=== PATIENT | male | born 1945 | race Caucasian/White ===

== ENCOUNTER 2018-04-11 05:15 | Inpatient (IN) | payer MEDICARE ==
[~2018-04-11] VITALS: Ht 182.9 cm; Wt 90.8 kg
[2018-04-11] VITALS (7 sets, daily range): BP systolic 97–130; BP diastolic 48–70
[2018-04-11] MEDS ORDERED: NKM (05:21)
--- NOTE | 2018-04-11 05:30 | Emergency Room Report ---
History of Present Illness General Chief Complaint: Dizziness Source: Patient Present Illness HPI Is a 72-year-old male with unknown past medical history. He presents with chief complaint of dizziness and confusion. He was sitting at a restaurant at the [employer]. Staff called 911 because he has been there for a while and was shaking. He had water and orange juice there. Patient has injury to the right forehead and had a black eye. He said he fell at home yesterday. No other complaint. He denies any suicidal thoughts homicidal thought. Denies any alcohol use. Denies any drug use. Denies any medical issue. Allergies: Coded Allergies: No Known Allergies (Unverified , 04/11/18) Patient History Past Medical History: see triage record, old chart reviewed Past Surgical History: other Pertinent Family History: none Social History: Denies: smoking Immunizations: other Reviewed Nursing Documentation: PMH: Agreed; PSxH: Agreed Nursing Documentation-PMH Past Medical History: No History, Except For Review of Systems Eye: Denies: eye pain, blurred vision ENT: Denies: ear pain, nose congestion, throat swelling Respiratory: Denies: cough, shortness of breath Cardiovascular: Denies: chest pain, palpitations Gastrointestinal: Denies: abdominal pain, diarrhea, nausea, vomiting Musculoskeletal: Denies: back pain, joint pain Skin: Denies: rash Neurological: Denies: headache, numbness Endocrine: Denies: increased thirst, increased urine Hematologic/Lymphatic: Denies: easy bruising All Other Systems: negative except mentioned in HPI Physical Exam Vital Signs Date Time Temp Pulse Resp B/P (MAP) Pulse Ox O2 Delivery O2 Flow Rate FiO2 04/11/18 05:17 98.7 130 20 112/66 95 Room Air 98.8 vitals with tachycardia Sp02 EP Interpretation: reviewed, normal General Appearance: well appearing, no apparent distress, alert Head: normocephalic, other - right frontal forehead ecchymosis and periorbital ecchymosis Eyes: bilateral eye PERRL, bilateral eye EOMI ENT: hearing grossly normal, normal pharynx Neck: full range of motion, supple, no meningismus Respiratory: chest non-tender, lungs clear, normal breath sounds Cardiovascular #1: regular rate, rhythm, no murmur, tachycardia Gastrointestinal: normal bowel sounds, non tender, no mass, no organomegaly, no bruit, non-distended Musculoskeletal: back normal, gait/station normal, normal range of motion Neurologic: alert, other - tremulous Psychiatric: mood/affect normal Skin: warm/dry Medical Decision Making Diagnostic Impression: Primary Impression: Dizziness of unknown cause ER Course Patient with an altered mental status and dizziness. He is tremulous. He does have head injury. Question alcohol abuse with withdrawal symptoms. Labs and CT scan will be ordered. Ativan given. I will sign this pt out to Dr. Braga for final disposition. EKG Diagnostic Results Rate: tachycardiac Rhythm: NSR ST Segments: other - NSST changes Rhythm Strip Diag. Results Rhythm Strip Time: 06:17 EP Interpretation: yes Rate: 120 Rhythm: NSR, no PVC's, no ectopy Last Vital Signs Date Time Temp Pulse Resp B/P (MAP) Pulse Ox O2 Delivery O2 Flow Rate FiO2 04/11/18 05:17 98.7 130 20 112/66 95 Room Air 98.8 Status: improved YODIT LORENZANA M.D. Apr 11, 2018 05:30
[2018-04-11] MEDS ORDERED: LORazepam Inj 2mg/ml 1ml IV ONE (05:45)
[2018-04-11 06:39] LABS: HEMATOCRIT 43.5 % (42.0-52.0); HEMOGLOBIN 14.7 G/DL (14.2-18.0); MEAN CORPUSCULAR VOLUME 86 FL (80-99); PLATELET COUNT 140 K/UL (150-450); RED BLOOD COUNT 5.08 M/UL (4.70-6.10); RED CELL DISTRIBUTION WIDTH 11.7 % (11.6-14.8); WHITE BLOOD COUNT 12.2 K/UL (4.8-10.8)
[2018-04-11 06:39] LABS: APPEARANCE,URINE CLEAR; BILIRUBIN, URINE NEGATIVE (NEGATIVE); GLUCOSE, URINE (UA) 3+ (NEGATIVE); KETONES,URINE 1+ (NEGATIVE); LEUKOCYTE ESTERASE ,URINE 3+ (NEGATIVE); NITRITE,URINE POSITIVE (NEGATIVE); PH,URINE 5 (4.5-8.0); PROTEIN,URINE 3+ (NEGATIVE); UROBILINOGEN,URINE 1 MG/DL (0.0-1.0)
[2018-04-11 06:53] LABS: ANION GAP 9 mmol/L (5-15); BLOOD UREA NITROGEN 38 mg/dL (7-18); CALCIUM 9.5 MG/DL (8.5-10.1); CARBON DIOXIDE 24 MMOL/L (21-32); CHLORIDE 95 MMOL/L (98-107); CREATININE 1.5 MG/DL (0.55-1.30); POTASSIUM 5.5 MMOL/L (3.5-5.1); SODIUM 128 MMOL/L (136-145)
[2018-04-11 06:56] LABS: COLOR,URINE YELLOW
[2018-04-11] MEDS ORDERED: cefTRIAXone 1 GM in NS 55 ML IVPB ONE (07:00)
[2018-04-11] MEDS: Sodium Polystyrene Sulfonate 15gm Powder ORAL ONE ×2 (07:09→13:43)
--- NOTE | 2018-04-11 07:42 | Emergency Room Report ---
Physical Exam Vital Signs Date Time Temp Pulse Resp B/P (MAP) Pulse Ox O2 Delivery O2 Flow Rate FiO2 04/11/18 05:17 98.7 130 20 112/66 95 Room Air 98.8 Medical Decision Making Diagnostic Impression: Primary Impression: Altered mental state Qualified Codes: R41.82 - Altered mental status, unspecified Additional Impressions: Dehydration Hyponatremia Hyperkalemia UTI (urinary tract infection) Qualified Codes: N39.0 - Urinary tract infection, site not specified Fever Qualified Codes: R50.9 - Fever, unspecified Elevated troponin ER Course Hospital Course 72-year-old male found at a restaurant, shaking, confused, black eye Clinical course patient initially seen and evaluated by Dr. Verma; please see his note for full history and physical Labs - BUN/Cr elevated, noted leukocytosis, Na 128, K 5.5, troponins 0.067, BNP > 3000, UA + bacteria EKG - sinus tachycardia, no acute ischemic changes interpreted by me CXR - cardiomegaly CT head - no acute process Abx given. IV hydration continued. Given Kayexalate. Rectal temperature 103. Given rectal Tylenol no reported chest pain or SOB. Patient appears confused. May require manager social responsibility to locate family Case discussed with Dr Jarquin and they agreed to admit patient to their service for further care and support I feel this is a highly complex case requiring extensive working including EKG/ Rhythm strip, Xray/CT/US, Blood/urine lab work, repeat exams while in ED, and administration of strong opiates/narcotics for pain control, admission to hospital or close patient follow up. Diagnosis - AMS, dehydation, hyponatremia, hyperkalemia, UTI, fever, elevated troponin Patient admitted to telemetry in serious condition Labs Test 04/11/18 06:10 04/11/18 06:29 04/11/18 07:25 White Blood Count 12.2 K/UL (4.8-10.8) Red Blood Count 5.08 M/UL (4.70-6.10) Hemoglobin 14.7 G/DL (14.2-18.0) Hematocrit 43.5 % (42.0-52.0) Mean Corpuscular Volume 86 FL (80-99) Mean Corpuscular Hemoglobin 29.0 PG (27.0-31.0) Mean Corpuscular Hemoglobin Concent 33.9 G/DL (32.0-36.0) Red Cell Distribution Width 11.7 % (11.6-14.8) Platelet Count 140 K/UL (150-450) Mean Platelet Volume 6.6 FL (6.5-10.1) Neutrophils (%) (Auto) % (45.0-75.0) Lymphocytes (%) (Auto) % (20.0-45.0) Monocytes (%) (Auto) % (1.0-10.0) Eosinophils (%) (Auto) % (0.0-3.0) Basophils (%) (Auto) % (0.0-2.0) Sodium Level 128 MMOL/L (136-145) Potassium Level 5.5 MMOL/L (3.5-5.1) Chloride Level 95 MMOL/L (98-107) Carbon Dioxide Level 24 MMOL/L (21-32) Anion Gap 9 mmol/L (5-15) Blood Urea Nitrogen 38 mg/dL (7-18) Creatinine 1.5 MG/DL (0.55-1.30) Estimat Glomerular Filtration Rate mL/min (>60) Glucose Level 337 MG/DL (74-106) Calcium Level 9.5 MG/DL (8.5-10.1) Troponin I 0.067 ng/mL (0.000-0.056) Pro-B-Type Natriuretic Peptide 3543 pg/mL (0-125) Serum Alcohol < 3 mg/dL Urine Color Yellow Urine Appearance Clear Urine pH 5 (4.5-8.0) Urine Specific [place] 1.015 (1.005-1.035) Urine Protein 3+ (NEGATIVE) Urine Glucose (UA) 3+ (NEGATIVE) Urine Ketones 1+ (NEGATIVE) Urine Blood 5+ (NEGATIVE) Urine Nitrite Positive (NEGATIVE) Urine Bilirubin Negative (NEGATIVE) Urine Urobilinogen 1 MG/DL (0.0-1.0) Urine Leukocyte Esterase 3+ (NEGATIVE) Urine RBC 60-80 /HPF (0 - 0) Urine WBC 20-30 /HPF (0 - 0) Urine Squamous Epithelial Cells Occasional /LPF Urine Bacteria Moderate /HPF (NONE) EKG Diagnostic Results Rate: tachycardiac Rhythm: NSR ST Segments: no acute changes ASA given to the pt in ED: No Rhythm Strip Diag. Results EP Interpretation: yes Rhythm: NSR, no PVC's, no ectopy Chest X-Ray Diagnostic Results Chest X-Ray Diagnostic Results : Chest X-Ray Ordered: Yes # of Views/Limited/Complete: 1 View Indication: Other - AMS EP Interpretation: Yes Interpretation: no consolidation, no effusion, no pneumothorax, other - cardiomegaly. pulmonary congestion Impression: Other - chf Electronically Signed by: Electronically signed by Alonso Braga MD Last Vital Signs Date Time Temp Pulse Resp B/P (MAP) Pulse Ox O2 Delivery O2 Flow Rate FiO2 04/11/18 05:58 98.7 130 20 112/66 95 Room Air 98.7 Status: improved Disposition: ADMITTED INPATIENT Condition: Serious Referrals: NON PHYSICIAN (PCP) Alonso Braga MD Apr 11, 2018 07:42
[2018-04-11] MEDS ORDERED: Acetaminophen 650 MG SUPP RECTAL ONE (07:45)
[2018-04-11] MEDS ORDERED: Sodium Polystyrene Sulfonate 15gm Powder RECTAL ONE (07:45)
--- NOTE | 2018-04-11 10:51 | Consultation ---
Consult Note Consult Note asked to eval at the request of Dr Wells Is a 72-year-old male with unknown past medical history. He presents with chief complaint of dizziness and confusion. He was sitting at a restaurant at the [email or web address]. Staff called 911 because he has been there for a while and was shaking. He had water and orange juice there. Patient has injury to the right forehead and had a black eye. He said he fell at home yesterday. No other complaint. He denies any suicidal thoughts homicidal thought. Denies any alcohol use. Denies any drug use. Denies any medical issue. Allergies: Coded Allergies: No Known Allergies (Unverified , 04/11/18) seen in [facility] Examined data reviewed discussed with pharmacy technician trainee/Plan Renal Failure- encephalopathy UTI Dehydration Low na and high K Elevated troponin Dm , high Glucose Hydrate- Rocephin Monitor lytes start ASA Nitrate Beta blockerd St eval Per orders Greyson Ignacio MD Apr 11, 2018 10:51
[2018-04-11] MEDS ORDERED: Metoprolol Tartrate 12.5mg TAB ORAL SCH ×2 (11:00→21:00)
[2018-04-11] MEDS ORDERED: cefTRIAXone 1 GM in D5W 55 ML IVPB SCH (12:00)
--- NOTE | 2018-04-11 12:15 | Diagnostic Imaging Report ---
Indication: Head trauma, confusion after fall Technique: spiral acquisitions obtained through the brain. Angled axial and coronal 5 x 5 mm slices were reconstructed. No IV contrast utilized. Radiation dose was minimized using automated exposure control Total dose length product 1435.91 mGycm. CTDIvol(s) 70.38 mGy Comparison: FINDINGS: No acute hemorrhage or edema. No mass effect or midline shift. There is age-related enlargement of the ventricles and extra axial CSF spaces. There is periventricular deep white matter ischemic change. Multiple old lacunar infarcts are seen in the basal ganglia and deep white matter. Normal corrigan-white differentiation otherwise. Visualized orbits are unremarkable. There is mild maxillary disease on the right. Intact calvarium. IMPRESSION: Chronic and age-related changes. Negative for acute intracranial bleed or mass effect Old lacunar infarcts, as described Sinus disease This agrees with the preliminary interpretation provided overnight by [facility]erad[facility] service. The CT scanner at [facility] is accredited by the [employer] and the scans are performed using protocols designed to limit radiation exposure to as low as reasonably achievable to attain images of sufficient resolution adequate for diagnostic evaluation
--- NOTE | 2018-04-11 12:16 | Diagnostic Imaging Report ---
Indication: Chest pain Technique: One view of the chest Comparison: none Findings: There is central bronchial wall thickening. No acute infiltrates, effusions, or congestion. Normal heart size Impression: No acute process
[2018-04-11] MEDS: Nitroglycerin Patch 0.4mg TDERMAL SCH (13:28)
[2018-04-11] MEDS: Acetaminophen 500mg (ES) tab ORAL PRN ×2 (13:29→20:30)
[2018-04-11] MEDS: Aspirin Baby 81mg ORAL SCH (13:30)
--- NOTE | 2018-04-11 13:48 | Cardiology Report ---
APPROVED REPORT EXAM: Two-dimensional and M-mode echocardiogram with Doppler and color Doppler. INDICATION Congestive Heart Failure M-Mode DIMENSIONS IVSd1.5 (0.7-1.1cm)Left Atrium (MM)3.9 (1.6-4.0cm) LVDd4.6 (3.5-5.6cm)Aortic Root3.9 (2.0-3.7cm) PWd1.7 (0.7-1.1cm)Aortic Cusp Exc.1.9 (1.5-2.0cm) IVSs1.8 cm LVDs2.8 (2.5-4.0cm) PWs2.2 cm Normal left ventricular chamber size, hyper dynamic systolic function and wall motion to extent visualized. Left ventricular ejection fraction estimated to be 70-75 %. Mild left ventricular hypertrophy by 2-D. No evidence of pericardial effusion. All other cardiac chamber sizes are within normal limits. Focal aortic valve sclerosis with adequate cusp excursion. Thickened mitral valve leaflets with normal excursion. Mitral annulus and aortic root calcification. Pulmonic valve not well visualized. Normal tricuspid valve structure. IVC at 2.0 cm without physiologic collapse suggestive of increased RA pressure. A color flow and spectral Doppler study was performed and revealed: No aortic regurgitation. Trace mitral regurgitation. Mitral diastolic velocities suggest reduced left ventricular relaxation c/w mild LV diastolic dysfunction (Grade I ). Mild tricuspid regurgitation. Tricuspid systolic velocities suggests peak right ventricular systolic pressure of 24 mmHg No Pulmonic regurgitation present.
--- NOTE | 2018-04-11 14:56 | Consultation ---
History of Present Illness General Date patient seen: Apr 11, 2018 Chief Complaint: Dizziness Present Illness HPI 72-year-old male who presented to the hospital with dizziness and confusion. the pt has waxing and waning of consciousness Allergies: Coded Allergies: No Known Allergies (Unverified , 04/11/18) Medication History Scheduled No Known Medications* (NKM - No Known Medications*), 0 ., (Reported) Patient History History Provided By: Patient, Medical Record Healthcare decision maker Resuscitation status Advanced Directive on File Past Medical/Surgical History Past Medical/Surgical History: (1) Dehydration (2) Hyperkalemia (3) Fever (4) Hyponatremia (5) UTI (urinary tract infection) (6) Elevated troponin (7) Altered mental state (8) Dizziness of unknown cause Review of Systems Psychiatric: Reports: prior hx, anxiety, hallucinations Physical Exam General Appearance: no apparent distress, lethargic, confused Last 24 Hour Vital Signs Date Time Temp Pulse Resp B/P (MAP) Pulse Ox O2 Delivery O2 Flow Rate FiO2 04/11/18 13:45 99.0 04/11/18 13:29 100.0 04/11/18 13:29 120 123/70 04/11/18 13:28 123/70 04/11/18 12:04 100.0 120 20 123/70 (87) 95 100.0 04/11/18 11:44 117 04/11/18 09:35 99.7 04/11/18 09:35 99.7 111 20 128/70 (89) 96 99.7 04/11/18 09:23 111 04/11/18 09:01 103.0 115 20 105/58 96 Room Air 103.0 04/11/18 08:58 115 20 105/58 96 Room Air 04/11/18 07:54 103.0 122 20 130/48 96 Room Air 103.0 04/11/18 07:45 103.0 04/11/18 05:58 98.7 130 20 112/66 95 Room Air 98.7 04/11/18 05:17 98.7 130 20 112/66 95 Room Air 98.8 Laboratory Tests Test 04/11/18 06:10 04/11/18 06:29 04/11/18 07:25 04/11/18 08:55 White Blood Count 12.2 K/UL (4.8-10.8) H Red Blood Count 5.08 M/UL (4.70-6.10) Hemoglobin 14.7 G/DL (14.2-18.0) Hematocrit 43.5 % (42.0-52.0) Mean Corpuscular Volume 86 FL (80-99) Mean Corpuscular Hemoglobin 29.0 PG (27.0-31.0) Mean Corpuscular Hemoglobin Concent 33.9 G/DL (32.0-36.0) Red Cell Distribution Width 11.7 % (11.6-14.8) Platelet Count 140 K/UL (150-450) L Mean Platelet Volume 6.6 FL (6.5-10.1) Neutrophils (%) (Auto) % (45.0-75.0) Lymphocytes (%) (Auto) % (20.0-45.0) Monocytes (%) (Auto) % (1.0-10.0) Eosinophils (%) (Auto) % (0.0-3.0) Basophils (%) (Auto) % (0.0-2.0) Differential Total Cells Counted 100 Neutrophils % (Manual) 87 % (45-75) H Lymphocytes % (Manual) 4 % (20-45) L Monocytes % (Manual) 9 % (1-10) Eosinophils % (Manual) 0 % (0-3) Basophils % (Manual) 0 % (0-2) Band Neutrophils 0 % (0-8) Platelet Estimate Decreased L Platelet Morphology Normal Anisocytosis 1+ Sodium Level 128 MMOL/L (136-145) L Potassium Level 5.5 MMOL/L (3.5-5.1) H Chloride Level 95 MMOL/L (98-107) L Carbon Dioxide Level 24 MMOL/L (21-32) Anion Gap 9 mmol/L (5-15) Blood Urea Nitrogen 38 mg/dL (7-18) H Creatinine 1.5 MG/DL (0.55-1.30) H Estimat Glomerular Filtration Rate mL/min (>60) Glucose Level 337 MG/DL (74-106) H Calcium Level 9.5 MG/DL (8.5-10.1) Troponin I 0.067 ng/mL (0.000-0.056) C-Reactive Protein, Quantitative 23.1 mg/dL (0.00-0.90) H Pro-B-Type Natriuretic Peptide 3543 pg/mL (0-125) H Serum Alcohol < 3 mg/dL Urine Color Yellow Urine Appearance Clear Urine pH 5 (4.5-8.0) Urine Specific [place] 1.015 (1.005-1.035) Urine Protein 3+ (NEGATIVE) H Urine Glucose (UA) 3+ (NEGATIVE) H Urine Ketones 1+ (NEGATIVE) H Urine Blood 5+ (NEGATIVE) H Urine Nitrite Positive (NEGATIVE) H Urine Bilirubin Negative (NEGATIVE) Urine Urobilinogen 1 MG/DL (0.0-1.0) H Urine Leukocyte Esterase 3+ (NEGATIVE) H Urine RBC 60-80 /HPF (0 - 0) H Urine WBC 20-30 /HPF (0 - 0) H Urine Squamous Epithelial Cells Occasional /LPF Urine Bacteria Moderate /HPF (NONE) H Lactic Acid Level 2.20 mmol/L (0.4-2.0) H 1.50 mmol/L (0.66-2.22) Height (Feet): 6 Weight (Pounds): 200 Medications Current Medications Medications (Trade) Dose Ordered Sig/Safia Route PRN Reason Start Time Stop Time Status Last Admin Dose Admin Acetaminophen (Tylenol) 500 mg Q4H PRN ORAL Mild Pain/Temp > 100.5 04/11/18 10:45 05/11/18 10:44 04/11/18 13:29 Aspirin (ASA) 162 mg DAILY ORAL 04/11/18 11:00 05/11/18 10:59 04/11/18 13:30 Ceftriaxone Sodium 1 gm/ Dextrose 55 ml @ 110 mls/hr DAILY IVPB 04/12/18 09:00 04/19/18 08:59 Metoprolol Tartrate (Lopressor) 12.5 mg Q12HR ORAL 04/11/18 21:00 05/11/18 20:59 Nitroglycerin (Ntg) 1 patch Q24H TDERMAL 04/11/18 11:00 05/11/18 10:59 04/11/18 13:28 Pantoprazole (Protonix) 40 mg EVERY 12 HOURS IVP 04/11/18 21:00 05/11/18 20:59 Sodium Chloride 1,000 ml @ 75 mls/hr [id number] IV 04/11/18 11:00 05/11/18 10:59 04/11/18 13:32 Tamsulosin HCl (Flomax) 0.4 mg BEDTIME ORAL 04/11/18 21:00 05/11/18 20:59 Assessment/Plan Assessment/Plan encephalopathy due to [facility] seroquel Vimal James MD Apr 11, 2018 14:56
[2018-04-11] MEDS ORDERED: Vitamin A&D Oint 2oz Tube TOPIC SCH (20:00)
--- NOTE | 2018-04-11 20:00 | Consultation ---
DATE OF CONSULTATION: 04/11/2018 INFECTIOUS DISEASE CONSULTATION CONSULTING PHYSICIAN: Conor Egan M.D. PRIMARY ATTENDING PHYSICIAN: Ubaldo Jarquin M.D.` REASON FOR CONSULTATION: Sepsis, UTI. HISTORY OF PRESENT ILLNESS: This is a 72-year-old white male admitted today. He was brought by paramedics. He was found to be dizzy, confused, shaking in [employer] dining area. He also had bruising of forehead and neck on the right side that he states that it happened after he fell at home yesterday. Overall, the patient is a poor historian. PAST MEDICAL HISTORY: Significant for diabetes mellitus type 2. The patient was on insulin for long time. PAST SURGICAL HISTORY: He denies any surgery in the past. SOCIAL HISTORY: Single. Denies alcohol, drug abuse, smoking. ALLERGIES: No known drug allergy. MEDICATIONS: Metoprolol, Flomax, Protonix, ceftriaxone, sodium chloride. REVIEW OF SYSTEMS: He has fever, nausea, difficulty in passing urine. Denies any coughing, chest pain. PHYSICAL EXAMINATION: VITAL SIGNS: T-max is 103, current temperature 100, pulse 120, blood pressure 123/70. GENERAL APPEARANCE: No acute distress. Seems slightly confused. HEAD AND NECK: Bruise in the right forehead and right upper eyelid. He has dry mouth. HEART: Tachycardic. LUNGS: Clear with adequate expansion. ABDOMEN: Soft, nontender. EXTREMITIES: He has no edema. LABORATORY AND DIAGNOSTIC DATA: WBC 12.2, hemoglobin 13.7, hematocrit 43.5, platelets 140,000. Sodium 128, potassium 5.5, BUN 13, creatinine 1.5, glucose 337. CT scan of the head showed old lacunar infarcts. Chest x-ray was negative. IMPRESSION: Sepsis with fever, leukocytosis, tachycardia. The patient has hematuria, pyuria, and has positive nitrites and bacteria in urine. Source of infection seems to be UTI. He has altered mental status, has electrolyte imbalance with hyponatremia and hyperkalemia, has diabetes mellitus out of control, has elevated troponin, has lactic acidosis that resolved. RECOMMENDATION: We will continue with ceftriaxone. We will follow up cultures including urine and blood culture. At the end of my exam, I thank Dr. Jarquin for involving me in the care of this patient. Conor Egan M.D. DR: Muna JOB#: [id number] CC: SAHIL
[2018-04-11] MEDS: Pantoprazole Inj IVP SCH (20:29)
[2018-04-11] MEDS: Tamsulosin 0.4mg cap ORAL SCH (20:30)
--- NOTE | 2018-04-11 21:36 | Cardiology Progress Note ---
Subjective Subjective The patient is seen and examined, full consult note will be dictated shortly. Objective Last 24 Hour Vital Signs Date Time Temp Pulse Resp B/P (MAP) Pulse Ox O2 Delivery O2 Flow Rate FiO2 04/11/18 20:30 101.8 04/11/18 20:00 101.8 114 20 97/59 (72) 94 101.8 04/11/18 16:00 98.2 110 20 99/56 (70) 95 98.2 04/11/18 15:54 108 04/11/18 13:45 99.0 04/11/18 13:29 100.0 04/11/18 13:29 120 123/70 04/11/18 13:28 123/70 04/11/18 12:04 100.0 120 20 123/70 (87) 95 100.0 04/11/18 11:44 117 04/11/18 09:45 Room Air 04/11/18 09:35 99.7 04/11/18 09:35 99.7 111 20 128/70 (89) 96 99.7 04/11/18 09:23 111 04/11/18 09:01 103.0 115 20 105/58 96 Room Air 103.0 04/11/18 08:58 115 20 105/58 96 Room Air 04/11/18 07:54 103.0 122 20 130/48 96 Room Air 103.0 04/11/18 07:45 103.0 04/11/18 05:58 98.7 130 20 112/66 95 Room Air 98.7 04/11/18 05:17 98.7 130 20 112/66 95 Room Air 98.8 Laboratory Tests Test 04/11/18 06:10 04/11/18 06:29 04/11/18 07:25 04/11/18 08:55 White Blood Count 12.2 K/UL (4.8-10.8) H Red Blood Count 5.08 M/UL (4.70-6.10) Hemoglobin 14.7 G/DL (14.2-18.0) Hematocrit 43.5 % (42.0-52.0) Mean Corpuscular Volume 86 FL (80-99) Mean Corpuscular Hemoglobin 29.0 PG (27.0-31.0) Mean Corpuscular Hemoglobin Concent 33.9 G/DL (32.0-36.0) Red Cell Distribution Width 11.7 % (11.6-14.8) Platelet Count 140 K/UL (150-450) L Mean Platelet Volume 6.6 FL (6.5-10.1) Neutrophils (%) (Auto) % (45.0-75.0) Lymphocytes (%) (Auto) % (20.0-45.0) Monocytes (%) (Auto) % (1.0-10.0) Eosinophils (%) (Auto) % (0.0-3.0) Basophils (%) (Auto) % (0.0-2.0) Differential Total Cells Counted 100 Neutrophils % (Manual) 87 % (45-75) H Lymphocytes % (Manual) 4 % (20-45) L Monocytes % (Manual) 9 % (1-10) Eosinophils % (Manual) 0 % (0-3) Basophils % (Manual) 0 % (0-2) Band Neutrophils 0 % (0-8) Platelet Estimate Decreased L Platelet Morphology Normal Anisocytosis 1+ Sodium Level 128 MMOL/L (136-145) L Potassium Level 5.5 MMOL/L (3.5-5.1) H Chloride Level 95 MMOL/L (98-107) L Carbon Dioxide Level 24 MMOL/L (21-32) Anion Gap 9 mmol/L (5-15) Blood Urea Nitrogen 38 mg/dL (7-18) H Creatinine 1.5 MG/DL (0.55-1.30) H Estimat Glomerular Filtration Rate mL/min (>60) Glucose Level 337 MG/DL (74-106) H Calcium Level 9.5 MG/DL (8.5-10.1) Troponin I 0.067 ng/mL (0.000-0.056) C-Reactive Protein, Quantitative 23.1 mg/dL (0.00-0.90) H Pro-B-Type Natriuretic Peptide 3543 pg/mL (0-125) H Serum Alcohol < 3 mg/dL Urine Color Yellow Urine Appearance Clear Urine pH 5 (4.5-8.0) Urine Specific [place] 1.015 (1.005-1.035) Urine Protein 3+ (NEGATIVE) H Urine Glucose (UA) 3+ (NEGATIVE) H Urine Ketones 1+ (NEGATIVE) H Urine Blood 5+ (NEGATIVE) H Urine Nitrite Positive (NEGATIVE) H Urine Bilirubin Negative (NEGATIVE) Urine Urobilinogen 1 MG/DL (0.0-1.0) H Urine Leukocyte Esterase 3+ (NEGATIVE) H Urine RBC 60-80 /HPF (0 - 0) H Urine WBC 20-30 /HPF (0 - 0) H Urine Squamous Epithelial Cells Occasional /LPF Urine Bacteria Moderate /HPF (NONE) H Lactic Acid Level 2.20 mmol/L (0.4-2.0) H 1.50 mmol/L (0.66-2.22) Test 04/11/18 17:30 Urine Random Sodium < 20 mmol/L (20-110) L Beto Chappell MD Apr 11, 2018 21:36
[2018-04-11] MEDS ORDERED: Sodium Chloride 500ML 500 ML IV ONE (21:45)
[2018-04-12] VITALS: BP 105/53
[2018-04-12] MEDS: Acetaminophen 500mg (ES) tab ORAL PRN (02:44)
[2018-04-12 04:00] VITALS: BP 101/53
--- NOTE | 2018-04-12 06:00 | Consultation ---
DATE OF CONSULTATION: 04/11/2018 CARDIOLOGY CONSULTATION CONSULTING PHYSICIAN: Beto Chappell M.D. REFERRING PHYSICIAN: Ubaldo Jarquin M.D. REASON FOR CONSULTATION: Management of elevated troponin I level. HISTORY OF PRESENT ILLNESS: The patient is a very unfortunate 72-year-old gentleman who presented to the hospital with dizziness and confusion. Unfortunately, he was sitting in a restaurant in [place] [employer] and started to have trouble with shaking legs and tremulousness. Apparently, he had a recent fall at home injuring right forehead and right eye. At the time of evaluation in the emergency department, initial blood pressure was 112/66 mmHg and heart rate was 130. A 12-lead electrocardiogram revealed sinus tachycardia, rate of [address] and T-wave abnormalities. The patient's initial evaluation in the emergency department included a blood test, which revealed hyponatremia and hyperkalemia as well as presence of urinary tract infection. The patient also was found to have leukocytosis with left shift, he therefore was admitted to telemetry for further evaluation and management. Cardiology consultation was made at the request of Dr. Jarquin as the patient showed slight elevation of troponin I level, also was tachycardic. Initial chest x-ray done in the emergency department was significant for no acute cardiopulmonary disease and normal cardiac silhouette. 2D echocardiography done this morning had shown normal LV systolic function with LVEF of about 70% to 75%, presence of grade 1 LV diastolic dysfunction, and right ventricular systolic pressure approximately 24 mmHg. PAST MEDICAL HISTORY: None. SOCIAL HISTORY: Never smoked. Denies any alcohol or illicit drug use. MEDICATIONS: List of medications at home, none. PAST SURGICAL HISTORY: None. REVIEW OF SYSTEMS: HEENT: Denies any headache, diplopia, or blurred vision. He was always dizzy and lightheaded. CONSTITUTIONAL: Denies any fever, chills, night sweats, or weight loss. CARDIOVASCULAR: Denies any chest pain, shortness of breath, PND, orthopnea, or leg swelling. Possible presyncopal event. PULMONARY: Denies any cough, hemoptysis, or wheezing. GASTROINTESTINAL: Denies any nausea, vomiting, diarrhea, constipation, abdominal pain, or GI bleed. GENITOURINARY: Denies any hematuria, dysuria, or incontinence. NEUROLOGY: No signs of lateralization. No seizure disorder. No altered speech. MUSCULOSKELETAL: Injury to the right forehead. Injury to the right eye causing black eye. PHYSICAL EXAMINATION: VITAL SIGNS: Blood pressure is 112/66, pulse of 130, respirations of 20, and O2 saturation 94% on room air. GENERAL: The patient is a very unfortunate 72-year-old gentleman, in no apparent respiratory distress, somewhat altered at this time. There is right frontal forehead ecchymosis and periorbital ecchymosis on the right side. HEENT: Atraumatic and normocephalic. Anicteric. Pupils are equal, round, and reactive to light and accommodation. . NECK: JVP less than 5 cm. No carotid bruit. CARDIOVASCULAR: Normal S1 and S2. Tachycardic. No murmurs, gallops, or rubs. PMI is at fourth intercostal space in the midclavicular line. LUNGS: Clear to auscultation bilaterally. ABDOMEN: Soft, nontender, and nondistended. No hepatosplenomegaly. Positive bowel sounds. EXTREMITIES: No evidence of edema, clubbing, or cyanosis. LABORATORY FINDINGS: Sodium was 128, potassium of 5.5, chloride 95, bicarbonate 24, BUN 38, creatinine 1.5, glucose 337, and calcium is 8.9. WBC 12.2, hemoglobin 14.7, hematocrit 43.5, and platelet count of 140,000 with 87% neutrophils. Toxicology showed serum alcohol less than 3 and urine showed 3+ proteinuria, glycosuria, 4+ ketones, sodium was less than 20. ASSESSMENT AND PLAN: The patient is a very unfortunate 72-year-old gentleman, seen in Cardiology consultation at request of Dr. Jarquin. 1. Presyncope/syncopal event due to hypovolemia. Laboratory data is in favor of hypovolemia instead of low urine sodium, prerenal azotemia, and hyponatremia as well as hyperkalemia. The patient will be on aggressive hydration with IV normal saline and continue to manage the patient hemodynamically. 2. Slight elevation of troponin I level due to hypovolemia and relative hypotension. We will continue with serial troponin I level. 12-lead electrocardiogram does not show any evidence of ischemia. 3. Sinus tachycardia, likely secondary to hypovolemia and intravascular volume depletion. Correct electrolytes and water. I would like to thank Dr. Jarquin, for allowing me to participate in care of this patient. Beto Chappell M.D. DR: MAUREEN JOB#: [id number] CC:
[2018-04-12 07:26] LABS: HEMATOCRIT 34.9 % (42.0-52.0); MEAN CORPUSCULAR VOLUME 85 FL (80-99); PLATELET COUNT 100 K/UL (150-450); RED CELL DISTRIBUTION WIDTH 12.1 % (11.6-14.8)
[2018-04-12 07:58] LABS: ALANINE AMINOTRANSFERASE 31 U/L (12-78); ALBUMIN 2.3 G/DL (3.4-5.0); ALBUMIN/GLOBULIN RATIO 0.6 (1.0-2.7); ALKALINE PHOSPHATASE 82 U/L (46-116); ANION GAP 8 mmol/L (5-15); ASPARTATE AMINO TRANSFERASE 16 U/L (15-37); BILIRUBIN,TOTAL 0.4 MG/DL (0.2-1.0); BLOOD UREA NITROGEN 36 mg/dL (7-18); CALCIUM 9.3 MG/DL (8.5-10.1); CARBON DIOXIDE 27 MMOL/L (21-32); CHLORIDE 102 MMOL/L (98-107); CHOLESTEROL 97 MG/DL (< 200); CREATININE 1.2 MG/DL (0.55-1.30); FERRITIN 1352 NG/ML (8-388); GAMMA GLUTAMYL TRANSPEPTIDASE 43 U/L (5-85); HDL CHOLESTEROL 10 MG/DL (40-60); PHOSPHORUS 3.4 MG/DL (2.5-4.9); POTASSIUM 3.3 MMOL/L (3.5-5.1); SODIUM 137 MMOL/L (136-145); TRIGLYCERIDES 222 MG/DL (30-150)
[2018-04-12 08:00] VITALS: BP 103/56
[2018-04-12] MEDS: Pantoprazole Inj IVP SCH ×2 (08:23→20:31)
[2018-04-12] MEDS: cefTRIAXone 1 GM in D5W 55 ML IVPB SCH (08:25)
[2018-04-12 08:27] LABS: % IRON SATURATION 8 % (15-50); IRON 12 ug/dL (50-175); TOTAL IRON BINDING CAPACITY 146 ug/dL (250-450)
[2018-04-12] MEDS: Vitamin A&D Oint 2oz Tube TOPIC SCH ×2 (08:59→17:11)
[2018-04-12] MEDS: Aspirin Baby 81mg ORAL SCH (08:59)
--- NOTE | 2018-04-12 10:26 | Diagnostic Imaging Report ---
Indication: Shoulder pain Technique: 3 views of the left shoulder Comparison: none Findings: Small calcific focus adjacent to the humeral head probably represents a focus of calcific tendinosis. No acute fractures. No dislocations. The joint spaces are preserved Impression: Possible calcific tendinosis of the shoulder. No acute abnormality
[2018-04-12] MEDS: Nitroglycerin Patch 0.4mg TDERMAL SCH (11:00)
[2018-04-12 11:51] VITALS: BP 114/64
--- NOTE | 2018-04-12 12:08 | Infectious Diseases Prog Note ---
Assessment/Plan Assessment/Plan A; Sepsis Bacteremia UTI DM & Hyperglycemia AMS elevated troponin Syncope & Fall P; Continue Rocephin Add Iv Vancomycin Will f/u cultures Subjective ROS Limited/Unobtainable: Yes Allergies: Coded Allergies: No Known Allergies (Unverified , 04/11/18) Objective Vital Signs Last 24 Hour Vital Signs Date Time Temp Pulse Resp B/P (MAP) Pulse Ox O2 Delivery O2 Flow Rate FiO2 04/12/18 11:51 98.2 105 20 114/64 (81) 95 98.2 04/12/18 11:00 104/59 04/12/18 09:00 Room Air 04/12/18 08:00 96 04/12/18 08:00 98.1 104 20 103/56 (72) 95 98.1 04/12/18 04:00 97 04/12/18 04:00 98.2 20 101/53 (69) 95 98.2 04/12/18 00:00 99.0 20 105/53 (70) 94 99.0 04/12/18 00:00 107 04/11/18 21:00 Room Air 04/11/18 21:00 99.5 04/11/18 21:00 114 97/59 04/11/18 20:30 101.8 04/11/18 20:00 99.0 100 20 105/53 (70) 94 99.0 04/11/18 20:00 124 04/11/18 20:00 101.8 114 20 97/59 (72) 94 101.8 04/11/18 16:00 98.2 110 20 99/56 (70) 95 98.2 04/11/18 15:54 108 04/11/18 13:29 100.0 04/11/18 13:29 120 123/70 04/11/18 13:28 123/70 Height (Feet): 6 Weight (Pounds): 197 General Appearance: no acute distress HEENT: mucous membranes moist, other - right forehead & upper eyelid bruise Cardiovascular: normal rate Abdomen: soft, non tender Extremities: no edema Neurologic/Psychiatric: other - sleeping Microbiology Date/Time Source Procedure Growth Status 04/11/18 07:35 Blood Blood Culture - Preliminary Resulted 04/11/18 07:25 Blood Blood Culture - Preliminary Resulted 04/11/18 06:29 Urine,Clean Catch Urine Culture - Preliminary Gram Positive Cocci Resulted Laboratory Tests Test 04/11/18 17:30 04/12/18 06:00 04/12/18 07:40 Urine Random Sodium < 20 mmol/L (20-110) L White Blood Count 7.0 K/UL (4.8-10.8) Red Blood Count 4.10 M/UL (4.70-6.10) L Hemoglobin 12.0 G/DL (14.2-18.0) L Hematocrit 34.9 % (42.0-52.0) L Mean Corpuscular Volume 85 FL (80-99) Mean Corpuscular Hemoglobin 29.2 PG (27.0-31.0) Mean Corpuscular Hemoglobin Concent 34.4 G/DL (32.0-36.0) Red Cell Distribution Width 12.1 % (11.6-14.8) Platelet Count 100 K/UL (150-450) L Mean Platelet Volume 7.2 FL (6.5-10.1) Neutrophils (%) (Auto) % (45.0-75.0) Lymphocytes (%) (Auto) % (20.0-45.0) Monocytes (%) (Auto) % (1.0-10.0) Eosinophils (%) (Auto) % (0.0-3.0) Basophils (%) (Auto) % (0.0-2.0) Differential Total Cells Counted 100 Neutrophils % (Manual) 79 % (45-75) H Lymphocytes % (Manual) 8 % (20-45) L Monocytes % (Manual) 6 % (1-10) Eosinophils % (Manual) 0 % (0-3) Basophils % (Manual) 0 % (0-2) Band Neutrophils 7 % (0-8) Platelet Estimate Decreased L Platelet Morphology Normal Red Blood Cell Morphology Normal Sodium Level 137 MMOL/L (136-145) Potassium Level 3.3 MMOL/L (3.5-5.1) L Chloride Level 102 MMOL/L (98-107) Carbon Dioxide Level 27 MMOL/L (21-32) Anion Gap 8 mmol/L (5-15) Blood Urea Nitrogen 36 mg/dL (7-18) H Creatinine 1.2 MG/DL (0.55-1.30) Estimat Glomerular Filtration Rate mL/min (>60) Glucose Level 300 MG/DL (74-106) H Hemoglobin A1c 9.1 % (4.3-6.0) H Lactic Acid Level 1.00 mmol/L (0.4-2.0) Uric Acid 4.7 MG/DL (2.6-7.2) Calcium Level 9.3 MG/DL (8.5-10.1) Phosphorus Level 3.4 MG/DL (2.5-4.9) Magnesium Level 2.2 MG/DL (1.8-2.4) Iron Level 12 ug/dL (50-175) L Total Iron Binding Capacity 146 ug/dL (250-450) L Percent Iron Saturation 8 % (15-50) L Unsaturated Iron Binding 134 ug/dL (112-346) Ferritin 1352 NG/ML (8-388) H Total Bilirubin 0.4 MG/DL (0.2-1.0) Gamma Glutamyl Transpeptidase 43 U/L (5-85) Aspartate Amino Transf (AST/SGOT) 16 U/L (15-37) Alanine Aminotransferase (ALT/SGPT) 31 U/L (12-78) Alkaline Phosphatase 82 U/L (46-116) Troponin I 0.287 ng/mL (0.000-0.056) Pro-B-Type Natriuretic Peptide 2080 pg/mL (0-125) H Total Protein 6.0 G/DL (6.4-8.2) L Albumin 2.3 G/DL (3.4-5.0) L Globulin 3.7 g/dL Albumin/Globulin Ratio 0.6 (1.0-2.7) L Triglycerides Level 222 MG/DL (30-150) H Cholesterol Level 97 MG/DL (< 200) LDL Cholesterol 43 mg/dL (<100) HDL Cholesterol 10 MG/DL (40-60) L Cholesterol/HDL Ratio 9.7 (3.3-4.4) H Lipase 121 U/L (73-393) Vitamin B12 Level 220 PG/ML (193-986) Folate 14.6 NG/ML (8.6-58.9) Thyroid Stimulating Hormone (TSH) 0.618 uiU/mL (0.358-3.740) Hepatitis A IgM Antibody Pending Hepatitis B Surface Antigen Pending Hepatitis B Core IgM Antibody Pending Hepatitis C Antibody Pending HIV (1&2) Antibody Rapid Negative (NEGATIVE) Current Medications Medications (Trade) Dose Ordered Sig/Safia Route PRN Reason Start Time Stop Time Status Last Admin Dose Admin Acetaminophen (Tylenol) 500 mg Q4H PRN ORAL Mild Pain/Temp > 100.5 04/11/18 10:45 05/11/18 10:44 04/12/18 02:44 Aspirin (ASA) 162 mg DAILY ORAL 04/11/18 11:00 05/11/18 10:59 04/12/18 08:59 Ceftriaxone Sodium 1 gm/ Dextrose 55 ml @ 110 mls/hr DAILY IVPB 04/12/18 09:00 04/19/18 08:59 04/12/18 08:25 Nateglinide (Starlix) 120 mg TIAC ORAL 04/12/18 09:00 05/12/18 08:59 04/12/18 11:08 Nitroglycerin (Ntg) 1 patch Q24H TDERMAL 04/11/18 11:00 05/11/18 10:59 04/11/18 13:28 Pantoprazole (Protonix) 40 mg EVERY 12 HOURS IVP 04/11/18 21:00 05/11/18 20:59 04/12/18 08:23 Sodium Chloride 1,000 ml @ 75 mls/hr [id number] IV 04/11/18 11:00 05/11/18 10:59 04/11/18 23:32 Tamsulosin HCl (Flomax) 0.4 mg BEDTIME ORAL 04/11/18 21:00 05/11/18 20:59 04/11/18 20:30 Vancomycin HCl (Vanco rx to dose) 1 ea DAILY PRN MISC Per rx protocol 04/12/18 12:15 05/12/18 12:14 UNV Vitamin A/Vitamin D (A & D Oint) 1 applic TWICE A DAY TOPIC 04/12/18 09:00 05/12/18 08:59 04/12/18 08:59 Conor Egan MD Apr 12, 2018 12:08
--- NOTE | 2018-04-12 12:55 | General Progress Note ---
Assessment/Plan Assessment/Plan encephalopathy due to c seroquel prn Subjective Date patient seen: Apr 12, 2018 Neurologic/Psychiatric: Reports: anxiety Allergies: Coded Allergies: No Known Allergies (Unverified , 04/11/18) Objective Last 24 Hour Vital Signs Date Time Temp Pulse Resp B/P (MAP) Pulse Ox O2 Delivery O2 Flow Rate FiO2 04/12/18 12:00 107 04/12/18 11:51 98.2 105 20 114/64 (81) 95 98.2 04/12/18 11:00 104/59 04/12/18 09:00 Room Air 04/12/18 08:00 96 04/12/18 08:00 98.1 104 20 103/56 (72) 95 98.1 04/12/18 04:00 97 04/12/18 04:00 98.2 20 101/53 (69) 95 98.2 04/12/18 00:00 99.0 20 105/53 (70) 94 99.0 04/12/18 00:00 107 04/11/18 21:00 Room Air 04/11/18 21:00 99.5 04/11/18 21:00 114 97/59 04/11/18 20:30 101.8 04/11/18 20:00 99.0 100 20 105/53 (70) 94 99.0 04/11/18 20:00 124 04/11/18 20:00 101.8 114 20 97/59 (72) 94 101.8 04/11/18 16:00 98.2 110 20 99/56 (70) 95 98.2 04/11/18 15:54 108 04/11/18 13:29 100.0 04/11/18 13:29 120 123/70 04/11/18 13:28 123/70 Intake and Output 04/11/18 04/12/18 19:00 07:00 Intake Total 1165 ml Output Total 500 ml 800 ml Balance 665 ml -800 ml Intake Oral 540 ml IV Total 625 ml Output Urine Total 500 ml 800 ml # Voids 2 # Bowel Movements 1 Laboratory Tests 04/11/18 17:30: Urine Random Sodium < 20L 04/12/18 06:00: White Blood Count 7.0, Red Blood Count 4.10L, Hemoglobin 12.0L, Hematocrit 34.9L , Mean Corpuscular Volume 85, Mean Corpuscular Hemoglobin 29.2, Mean Corpuscular Hemoglobin Concent 34.4, Red Cell Distribution Width 12.1, Platelet Count 100L, Mean Platelet Volume 7.2, Neutrophils (%) (Auto) , Lymphocytes (%) ( Auto) , Monocytes (%) (Auto) , Eosinophils (%) (Auto) , Basophils (%) (Auto) , Differential Total Cells Counted 100, Neutrophils % (Manual) 79H, Lymphocytes % (Manual) 8L, Monocytes % (Manual) 6, Eosinophils % (Manual) 0, Basophils % ( Manual) 0, Band Neutrophils 7, Platelet Estimate DecreasedL, Platelet Morphology Normal, Red Blood Cell Morphology Normal, Sodium Level 137, Potassium Level 3.3L, Chloride Level 102, Carbon Dioxide Level 27, Anion Gap 8, Blood Urea Nitrogen 36H, Creatinine 1.2, Estimat Glomerular Filtration Rate , Glucose Level 300H, Hemoglobin A1c 9.1H, Lactic Acid Level 1.00, Uric Acid 4.7, Calcium Level 9.3, Phosphorus Level 3.4, Magnesium Level 2.2, Iron Level 12L, Total Iron Binding Capacity 146L, Percent Iron Saturation 8L, Unsaturated Iron Binding 134, Ferritin 1352H, Total Bilirubin 0.4, Gamma Glutamyl Transpeptidase 43, Aspartate Amino Transf (AST/SGOT) 16, Alanine Aminotransferase (ALT/SGPT) 31 , Alkaline Phosphatase 82, Troponin I 0.287H, Pro-B-Type Natriuretic Peptide 2080H, Total Protein 6.0L, Albumin 2.3L, Globulin 3.7, Albumin/Globulin Ratio 0.6L, Triglycerides Level 222H, Cholesterol Level 97, LDL Cholesterol 43, HDL Cholesterol 10L, Cholesterol/HDL Ratio 9.7H, Lipase 121, Vitamin B12 Level 220, Folate 14.6, Thyroid Stimulating Hormone (TSH) 0.618, Hepatitis A IgM Antibody [ Pending], Hepatitis B Surface Antigen [Pending], Hepatitis B Core IgM Antibody [ Pending], Hepatitis C Antibody [Pending] 04/12/18 07:40: HIV (1&2) Antibody Rapid Negative Height (Feet): 6 Weight (Pounds): 197 General Appearance: no apparent distress, alert, confused Vimal Mares MD Apr 12, 2018 12:55
--- NOTE | 2018-04-12 13:30 | Nephrology Progress Note ---
Assessment/Plan Problem List: (1) Dehydration (2) UTI (urinary tract infection) (3) Acute renal failure (4) Acute encephalopathy (5) Diabetes mellitus out of control Assessment Renal Failure- encephalopathy UTI Dehydration Low na and high K Elevated troponin DM , high Glucose Plan Hydrate- starlix Rocephin Monitor lytes start ASA Nitrate Beta blockerd St eval Per orders Subjective ROS Limited/Unobtainable: No Objective Objective Last 24 Hour Vital Signs Date Time Temp Pulse Resp B/P (MAP) Pulse Ox O2 Delivery O2 Flow Rate FiO2 04/12/18 12:00 107 04/12/18 11:51 98.2 105 20 114/64 (81) 95 98.2 04/12/18 11:00 104/59 04/12/18 09:00 Room Air 04/12/18 08:00 96 04/12/18 08:00 98.1 104 20 103/56 (72) 95 98.1 04/12/18 04:00 97 04/12/18 04:00 98.2 20 101/53 (69) 95 98.2 04/12/18 00:00 99.0 20 105/53 (70) 94 99.0 04/12/18 00:00 107 04/11/18 21:00 Room Air 04/11/18 21:00 99.5 04/11/18 21:00 114 97/59 04/11/18 20:30 101.8 04/11/18 20:00 99.0 100 20 105/53 (70) 94 99.0 04/11/18 20:00 124 04/11/18 20:00 101.8 114 20 97/59 (72) 94 101.8 04/11/18 16:00 98.2 110 20 99/56 (70) 95 98.2 04/11/18 15:54 108 04/11/18 13:29 100.0 04/11/18 13:29 120 123/70 04/11/18 13:28 123/70 Intake and Output 04/11/18 04/12/18 19:00 07:00 Intake Total 1165 ml Output Total 500 ml 800 ml Balance 665 ml -800 ml Intake Oral 540 ml IV Total 625 ml Output Urine Total 500 ml 800 ml # Voids 2 # Bowel Movements 1 Laboratory Tests 04/11/18 17:30: Urine Random Sodium < 20L 04/12/18 06:00: White Blood Count 7.0, Red Blood Count 4.10L, Hemoglobin 12.0L, Hematocrit 34.9L , Mean Corpuscular Volume 85, Mean Corpuscular Hemoglobin 29.2, Mean Corpuscular Hemoglobin Concent 34.4, Red Cell Distribution Width 12.1, Platelet Count 100L, Mean Platelet Volume 7.2, Neutrophils (%) (Auto) , Lymphocytes (%) ( Auto) , Monocytes (%) (Auto) , Eosinophils (%) (Auto) , Basophils (%) (Auto) , Differential Total Cells Counted 100, Neutrophils % (Manual) 79H, Lymphocytes % (Manual) 8L, Monocytes % (Manual) 6, Eosinophils % (Manual) 0, Basophils % ( Manual) 0, Band Neutrophils 7, Platelet Estimate DecreasedL, Platelet Morphology Normal, Red Blood Cell Morphology Normal, Sodium Level 137, Potassium Level 3.3L, Chloride Level 102, Carbon Dioxide Level 27, Anion Gap 8, Blood Urea Nitrogen 36H, Creatinine 1.2, Estimat Glomerular Filtration Rate , Glucose Level 300H, Hemoglobin A1c 9.1H, Lactic Acid Level 1.00, Uric Acid 4.7, Calcium Level 9.3, Phosphorus Level 3.4, Magnesium Level 2.2, Iron Level 12L, Total Iron Binding Capacity 146L, Percent Iron Saturation 8L, Unsaturated Iron Binding 134, Ferritin 1352H, Total Bilirubin 0.4, Gamma Glutamyl Transpeptidase 43, Aspartate Amino Transf (AST/SGOT) 16, Alanine Aminotransferase (ALT/SGPT) 31 , Alkaline Phosphatase 82, Troponin I 0.287H, Pro-B-Type Natriuretic Peptide 2080H, Total Protein 6.0L, Albumin 2.3L, Globulin 3.7, Albumin/Globulin Ratio 0.6L, Triglycerides Level 222H, Cholesterol Level 97, LDL Cholesterol 43, HDL Cholesterol 10L, Cholesterol/HDL Ratio 9.7H, Lipase 121, Vitamin B12 Level 220, Folate 14.6, Thyroid Stimulating Hormone (TSH) 0.618, Hepatitis A IgM Antibody [ Pending], Hepatitis B Surface Antigen [Pending], Hepatitis B Core IgM Antibody [ Pending], Hepatitis C Antibody [Pending] 04/12/18 07:40: HIV (1&2) Antibody Rapid Negative Height (Feet): 6 Weight (Pounds): 197 General Appearance: confused, mild distress Cardiovascular: tachycardia Respiratory/Chest: decreased breath sounds Abdomen: distended Objective no change Greysno Ignacio MD Apr 12, 2018 13:30
[2018-04-12] MEDS ORDERED: Vitamin B12 1000mcg/ml Inj IM SCH (14:00)
[2018-04-12 16:00] VITALS: BP 110/58
[2018-04-12] MEDS: Vancomycin 1gm/D5W 275ml IVPB SCH ×2 (16:25)
--- NOTE | 2018-04-12 17:00 | Consultation ---
DATE OF CONSULTATION: 04/12/2018 HEMATOLOGY/ONCOLOGY CONSULTATION CONSULTING PHYSICIAN: Zack Miguel M.D. REQUESTING PHYSICIAN: Ubaldo Jarquin M.D. REASON FOR CONSULTATION: Evaluation of thrombocytopenia. IDENTIFYING DATA: Dear Dr. Jarquin: The patient is a pleasant 72-year-old male with past medical history, which is significant for history of renal failure and JARROD, apparently was sitting in a [employer] recently. The staff called 911, was shaking, had a water-induced injury to the right forehead and blind eye. Apparently, he had confusion and fell at home yesterday. Prior to admission, denies any alcohol use. Denies any abuse in the past. Noted to have thrombocytopenia that has gotten worse, currently on ceftriaxone. Hematology/Oncology service was consulted for further evaluation and treatment and noted to have elevation in troponin level as well. PAST MEDICAL HISTORY: None noticed. PAST SURGICAL HISTORY: None noticed. MEDICATIONS: Reviewed. SOCIAL HISTORY: No alcohol, tobacco, or illicit drug use. REVIEW OF SYSTEMS: CONSTITUTIONAL: No fevers, chills, or night sweats. SKIN: No rashes, bumps, or itching. HEENT: No headache, hearing or visual changes. BREASTS: No lumps, pain, or discharge. PULMONARY: No cough, sputum, or shortness of breath. GASTROINTESTINAL: No nausea, vomiting, or diarrhea. GENITOURINARY: No dysuria, frequency, or urgency. MUSCULOSKELETAL: No joint swelling, muscle pain, or trauma. 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 PHYSICAL EXAMINATION: VITAL SIGNS: Reviewed. GENERAL: No acute distress. PULMONARY: Decreased breath sounds. Some crackles noted. CARDIOVASCULAR: Regular rate. No S3 or S4. ABDOMEN: Soft, nontender, and nondistended. EXTREMITIES: No cyanosis, swelling, or edema noted. LABORATORY DATA: WBC 7, hemoglobin 12, and platelet count 100,000. Lactic acid 1.5. ASSESSMENT AND RECOMMENDATIONS: 1. Thrombocytopenia potentially secondary to underlying infection. Hepatitis panel and human immunodeficiency virus ordered. First time, the patient has been here, therefore, I do not have historical laboratories. Potentially, reactive process. 2. Leukocytosis, likely secondary to urinary tract infection. He is on ceftriaxone. 3. Pyuria due to urinary tract infection. Closely monitor for improvement. He is on ceftriaxone. 4. Old lacunar infarct. 5. Anemia due to underlying chronic disease. Continue to closely monitor. 6. Elevated troponin. Presyncopal episode. A 12-lead EKG pending. No evidence of ischemia. 7. Sinus tachycardia, which was corrected. Zack Miguel M.D. DR: LUIS JOB#: [id number] CC:
[2018-04-12 20:00] VITALS: BP 105/58
[2018-04-12] MEDS: Tamsulosin 0.4mg cap ORAL SCH (20:31)
--- NOTE | 2018-04-12 23:12 | Consultation ---
History of Present Illness General Date patient seen: Apr 12, 2018 Chief Complaint: Present Illness Allergies: Coded Allergies: No Known Allergies (Unverified , 04/11/18) Medication History Scheduled No Known Medications* (NKM - No Known Medications*), 0 ., (Reported) Patient History Healthcare decision maker Resuscitation status Full Code Advanced Directive on File Physical Exam Last 24 Hour Vital Signs Date Time Temp Pulse Resp B/P (MAP) Pulse Ox O2 Delivery O2 Flow Rate FiO2 04/12/18 21:00 Room Air 04/12/18 20:00 103 04/12/18 20:00 97.1 105 23 105/58 (74) 93 97.1 04/12/18 16:00 97.8 102 20 110/58 (75) 93 97.8 04/12/18 16:00 100 04/12/18 12:00 107 04/12/18 11:51 98.2 105 20 114/64 (81) 95 98.2 04/12/18 11:00 104/59 04/12/18 09:00 Room Air 04/12/18 08:00 96 04/12/18 08:00 98.1 104 20 103/56 (72) 95 98.1 04/12/18 04:00 97 04/12/18 04:00 98.2 20 101/53 (69) 95 98.2 04/12/18 00:00 99.0 20 105/53 (70) 94 99.0 04/12/18 00:00 107 Intake and Output 04/11/18 04/12/18 19:00 07:00 Intake Total 1165 ml Output Total 500 ml 800 ml Balance 665 ml -800 ml Intake Oral 540 ml IV Total 625 ml Output Urine Total 500 ml 800 ml # Voids 2 # Bowel Movements 1 Laboratory Tests Test 04/12/18 06:00 04/12/18 07:40 White Blood Count 7.0 K/UL (4.8-10.8) Red Blood Count 4.10 M/UL (4.70-6.10) L Hemoglobin 12.0 G/DL (14.2-18.0) L Hematocrit 34.9 % (42.0-52.0) L Mean Corpuscular Volume 85 FL (80-99) Mean Corpuscular Hemoglobin 29.2 PG (27.0-31.0) Mean Corpuscular Hemoglobin Concent 34.4 G/DL (32.0-36.0) Red Cell Distribution Width 12.1 % (11.6-14.8) Platelet Count 100 K/UL (150-450) L Mean Platelet Volume 7.2 FL (6.5-10.1) Neutrophils (%) (Auto) % (45.0-75.0) Lymphocytes (%) (Auto) % (20.0-45.0) Monocytes (%) (Auto) % (1.0-10.0) Eosinophils (%) (Auto) % (0.0-3.0) Basophils (%) (Auto) % (0.0-2.0) Differential Total Cells Counted 100 Neutrophils % (Manual) 79 % (45-75) H Lymphocytes % (Manual) 8 % (20-45) L Monocytes % (Manual) 6 % (1-10) Eosinophils % (Manual) 0 % (0-3) Basophils % (Manual) 0 % (0-2) Band Neutrophils 7 % (0-8) Platelet Estimate Decreased L Platelet Morphology Normal Red Blood Cell Morphology Normal Sodium Level 137 MMOL/L (136-145) Potassium Level 3.3 MMOL/L (3.5-5.1) L Chloride Level 102 MMOL/L (98-107) Carbon Dioxide Level 27 MMOL/L (21-32) Anion Gap 8 mmol/L (5-15) Blood Urea Nitrogen 36 mg/dL (7-18) H Creatinine 1.2 MG/DL (0.55-1.30) Estimat Glomerular Filtration Rate mL/min (>60) Glucose Level 300 MG/DL (74-106) H Hemoglobin A1c 9.1 % (4.3-6.0) H Lactic Acid Level 1.00 mmol/L (0.4-2.0) Uric Acid 4.7 MG/DL (2.6-7.2) Calcium Level 9.3 MG/DL (8.5-10.1) Phosphorus Level 3.4 MG/DL (2.5-4.9) Magnesium Level 2.2 MG/DL (1.8-2.4) Iron Level 12 ug/dL (50-175) L Total Iron Binding Capacity 146 ug/dL (250-450) L Percent Iron Saturation 8 % (15-50) L Unsaturated Iron Binding 134 ug/dL (112-346) Ferritin 1352 NG/ML (8-388) H Total Bilirubin 0.4 MG/DL (0.2-1.0) Gamma Glutamyl Transpeptidase 43 U/L (5-85) Aspartate Amino Transf (AST/SGOT) 16 U/L (15-37) Alanine Aminotransferase (ALT/SGPT) 31 U/L (12-78) Alkaline Phosphatase 82 U/L (46-116) Troponin I 0.287 ng/mL (0.000-0.056) C-Reactive Protein, Quantitative 22.6 mg/dL (0.00-0.90) H Pro-B-Type Natriuretic Peptide 2080 pg/mL (0-125) H Total Protein 6.0 G/DL (6.4-8.2) L Albumin 2.3 G/DL (3.4-5.0) L Globulin 3.7 g/dL Albumin/Globulin Ratio 0.6 (1.0-2.7) L Triglycerides Level 222 MG/DL (30-150) H Cholesterol Level 97 MG/DL (< 200) LDL Cholesterol 43 mg/dL (<100) HDL Cholesterol 10 MG/DL (40-60) L Cholesterol/HDL Ratio 9.7 (3.3-4.4) H Lipase 121 U/L (73-393) Vitamin B12 Level 220 PG/ML (193-986) Folate 14.6 NG/ML (8.6-58.9) Thyroid Stimulating Hormone (TSH) 0.618 uiU/mL (0.358-3.740) Hepatitis A IgM Antibody Pending Hepatitis B Surface Antigen Pending Hepatitis B Core IgM Antibody Pending Hepatitis C Antibody Pending HIV (1&2) Antibody Rapid Negative (NEGATIVE) Height (Feet): 6 Weight (Pounds): 197 Medications Current Medications Medications (Trade) Dose Ordered Sig/Safia Route PRN Reason Start Time Stop Time Status Last Admin Dose Admin Acetaminophen (Tylenol) 500 mg Q4H PRN ORAL Mild Pain/Temp > 100.5 04/11/18 10:45 05/11/18 10:44 04/12/18 02:44 Aspirin (ASA) 162 mg DAILY ORAL 04/11/18 11:00 05/11/18 10:59 04/12/18 08:59 Ceftriaxone Sodium 1 gm/ Dextrose 55 ml @ 110 mls/hr DAILY IVPB 9/26/18 09:00 04/19/18 08:59 04/12/18 08:25 Nateglinide (Starlix) 120 mg TIAC ORAL 04/12/18 09:00 05/12/18 08:59 04/12/18 16:25 Nitroglycerin (Ntg) 1 patch Q24H TDERMAL 04/11/18 11:00 05/11/18 10:59 04/11/18 13:28 Pantoprazole (Protonix) 40 mg EVERY 12 HOURS IVP 04/11/18 21:00 05/11/18 20:59 04/12/18 20:31 Quetiapine Fumarate (SEROquel) 12.5 mg Q4H PRN ORAL ANXIETY 04/12/18 13:00 05/12/18 12:59 Sodium Chloride 1,000 ml @ 75 mls/hr [id number] IV 04/11/18 11:00 05/11/18 10:59 04/12/18 13:00 Tamsulosin HCl (Flomax) 0.4 mg BEDTIME ORAL 04/11/18 21:00 05/11/18 20:59 04/12/18 20:31 Vancomycin HCl (Vanco rx to dose) 1 ea DAILY PRN MISC Per rx protocol 04/12/18 12:15 05/12/18 12:14 Vancomycin HCl 1 gm/Dextrose 275 ml @ 183.708 mls/hr Q12H IVPB 04/12/18 17:00 04/17/18 16:59 04/12/18 16:25 Vitamin A/Vitamin D (A & D Oint) 1 applic TWICE A DAY TOPIC 04/12/18 09:00 05/12/18 08:59 04/12/18 17:11 Assessment/Plan Assessment/Plan (1) Alerted mental status (2) S/p fall (3) Cervical Sprain (4) Thoracic sprain (5) Lumbar sprain seen dictated Jerson Hook Apr 12, 2018 23:12
[2018-04-13] VITALS: BP 105/60
[2018-04-13 04:00] VITALS: BP 121/66
[2018-04-13] MEDS: Vancomycin 1gm/D5W 275ml IVPB SCH ×2 (05:08)
--- NOTE | 2018-04-13 05:30 | History and Physical Report ---
DATE OF ADMISSION: 04/11/2018 HISTORY OF PRESENT ILLNESS: The patient is admitted. Complaining of left shoulder pain during the night, radiating to the neck. He can move his arm very well, status post multiple falls. The patient also admitted for altered mental status and dizziness. The patient has ecchymosis on the forehead on the right eye. He also complains of back pain and left shoulder pain. Oriented x1. Denies shortness of breath. Denies any cough. Denies nausea, vomiting, or diarrhea. Denies orthopnea. Denies fever or chills. PAST MEDICAL HISTORY: Significant for gastroesophageal reflux disease, fall risk, ataxia, BPH, and possible psychosis. PAST SURGICAL HISTORY: None. MEDICATIONS: Cannot tell ____ medication he takes. ALLERGIES: No known allergies. REVIEW OF SYSTEMS: Confused and poor historian ____ however, does complain of back pain and left shoulder pain. FAMILY HISTORY: Noncontributory. SOCIAL HISTORY: Denies history of smoking, alcohol, or illicit drugs. PHYSICAL EXAMINATION: VITAL SIGNS: Temperature 98.2, pulse is 105, and blood pressure 114/64. HEENT: PERRLA. NECK: Supple. No lymphadenopathy. CHEST: Clear to auscultation. GASTROINTESTINAL: Soft, nontender, and nondistended. No organomegaly. EXTREMITIES: No edema. Moves all four extremities. SENSORY: Intact to light touch. Reflexes are equal in both sides. The patient does have decreased range of motion in the left shoulder due to pain. NEUROLOGIC: The patient is ataxic and does have lower extremity weakness. LABORATORY DATA: WBC of 12.2, hemoglobin 14.7, and platelets 140,000. Sodium 137, potassium 3.3, chloride 102, BUN of 36, creatinine 1.2, and glucose of 300. ASSESSMENT: 1. Elevated blood sugar. 2. Left shoulder pain, status post fall. PLAN: I have asked Dr. Richey, Dr. Chappell, Dr. Ignacio, Dr. Mares, Dr. Egan, and Dr. Laura to see the patient to rule out infectious etiology as well as for pain control as well as for psychosis as well as to rule out any ____ etiology. The patient also needs a better control of the blood sugar. Ali Aaron Jarquin DR: JIMI JOB#: [id number] CC:
[2018-04-13 05:57] LABS: BASOPHILS % (AUTO) 0.3 % (0.0-2.0); EOSINOPHILS % (AUTO) 0.6 % (0.0-3.0); HEMATOCRIT 35.5 % (42.0-52.0); HEMOGLOBIN 11.8 G/DL (14.2-18.0); LYMPHOCYTES % (AUTO) 6.4 % (20.0-45.0); MEAN CORPUSCULAR VOLUME 86 FL (80-99); MONOCYTES % (AUTO) 8.1 % (1.0-10.0); NEUTROPHILS % (AUTO) 84.6 % (45.0-75.0); PLATELET COUNT 112 K/UL (150-450); RED BLOOD COUNT 4.14 M/UL (4.70-6.10); RED CELL DISTRIBUTION WIDTH 12.3 % (11.6-14.8); WHITE BLOOD COUNT 8.3 K/UL (4.8-10.8)
[2018-04-13 06:27] LABS: ALANINE AMINOTRANSFERASE 38 U/L (12-78); ALBUMIN/GLOBULIN RATIO 0.5 (1.0-2.7); ALKALINE PHOSPHATASE 86 U/L (46-116); ANION GAP 4 mmol/L (5-15); ASPARTATE AMINO TRANSFERASE 27 U/L (15-37); BILIRUBIN,TOTAL 0.5 MG/DL (0.2-1.0); BLOOD UREA NITROGEN 26 mg/dL (7-18); CALCIUM 9.3 MG/DL (8.5-10.1); CARBON DIOXIDE 28 MMOL/L (21-32); CHLORIDE 106 MMOL/L (98-107); PHOSPHORUS 2.6 MG/DL (2.5-4.9); POTASSIUM 3.6 MMOL/L (3.5-5.1); SODIUM 138 MMOL/L (136-145)
--- NOTE | 2018-04-13 06:30 | Consultation ---
DATE OF CONSULTATION: 04/12/2018 CONSULTING PHYSICIAN: Shanice Laura M.D. REFERRING PHYSICIAN: Ubaldo Jarquin M.D. PHYSICIAN DATA CENTER TECHNICIAN: Jones Jeff CHIEF COMPLAINT: Generalized body pain. HISTORY OF PRESENT ILLNESS: The patient is a 72-year-old male who is being seen on the telemetry floor of [facility] for initial comprehensive pain management consultation. The patient has been under the care of Dr. Jarquin, status post fall, altered mental status, unable to have a history of what occurred, and having complaints of generalized body pain, mostly in his neck and back, worse with movement, rating at 10/10, on Tylenol 500 mg tablet every four hours as needed for pain with minimal pain relief. Due to this, we were consulted. The patient had adequate pain control while here in the hospital. PAST MEDICAL HISTORY: Unable to obtain due to the patient's mental status. PAST SURGICAL HISTORY: Unknown. SOCIAL HISTORY: As per chart, no smoking, no drinking alcohol, no intravenous drug abuse. ALLERGIES: No known drug allergies. MEDICATIONS: No known medications. REVIEW OF SYSTEMS: Unable to obtain due to the patient's mental status. PHYSICAL EXAMINATION: GENERAL: Alert and awake. VITAL SIGNS: Blood pressure 105/58, heart rate is 100, oxygen saturation 93%, respirations 23, and temperature is 97.1 degrees Fahrenheit. HEENT: PERRLA with bruising noted at the right eye. Ecchymosis seen. Tenderness to palpation. NECK: Range of motion is decreased due to the patient's pain condition. LUNGS: Decreased breath sounds bilaterally. HEART: Regular. ABDOMEN: Benign. BACK: Range of motion is decreased in flexion and extension with tenderness to paraspinal muscles. EXTREMITIES: Upper and lower extremity range of motion is decreased due to the patient's condition. No cyanosis. No clubbing. Sensory is intact. No adenopathy. ASSESSMENT AND PLAN: This is a 72-year-old male with altered mental status, status post fall, and cervical, thoracic, and lumbar sprain. The patient will be continued on Tylenol with some lidocaine cream to be applied to the areas of pain every six hours, and order an x-ray of the cervical, thoracic, and lumbar spine to rule out any further pathology. The patient was discussed with Dr. Laura and he concurred. We will follow the patient. Thank you very much for the courtesy of this consultation. Shanice Laura M.D. SHAWNA Jeff DR: SANDRA JOB#: [id number] CC: SAHIL
--- NOTE | 2018-04-13 06:41 | General Progress Note ---
Assessment/Plan Assessment/Plan 1. Thrombocytopenia potentially secondary to underlying infection. --> Hepatitis panel and human immunodeficiency virus ordered. --> us of the abdomen has been reviewed, hsm/cirrhosis 2. Leukocytosis, likely secondary to urinary tract infection. He is on ceftriaxone. --> on abx and peripheral smear 3. Pyuria due to urinary tract infection. Closely monitor for improvement. He is on ceftriaxone. --> id service has been consulted 4. Old lacunar infarct. 5. Anemia due to underlying chronic disease. Continue to closely monitor. --> anemia panel has been reviewed --> hgb goal >7, transfuse prn 6. Elevated troponin. Presyncopal episode. A 12-lead EKG pending. No evidence of ischemia. --> trops reviewed, trend --> appreciate cards recs 7. Sinus tachycardia, which was corrected. Subjective Constitutional: Denies: no symptoms, chills, diaphoresis, fever, malaise, weakness, other HEENT: Denies: no symptoms, eye pain, blurred vision, tearing, double vision, ear pain, ear discharge, nose pain, nose congestion, throat pain, throat swelling, mouth pain, mouth swelling, other Respiratory: Denies: no symptoms, cough, orthopnea, shortness of breath, SOB with excertion, SOB at rest, sputum, stridor, wheezing, other Gastrointestinal/Abdominal: Denies: no symptoms, abdomen distended, abdominal pain, black stools, tarry stools, blood in stool, constipated, diarrhea, difficulty swallowing, nausea, poor appetite, poor fluid intake, rectal bleeding , vomiting, other Genitourinary: Denies: no symptoms, burning, discharge, frequency, flank pain, hematuria, incontinence, pain, urgency, other Neurologic/Psychiatric: Denies: no symptoms, anxiety, depressed, emotional problems, headache, numbness, paresthesia, pre-existing deficit, seizure, tingling, tremors, weakness, other Endocrine: Denies: no symptoms, excessive sweating, flushing, intolerance to cold, intolerance to heat, increased hunger, increased thirst, increased urine, unexplained weight gain, unexplained weight loss, other Hematologic/Lymphatic: Denies: no symptoms, anemia, easy bleeding, easy bruising, other Allergies: Coded Allergies: No Known Allergies (Unverified , 04/11/18) Subjective on antibiotics and remains encephalopathic Objective Last 24 Hour Vital Signs Date Time Temp Pulse Resp B/P (MAP) Pulse Ox O2 Delivery O2 Flow Rate FiO2 04/13/18 04:00 93 04/13/18 04:00 99.1 100 22 121/66 (84) 97 99.1 04/13/18 00:00 102 04/13/18 00:00 97.3 98 21 105/60 (75) 98 97.3 04/12/18 21:00 Room Air 04/12/18 20:00 103 04/12/18 20:00 97.1 105 23 105/58 (74) 93 97.1 04/12/18 16:00 97.8 102 20 110/58 (75) 93 97.8 04/12/18 16:00 100 04/12/18 12:00 107 04/12/18 11:51 98.2 105 20 114/64 (81) 95 98.2 04/12/18 11:00 104/59 04/12/18 09:00 Room Air 04/12/18 08:00 96 04/12/18 08:00 98.1 104 20 103/56 (72) 95 98.1 Intake and Output 04/12/18 04/13/18 19:00 07:00 Intake Total 2190.000 ml 960 ml Output Total 1000 ml Balance 1190.000 ml 960 ml Intake Oral 960 ml 960 ml IV Total 1230.000 ml Output Urine Total 1000 ml # Voids 2 Laboratory Tests 04/12/18 07:40: HIV (1&2) Antibody Rapid Negative 04/13/18 04:50: White Blood Count 8.3, Red Blood Count 4.14L, Hemoglobin 11.8L, Hematocrit 35.5L , Mean Corpuscular Volume 86, Mean Corpuscular Hemoglobin 28.6, Mean Corpuscular Hemoglobin Concent 33.3, Red Cell Distribution Width 12.3, Platelet Count 112L, Mean Platelet Volume 7.5, Neutrophils (%) (Auto) 84.6H, Lymphocytes (%) (Auto) 6.4L, Monocytes (%) (Auto) 8.1, Eosinophils (%) (Auto) 0.6, Basophils (%) (Auto) 0.3, Sodium Level [Pending], Potassium Level [Pending], Chloride Level [Pending], Carbon Dioxide Level [Pending], Blood Urea Nitrogen [ Pending], Creatinine [Pending], Estimat Glomerular Filtration Rate [Pending], Glucose Level [Pending], Uric Acid [Pending], Calcium Level [Pending], Phosphorus Level [Pending], Magnesium Level [Pending], Total Bilirubin [Pending] , Aspartate Amino Transf (AST/SGOT) [Pending], Alanine Aminotransferase (ALT/ SGPT) [Pending], Alkaline Phosphatase [Pending], Troponin I [Pending], Pro-B- Type Natriuretic Peptide [Pending], Total Protein [Pending], Albumin [Pending], Globulin [Pending] Height (Feet): 6 Weight (Pounds): 197 General Appearance: no apparent distress EENT: normal ENT inspection Neck: normal alignment Cardiovascular: regular rhythm Respiratory/Chest: lungs clear Abdomen: no organomegaly Pelvis: no masses Extremities: non-tender Edema: 1+ Leg (L), 1+ Leg (R) Neurologic: alert Skin: warm/dry Zack Miguel MD Apr 13, 2018 06:41
[2018-04-13 08:00] VITALS: BP 125/68
[2018-04-13] MEDS ORDERED: Levemir Flexpen SUBQ SCH (09:00)
[2018-04-13] MEDS: Pantoprazole Inj IVP SCH (09:21)
[2018-04-13] MEDS: Vitamin A&D Oint 2oz Tube TOPIC SCH ×2 (09:21→17:15)
[2018-04-13] MEDS: cefTRIAXone 1 GM in D5W 55 ML IVPB SCH (09:21)
[2018-04-13] MEDS: Aspirin Baby 81mg ORAL SCH (09:22)
[2018-04-13] MEDS: Nitroglycerin Patch 0.4mg TDERMAL SCH (11:28)
[2018-04-13 12:00] VITALS: BP 134/72
--- NOTE | 2018-04-13 12:01 | Diagnostic Imaging Report ---
Indication: Back pain Comparison: None Findings: 3 views of the lumbar spine were obtained. The bones are moderately osteopenic. Alignment is normal. There is sclerosis of the facets. There is mild narrowing of the L4-5 disc. There is moderate calcification of the aorta. IMPRESSION: No acute injury appreciated
--- NOTE | 2018-04-13 12:02 | Diagnostic Imaging Report ---
Indication: Back pain Comparison: None Findings: 2 views of the thoracic spine were obtained. No definite fracture or malalignment identified. Bones are osteopenic. Endplate osteophytes noted throughout the thoracic spine. Aorta is moderately calcified. IMPRESSION: No obvious acute injury.
--- NOTE | 2018-04-13 12:04 | Diagnostic Imaging Report ---
Indication: Neck Pain Findings: 3 views of the cervical spine were obtained. The bones are moderately osteopenic. There is no obvious acute fracture but the cervical spine is not seen well below C4. There is suggestion of degenerative disc disease at C5-6 and C6-7 with narrowed disc and endplate spurs. The dens is intact. Atlantoaxial alignment is normal. IMPRESSION: Limited evaluation as discussed above. No obvious acute injury
--- NOTE | 2018-04-13 12:49 | Infectious Diseases Prog Note ---
Assessment/Plan Assessment/Plan A; Sepsis with Staph aureus UTI with MSSA DM & Hyperglycemia AMS elevated troponin Syncope & Fall P; Change Rocephin to Ancef Continue Vancomycin Will f/u cultures Subjective ROS Limited/Unobtainable: Yes Respiratory: Reports: no symptoms Cardiovascular: Reports: no symptoms Gastrointestinal/Abdominal: Reports: no symptoms Musculoskeletal: Reports: pain Allergies: Coded Allergies: No Known Allergies (Unverified , 04/11/18) Objective Vital Signs Last 24 Hour Vital Signs Date Time Temp Pulse Resp B/P (MAP) Pulse Ox O2 Delivery O2 Flow Rate FiO2 04/13/18 12:00 98.2 94 24 134/72 (92) 94 98.2 04/13/18 11:28 125/68 04/13/18 09:00 Room Air 04/13/18 08:00 97.9 93 26 125/68 (87) 94 97.9 04/13/18 04:00 93 04/13/18 04:00 99.1 100 22 121/66 (84) 97 99.1 04/13/18 00:00 102 04/13/18 00:00 97.3 98 21 105/60 (75) 98 97.3 04/12/18 21:00 Room Air 04/12/18 20:00 103 04/12/18 20:00 97.1 105 23 105/58 (74) 93 97.1 04/12/18 16:00 97.8 102 20 110/58 (75) 93 97.8 04/12/18 16:00 100 Height (Feet): 6 Weight (Pounds): 197 General Appearance: no acute distress HEENT: mucous membranes moist Respiratory/Chest: lungs clear Cardiovascular: normal rate Abdomen: soft, non tender Extremities: no edema Skin: other - left forehead and eye bruise Neurologic/Psychiatric: alert, responsive, other - oriented X 2 Microbiology Date/Time Source Procedure Growth Status 04/11/18 07:35 Blood Blood Culture - Preliminary Staphylococcus Aureus Resulted 04/11/18 07:25 Blood Blood Culture - Preliminary Staphylococcus Aureus Resulted 04/11/18 06:29 Urine,Clean Catch Urine Culture - Final Staphylococcus Aureus Complete Laboratory Tests Test 04/13/18 04:50 White Blood Count 8.3 K/UL (4.8-10.8) Red Blood Count 4.14 M/UL (4.70-6.10) L Hemoglobin 11.8 G/DL (14.2-18.0) L Hematocrit 35.5 % (42.0-52.0) L Mean Corpuscular Volume 86 FL (80-99) Mean Corpuscular Hemoglobin 28.6 PG (27.0-31.0) Mean Corpuscular Hemoglobin Concent 33.3 G/DL (32.0-36.0) Red Cell Distribution Width 12.3 % (11.6-14.8) Platelet Count 112 K/UL (150-450) L Mean Platelet Volume 7.5 FL (6.5-10.1) Neutrophils (%) (Auto) 84.6 % (45.0-75.0) H Lymphocytes (%) (Auto) 6.4 % (20.0-45.0) L Monocytes (%) (Auto) 8.1 % (1.0-10.0) Eosinophils (%) (Auto) 0.6 % (0.0-3.0) Basophils (%) (Auto) 0.3 % (0.0-2.0) Sodium Level 138 MMOL/L (136-145) Potassium Level 3.6 MMOL/L (3.5-5.1) Chloride Level 106 MMOL/L (98-107) Carbon Dioxide Level 28 MMOL/L (21-32) Anion Gap 4 mmol/L (5-15) L Blood Urea Nitrogen 26 mg/dL (7-18) H Creatinine 1.0 MG/DL (0.55-1.30) Estimat Glomerular Filtration Rate mL/min (>60) Glucose Level 264 MG/DL (74-106) H Uric Acid 4.2 MG/DL (2.6-7.2) Calcium Level 9.3 MG/DL (8.5-10.1) Phosphorus Level 2.6 MG/DL (2.5-4.9) Magnesium Level 2.1 MG/DL (1.8-2.4) Total Bilirubin 0.5 MG/DL (0.2-1.0) Aspartate Amino Transf (AST/SGOT) 27 U/L (15-37) Alanine Aminotransferase (ALT/SGPT) 38 U/L (12-78) Alkaline Phosphatase 86 U/L (46-116) Troponin I 0.242 ng/mL (0.000-0.056) Pro-B-Type Natriuretic Peptide 1078 pg/mL (0-125) H Total Protein 5.9 G/DL (6.4-8.2) L Albumin 2.0 G/DL (3.4-5.0) L Globulin 3.9 g/dL Albumin/Globulin Ratio 0.5 (1.0-2.7) L Current Medications Medications (Trade) Dose Ordered Sig/Safia Route PRN Reason Start Time Stop Time Status Last Admin Dose Admin Acetaminophen (Tylenol) 500 mg Q4H PRN ORAL Mild Pain/Temp > 100.5 04/11/18 10:45 05/11/18 10:44 04/12/18 02:44 Aspirin (ASA) 162 mg DAILY ORAL 04/11/18 11:00 05/11/18 10:59 04/13/18 09:22 Ceftriaxone Sodium 1 gm/ Dextrose 55 ml @ 110 mls/hr DAILY IVPB 04/12/18 09:00 04/19/18 08:59 04/13/18 09:21 Dextrose (Dextrose 50%) 25 ml Q30M PRN IV Hypoglycemia 04/13/18 06:45 05/13/18 06:44 Dextrose (Dextrose 50%) 50 ml Q30M PRN IV Hypoglycemia 04/13/18 06:45 05/13/18 06:44 Insulin Detemir (Levemir) 10 units DAILY SUBQ 04/13/18 09:00 05/13/18 08:59 04/13/18 09:22 Lidocaine (Lidoderm 5% PATCH) 1 patch DAILY@0000 TDERMAL 04/13/18 00:15 05/13/18 00:14 04/13/18 00:57 Nateglinide (Starlix) 120 mg TIAC ORAL 04/12/18 09:00 05/12/18 08:59 04/13/18 11:28 Nitroglycerin (Ntg) 1 patch Q24H TDERMAL 04/11/18 11:00 05/11/18 10:59 04/13/18 11:28 Pantoprazole (Protonix) 40 mg EVERY 12 HOURS IVP 04/11/18 21:00 05/11/18 20:59 04/13/18 09:21 Quetiapine Fumarate (SEROquel) 12.5 mg Q4H PRN ORAL ANXIETY 04/12/18 13:00 05/12/18 12:59 Sodium Chloride 1,000 ml @ 75 mls/hr [id number] IV 04/11/18 11:00 05/11/18 10:59 04/13/18 03:07 Tamsulosin HCl (Flomax) 0.4 mg BEDTIME ORAL 04/11/18 21:00 05/11/18 20:59 04/12/18 20:31 Vancomycin HCl (Vanco rx to dose) 1 ea DAILY PRN MISC Per rx protocol 04/12/18 12:15 05/12/18 12:14 Vancomycin HCl 1 gm/Dextrose 275 ml @ 183.708 mls/hr Q12H IVPB 04/12/18 17:00 04/17/18 16:59 04/13/18 05:08 Vitamin A/Vitamin D (A & D Oint) 1 applic TWICE A DAY TOPIC 04/12/18 09:00 05/12/18 08:59 04/13/18 09:21 Conor Egan MD Apr 13, 2018 12:49
--- NOTE | 2018-04-13 13:18 | Nephrology Progress Note ---
Assessment/Plan Problem List: (1) Dehydration (2) UTI (urinary tract infection) (3) Acute renal failure (4) Acute encephalopathy (5) Diabetes mellitus out of control Assessment Renal Failure- encephalopathy UTI Dehydration Low na and high K Elevated troponin DM , high Glucose Plan Hydrate- starlix Rocephin Monitor lytes start ASA Nitrate St eval Per orders Subjective ROS Limited/Unobtainable: No Constitutional: Reports: malaise Objective Objective Last 24 Hour Vital Signs Date Time Temp Pulse Resp B/P (MAP) Pulse Ox O2 Delivery O2 Flow Rate FiO2 04/13/18 12:00 98.2 94 24 134/72 (92) 94 98.2 04/13/18 11:28 125/68 04/13/18 09:00 Room Air 04/13/18 08:00 97.9 93 26 125/68 (87) 94 97.9 04/13/18 04:00 93 04/13/18 04:00 99.1 100 22 121/66 (84) 97 99.1 04/13/18 00:00 102 04/13/18 00:00 97.3 98 21 105/60 (75) 98 97.3 04/12/18 21:00 Room Air 04/12/18 20:00 103 04/12/18 20:00 97.1 105 23 105/58 (74) 93 97.1 04/12/18 16:00 97.8 102 20 110/58 (75) 93 97.8 04/12/18 16:00 100 Intake and Output 04/12/18 04/13/18 19:00 07:00 Intake Total 2190.000 ml 960 ml Output Total 1000 ml Balance 1190.000 ml 960 ml Intake Oral 960 ml 960 ml IV Total 1230.000 ml Output Urine Total 1000 ml # Voids 2 Laboratory Tests 04/13/18 04:50: White Blood Count 8.3, Red Blood Count 4.14L, Hemoglobin 11.8L, Hematocrit 35.5L , Mean Corpuscular Volume 86, Mean Corpuscular Hemoglobin 28.6, Mean Corpuscular Hemoglobin Concent 33.3, Red Cell Distribution Width 12.3, Platelet Count 112L, Mean Platelet Volume 7.5, Neutrophils (%) (Auto) 84.6H, Lymphocytes (%) (Auto) 6.4L, Monocytes (%) (Auto) 8.1, Eosinophils (%) (Auto) 0.6, Basophils (%) (Auto) 0.3, Sodium Level 138, Potassium Level 3.6, Chloride Level 106, Carbon Dioxide Level 28, Anion Gap 4L, Blood Urea Nitrogen 26H, Creatinine 1.0, Estimat Glomerular Filtration Rate , Glucose Level 264H, Uric Acid 4.2, Calcium Level 9.3, Phosphorus Level 2.6, Magnesium Level 2.1, Total Bilirubin 0.5, Aspartate Amino Transf (AST/SGOT) 27, Alanine Aminotransferase (ALT/SGPT) 38, Alkaline Phosphatase 86, Troponin I 0.242H, Pro-B-Type Natriuretic Peptide 1078H, Total Protein 5.9L, Albumin 2.0L, Globulin 3.9, Albumin/Globulin Ratio 0.5L Height (Feet): 6 Weight (Pounds): 197 General Appearance: no apparent distress Abdomen: soft Neurologic: other - mind more clear Objective no change Greyson Ignacio MD Apr 13, 2018 13:18
[2018-04-13] MEDS ORDERED: Metoprolol Tartrate 12.5mg TAB ORAL SCH ×3 (13:21→21:00)
--- NOTE | 2018-04-13 13:22 | General Progress Note ---
Assessment/Plan Status: stable Assessment/Plan encephalopathy due to [facility] pr[facility] Subjective Date patient seen: Apr 13, 2018 Neurologic/Psychiatric: Reports: anxiety, depressed Allergies: Coded Allergies: No Known Allergies (Unverified , 04/11/18) Objective Last 24 Hour Vital Signs Date Time Temp Pulse Resp B/P (MAP) Pulse Ox O2 Delivery O2 Flow Rate FiO2 04/13/18 12:00 98.2 94 24 134/72 (92) 94 98.2 04/13/18 11:28 125/68 04/13/18 09:00 Room Air 04/13/18 08:00 97.9 93 26 125/68 (87) 94 97.9 04/13/18 04:00 93 04/13/18 04:00 99.1 100 22 121/66 (84) 97 99.1 04/13/18 00:00 102 04/13/18 00:00 97.3 98 21 105/60 (75) 98 97.3 04/12/18 21:00 Room Air 04/12/18 20:00 103 04/12/18 20:00 97.1 105 23 105/58 (74) 93 97.1 04/12/18 16:00 97.8 102 20 110/58 (75) 93 97.8 04/12/18 16:00 100 Intake and Output 04/12/18 04/13/18 19:00 07:00 Intake Total 2190.000 ml 960 ml Output Total 1000 ml Balance 1190.000 ml 960 ml Intake Oral 960 ml 960 ml IV Total 1230.000 ml Output Urine Total 1000 ml # Voids 2 Laboratory Tests 04/13/18 04:50: White Blood Count 8.3, Red Blood Count 4.14L, Hemoglobin 11.8L, Hematocrit 35.5L , Mean Corpuscular Volume 86, Mean Corpuscular Hemoglobin 28.6, Mean Corpuscular Hemoglobin Concent 33.3, Red Cell Distribution Width 12.3, Platelet Count 112L, Mean Platelet Volume 7.5, Neutrophils (%) (Auto) 84.6H, Lymphocytes (%) (Auto) 6.4L, Monocytes (%) (Auto) 8.1, Eosinophils (%) (Auto) 0.6, Basophils (%) (Auto) 0.3, Sodium Level 138, Potassium Level 3.6, Chloride Level 106, Carbon Dioxide Level 28, Anion Gap 4L, Blood Urea Nitrogen 26H, Creatinine 1.0, Estimat Glomerular Filtration Rate , Glucose Level 264H, Uric Acid 4.2, Calcium Level 9.3, Phosphorus Level 2.6, Magnesium Level 2.1, Total Bilirubin 0.5, Aspartate Amino Transf (AST/SGOT) 27, Alanine Aminotransferase (ALT/SGPT) 38, Alkaline Phosphatase 86, Troponin I 0.242H, Pro-B-Type Natriuretic Peptide 1078H, Total Protein 5.9L, Albumin 2.0L, Globulin 3.9, Albumin/Globulin Ratio 0.5L Height (Feet): 6 Weight (Pounds): 197 General Appearance: no apparent distress, alert Neurologic: depressed affect Vimal Mares MD Apr 13, 2018 13:22
[2018-04-13] MEDS ORDERED: ceFAZolin 1gm/50ml Premix 50 ML IV SCH (14:00)
--- NOTE | 2018-04-13 14:54 | Diagnostic Imaging Report ---
Indication:Abdominal pain Technique: Grayscale and duplex Doppler imaging of the abdomen performed. Comparison: None Findings: There is likely nodularity of the liver surface. There is marked splenomegaly measuring approximately 17 cm. The liver is also enlarged measuring 21 cm. Portal vein is patent. Gallbladder is unremarkable. Pancreas is unremarkable. There is no ascites. No biliary ductal dilatation demonstrated. Kidneys are unremarkable. There are small cysts in the central part of the left kidney. No hydronephrosis seen. IMPRESSION: Hepatosplenomegaly. Question of nodularity of the liver surface. Cirrhosis not excluded. Correlate clinically. Small left renal cysts
[2018-04-13] MEDS: ceFAZolin 1gm/50ml Premix 50 ML IV SCH ×2 (15:27→21:52)
[2018-04-13 16:00] VITALS: BP 131/70
[2018-04-13] MEDS ORDERED: Vancomycin 1 GM in D5W 275 ML IVPB SCH (17:00)
[2018-04-13] MEDS: Docusate 100mg cap ORAL SCH (17:15)
[2018-04-13] MEDS ORDERED: Docusate 100mg cap ORAL SCH (18:00)
--- NOTE | 2018-04-13 18:26 | Cardiology Progress Note ---
Assessment/Plan Assessment/Plan 1. Presyncope/syncopal event due to hypovolemia, continue hydration, water and electrolyte normalized. 2. Slight elevation of troponin I level due to NSTEMI, vs transient hypotension. 12-lead electrocardiogram does not show any evidence of ischemia. Echo shows hyperdynamic left ventricular function. Continue medical therapy. 3. Sinus tachycardia, likely secondary to hypovolemia and intravascular volume depletion, resolved. Subjective Subjective Sinus rhythm at 92. Objective Last 24 Hour Vital Signs Date Time Temp Pulse Resp B/P (MAP) Pulse Ox O2 Delivery O2 Flow Rate FiO2 04/13/18 16:00 98.0 92 22 131/70 (90) 95 98.0 04/13/18 15:26 93 117/72 04/13/18 12:00 98.2 94 24 134/72 (92) 94 98.2 04/13/18 11:28 125/68 04/13/18 09:00 Room Air 04/13/18 08:00 97.9 93 26 125/68 (87) 94 97.9 04/13/18 04:00 93 04/13/18 04:00 99.1 100 22 121/66 (84) 97 99.1 04/13/18 00:00 102 04/13/18 00:00 97.3 98 21 105/60 (75) 98 97.3 04/12/18 21:00 Room Air 04/12/18 20:00 103 04/12/18 20:00 97.1 105 23 105/58 (74) 93 97.1 Intake and Output 04/12/18 04/13/18 19:00 07:00 Intake Total 2190.000 ml 960 ml Output Total 1000 ml Balance 1190.000 ml 960 ml Intake Oral 960 ml 960 ml IV Total 1230.000 ml Output Urine Total 1000 ml # Voids 2 Laboratory Tests Test 04/13/18 04:50 White Blood Count 8.3 K/UL (4.8-10.8) Red Blood Count 4.14 M/UL (4.70-6.10) L Hemoglobin 11.8 G/DL (14.2-18.0) L Hematocrit 35.5 % (42.0-52.0) L Mean Corpuscular Volume 86 FL (80-99) Mean Corpuscular Hemoglobin 28.6 PG (27.0-31.0) Mean Corpuscular Hemoglobin Concent 33.3 G/DL (32.0-36.0) Red Cell Distribution Width 12.3 % (11.6-14.8) Platelet Count 112 K/UL (150-450) L Mean Platelet Volume 7.5 FL (6.5-10.1) Neutrophils (%) (Auto) 84.6 % (45.0-75.0) H Lymphocytes (%) (Auto) 6.4 % (20.0-45.0) L Monocytes (%) (Auto) 8.1 % (1.0-10.0) Eosinophils (%) (Auto) 0.6 % (0.0-3.0) Basophils (%) (Auto) 0.3 % (0.0-2.0) Sodium Level 138 MMOL/L (136-145) Potassium Level 3.6 MMOL/L (3.5-5.1) Chloride Level 106 MMOL/L (98-107) Carbon Dioxide Level 28 MMOL/L (21-32) Anion Gap 4 mmol/L (5-15) L Blood Urea Nitrogen 26 mg/dL (7-18) H Creatinine 1.0 MG/DL (0.55-1.30) Estimat Glomerular Filtration Rate mL/min (>60) Glucose Level 264 MG/DL (74-106) H Uric Acid 4.2 MG/DL (2.6-7.2) Calcium Level 9.3 MG/DL (8.5-10.1) Phosphorus Level 2.6 MG/DL (2.5-4.9) Magnesium Level 2.1 MG/DL (1.8-2.4) Total Bilirubin 0.5 MG/DL (0.2-1.0) Aspartate Amino Transf (AST/SGOT) 27 U/L (15-37) Alanine Aminotransferase (ALT/SGPT) 38 U/L (12-78) Alkaline Phosphatase 86 U/L (46-116) Troponin I 0.242 ng/mL (0.000-0.056) Pro-B-Type Natriuretic Peptide 1078 pg/mL (0-125) H Total Protein 5.9 G/DL (6.4-8.2) L Albumin 2.0 G/DL (3.4-5.0) L Globulin 3.9 g/dL Albumin/Globulin Ratio 0.5 (1.0-2.7) L Microbiology Date/Time Source Procedure Growth Status 04/11/18 07:35 Blood Blood Culture - Preliminary Staphylococcus Aureus Resulted 04/11/18 07:25 Blood Blood Culture - Preliminary Staphylococcus Aureus Resulted 04/11/18 06:29 Urine,Clean Catch Urine Culture - Final Staphylococcus Aureus Complete Objective HEENT: Atraumatic and normocephalic. Anicteric. Pupils are equal, round, and reactive to light and accommodation. . NECK: JVP less than 5 cm. No carotid bruit. CARDIOVASCULAR: Normal S1 and S2. Tachycardic. No murmurs, gallops, or rubs. PMI is at fourth intercostal space in the midclavicular line. LUNGS: Clear to auscultation bilaterally. ABDOMEN: Soft, nontender, and nondistended. No hepatosplenomegaly. Positive bowel sounds. EXTREMITIES: No evidence of edema, clubbing, or cyanosis. Beto Chappell MD Apr 13, 2018 18:26
[2018-04-13] MEDS ORDERED: NS 275ml ONE (19:50)
[2018-04-13] MEDS ORDERED: Tubing IV Secondary IV ONE ×3 (19:50→19:57)
[2018-04-13] MEDS ORDERED: NS 500ML ONE (19:57)
[2018-04-13 20:00] VITALS: BP 114/62
[2018-04-13] MEDS: Acetaminophen 500mg (ES) tab ORAL PRN (20:44)
[2018-04-13] MEDS: Tamsulosin 0.4mg cap ORAL SCH (20:45)
[2018-04-13] MEDS: Metoprolol Tartrate 12.5mg TAB ORAL SCH (20:45)
--- NOTE | 2018-04-13 21:28 | General Progress Note ---
Assessment/Plan Assessment/Plan (1) Alerted mental status (2) S/p fall (3) Cervical Sprain (4) Thoracic sprain (5) Lumbar sprain Continued on Tylenol and Lidocaine. D/w Dr. Laura and he concurred. Subjective Date patient seen: Apr 13, 2018 Time patient seen: 21:26 Allergies: Coded Allergies: No Known Allergies (Unverified , 04/11/18) Subjective REVIEW OF SYSTEMS: Unable to obtain due to the patient's mental status. SUBJECTIVE: Patient is in bed and having no signs of pain. Xrays were reviewed. D/w nurse. Objective Last 24 Hour Vital Signs Date Time Temp Pulse Resp B/P (MAP) Pulse Ox O2 Delivery O2 Flow Rate FiO2 04/13/18 20:45 96 121/73 04/13/18 20:44 100.6 04/13/18 20:29 Room Air 04/13/18 20:00 100.6 97 18 114/62 (79) 100.6 04/13/18 16:00 98.0 92 22 131/70 (90) 95 98.0 04/13/18 15:26 93 117/72 04/13/18 12:00 98.2 94 24 134/72 (92) 94 98.2 04/13/18 11:28 125/68 04/13/18 09:00 Room Air 04/13/18 08:00 97.9 93 26 125/68 (87) 94 97.9 04/13/18 04:00 93 04/13/18 04:00 99.1 100 22 121/66 (84) 97 99.1 04/13/18 00:00 102 04/13/18 00:00 97.3 98 21 105/60 (75) 98 97.3 Intake and Output 04/12/18 04/13/18 19:00 07:00 Intake Total 2190.000 ml 960 ml Output Total 1000 ml Balance 1190.000 ml 960 ml Intake Oral 960 ml 960 ml IV Total 1230.000 ml Output Urine Total 1000 ml # Voids 2 Laboratory Tests 04/13/18 04:50: White Blood Count 8.3, Red Blood Count 4.14L, Hemoglobin 11.8L, Hematocrit 35.5L , Mean Corpuscular Volume 86, Mean Corpuscular Hemoglobin 28.6, Mean Corpuscular Hemoglobin Concent 33.3, Red Cell Distribution Width 12.3, Platelet Count 112L, Mean Platelet Volume 7.5, Neutrophils (%) (Auto) 84.6H, Lymphocytes (%) (Auto) 6.4L, Monocytes (%) (Auto) 8.1, Eosinophils (%) (Auto) 0.6, Basophils (%) (Auto) 0.3, Sodium Level 138, Potassium Level 3.6, Chloride Level 106, Carbon Dioxide Level 28, Anion Gap 4L, Blood Urea Nitrogen 26H, Creatinine 1.0, Estimat Glomerular Filtration Rate , Glucose Level 264H, Uric Acid 4.2, Calcium Level 9.3, Phosphorus Level 2.6, Magnesium Level 2.1, Total Bilirubin 0.5, Aspartate Amino Transf (AST/SGOT) 27, Alanine Aminotransferase (ALT/SGPT) 38, Alkaline Phosphatase 86, Troponin I 0.242H, Pro-B-Type Natriuretic Peptide 1078H, Total Protein 5.9L, Albumin 2.0L, Globulin 3.9, Albumin/Globulin Ratio 0.5L Height (Feet): 6 Weight (Pounds): 197 Objective GENERAL: Alert and awake. LUNGS: Decreased breath sounds bilaterally. HEART: Regular. ABDOMEN: Benign. EXTREMITIES: No cyanosis. No clubbing. Procedure: XRAY C Spine 2-3v Indication: Neck Pain Findings: 3 views of the cervical spine were obtained. The bones are moderately osteopenic. There is no obvious acute fracture but the cervical spine is not seen well below C4. There is suggestion of degenerative disc disease at C5-6 and C6-7 with narrowed disc and endplate spurs. The dens is intact. Atlantoaxial alignment is normal. IMPRESSION: Limited evaluation as discussed above. No obvious acute injury Procedure: XRAY T Spine 2v Indication: Back pain Comparison: None Findings: 2 views of the thoracic spine were obtained. No definite fracture or malalignment identified. Bones are osteopenic. Endplate osteophytes noted throughout the thoracic spine. Aorta is moderately calcified. IMPRESSION: No obvious acute injury. Procedure: XRAY L Spine Ltd Indication: Back pain Comparison: None Findings: 3 views of the lumbar spine were obtained. The bones are moderately osteopenic. Alignment is normal. There is sclerosis of the facets. There is mild narrowing of the L4-5 disc. There is moderate calcification of the aorta. IMPRESSION: No acute injury appreciated Jerson Hook Apr 13, 2018 21:28
--- NOTE | 2018-04-13 21:44 | General Progress Note ---
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 sugar dm uti abx per id afebrile Subjective ROS Limited/Unobtainable: Yes Allergies: Coded Allergies: No Known Allergies (Unverified , 04/11/18) Objective Last 24 Hour Vital Signs Date Time Temp Pulse Resp B/P (MAP) Pulse Ox O2 Delivery O2 Flow Rate FiO2 04/13/18 20:45 96 121/73 04/13/18 20:44 100.6 04/13/18 20:29 Room Air 04/13/18 20:00 100.6 97 18 114/62 (79) 100.6 04/13/18 16:00 98.0 92 22 131/70 (90) 95 98.0 04/13/18 15:26 93 117/72 04/13/18 12:00 98.2 94 24 134/72 (92) 94 98.2 04/13/18 11:28 125/68 04/13/18 09:00 Room Air 04/13/18 08:00 97.9 93 26 125/68 (87) 94 97.9 04/13/18 04:00 93 04/13/18 04:00 99.1 100 22 121/66 (84) 97 99.1 04/13/18 00:00 102 04/13/18 00:00 97.3 98 21 105/60 (75) 98 97.3 Intake and Output 04/12/18 04/13/18 19:00 07:00 Intake Total 2190.000 ml 960 ml Output Total 1000 ml Balance 1190.000 ml 960 ml Intake Oral 960 ml 960 ml IV Total 1230.000 ml Output Urine Total 1000 ml # Voids 2 Laboratory Tests 04/13/18 04:50: White Blood Count 8.3, Red Blood Count 4.14L, Hemoglobin 11.8L, Hematocrit 35.5L , Mean Corpuscular Volume 86, Mean Corpuscular Hemoglobin 28.6, Mean Corpuscular Hemoglobin Concent 33.3, Red Cell Distribution Width 12.3, Platelet Count 112L, Mean Platelet Volume 7.5, Neutrophils (%) (Auto) 84.6H, Lymphocytes (%) (Auto) 6.4L, Monocytes (%) (Auto) 8.1, Eosinophils (%) (Auto) 0.6, Basophils (%) (Auto) 0.3, Sodium Level 138, Potassium Level 3.6, Chloride Level 106, Carbon Dioxide Level 28, Anion Gap 4L, Blood Urea Nitrogen 26H, Creatinine 1.0, Estimat Glomerular Filtration Rate , Glucose Level 264H, Uric Acid 4.2, Calcium Level 9.3, Phosphorus Level 2.6, Magnesium Level 2.1, Total Bilirubin 0.5, Aspartate Amino Transf (AST/SGOT) 27, Alanine Aminotransferase (ALT/SGPT) 38, Alkaline Phosphatase 86, Troponin I 0.242H, Pro-B-Type Natriuretic Peptide 1078H, Total Protein 5.9L, Albumin 2.0L, Globulin 3.9, Albumin/Globulin Ratio 0.5L Height (Feet): 6 Weight (Pounds): 197 Cardiovascular: normal rate Respiratory/Chest: lungs clear Abdomen: soft Ubaldo Jarquin MD Apr 13, 2018 21:44
[2018-04-14] VITALS: BP 108/57
--- NOTE | 2018-04-14 00:45 | Consultation ---
DATE OF CONSULTATION: 04/13/2018 ENDOCRINOLOGY CONSULTATION CONSULTING PHYSICIAN: Kurtis Richey M.D. REFERRING PHYSICIAN: Ubaldo Jarquin M.D. REASON FOR CONSULTATION: Diabetes management. HISTORY OF PRESENT ILLNESS: The patient is a 72-year-old male with unknown past medical history, who presented with a chief complaint of dizziness and confusion. He was at the restaurant in [place] and staff called 911 because the patient was shaking, he fell on the ground and had a right forehead injury and a black eye. He denies any alcohol or drug use. Blood glucose is elevated during the hospitalization. Therefore, Endocrinology was consulted. PAST MEDICAL HISTORY: Unknown. PAST SURGICAL HISTORY: None. MEDICATIONS AN OUTPATIENT: None known. FAMILY HISTORY: Noncontributory. SOCIAL HISTORY: No smoking, alcohol, or drug use. REVIEW OF SYSTEMS: Difficult to obtain. LABORATORY VALUES: WBC 8, hemoglobin 11.8, hematocrit 35.5, and platelets of 112,000. Sodium 138, potassium 3.6, chloride 106, BUN 26, creatinine 1.0, and glucose of 264. Lactic acid of 1. Troponin 0.2. CRP of 22. BNP of 1000. TSH of 0.6. PHYSICAL EXAMINATION: GENERAL: The patient is arousable, but confused. VITAL SIGNS: Blood pressure is 131/70, pulse 92, temperature of 98.3, and respiratory rate of 22. HEENT: Pupils are reactive to light. For forehead injury, bandage on. HEART: Regular. LUNGS: Clear. ABDOMEN: Positive bowel sounds. Soft. EXTREMITIES: No edema. DIAGNOSES: 1. Fall with head trauma. 2. Encephalopathy. 3. Diabetes, out of control. PLAN: 1. Levemir 10 units daily. 2. Starlix 120 mg before each meal. 3. NovoLog sliding scale before meals and at bedtime. 4. Further adjustment according to the blood glucose values. Thank you, Dr. Jarquin, for the courtesy of this consultation. Kurtis Richey M.D. DR: LISHA JOB#: [id number] CC: SAHIL
[2018-04-14 04:00] VITALS: BP 120/62
[2018-04-14 04:10] LABS: BASOPHILS % (AUTO) 0.3 % (0.0-2.0); EOSINOPHILS % (AUTO) 0.8 % (0.0-3.0); HEMOGLOBIN 12.1 G/DL (14.2-18.0); LYMPHOCYTES % (AUTO) 6.9 % (20.0-45.0); MEAN CORPUSCULAR VOLUME 86 FL (80-99); MONOCYTES % (AUTO) 7.2 % (1.0-10.0); NEUTROPHILS % (AUTO) 84.8 % (45.0-75.0); PLATELET COUNT 143 K/UL (150-450); RED BLOOD COUNT 4.18 M/UL (4.70-6.10); RED CELL DISTRIBUTION WIDTH 12.5 % (11.6-14.8); WHITE BLOOD COUNT 8.7 K/UL (4.8-10.8)
[2018-04-14 04:21] LABS: ALANINE AMINOTRANSFERASE 38 U/L (12-78); ALBUMIN 1.9 G/DL (3.4-5.0); ALBUMIN/GLOBULIN RATIO 0.5 (1.0-2.7); ALKALINE PHOSPHATASE 84 U/L (46-116); ANION GAP 4 mmol/L (5-15); ASPARTATE AMINO TRANSFERASE 27 U/L (15-37); BILIRUBIN,TOTAL 0.4 MG/DL (0.2-1.0); BLOOD UREA NITROGEN 20 mg/dL (7-18); CALCIUM 9.1 MG/DL (8.5-10.1); CARBON DIOXIDE 28 MMOL/L (21-32); CHLORIDE 106 MMOL/L (98-107); CREATININE 0.9 MG/DL (0.55-1.30); SODIUM 138 MMOL/L (136-145)
[2018-04-14 04:29] LABS: PHOSPHORUS 3.2 MG/DL (2.5-4.9)
[2018-04-14] MEDS: ceFAZolin 1gm/50ml Premix 50 ML IV SCH ×3 (06:02→22:16)
[2018-04-14] MEDS: sitaGLIPtin 50mg tab ORAL SCH (06:24)
[2018-04-14] MEDS ORDERED: sitaGLIPtin 50mg tab ORAL SCH (06:30)
--- NOTE | 2018-04-14 06:47 | General Progress Note ---
Assessment/Plan Assessment/Plan 1. Thrombocytopenia potentially secondary to underlying infection. ++ HSM noted --> Hepatitis panel and human immunodeficiency virus are negative --> Hepatosplenomegaly. Question of nodularity of the liver surface. Cirrhosis not excluded. Correlate clinically. 2. Leukocytosis, likely secondary to urinary tract infection. He is on ceftriaxone. --> on abx and peripheral smear 3. Pyuria due to urinary tract infection. Closely monitor for improvement. He is on ceftriaxone. --> id service has been consulted --> appreciate their recs, remains on abx 4. Old lacunar infarct. 5. Anemia due to underlying chronic disease. Continue to closely monitor. --> anemia panel has been reviewed --> hgb goal >7, transfuse prn 6. Elevated troponin. Presyncopal episode. A 12-lead EKG pending. No evidence of ischemia. --> trops reviewed, trend --> appreciate cards recs 7. Sinus tachycardia, which was corrected. Subjective Constitutional: Denies: no symptoms, chills, diaphoresis, fever, malaise, weakness, other HEENT: Denies: no symptoms, eye pain, blurred vision, tearing, double vision, ear pain, ear discharge, nose pain, nose congestion, throat pain, throat swelling, mouth pain, mouth swelling, other Cardiovascular: Denies: no symptoms, chest pain, edema, irregular heart rate, lightheadedness, palpitations, syncope, other Respiratory: Denies: no symptoms, cough, orthopnea, shortness of breath, SOB with excertion, SOB at rest, sputum, stridor, wheezing, other Gastrointestinal/Abdominal: Denies: no symptoms, abdomen distended, abdominal pain, black stools, tarry stools, blood in stool, constipated, diarrhea, difficulty swallowing, nausea, poor appetite, poor fluid intake, rectal bleeding , vomiting, other Genitourinary: Denies: no symptoms, burning, discharge, frequency, flank pain, hematuria, incontinence, pain, urgency, other Neurologic/Psychiatric: Denies: no symptoms, anxiety, depressed, emotional problems, headache, numbness, paresthesia, pre-existing deficit, seizure, tingling, tremors, weakness, other Endocrine: Denies: no symptoms, excessive sweating, flushing, intolerance to cold, intolerance to heat, increased hunger, increased thirst, increased urine, unexplained weight gain, unexplained weight loss, other Hematologic/Lymphatic: Denies: no symptoms, anemia, easy bleeding, easy bruising, other Allergies: Coded Allergies: No Known Allergies (Unverified , 04/11/18) Subjective on antibiotics and remains encephalopathic, elevated bs Objective Last 24 Hour Vital Signs Date Time Temp Pulse Resp B/P (MAP) Pulse Ox O2 Delivery O2 Flow Rate FiO2 04/14/18 04:00 98.9 85 18 120/62 (81) 94 98.9 04/14/18 00:00 98.0 79 20 108/57 (74) 93 98.0 04/13/18 21:14 99.1 04/13/18 20:45 96 121/73 04/13/18 20:44 100.6 04/13/18 20:29 Room Air 04/13/18 20:00 100.6 97 18 114/62 (79) 100.6 04/13/18 16:00 98.0 92 22 131/70 (90) 95 98.0 04/13/18 15:26 93 117/72 04/13/18 12:00 98.2 94 24 134/72 (92) 94 98.2 04/13/18 11:28 125/68 04/13/18 09:00 Room Air 04/13/18 08:00 97.9 93 26 125/68 (87) 94 97.9 Intake and Output 04/13/18 04/14/18 19:00 07:00 Intake Total 315 ml 1150 ml Output Total 600 ml 1200 ml Balance -285 ml -50 ml Intake Oral 240 ml 300 ml IV Total 75 ml 850 ml Output Urine Total 600 ml 1200 ml Laboratory Tests 04/14/18 04:00: White Blood Count 8.7, Red Blood Count 4.18L, Hemoglobin 12.1L, Hematocrit 36.0L , Mean Corpuscular Volume 86, Mean Corpuscular Hemoglobin 28.8, Mean Corpuscular Hemoglobin Concent 33.5, Red Cell Distribution Width 12.5, Platelet Count 143L, Mean Platelet Volume 6.2L, Neutrophils (%) (Auto) 84.8H, Lymphocytes (%) (Auto) 6.9L, Monocytes (%) (Auto) 7.2, Eosinophils (%) (Auto) 0.8, Basophils (%) (Auto) 0.3, Sodium Level 138, Potassium Level 4.0, Chloride Level 106, Carbon Dioxide Level 28, Anion Gap 4L, Blood Urea Nitrogen 20H, Creatinine 0.9, Estimat Glomerular Filtration Rate , Glucose Level 190H, Calcium Level 9.1, Phosphorus Level 3.2, Magnesium Level 1.9, Total Bilirubin 0.4, Aspartate Amino Transf (AST/SGOT) 27, Alanine Aminotransferase (ALT/SGPT) 38, Alkaline Phosphatase 84, Troponin I 0.171H, C-Reactive Protein, Quantitative 14.4H, Pro-B-Type Natriuretic Peptide 1035H, Total Protein 6.0L, Albumin 1.9L, Globulin 4.1, Albumin/Globulin Ratio 0.5L, Vancomycin Level Trough 6.2 Height (Feet): 6 Weight (Pounds): 197 General Appearance: no apparent distress EENT: TMs normal Neck: non-tender Cardiovascular: normal rate Respiratory/Chest: normal breath sounds Abdomen: soft Extremities: non-tender Edema: 1+ Leg (L), 1+ Leg (R) Neurologic: no motor/sensory deficits Skin: warm/dry Zack Miguel MD Apr 14, 2018 06:47
--- NOTE | 2018-04-14 07:18 | General Progress Note ---
Assessment/Plan Problem List: (1) Diabetes mellitus out of control ICD Codes: E11.65 - Type 2 diabetes mellitus with hyperglycemia SNOMED: 53072546, 006561025 (2) Acute encephalopathy ICD Codes: G93.40 - Encephalopathy, unspecified SNOMED: 90227092, 448966293 (3) Dehydration ICD Codes: E86.0 - Dehydration SNOMED: 97913389, 914880088, 649141385 (4) Acute renal failure ICD Codes: N17.9 - Acute kidney failure, unspecified SNOMED: 83349039 Assessment/Plan increase Levemir to 14 units daily continue Starlix 120 mg ac tid continue NISS ac / hs Subjective ROS Limited/Unobtainable: Yes Allergies: Coded Allergies: No Known Allergies (Unverified , 04/11/18) Subjective events noted Objective Last 24 Hour Vital Signs Date Time Temp Pulse Resp B/P (MAP) Pulse Ox O2 Delivery O2 Flow Rate FiO2 04/14/18 04:00 98.9 85 18 120/62 (81) 94 98.9 04/14/18 00:00 98.0 79 20 108/57 (74) 93 98.0 04/13/18 21:14 99.1 04/13/18 20:45 96 121/73 04/13/18 20:44 100.6 04/13/18 20:29 Room Air 04/13/18 20:00 100.6 97 18 114/62 (79) 100.6 04/13/18 16:00 98.0 92 22 131/70 (90) 95 98.0 04/13/18 15:26 93 117/72 04/13/18 12:00 98.2 94 24 134/72 (92) 94 98.2 04/13/18 11:28 125/68 04/13/18 09:00 Room Air 04/13/18 08:00 97.9 93 26 125/68 (87) 94 97.9 Intake and Output 04/13/18 04/14/18 19:00 07:00 Intake Total 315 ml 1150 ml Output Total 600 ml 1200 ml Balance -285 ml -50 ml Intake Oral 240 ml 300 ml IV Total 75 ml 850 ml Output Urine Total 600 ml 1200 ml Laboratory Tests 04/14/18 04:00: White Blood Count 8.7, Red Blood Count 4.18L, Hemoglobin 12.1L, Hematocrit 36.0L , Mean Corpuscular Volume 86, Mean Corpuscular Hemoglobin 28.8, Mean Corpuscular Hemoglobin Concent 33.5, Red Cell Distribution Width 12.5, Platelet Count 143L, Mean Platelet Volume 6.2L, Neutrophils (%) (Auto) 84.8H, Lymphocytes (%) (Auto) 6.9L, Monocytes (%) (Auto) 7.2, Eosinophils (%) (Auto) 0.8, Basophils (%) (Auto) 0.3, Sodium Level 138, Potassium Level 4.0, Chloride Level 106, Carbon Dioxide Level 28, Anion Gap 4L, Blood Urea Nitrogen 20H, Creatinine 0.9, Estimat Glomerular Filtration Rate , Glucose Level 190H, Calcium Level 9.1, Phosphorus Level 3.2, Magnesium Level 1.9, Total Bilirubin 0.4, Aspartate Amino Transf (AST/SGOT) 27, Alanine Aminotransferase (ALT/SGPT) 38, Alkaline Phosphatase 84, Troponin I 0.171H, C-Reactive Protein, Quantitative 14.4H, Pro-B-Type Natriuretic Peptide 1035H, Total Protein 6.0L, Albumin 1.9L, Globulin 4.1, Albumin/Globulin Ratio 0.5L, Vancomycin Level Trough 6.2 Height (Feet): 6 Weight (Pounds): 197 General Appearance: lethargic Neck: normal alignment Cardiovascular: normal rate Respiratory/Chest: lungs clear Abdomen: normal bowel sounds Objective Current Medications Medications (Trade) Dose Ordered Sig/Safia Route PRN Reason Start Time Stop Time Status Last Admin Dose Admin Acetaminophen (Tylenol) 500 mg Q4H PRN ORAL Mild Pain/Temp > 100.5 04/13/18 13:41 05/11/18 13:40 04/13/18 20:44 Aspirin (ASA) 162 mg DAILY ORAL 04/14/18 09:00 05/11/18 10:59 Cefazolin Sodium 50 ml @ 100 mls/hr Q8HR IV 04/13/18 14:00 04/20/18 13:59 04/14/18 06:02 Dextrose (Dextrose 50%) 25 ml Q30M PRN IV Hypoglycemia 04/13/18 13:45 05/13/18 06:44 Dextrose (Dextrose 50%) 50 ml Q30M PRN IV Hypoglycemia 04/13/18 13:45 05/13/18 06:44 Docusate Sodium (Colace) 100 mg THREE TIMES A DAY ORAL 04/13/18 18:00 05/13/18 17:59 04/13/18 17:15 Insulin Detemir (Levemir) 10 units DAILY SUBQ 04/14/18 09:00 05/13/18 08:59 Lidocaine (Lidoderm 5% PATCH) 1 patch DAILY@0000 TDERMAL 04/14/18 00:00 05/13/18 00:14 04/14/18 00:26 Metoprolol Tartrate (Lopressor) 12.5 mg Q12HR ORAL 04/13/18 21:00 05/13/18 20:59 04/13/18 20:45 Nateglinide (Starlix) 120 mg TIAC ORAL 04/13/18 16:30 05/12/18 08:59 04/14/18 06:23 Nitroglycerin (Ntg) 1 patch Q24H TDERMAL 04/14/18 11:00 05/11/18 10:59 Pantoprazole (Protonix) 40 mg EVERY 12 HOURS ORAL 04/13/18 21:00 05/13/18 20:59 04/13/18 20:45 Quetiapine Fumarate (SEROquel) 12.5 mg Q4H PRN ORAL ANXIETY 04/13/18 13:43 05/12/18 13:42 Sitagliptin Phosphate (Januvia) 50 mg ACBREAKFAST ORAL 04/14/18 06:30 05/14/18 06:29 04/14/18 06:24 Sodium Chloride 1,000 ml @ 75 mls/hr [id number] IV 04/13/18 13:45 05/11/18 10:59 04/14/18 03:03 Tamsulosin HCl (Flomax) 0.4 mg BEDTIME ORAL 04/13/18 21:00 05/11/18 20:59 04/13/18 20:45 Vancomycin HCl (Vanco rx to dose) 1 ea DAILY PRN MISC Per rx protocol 04/14/18 09:00 05/12/18 12:14 Vancomycin HCl/ Dextrose 250 ml @ 125 mls/hr Q12H IVPB 04/14/18 08:00 04/19/18 07:59 Vitamin A/Vitamin D (A & D Oint) 1 applic TWICE A DAY TOPIC 04/13/18 18:00 05/12/18 08:59 04/13/18 17:15 Item Value Date Time Glucose Level 190 MG/DL H 04/14/18 0400 Bedside Blood Glucose 274 mg/dl H 04/13/18 0922 Glucose Level 264 MG/DL H 04/13/18 0450 Kurtis Richey MD Apr 14, 2018 07:18
[2018-04-14 08:00] VITALS: BP 121/70
[2018-04-14] MEDS ORDERED: Vancomycin 1750mg/D5W 300ml IVPB SCH ×2 (08:00)
[2018-04-14] MEDS ORDERED: Vancomycin 1500mg IVPB SCH (08:00)
[2018-04-14] MEDS: Docusate 100mg cap ORAL SCH ×3 (08:51→18:09)
[2018-04-14] MEDS: Aspirin Baby 81mg ORAL SCH (08:52)
[2018-04-14] MEDS: Metoprolol Tartrate 12.5mg TAB ORAL SCH ×2 (08:52→20:43)
[2018-04-14] MEDS: Vitamin A&D Oint 2oz Tube TOPIC SCH ×2 (08:53→18:09)
[2018-04-14] MEDS: Levemir Flexpen SUBQ SCH (09:09)
--- NOTE | 2018-04-14 11:39 | Nephrology Progress Note ---
Assessment/Plan Problem List: (1) Dehydration (2) UTI (urinary tract infection) (3) Acute renal failure (4) Acute encephalopathy (5) Diabetes mellitus out of control (6) Elevated troponin I level Assessment Renal Failure- encephalopathy UTI Dehydration Low na and high K Elevated troponin DM , high Glucose Plan DC IV Fluids starlix Ancef - Vanco Monitor lytes ASA Nitrate St eval Per orders Subjective ROS Limited/Unobtainable: No Constitutional: Reports: malaise, weakness Objective Objective Last 24 Hour Vital Signs Date Time Temp Pulse Resp B/P (MAP) Pulse Ox O2 Delivery O2 Flow Rate FiO2 04/14/18 08:52 87 121/70 04/14/18 08:15 Room Air 04/14/18 08:00 98.1 87 20 121/70 (87) 92 98.1 04/14/18 04:00 98.9 85 18 120/62 (81) 94 98.9 04/14/18 00:00 98.0 79 20 108/57 (74) 93 98.0 04/13/18 21:14 99.1 04/13/18 20:45 96 121/73 04/13/18 20:44 100.6 04/13/18 20:29 Room Air 04/13/18 20:00 100.6 97 18 114/62 (79) 100.6 04/13/18 16:00 98.0 92 22 131/70 (90) 95 98.0 04/13/18 15:26 93 117/72 04/13/18 12:00 98.2 94 24 134/72 (92) 94 98.2 Intake and Output 04/13/18 04/14/18 19:00 07:00 Intake Total 315 ml 1150 ml Output Total 600 ml 1200 ml Balance -285 ml -50 ml Intake Oral 240 ml 300 ml IV Total 75 ml 850 ml Output Urine Total 600 ml 1200 ml Laboratory Tests 04/14/18 04:00: White Blood Count 8.7, Red Blood Count 4.18L, Hemoglobin 12.1L, Hematocrit 36.0L , Mean Corpuscular Volume 86, Mean Corpuscular Hemoglobin 28.8, Mean Corpuscular Hemoglobin Concent 33.5, Red Cell Distribution Width 12.5, Platelet Count 143L, Mean Platelet Volume 6.2L, Neutrophils (%) (Auto) 84.8H, Lymphocytes (%) (Auto) 6.9L, Monocytes (%) (Auto) 7.2, Eosinophils (%) (Auto) 0.8, Basophils (%) (Auto) 0.3, Sodium Level 138, Potassium Level 4.0, Chloride Level 106, Carbon Dioxide Level 28, Anion Gap 4L, Blood Urea Nitrogen 20H, Creatinine 0.9, Estimat Glomerular Filtration Rate , Glucose Level 190H, Calcium Level 9.1, Phosphorus Level 3.2, Magnesium Level 1.9, Total Bilirubin 0.4, Aspartate Amino Transf (AST/SGOT) 27, Alanine Aminotransferase (ALT/SGPT) 38, Alkaline Phosphatase 84, Troponin I 0.171H, C-Reactive Protein, Quantitative 14.4H, Pro-B-Type Natriuretic Peptide 1035H, Total Protein 6.0L, Albumin 1.9L, Globulin 4.1, Albumin/Globulin Ratio 0.5L, Vancomycin Level Trough 6.2 Height (Feet): 6 Weight (Pounds): 197 General Appearance: no apparent distress Cardiovascular: normal rate Respiratory/Chest: decreased breath sounds Abdomen: soft Objective no change Greyson Ignacio MD Apr 14, 2018 11:39
[2018-04-14] MEDS: Nitroglycerin Patch 0.4mg TDERMAL SCH (11:52)
[2018-04-14 12:00] VITALS: BP 122/65
--- NOTE | 2018-04-14 12:12 | Infectious Diseases Prog Note ---
Assessment/Plan Assessment/Plan A; Sepsis with Staph aureus, MSSA UTI with MSSA DM & Hyperglycemia AMS elevated troponin Syncope & Fall P; Change Rocephin to Ancef discontinue Vancomycin Will D/W radiologist & Outside Sales Inspector Subjective ROS Limited/Unobtainable: Yes Constitutional: Reports: fever Respiratory: Reports: no symptoms Cardiovascular: Reports: no symptoms Gastrointestinal/Abdominal: Reports: no symptoms Musculoskeletal: Reports: pain, other - back pain Allergies: Coded Allergies: No Known Allergies (Unverified , 04/11/18) Objective Vital Signs Last 24 Hour Vital Signs Date Time Temp Pulse Resp B/P (MAP) Pulse Ox O2 Delivery O2 Flow Rate FiO2 04/14/18 11:52 121/70 04/14/18 08:52 87 121/70 04/14/18 08:15 Room Air 04/14/18 08:00 98.1 87 20 121/70 (87) 92 98.1 04/14/18 04:00 98.9 85 18 120/62 (81) 94 98.9 04/14/18 00:00 98.0 79 20 108/57 (74) 93 98.0 04/13/18 21:14 99.1 04/13/18 20:45 96 121/73 04/13/18 20:44 100.6 04/13/18 20:29 Room Air 04/13/18 20:00 100.6 97 18 114/62 (79) 100.6 04/13/18 16:00 98.0 92 22 131/70 (90) 95 98.0 04/13/18 15:26 93 117/72 Height (Feet): 6 Weight (Pounds): 197 General Appearance: no acute distress HEENT: mucous membranes moist Respiratory/Chest: lungs clear Cardiovascular: normal rate Abdomen: soft, non tender Extremities: no edema Neurologic/Psychiatric: alert, responsive Laboratory Tests Test 04/14/18 04:00 White Blood Count 8.7 K/UL (4.8-10.8) Red Blood Count 4.18 M/UL (4.70-6.10) L Hemoglobin 12.1 G/DL (14.2-18.0) L Hematocrit 36.0 % (42.0-52.0) L Mean Corpuscular Volume 86 FL (80-99) Mean Corpuscular Hemoglobin 28.8 PG (27.0-31.0) Mean Corpuscular Hemoglobin Concent 33.5 G/DL (32.0-36.0) Red Cell Distribution Width 12.5 % (11.6-14.8) Platelet Count 143 K/UL (150-450) L Mean Platelet Volume 6.2 FL (6.5-10.1) L Neutrophils (%) (Auto) 84.8 % (45.0-75.0) H Lymphocytes (%) (Auto) 6.9 % (20.0-45.0) L Monocytes (%) (Auto) 7.2 % (1.0-10.0) Eosinophils (%) (Auto) 0.8 % (0.0-3.0) Basophils (%) (Auto) 0.3 % (0.0-2.0) Sodium Level 138 MMOL/L (136-145) Potassium Level 4.0 MMOL/L (3.5-5.1) Chloride Level 106 MMOL/L (98-107) Carbon Dioxide Level 28 MMOL/L (21-32) Anion Gap 4 mmol/L (5-15) L Blood Urea Nitrogen 20 mg/dL (7-18) H Creatinine 0.9 MG/DL (0.55-1.30) Estimat Glomerular Filtration Rate mL/min (>60) Glucose Level 190 MG/DL (74-106) H Calcium Level 9.1 MG/DL (8.5-10.1) Phosphorus Level 3.2 MG/DL (2.5-4.9) Magnesium Level 1.9 MG/DL (1.8-2.4) Total Bilirubin 0.4 MG/DL (0.2-1.0) Aspartate Amino Transf (AST/SGOT) 27 U/L (15-37) Alanine Aminotransferase (ALT/SGPT) 38 U/L (12-78) Alkaline Phosphatase 84 U/L (46-116) Troponin I 0.171 ng/mL (0.000-0.056) C-Reactive Protein, Quantitative 14.4 mg/dL (0.00-0.90) H Pro-B-Type Natriuretic Peptide 1035 pg/mL (0-125) H Total Protein 6.0 G/DL (6.4-8.2) L Albumin 1.9 G/DL (3.4-5.0) L Globulin 4.1 g/dL Albumin/Globulin Ratio 0.5 (1.0-2.7) L Vancomycin Level Trough 6.2 ug/mL (5.0-12.0) Current Medications Medications (Trade) Dose Ordered Sig/Safia Route PRN Reason Start Time Stop Time Status Last Admin Dose Admin Acetaminophen (Tylenol) 500 mg Q4H PRN ORAL Mild Pain/Temp > 100.5 04/13/18 13:41 05/11/18 13:40 04/13/18 20:44 Aspirin (ASA) 162 mg DAILY ORAL 04/14/18 09:00 05/11/18 10:59 04/14/18 08:52 Cefazolin Sodium 50 ml @ 100 mls/hr Q8HR IV 04/13/18 14:00 04/20/18 13:59 04/14/18 06:02 Dextrose (Dextrose 50%) 25 ml Q30M PRN IV Hypoglycemia 04/13/18 13:45 05/13/18 06:44 Dextrose (Dextrose 50%) 50 ml Q30M PRN IV Hypoglycemia 04/13/18 13:45 05/13/18 06:44 Docusate Sodium (Colace) 100 mg THREE TIMES A DAY ORAL 04/13/18 18:00 05/13/18 17:59 04/14/18 08:51 Insulin Detemir (Levemir) 10 units DAILY SUBQ 04/14/18 09:00 05/13/18 08:59 04/14/18 09:09 Lidocaine (Lidoderm 5% PATCH) 1 patch DAILY@0000 TDERMAL 04/14/18 00:00 05/13/18 00:14 04/14/18 00:26 Metoprolol Tartrate (Lopressor) 12.5 mg Q12HR ORAL 04/13/18 21:00 05/13/18 20:59 04/14/18 08:52 Nateglinide (Starlix) 120 mg TIAC ORAL 04/13/18 16:30 05/12/18 08:59 04/14/18 11:52 Nitroglycerin (Ntg) 1 patch Q24H TDERMAL 04/14/18 11:00 05/11/18 10:59 04/14/18 11:52 Pantoprazole (Protonix) 40 mg EVERY 12 HOURS ORAL 04/13/18 21:00 05/13/18 20:59 04/14/18 08:51 Quetiapine Fumarate (SEROquel) 12.5 mg Q4H PRN ORAL ANXIETY 04/13/18 13:43 05/12/18 13:42 Sitagliptin Phosphate (Januvia) 50 mg ACBREAKFAST ORAL 04/14/18 06:30 05/14/18 06:29 04/14/18 06:24 Tamsulosin HCl (Flomax) 0.4 mg BEDTIME ORAL 04/13/18 21:00 05/11/18 20:59 04/13/18 20:45 Vancomycin HCl (Vanco rx to dose) 1 ea DAILY PRN MISC Per rx protocol 04/14/18 09:00 05/12/18 12:14 Vancomycin HCl/ Dextrose 250 ml @ 125 mls/hr Q12H IVPB 04/14/18 08:00 04/19/18 07:59 04/14/18 08:51 Vitamin A/Vitamin D (A & D Oint) 1 applic TWICE A DAY TOPIC 04/13/18 18:00 05/12/18 08:59 04/14/18 08:53 Conor Egan MD Apr 14, 2018 12:12
--- NOTE | 2018-04-14 14:36 | General Progress Note ---
Assessment/Plan Assessment/Plan (1) Alerted mental status (2) S/p fall (3) Cervical Sprain (4) Thoracic sprain (5) Lumbar sprain Continued on Tylenol and Lidocaine. D/w Dr. Laura and he concurred. Subjective Date patient seen: Apr 14, 2018 Time patient seen: 14:33 Constitutional: Reports: weakness HEENT: Reports: no symptoms Cardiovascular: Reports: no symptoms Respiratory: Reports: shortness of breath Gastrointestinal/Abdominal: Reports: no symptoms Genitourinary: Reports: no symptoms Neurologic/Psychiatric: Reports: weakness Endocrine: Reports: no symptoms Hematologic/Lymphatic: Reports: no symptoms Allergies: Coded Allergies: No Known Allergies (Unverified , 04/11/18) Subjective In bed with no signs of pain or distress. He reports no pain. Still weak. Objective Last 24 Hour Vital Signs Date Time Temp Pulse Resp B/P (MAP) Pulse Ox O2 Delivery O2 Flow Rate FiO2 04/14/18 12:00 98.6 78 20 122/65 (84) 97 98.6 04/14/18 11:52 121/70 04/14/18 08:52 87 121/70 04/14/18 08:15 Room Air 04/14/18 08:00 98.1 87 20 121/70 (87) 92 98.1 04/14/18 04:00 98.9 85 18 120/62 (81) 94 98.9 04/14/18 00:00 98.0 79 20 108/57 (74) 93 98.0 04/13/18 21:14 99.1 04/13/18 20:45 96 121/73 04/13/18 20:44 100.6 04/13/18 20:29 Room Air 04/13/18 20:00 100.6 97 18 114/62 (79) 100.6 04/13/18 16:00 98.0 92 22 131/70 (90) 95 98.0 04/13/18 15:26 93 117/72 Intake and Output 04/13/18 04/14/18 19:00 07:00 Intake Total 315 ml 1150 ml Output Total 600 ml 1200 ml Balance -285 ml -50 ml Intake Oral 240 ml 300 ml IV Total 75 ml 850 ml Output Urine Total 600 ml 1200 ml Laboratory Tests 04/14/18 04:00: White Blood Count 8.7, Red Blood Count 4.18L, Hemoglobin 12.1L, Hematocrit 36.0L , Mean Corpuscular Volume 86, Mean Corpuscular Hemoglobin 28.8, Mean Corpuscular Hemoglobin Concent 33.5, Red Cell Distribution Width 12.5, Platelet Count 143L, Mean Platelet Volume 6.2L, Neutrophils (%) (Auto) 84.8H, Lymphocytes (%) (Auto) 6.9L, Monocytes (%) (Auto) 7.2, Eosinophils (%) (Auto) 0.8, Basophils (%) (Auto) 0.3, Sodium Level 138, Potassium Level 4.0, Chloride Level 106, Carbon Dioxide Level 28, Anion Gap 4L, Blood Urea Nitrogen 20H, Creatinine 0.9, Estimat Glomerular Filtration Rate , Glucose Level 190H, Calcium Level 9.1, Phosphorus Level 3.2, Magnesium Level 1.9, Total Bilirubin 0.4, Aspartate Amino Transf (AST/SGOT) 27, Alanine Aminotransferase (ALT/SGPT) 38, Alkaline Phosphatase 84, Troponin I 0.171H, C-Reactive Protein, Quantitative 14.4H, Pro-B-Type Natriuretic Peptide 1035H, Total Protein 6.0L, Albumin 1.9L, Globulin 4.1, Albumin/Globulin Ratio 0.5L, Vancomycin Level Trough 6.2 Height (Feet): 6 Weight (Pounds): 197 Objective GENERAL: Alert and awake. LUNGS: Decreased breath sounds bilaterally. HEART: Regular. ABDOMEN: Benign. EXTREMITIES: No cyanosis. No clubbing. Jerson Hook Apr 14, 2018 14:36
--- NOTE | 2018-04-14 15:39 | General Progress Note ---
Assessment/Plan Assessment/Plan encephalopathy due to c seroquel prn Subjective Date patient seen: Apr 14, 2018 Neurologic/Psychiatric: Reports: anxiety, depressed, emotional problems Allergies: Coded Allergies: No Known Allergies (Unverified , 04/11/18) Objective Last 24 Hour Vital Signs Date Time Temp Pulse Resp B/P (MAP) Pulse Ox O2 Delivery O2 Flow Rate FiO2 04/14/18 12:00 98.6 78 20 122/65 (84) 97 98.6 04/14/18 11:52 121/70 04/14/18 08:52 87 121/70 04/14/18 08:15 Room Air 04/14/18 08:00 98.1 87 20 121/70 (87) 92 98.1 04/14/18 04:00 98.9 85 18 120/62 (81) 94 98.9 04/14/18 00:00 98.0 79 20 108/57 (74) 93 98.0 04/13/18 21:14 99.1 04/13/18 20:45 96 121/73 04/13/18 20:44 100.6 04/13/18 20:29 Room Air 04/13/18 20:00 100.6 97 18 114/62 (79) 100.6 04/13/18 16:00 98.0 92 22 131/70 (90) 95 98.0 Intake and Output 04/13/18 04/14/18 19:00 07:00 Intake Total 315 ml 1150 ml Output Total 600 ml 1200 ml Balance -285 ml -50 ml Intake Oral 240 ml 300 ml IV Total 75 ml 850 ml Output Urine Total 600 ml 1200 ml Laboratory Tests 04/14/18 04:00: White Blood Count 8.7, Red Blood Count 4.18L, Hemoglobin 12.1L, Hematocrit 36.0L , Mean Corpuscular Volume 86, Mean Corpuscular Hemoglobin 28.8, Mean Corpuscular Hemoglobin Concent 33.5, Red Cell Distribution Width 12.5, Platelet Count 143L, Mean Platelet Volume 6.2L, Neutrophils (%) (Auto) 84.8H, Lymphocytes (%) (Auto) 6.9L, Monocytes (%) (Auto) 7.2, Eosinophils (%) (Auto) 0.8, Basophils (%) (Auto) 0.3, Sodium Level 138, Potassium Level 4.0, Chloride Level 106, Carbon Dioxide Level 28, Anion Gap 4L, Blood Urea Nitrogen 20H, Creatinine 0.9, Estimat Glomerular Filtration Rate , Glucose Level 190H, Calcium Level 9.1, Phosphorus Level 3.2, Magnesium Level 1.9, Total Bilirubin 0.4, Aspartate Amino Transf (AST/SGOT) 27, Alanine Aminotransferase (ALT/SGPT) 38, Alkaline Phosphatase 84, Troponin I 0.171H, C-Reactive Protein, Quantitative 14.4H, Pro-B-Type Natriuretic Peptide 1035H, Total Protein 6.0L, Albumin 1.9L, Globulin 4.1, Albumin/Globulin Ratio 0.5L, Vancomycin Level Trough 6.2 Height (Feet): 6 Weight (Pounds): 197 General Appearance: no apparent distress, alert Neurologic: oriented x 3, responsive, depressed affect Vimal Mares MD Apr 14, 2018 15:39
[2018-04-14 16:00] VITALS: BP 139/73
[2018-04-14 20:00] VITALS: BP 135/82
[2018-04-14] MEDS: Tamsulosin 0.4mg cap ORAL SCH (20:43)
[2018-04-14] MEDS: Acetaminophen 500mg (ES) tab ORAL PRN (21:33)
--- NOTE | 2018-04-14 21:52 | General Progress Note ---
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 elevated sugar uti and dm sugars are improving will check tropnin periodically no cp Subjective ROS Limited/Unobtainable: Yes Allergies: Coded Allergies: No Known Allergies (Unverified , 04/11/18) Objective Last 24 Hour Vital Signs Date Time Temp Pulse Resp B/P (MAP) Pulse Ox O2 Delivery O2 Flow Rate FiO2 04/14/18 21:33 98.2 04/14/18 20:43 65 120/73 04/14/18 20:00 98.3 101 20 135/82 (99) 94 98.3 04/14/18 16:00 98.2 87 20 139/73 (95) 96 98.2 04/14/18 12:00 98.6 78 20 122/65 (84) 97 98.6 04/14/18 11:52 121/70 04/14/18 08:52 87 121/70 04/14/18 08:15 Room Air 04/14/18 08:00 98.1 87 20 121/70 (87) 92 98.1 04/14/18 04:00 98.9 85 18 120/62 (81) 94 98.9 04/14/18 00:00 98.0 79 20 108/57 (74) 93 98.0 Intake and Output 04/13/18 04/14/18 19:00 07:00 Intake Total 315 ml 1150 ml Output Total 600 ml 1200 ml Balance -285 ml -50 ml Intake Oral 240 ml 300 ml IV Total 75 ml 850 ml Output Urine Total 600 ml 1200 ml Laboratory Tests 04/14/18 04:00: White Blood Count 8.7, Red Blood Count 4.18L, Hemoglobin 12.1L, Hematocrit 36.0L , Mean Corpuscular Volume 86, Mean Corpuscular Hemoglobin 28.8, Mean Corpuscular Hemoglobin Concent 33.5, Red Cell Distribution Width 12.5, Platelet Count 143L, Mean Platelet Volume 6.2L, Neutrophils (%) (Auto) 84.8H, Lymphocytes (%) (Auto) 6.9L, Monocytes (%) (Auto) 7.2, Eosinophils (%) (Auto) 0.8, Basophils (%) (Auto) 0.3, Sodium Level 138, Potassium Level 4.0, Chloride Level 106, Carbon Dioxide Level 28, Anion Gap 4L, Blood Urea Nitrogen 20H, Creatinine 0.9, Estimat Glomerular Filtration Rate , Glucose Level 190H, Calcium Level 9.1, Phosphorus Level 3.2, Magnesium Level 1.9, Total Bilirubin 0.4, Aspartate Amino Transf (AST/SGOT) 27, Alanine Aminotransferase (ALT/SGPT) 38, Alkaline Phosphatase 84, Troponin I 0.171H, C-Reactive Protein, Quantitative 14.4H, Pro-B-Type Natriuretic Peptide 1035H, Total Protein 6.0L, Albumin 1.9L, Globulin 4.1, Albumin/Globulin Ratio 0.5L, Vancomycin Level Trough 6.2 Height (Feet): 6 Weight (Pounds): 197 Cardiovascular: normal rate Respiratory/Chest: lungs clear Abdomen: soft Ubaldo Jarquin MD Apr 14, 2018 21:52
[2018-04-15] VITALS: BP 140/77
[2018-04-15 04:00] VITALS: BP 140/71
[2018-04-15] MEDS: sitaGLIPtin 50mg tab ORAL SCH (06:01)
[2018-04-15] MEDS: ceFAZolin 1gm/50ml Premix 50 ML IV SCH ×3 (06:45→21:44)
[2018-04-15 08:00] VITALS: BP 137/76
[2018-04-15] MEDS ORDERED: Gadavist 7.5mMol/7.5ml vial IV PRN ×2 (08:00)
[2018-04-15] MEDS: Docusate 100mg cap ORAL SCH ×3 (08:41→17:07)
[2018-04-15] MEDS: Aspirin Baby 81mg ORAL SCH (08:42)
[2018-04-15] MEDS: Metoprolol Tartrate 12.5mg TAB ORAL SCH (08:42)
[2018-04-15] MEDS: Vitamin A&D Oint 2oz Tube TOPIC SCH ×2 (08:42→17:07)
[2018-04-15] MEDS: Levemir Flexpen SUBQ SCH (08:43)
--- NOTE | 2018-04-15 10:04 | Nephrology Progress Note ---
Assessment/Plan Problem List: (1) Dehydration (2) UTI (urinary tract infection) (3) Acute renal failure (4) Acute encephalopathy (5) Diabetes mellitus out of control (6) Elevated troponin I level Assessment Renal Failure- encephalopathy UTI Dehydration Low na and high K Elevated troponin DM , high Glucose Plan DC IV Fluids starlix Ancef - Vanco Monitor lytes ASA Nitrate St eval Per orders Subjective ROS Limited/Unobtainable: No Constitutional: Reports: malaise Objective Objective Last 24 Hour Vital Signs Date Time Temp Pulse Resp B/P (MAP) Pulse Ox O2 Delivery O2 Flow Rate FiO2 04/15/18 08:42 105 137/76 04/15/18 08:00 98.2 105 20 137/76 (96) 93 98.2 04/15/18 08:00 Room Air 04/15/18 04:00 98.9 87 20 140/71 (94) 95 98.9 04/15/18 00:00 99.1 95 18 140/77 (98) 93 99.1 04/14/18 22:03 98.2 04/14/18 21:33 98.2 04/14/18 21:00 Room Air 04/14/18 20:43 65 120/73 04/14/18 20:00 98.3 101 20 135/82 (99) 94 98.3 04/14/18 16:00 98.2 87 20 139/73 (95) 96 98.2 04/14/18 12:00 98.6 78 20 122/65 (84) 97 98.6 04/14/18 11:52 121/70 Intake and Output 04/14/18 04/15/18 19:00 07:00 Intake Total 1440 ml 350 ml Output Total 1500 ml 1500 ml Balance -60 ml -1150 ml Intake Oral 1440 ml 300 ml IV Total 50 ml Output Urine Total 1500 ml 1500 ml Height (Feet): 6 Weight (Pounds): 197 General Appearance: confused Cardiovascular: tachycardia Respiratory/Chest: decreased breath sounds Abdomen: soft Objective no change Greyson Ignacio MD Apr 15, 2018 10:04
--- NOTE | 2018-04-15 11:16 | Infectious Diseases Prog Note ---
Assessment/Plan Assessment/Plan antibiotics : ancef A 1. staph aureus sepsis secondary to UTI 2. staph aureus UTI 3. diabetes mellitus 4. s.p fall P 1. continue ancef 2. will follow up cultures Subjective ROS Limited/Unobtainable: Yes Allergies: Coded Allergies: No Known Allergies (Unverified , 04/11/18) Objective Vital Signs Last 24 Hour Vital Signs Date Time Temp Pulse Resp B/P (MAP) Pulse Ox O2 Delivery O2 Flow Rate FiO2 04/15/18 08:42 105 137/76 04/15/18 08:00 98.2 105 20 137/76 (96) 93 98.2 04/15/18 08:00 Room Air 04/15/18 04:00 98.9 87 20 140/71 (94) 95 98.9 04/15/18 00:00 99.1 95 18 140/77 (98) 93 99.1 04/14/18 22:03 98.2 04/14/18 21:33 98.2 04/14/18 21:00 Room Air 04/14/18 20:43 65 120/73 04/14/18 20:00 98.3 101 20 135/82 (99) 94 98.3 04/14/18 16:00 98.2 87 20 139/73 (95) 96 98.2 04/14/18 12:00 98.6 78 20 122/65 (84) 97 98.6 04/14/18 11:52 121/70 Height (Feet): 6 Weight (Pounds): 197 Respiratory/Chest: lungs clear Cardiovascular: normal rate, regular rhythm, no gallop/murmur Abdomen: soft, non tender Extremities: no edema Microbiology Date/Time Source Procedure Growth Status 04/13/18 16:15 Blood Blood Culture - Preliminary NO GROWTH AFTER 24 HOURS Resulted 04/13/18 15:55 Blood Blood Culture - Preliminary NO GROWTH AFTER 24 HOURS Resulted Current Medications Medications (Trade) Dose Ordered Sig/Safia Route PRN Reason Start Time Stop Time Status Last Admin Dose Admin Acetaminophen (Tylenol) 500 mg Q4H PRN ORAL Mild Pain/Temp > 100.5 04/13/18 13:41 05/11/18 13:40 04/14/18 21:33 Aspirin (ASA) 162 mg DAILY ORAL 04/14/18 09:00 05/11/18 10:59 04/15/18 08:42 Cefazolin Sodium 50 ml @ 100 mls/hr Q8HR IV 04/13/18 14:00 04/20/18 13:59 04/15/18 06:45 Dextrose (Dextrose 50%) 25 ml Q30M PRN IV Hypoglycemia 04/13/18 13:45 05/13/18 06:44 Dextrose (Dextrose 50%) 50 ml Q30M PRN IV Hypoglycemia 04/13/18 13:45 05/13/18 06:44 Docusate Sodium (Colace) 100 mg THREE TIMES A DAY ORAL 04/13/18 18:00 05/13/18 17:59 04/15/18 08:41 Gadobutrol (Gadavist) 7.5 mmol NOW PRN IV Radiology Procedure 04/15/18 08:00 04/15/18 23:59 Insulin Detemir (Levemir) 10 units DAILY SUBQ 04/14/18 09:00 05/13/18 08:59 04/15/18 08:43 Lidocaine (Lidoderm 5% PATCH) 1 patch DAILY@0000 TDERMAL 04/14/18 00:00 05/13/18 00:14 04/15/18 00:57 Metoprolol Tartrate (Lopressor) 25 mg Q12HR ORAL 04/15/18 21:00 05/13/18 20:59 Nateglinide (Starlix) 120 mg TIAC ORAL 04/13/18 16:30 05/12/18 08:59 04/15/18 06:01 Nitroglycerin (Ntg) 1 patch Q24H TDERMAL 04/14/18 11:00 05/11/18 10:59 04/14/18 11:52 Pantoprazole (Protonix) 40 mg EVERY 12 HOURS ORAL 04/13/18 21:00 05/13/18 20:59 04/15/18 08:41 Quetiapine Fumarate (SEROquel) 12.5 mg Q4H PRN ORAL ANXIETY 04/13/18 13:43 05/12/18 13:42 Sitagliptin Phosphate (Januvia) 50 mg ACBREAKFAST ORAL 04/14/18 06:30 05/14/18 06:29 04/15/18 06:01 Tamsulosin HCl (Flomax) 0.4 mg BEDTIME ORAL 04/13/18 21:00 05/11/18 20:59 04/14/18 20:43 Vitamin A/Vitamin D (A & D Oint) 1 applic TWICE A DAY TOPIC 04/13/18 18:00 05/12/18 08:59 04/15/18 08:42 NAHUN FORD Apr 15, 2018 11:16
[2018-04-15 12:00] VITALS: BP 146/76
[2018-04-15] MEDS: Nitroglycerin Patch 0.4mg TDERMAL SCH (12:15)
--- NOTE | 2018-04-15 14:24 | General Progress Note ---
Assessment/Plan Assessment/Plan 1. Thrombocytopenia potentially secondary to underlying infection. ++ HSM noted --> Hepatitis panel and human immunodeficiency virus are negative --> Hepatosplenomegaly. Question of nodularity of the liver surface. Cirrhosis not excluded. Correlate clinically --> hold off on transfusion if Plt>20k 2. Leukocytosis, likely secondary to urinary tract infection. He is on abx --> on abx and peripheral smear reviewed 3. Pyuria due to urinary tract infection. Closely monitor for improvement. He is on abx --> id service has been consulted, on ancef --> appreciate their recs, remains on abx 4. Old lacunar infarct. 5. Anemia due to underlying chronic disease. Continue to closely monitor. --> anemia panel has been reviewed --> hgb goal >7, transfuse prn 6. Elevated troponin. Presyncopal episode. A 12-lead EKG pending. No evidence of ischemia. --> trops reviewed, trend --> appreciate cards recs 7. Sinus tachycardia, which was corrected. Subjective Constitutional: Denies: no symptoms, chills, diaphoresis, fever, malaise, weakness, other HEENT: Denies: no symptoms, eye pain, blurred vision, tearing, double vision, ear pain, ear discharge, nose pain, nose congestion, throat pain, throat swelling, mouth pain, mouth swelling, other Cardiovascular: Denies: no symptoms, chest pain, edema, irregular heart rate, lightheadedness, palpitations, syncope, other Respiratory: Denies: no symptoms, cough, orthopnea, shortness of breath, SOB with excertion, SOB at rest, sputum, stridor, wheezing, other Gastrointestinal/Abdominal: Denies: no symptoms, abdomen distended, abdominal pain, black stools, tarry stools, blood in stool, constipated, diarrhea, difficulty swallowing, nausea, poor appetite, poor fluid intake, rectal bleeding , vomiting, other Genitourinary: Denies: no symptoms, burning, discharge, frequency, flank pain, hematuria, incontinence, pain, urgency, other Neurologic/Psychiatric: Denies: no symptoms, anxiety, depressed, emotional problems, headache, numbness, paresthesia, pre-existing deficit, seizure, tingling, tremors, weakness, other Endocrine: Denies: no symptoms, excessive sweating, flushing, intolerance to cold, intolerance to heat, increased hunger, increased thirst, increased urine, unexplained weight gain, unexplained weight loss, other Hematologic/Lymphatic: Denies: no symptoms, anemia, easy bleeding, easy bruising, other Allergies: Coded Allergies: No Known Allergies (Unverified , 04/11/18) Subjective on antibiotics and remains encephalopathic, getting starlix Objective Last 24 Hour Vital Signs Date Time Temp Pulse Resp B/P (MAP) Pulse Ox O2 Delivery O2 Flow Rate FiO2 04/15/18 12:15 146/76 04/15/18 12:00 98.4 101 20 146/76 (99) 93 98.4 04/15/18 08:42 105 137/76 04/15/18 08:00 98.2 105 20 137/76 (96) 93 98.2 04/15/18 08:00 Room Air 04/15/18 04:00 98.9 87 20 140/71 (94) 95 98.9 04/15/18 00:00 99.1 95 18 140/77 (98) 93 99.1 04/14/18 22:03 98.2 04/14/18 21:33 98.2 04/14/18 21:00 Room Air 04/14/18 20:43 65 120/73 04/14/18 20:00 98.3 101 20 135/82 (99) 94 98.3 04/14/18 16:00 98.2 87 20 139/73 (95) 96 98.2 Intake and Output 04/14/18 04/15/18 19:00 07:00 Intake Total 1440 ml 350 ml Output Total 1500 ml 1500 ml Balance -60 ml -1150 ml Intake Oral 1440 ml 300 ml IV Total 50 ml Output Urine Total 1500 ml 1500 ml Height (Feet): 6 Weight (Pounds): 197 General Appearance: no apparent distress EENT: pharynx normal Neck: supple Cardiovascular: regular rhythm Respiratory/Chest: lungs clear Abdomen: no organomegaly Extremities: non-tender Edema: 1+ Leg (L), 1+ Leg (R) Neurologic: alert Skin: warm/dry Zack Miguel MD Apr 15, 2018 14:24
--- NOTE | 2018-04-15 15:20 | General Progress Note ---
Assessment/Plan Problem List: (1) UTI (urinary tract infection) ICD Codes: N39.0 - Urinary tract infection, site not specified SNOMED: 13249610, 767060519, 352524031 Qualifiers: Qualified Codes: N39.0 - Urinary tract infection, site not specified (2) Acute renal failure ICD Codes: N17.9 - Acute kidney failure, unspecified SNOMED: 36545324 Status: progressing Assessment/Plan elevated trop no fever rewieved chart uti and dm sugars are improving no cp abx per id improving Subjective ROS Limited/Unobtainable: Yes Allergies: Coded Allergies: No Known Allergies (Unverified , 04/11/18) Objective Last 24 Hour Vital Signs Date Time Temp Pulse Resp B/P (MAP) Pulse Ox O2 Delivery O2 Flow Rate FiO2 04/15/18 12:15 146/76 04/15/18 12:00 98.4 101 20 146/76 (99) 93 98.4 04/15/18 08:42 105 137/76 04/15/18 08:00 98.2 105 20 137/76 (96) 93 98.2 04/15/18 08:00 Room Air 04/15/18 04:00 98.9 87 20 140/71 (94) 95 98.9 04/15/18 00:00 99.1 95 18 140/77 (98) 93 99.1 04/14/18 22:03 98.2 04/14/18 21:33 98.2 04/14/18 21:00 Room Air 04/14/18 20:43 65 120/73 04/14/18 20:00 98.3 101 20 135/82 (99) 94 98.3 04/14/18 16:00 98.2 87 20 139/73 (95) 96 98.2 Intake and Output 04/14/18 04/15/18 19:00 07:00 Intake Total 1440 ml 350 ml Output Total 1500 ml 1500 ml Balance -60 ml -1150 ml Intake Oral 1440 ml 300 ml IV Total 50 ml Output Urine Total 1500 ml 1500 ml Height (Feet): 6 Weight (Pounds): 197 Cardiovascular: normal rate Respiratory/Chest: lungs clear Abdomen: soft Ubaldo Jarquin MD Apr 15, 2018 15:20
[2018-04-15 15:53] VITALS: BP 142/71
--- NOTE | 2018-04-15 17:47 | General Progress Note ---
Assessment/Plan Problem List: (1) Diabetes mellitus out of control ICD Codes: E11.65 - Type 2 diabetes mellitus with hyperglycemia SNOMED: 12009349, 879890983 (2) Acute encephalopathy ICD Codes: G93.40 - Encephalopathy, unspecified SNOMED: 16266363, 257099141 (3) Dehydration ICD Codes: E86.0 - Dehydration SNOMED: 18727423, 967356558, 640588854 (4) Acute renal failure ICD Codes: N17.9 - Acute kidney failure, unspecified SNOMED: 87530781 Assessment/Plan increase Levemir to 14 units daily continue Starlix 120 mg ac tid continue NISS ac / hs Subjective ROS Limited/Unobtainable: Yes Allergies: Coded Allergies: No Known Allergies (Unverified , 04/11/18) Subjective events noted Objective Last 24 Hour Vital Signs Date Time Temp Pulse Resp B/P (MAP) Pulse Ox O2 Delivery O2 Flow Rate FiO2 04/15/18 15:53 98.2 100 20 142/71 (94) 96 98.2 04/15/18 12:15 146/76 04/15/18 12:00 98.4 101 20 146/76 (99) 93 98.4 04/15/18 08:42 105 137/76 04/15/18 08:00 98.2 105 20 137/76 (96) 93 98.2 04/15/18 08:00 Room Air 04/15/18 04:00 98.9 87 20 140/71 (94) 95 98.9 04/15/18 00:00 99.1 95 18 140/77 (98) 93 99.1 04/14/18 22:03 98.2 04/14/18 21:33 98.2 04/14/18 21:00 Room Air 04/14/18 20:43 65 120/73 04/14/18 20:00 98.3 101 20 135/82 (99) 94 98.3 Intake and Output 04/14/18 04/15/18 19:00 07:00 Intake Total 1440 ml 350 ml Output Total 1500 ml 1500 ml Balance -60 ml -1150 ml Intake Oral 1440 ml 300 ml IV Total 50 ml Output Urine Total 1500 ml 1500 ml Height (Feet): 6 Weight (Pounds): 197 General Appearance: no apparent distress Neck: normal alignment Cardiovascular: normal rate Respiratory/Chest: decreased breath sounds Abdomen: normal bowel sounds Objective Current Medications Medications (Trade) Dose Ordered Sig/Safia Route PRN Reason Start Time Stop Time Status Last Admin Dose Admin Acetaminophen (Tylenol) 500 mg Q4H PRN ORAL Mild Pain/Temp > 100.5 04/13/18 13:41 05/11/18 13:40 04/14/18 21:33 Aspirin (ASA) 162 mg DAILY ORAL 04/14/18 09:00 05/11/18 10:59 04/15/18 08:42 Cefazolin Sodium 50 ml @ 100 mls/hr Q8HR IV 04/13/18 14:00 04/20/18 13:59 04/15/18 13:18 Dextrose (Dextrose 50%) 25 ml Q30M PRN IV Hypoglycemia 04/13/18 13:45 05/13/18 06:44 Dextrose (Dextrose 50%) 50 ml Q30M PRN IV Hypoglycemia 04/13/18 13:45 05/13/18 06:44 Docusate Sodium (Colace) 100 mg THREE TIMES A DAY ORAL 04/13/18 18:00 05/13/18 17:59 04/15/18 17:07 Gadobutrol (Gadavist) 7.5 mmol NOW PRN IV Radiology Procedure 04/15/18 08:00 04/15/18 23:59 Insulin Detemir (Levemir) 10 units DAILY SUBQ 04/14/18 09:00 05/13/18 08:59 04/15/18 08:43 Lidocaine (Lidoderm 5% PATCH) 1 patch DAILY@0000 TDERMAL 04/14/18 00:00 05/13/18 00:14 04/15/18 00:57 Metoprolol Tartrate (Lopressor) 25 mg Q12HR ORAL 04/15/18 21:00 05/13/18 20:59 Nateglinide (Starlix) 120 mg TIAC ORAL 04/13/18 16:30 05/12/18 08:59 04/15/18 17:07 Nitroglycerin (Ntg) 1 patch Q24H TDERMAL 04/14/18 11:00 05/11/18 10:59 04/15/18 12:15 Pantoprazole (Protonix) 40 mg EVERY 12 HOURS ORAL 04/13/18 21:00 05/13/18 20:59 04/15/18 08:41 Quetiapine Fumarate (SEROquel) 12.5 mg Q4H PRN ORAL ANXIETY 04/13/18 13:43 05/12/18 13:42 Sitagliptin Phosphate (Januvia) 50 mg ACBREAKFAST ORAL 04/14/18 06:30 05/14/18 06:29 04/15/18 06:01 Tamsulosin HCl (Flomax) 0.4 mg BEDTIME ORAL 04/13/18 21:00 05/11/18 20:59 04/14/18 20:43 Vitamin A/Vitamin D (A & D Oint) 1 applic TWICE A DAY TOPIC 04/13/18 18:00 05/12/18 08:59 04/15/18 17:07 Item Value Date Time Bedside Blood Glucose 223 mg/dl H 04/15/18 1630 Bedside Blood Glucose 226 mg/dl H 04/15/18 1130 Bedside Blood Glucose 172 mg/dl H 04/15/18 0843 Bedside Blood Glucose 172 mg/dl H 04/15/18 0619 Kurtis Richey MD Apr 15, 2018 17:47
[2018-04-15 20:00] VITALS: BP 136/78
[2018-04-15] MEDS: Tamsulosin 0.4mg cap ORAL SCH (21:02)
[2018-04-15] MEDS: NovoLOG Insulin Flexpen SUBQ SCH (21:03)
[2018-04-15] MEDS: Metoprolol 25mg tab ORAL SCH (21:04)
[2018-04-16] VITALS: BP 124/54
[2018-04-16 04:00] VITALS: BP 133/72
[2018-04-16] MEDS: sitaGLIPtin 50mg tab ORAL SCH (06:03)
[2018-04-16] MEDS: ceFAZolin 1gm/50ml Premix 50 ML IV SCH ×3 (06:03→20:39)
[2018-04-16] MEDS: NovoLOG Insulin Flexpen SUBQ SCH ×4 (06:09→20:38)
[2018-04-16 08:00] VITALS: BP 148/81
[2018-04-16] MEDS ORDERED: NS 275ml ONE (08:15)
[2018-04-16] MEDS ORDERED: Levemir Flexpen SUBQ SCH (09:00)
[2018-04-16] MEDS: Metoprolol 25mg tab ORAL SCH ×2 (09:19→20:36)
[2018-04-16] MEDS: Docusate 100mg cap ORAL SCH ×3 (09:19→17:40)
[2018-04-16] MEDS: Aspirin Baby 81mg ORAL SCH (09:20)
[2018-04-16] MEDS: Vitamin A&D Oint 2oz Tube TOPIC SCH ×2 (09:39→17:15)
--- NOTE | 2018-04-16 10:56 | Nephrology Progress Note ---
Assessment/Plan Problem List: (1) Dehydration (2) UTI (urinary tract infection) (3) Acute renal failure (4) Acute encephalopathy (5) Diabetes mellitus out of control (6) Elevated troponin I level Assessment Renal Failure- encephalopathy UTI Dehydration Low na and high K Elevated troponin DM , high Glucose Plan Trial megace DC IV Fluids starlix Ancef - Vanco Monitor lytes ASA Nitrate St eval Per orders Subjective ROS Limited/Unobtainable: No Constitutional: Reports: malaise, other - poor apetite Objective Objective Last 24 Hour Vital Signs Date Time Temp Pulse Resp B/P (MAP) Pulse Ox O2 Delivery O2 Flow Rate FiO2 04/16/18 09:19 95 148/81 04/16/18 09:00 Room Air 04/16/18 08:00 97.9 95 20 148/81 (103) 95 97.9 04/16/18 04:00 98.6 91 20 133/72 (92) 94 98.6 04/16/18 00:00 98.1 85 19 124/54 (77) 94 98.1 04/15/18 21:04 100 136/78 04/15/18 21:00 Room Air 04/15/18 20:00 98.2 100 20 136/78 (97) 94 98.2 04/15/18 15:53 98.2 100 20 142/71 (94) 96 98.2 04/15/18 12:15 146/76 04/15/18 12:00 98.4 101 20 146/76 (99) 93 98.4 Intake and Output 04/15/18 04/16/18 19:00 07:00 Intake Total 580 ml 530 ml Output Total 1400 ml 2275 ml Balance -820 ml -1745 ml Intake Oral 480 ml 480 ml IV Total 100 ml 50 ml Output Urine Total 1400 ml 2275 ml Height (Feet): 6 Weight (Pounds): 197 Cardiovascular: normal rate Respiratory/Chest: decreased breath sounds Abdomen: soft Objective no change Greyson Ignacio MD Apr 16, 2018 10:56
--- NOTE | 2018-04-16 11:31 | Infectious Diseases Prog Note ---
Assessment/Plan Assessment/Plan A; Sepsis with Staph aureus, MSSA UTI with MSSA DM & Hyperglycemia AMS elevated troponin Syncope & Fall P; Continue Ancef MRI of thoracic & Lumbar spine Will D/W In Process Inspector Subjective ROS Limited/Unobtainable: No Respiratory: Reports: no symptoms Genitourinary: Reports: no symptoms Musculoskeletal: Reports: pain, other - back pain Allergies: Coded Allergies: No Known Allergies (Unverified , 04/11/18) Objective Vital Signs Last 24 Hour Vital Signs Date Time Temp Pulse Resp B/P (MAP) Pulse Ox O2 Delivery O2 Flow Rate FiO2 04/16/18 09:19 95 148/81 04/16/18 09:00 Room Air 04/16/18 08:00 97.9 95 20 148/81 (103) 95 97.9 04/16/18 04:00 98.6 91 20 133/72 (92) 94 98.6 04/16/18 00:00 98.1 85 19 124/54 (77) 94 98.1 04/15/18 21:04 100 136/78 04/15/18 21:00 Room Air 04/15/18 20:00 98.2 100 20 136/78 (97) 94 98.2 04/15/18 15:53 98.2 100 20 142/71 (94) 96 98.2 04/15/18 12:15 146/76 04/15/18 12:00 98.4 101 20 146/76 (99) 93 98.4 Height (Feet): 6 Weight (Pounds): 197 General Appearance: no acute distress HEENT: mucous membranes moist Respiratory/Chest: lungs clear Cardiovascular: normal rate Abdomen: soft, non tender Neurologic/Psychiatric: alert, responsive Microbiology Date/Time Source Procedure Growth Status 04/13/18 16:15 Blood Blood Culture - Preliminary NO GROWTH AFTER 24 HOURS Resulted 04/13/18 15:55 Blood Blood Culture - Preliminary NO GROWTH AFTER 24 HOURS Resulted Current Medications Medications (Trade) Dose Ordered Sig/Safia Route PRN Reason Start Time Stop Time Status Last Admin Dose Admin Acetaminophen (Tylenol) 500 mg Q4H PRN ORAL Mild Pain/Temp > 100.5 04/13/18 13:41 05/11/18 13:40 04/14/18 21:33 Aspirin (ASA) 162 mg DAILY ORAL 04/14/18 09:00 05/11/18 10:59 04/16/18 09:20 Cefazolin Sodium 50 ml @ 100 mls/hr Q8HR IV 04/13/18 14:00 04/20/18 13:59 04/16/18 06:03 Dextrose (Dextrose 50%) 25 ml Q30M PRN IV Hypoglycemia 04/15/18 18:00 05/15/18 17:59 Dextrose (Dextrose 50%) 50 ml Q30M PRN IV Hypoglycemia 04/15/18 18:00 05/15/18 17:59 Docusate Sodium (Colace) 100 mg THREE TIMES A DAY ORAL 04/13/18 18:00 05/13/18 17:59 04/16/18 09:19 Heparin Sodium (Porcine) (Heparin 5000 units/ml) 5,000 units EVERY 8 HOURS SUBQ 04/16/18 14:00 05/16/18 13:59 Insulin Aspart (NovoLOG) BEFORE MEALS AND HS SUBQ 04/15/18 21:00 05/15/18 20:59 04/16/18 06:09 Insulin Detemir (Levemir) 14 units DAILY SUBQ 04/16/18 09:00 05/13/18 08:59 04/16/18 09:26 Lidocaine (Lidoderm 5% PATCH) 1 patch DAILY@0000 TDERMAL 04/14/18 00:00 05/13/18 00:14 04/16/18 00:37 Megestrol Acetate (Megace) 400 mg TWICE A DAY ORAL 04/16/18 11:00 05/16/18 10:59 Metoprolol Tartrate (Lopressor) 25 mg Q12HR ORAL 04/15/18 21:00 05/13/18 20:59 04/16/18 09:19 Nateglinide (Starlix) 120 mg TIAC ORAL 04/13/18 16:30 05/12/18 08:59 04/16/18 06:03 Nitroglycerin (Ntg) 1 patch Q24H TDERMAL 04/14/18 11:00 05/11/18 10:59 04/15/18 12:15 Pantoprazole (Protonix) 40 mg EVERY 12 HOURS ORAL 04/13/18 21:00 05/13/18 20:59 04/16/18 09:19 Quetiapine Fumarate (SEROquel) 12.5 mg Q4H PRN ORAL ANXIETY 04/13/18 13:43 05/12/18 13:42 Sitagliptin Phosphate (Januvia) 50 mg ACBREAKFAST ORAL 04/14/18 06:30 05/14/18 06:29 04/16/18 06:03 Tamsulosin HCl (Flomax) 0.4 mg BEDTIME ORAL 04/13/18 21:00 05/11/18 20:59 04/15/18 21:02 Vitamin A/Vitamin D (A & D Oint) 1 applic TWICE A DAY TOPIC 04/13/18 18:00 05/12/18 08:59 04/16/18 09:39 Conor Egan MD Apr 16, 2018 11:31
[2018-04-16 12:00] VITALS: BP 131/77
--- NOTE | 2018-04-16 12:09 | General Progress Note ---
Assessment/Plan Problem List: (1) Diabetes mellitus out of control ICD Codes: E11.65 - Type 2 diabetes mellitus with hyperglycemia SNOMED: 50552448, 116199941 (2) Acute encephalopathy ICD Codes: G93.40 - Encephalopathy, unspecified SNOMED: 41363093, 295547083 (3) Dehydration ICD Codes: E86.0 - Dehydration SNOMED: 80663112, 875071807, 309290309 (4) Acute renal failure ICD Codes: N17.9 - Acute kidney failure, unspecified SNOMED: 57735796 Assessment/Plan continue Levemir 14 units daily continue Starlix 120 mg ac tid continue NISS ac / hs Subjective ROS Limited/Unobtainable: Yes Allergies: Coded Allergies: No Known Allergies (Unverified , 04/11/18) Subjective events noted awake - confused Objective Last 24 Hour Vital Signs Date Time Temp Pulse Resp B/P (MAP) Pulse Ox O2 Delivery O2 Flow Rate FiO2 04/16/18 12:00 98.6 86 18 131/77 (95) 94 98.6 04/16/18 09:19 95 148/81 04/16/18 09:00 Room Air 04/16/18 08:00 97.9 95 20 148/81 (103) 95 97.9 04/16/18 04:00 98.6 91 20 133/72 (92) 94 98.6 04/16/18 00:00 98.1 85 19 124/54 (77) 94 98.1 04/15/18 21:04 100 136/78 04/15/18 21:00 Room Air 04/15/18 20:00 98.2 100 20 136/78 (97) 94 98.2 04/15/18 15:53 98.2 100 20 142/71 (94) 96 98.2 04/15/18 12:15 146/76 Intake and Output 04/15/18 04/16/18 19:00 07:00 Intake Total 580 ml 530 ml Output Total 1400 ml 2275 ml Balance -820 ml -1745 ml Intake Oral 480 ml 480 ml IV Total 100 ml 50 ml Output Urine Total 1400 ml 2275 ml Height (Feet): 6 Weight (Pounds): 197 General Appearance: no apparent distress Neck: normal alignment Cardiovascular: normal rate Respiratory/Chest: lungs clear Abdomen: normal bowel sounds Edema: no edema noted Arm (L), no edema noted Arm (R), no edema noted Leg (L), no edema noted Leg (R), no edema noted Pedal (L), no edema noted Pedal (R), no edema noted Generalized Objective Current Medications Medications (Trade) Dose Ordered Sig/Safia Route PRN Reason Start Time Stop Time Status Last Admin Dose Admin Acetaminophen (Tylenol) 500 mg Q4H PRN ORAL Mild Pain/Temp > 100.5 04/13/18 13:41 05/11/18 13:40 04/14/18 21:33 Aspirin (ASA) 162 mg DAILY ORAL 04/14/18 09:00 05/11/18 10:59 04/16/18 09:20 Cefazolin Sodium 50 ml @ 100 mls/hr Q8HR IV 04/13/18 14:00 04/20/18 13:59 04/16/18 06:03 Dextrose (Dextrose 50%) 25 ml Q30M PRN IV Hypoglycemia 04/15/18 18:00 05/15/18 17:59 Dextrose (Dextrose 50%) 50 ml Q30M PRN IV Hypoglycemia 04/15/18 18:00 05/15/18 17:59 Docusate Sodium (Colace) 100 mg THREE TIMES A DAY ORAL 04/13/18 18:00 05/13/18 17:59 04/16/18 09:19 Heparin Sodium (Porcine) (Heparin 5000 units/ml) 5,000 units EVERY 8 HOURS SUBQ 04/16/18 14:00 05/16/18 13:59 Insulin Aspart (NovoLOG) BEFORE MEALS AND HS SUBQ 04/15/18 21:00 05/15/18 20:59 04/16/18 06:09 Insulin Detemir (Levemir) 14 units DAILY SUBQ 04/16/18 09:00 05/13/18 08:59 04/16/18 09:26 Lidocaine (Lidoderm 5% PATCH) 1 patch DAILY@0000 TDERMAL 04/14/18 00:00 05/13/18 00:14 04/16/18 00:37 Megestrol Acetate (Megace) 400 mg TWICE A DAY ORAL 04/16/18 11:00 05/16/18 10:59 Metoprolol Tartrate (Lopressor) 25 mg Q12HR ORAL 04/15/18 21:00 05/13/18 20:59 04/16/18 09:19 Nateglinide (Starlix) 120 mg TIAC ORAL 04/13/18 16:30 05/12/18 08:59 04/16/18 06:03 Nitroglycerin (Ntg) 1 patch Q24H TDERMAL 04/14/18 11:00 05/11/18 10:59 04/15/18 12:15 Pantoprazole (Protonix) 40 mg EVERY 12 HOURS ORAL 04/13/18 21:00 05/13/18 20:59 04/16/18 09:19 Quetiapine Fumarate (SEROquel) 12.5 mg Q4H PRN ORAL ANXIETY 04/13/18 13:43 05/12/18 13:42 Sitagliptin Phosphate (Januvia) 50 mg ACBREAKFAST ORAL 04/14/18 06:30 05/14/18 06:29 04/16/18 06:03 Tamsulosin HCl (Flomax) 0.4 mg BEDTIME ORAL 04/13/18 21:00 05/11/18 20:59 04/15/18 21:02 Vitamin A/Vitamin D (A & D Oint) 1 applic TWICE A DAY TOPIC 04/13/18 18:00 05/12/18 08:59 04/16/18 09:39 Item Value Date Time Bedside Blood Glucose 150 mg/dl H 04/16/18 1127 Bedside Blood Glucose 191 mg/dl H 04/16/18 0926 Bedside Blood Glucose 191 mg/dl H 04/16/18 0609 Bedside Blood Glucose 246 mg/dl H 04/15/18 2103 Bedside Blood Glucose 223 mg/dl H 04/15/18 1630 Kurtis Richey MD Apr 16, 2018 12:09
--- NOTE | 2018-04-16 12:11 | General Progress Note ---
Assessment/Plan Assessment/Plan (1) Alerted mental status (2) S/p fall (3) Cervical Sprain (4) Thoracic sprain (5) Lumbar sprain Continued on Tylenol and Lidocaine. MRIs of T+L spine ordered and pending to be performed. D/w Dr. Laura and he concurred. Subjective Date patient seen: Apr 16, 2018 Time patient seen: 11:30 - am Constitutional: Reports: weakness HEENT: Reports: no symptoms Cardiovascular: Reports: no symptoms Respiratory: Reports: no symptoms Gastrointestinal/Abdominal: Reports: no symptoms Genitourinary: Reports: no symptoms Neurologic/Psychiatric: Reports: emotional problems, weakness Endocrine: Reports: no symptoms Hematologic/Lymphatic: Reports: no symptoms Allergies: Coded Allergies: No Known Allergies (Unverified , 04/11/18) Subjective In bed still c/o weakness and feeling down due to the fall which he says occurred at his home. He will be going for MRI of T and L spine with contrast as per ID. He is having no c/o pain at this time. Objective Last 24 Hour Vital Signs Date Time Temp Pulse Resp B/P (MAP) Pulse Ox O2 Delivery O2 Flow Rate FiO2 04/16/18 12:00 98.6 86 18 131/77 (95) 94 98.6 04/16/18 09:19 95 148/81 04/16/18 09:00 Room Air 04/16/18 08:00 97.9 95 20 148/81 (103) 95 97.9 04/16/18 04:00 98.6 91 20 133/72 (92) 94 98.6 04/16/18 00:00 98.1 85 19 124/54 (77) 94 98.1 04/15/18 21:04 100 136/78 04/15/18 21:00 Room Air 04/15/18 20:00 98.2 100 20 136/78 (97) 94 98.2 04/15/18 15:53 98.2 100 20 142/71 (94) 96 98.2 04/15/18 12:15 146/76 Intake and Output 04/15/18 04/16/18 19:00 07:00 Intake Total 580 ml 530 ml Output Total 1400 ml 2275 ml Balance -820 ml -1745 ml Intake Oral 480 ml 480 ml IV Total 100 ml 50 ml Output Urine Total 1400 ml 2275 ml Height (Feet): 6 Weight (Pounds): 197 Objective GENERAL: Alert and awake. LUNGS: Decreased breath sounds bilaterally. HEART: Regular. ABDOMEN: Benign. EXTREMITIES: No cyanosis. No clubbing. Jerson Hook Apr 16, 2018 12:11
[2018-04-16] MEDS: Nitroglycerin Patch 0.4mg TDERMAL SCH (13:17)
[2018-04-16] MEDS: Heparin 5000 units/ml inj SUBQ SCH ×2 (13:21→20:53)
[2018-04-16] MEDS: Megace 400mg/10ml Susp ORAL SCH ×2 (13:23→17:15)
--- NOTE | 2018-04-16 14:31 | General Progress Note ---
Assessment/Plan Assessment/Plan 1. Thrombocytopenia potentially secondary to underlying infection. ++ HSM noted , unknown if has cirrhosis as the ultrasound is non-conclusive --> Hepatitis panel and human immunodeficiency virus are negative --> Hepatosplenomegaly. Question of nodularity of the liver surface. Cirrhosis not excluded. Correlate clinically --> hold off on transfusion if Plt>20k 2. Leukocytosis, likely secondary to urinary tract infection. He is on abx --> on abx and peripheral smear reviewed 3. Pyuria due to urinary tract infection. Closely monitor for improvement. He is on abx --> id service has been consulted, on ancef --> appreciate their recs, remains on abx 4. Old lacunar infarct. 5. Anemia due to underlying chronic disease. Continue to closely monitor. --> anemia panel has been reviewed --> hgb goal >7, transfuse prn 6. Elevated troponin. Presyncopal episode. A 12-lead EKG pending. No evidence of ischemia. --> trops reviewed, trend --> appreciate cards recs 7. Sinus tachycardia, which was corrected. Subjective Constitutional: Denies: no symptoms, chills, diaphoresis, fever, malaise, weakness, other HEENT: Denies: no symptoms, eye pain, blurred vision, tearing, double vision, ear pain, ear discharge, nose pain, nose congestion, throat pain, throat swelling, mouth pain, mouth swelling, other Cardiovascular: Denies: no symptoms, chest pain, edema, irregular heart rate, lightheadedness, palpitations, syncope, other Respiratory: Denies: no symptoms, cough, orthopnea, shortness of breath, SOB with excertion, SOB at rest, sputum, stridor, wheezing, other Gastrointestinal/Abdominal: Denies: no symptoms, abdomen distended, abdominal pain, black stools, tarry stools, blood in stool, constipated, diarrhea, difficulty swallowing, nausea, poor appetite, poor fluid intake, rectal bleeding , vomiting, other Genitourinary: Denies: no symptoms, burning, discharge, frequency, flank pain, hematuria, incontinence, pain, urgency, other Endocrine: Denies: no symptoms, excessive sweating, flushing, intolerance to cold, intolerance to heat, increased hunger, increased thirst, increased urine, unexplained weight gain, unexplained weight loss, other Hematologic/Lymphatic: Denies: no symptoms, anemia, easy bleeding, easy bruising, other Allergies: Coded Allergies: No Known Allergies (Unverified , 04/11/18) Subjective on antibiotics and remains encephalopathic,getting mri imaging Objective Last 24 Hour Vital Signs Date Time Temp Pulse Resp B/P (MAP) Pulse Ox O2 Delivery O2 Flow Rate FiO2 04/16/18 13:17 131/77 04/16/18 12:00 98.6 86 18 131/77 (95) 94 98.6 04/16/18 09:19 95 148/81 04/16/18 09:00 Room Air 04/16/18 08:00 97.9 95 20 148/81 (103) 95 97.9 04/16/18 04:00 98.6 91 20 133/72 (92) 94 98.6 04/16/18 00:00 98.1 85 19 124/54 (77) 94 98.1 04/15/18 21:04 100 136/78 04/15/18 21:00 Room Air 04/15/18 20:00 98.2 100 20 136/78 (97) 94 98.2 04/15/18 15:53 98.2 100 20 142/71 (94) 96 98.2 Intake and Output 04/15/18 04/16/18 19:00 07:00 Intake Total 580 ml 530 ml Output Total 1400 ml 2275 ml Balance -820 ml -1745 ml Intake Oral 480 ml 480 ml IV Total 100 ml 50 ml Output Urine Total 1400 ml 2275 ml Height (Feet): 6 Weight (Pounds): 197 General Appearance: no apparent distress EENT: normal ENT inspection Neck: normal inspection Cardiovascular: regular rhythm Respiratory/Chest: lungs clear Abdomen: no organomegaly Extremities: non-tender Edema: 1+ Leg (L), 1+ Leg (R) Neurologic: oriented x 3 Skin: warm/dry Zack Miguel MD Apr 16, 2018 14:31
[2018-04-16 16:33] VITALS: BP 132/74
[2018-04-16 20:00] VITALS: BP 147/67
[2018-04-16] MEDS: Tamsulosin 0.4mg cap ORAL SCH (20:34)
--- NOTE | 2018-04-16 21:33 | General Progress Note ---
Assessment/Plan Problem List: (1) UTI (urinary tract infection) ICD Codes: N39.0 - Urinary tract infection, site not specified SNOMED: 01246656, 092031830, [id number] Qualifiers: Qualified Codes: N39.0 - Urinary tract infection, site not specified (2) Acute renal failure ICD Codes: N17.9 - Acute kidney failure, unspecified SNOMED: 14844376 Status: progressing Assessment/Plan elevated trop resolved check sugar no acute events rewieved chart uti and dm sugars are improving no cp abx per id improving Subjective ROS Limited/Unobtainable: Yes Allergies: Coded Allergies: No Known Allergies (Unverified , 04/11/18) Objective Last 24 Hour Vital Signs Date Time Temp Pulse Resp B/P (MAP) Pulse Ox O2 Delivery O2 Flow Rate FiO2 04/16/18 20:36 93 128/73 04/16/18 20:00 98.0 92 20 147/67 (93) 93 98.0 04/16/18 16:33 98.1 18 132/74 (93) 92 98.1 04/16/18 13:17 131/77 04/16/18 12:00 98.6 86 18 131/77 (95) 94 98.6 04/16/18 09:19 95 148/81 04/16/18 09:00 Room Air 04/16/18 08:00 97.9 95 20 148/81 (103) 95 97.9 04/16/18 04:00 98.6 91 20 133/72 (92) 94 98.6 04/16/18 00:00 98.1 85 19 124/54 (77) 94 98.1 Intake and Output 04/15/18 04/16/18 19:00 07:00 Intake Total 580 ml 530 ml Output Total 1400 ml 2275 ml Balance -820 ml -1745 ml Intake Oral 480 ml 480 ml IV Total 100 ml 50 ml Output Urine Total 1400 ml 2275 ml Height (Feet): 6 Weight (Pounds): 197 Neck: supple Cardiovascular: normal rate Respiratory/Chest: lungs clear Ubaldo Jarquin MD Apr 16, 2018 21:33
--- NOTE | 2018-04-16 23:23 | Cardiology Progress Note ---
Assessment/Plan Assessment/Plan 1. Presyncope/syncopal event due to hypovolemia, continue hydration. 2. Slight elevation of troponin I level due to NSTEMI, vs transient hypotension. 12-lead electrocardiogram does not show any evidence of ischemia. Echo shows hyperdynamic left ventricular function wit LVEF at 70%. Continue medical therapy. 3. Sinus tachycardia, resolved, likely secondary to hypovolemia and intravascular volume depletion. Subjective Subjective Transferred to the med-surg unit. No cardiac events reported. Objective Last 24 Hour Vital Signs Date Time Temp Pulse Resp B/P (MAP) Pulse Ox O2 Delivery O2 Flow Rate FiO2 04/16/18 20:36 93 128/73 04/16/18 20:00 98.0 92 20 147/67 (93) 93 98.0 04/16/18 16:33 98.1 18 132/74 (93) 92 98.1 04/16/18 13:17 131/77 04/16/18 12:00 98.6 86 18 131/77 (95) 94 98.6 04/16/18 09:19 95 148/81 04/16/18 09:00 Room Air 04/16/18 08:00 97.9 95 20 148/81 (103) 95 97.9 04/16/18 04:00 98.6 91 20 133/72 (92) 94 98.6 04/16/18 00:00 98.1 85 19 124/54 (77) 94 98.1 Intake and Output 04/15/18 04/16/18 19:00 07:00 Intake Total 580 ml 530 ml Output Total 1400 ml 2275 ml Balance -820 ml -1745 ml Intake Oral 480 ml 480 ml IV Total 100 ml 50 ml Output Urine Total 1400 ml 2275 ml 2D Echo: LVEF 70%, Mild LVH, Grade I LVDD, RVSP 24 mmHg Objective HEENT: Atraumatic and normocephalic. Anicteric. Pupils are equal, round, and reactive to light and accommodation. NECK: JVP less than 5 cm. No carotid bruit. CARDIOVASCULAR: Normal S1 and S2. No murmurs, gallops, or rubs. PMI is at fourth intercostal space in the midclavicular line. LUNGS: Clear to auscultation bilaterally. ABDOMEN: Soft, nontender, and nondistended. No hepatosplenomegaly. Positive bowel sounds. EXTREMITIES: No evidence of edema, clubbing, or cyanosis. Beto Chappell MD Apr 16, 2018 23:23
[2018-04-17] VITALS: BP 131/76
[2018-04-17 04:00] VITALS: BP 136/82
[2018-04-17] MEDS: ceFAZolin 1gm/50ml Premix 50 ML IV SCH ×3 (06:18→21:18)
[2018-04-17] MEDS: sitaGLIPtin 50mg tab ORAL SCH (06:18)
[2018-04-17] MEDS: NovoLOG Insulin Flexpen SUBQ SCH ×4 (06:20→21:21)
[2018-04-17] MEDS: Heparin 5000 units/ml inj SUBQ SCH ×4 (06:20→21:22)
--- NOTE | 2018-04-17 07:10 | General Progress Note ---
Assessment/Plan Assessment/Plan 1. Thrombocytopenia potentially secondary to underlying infection. ++ HSM noted , unknown if has cirrhosis as the ultrasound is non-conclusive --> Hepatitis panel and human immunodeficiency virus are both negative --> Hepatosplenomegaly. Question of nodularity of the liver surface. Cirrhosis not excluded. Correlate clinically --> hold off on transfusion if Plt>20k --> stable range of approx 100-150k 2. Leukocytosis, likely secondary to urinary tract infection. He is on abx --> on abx and peripheral smear reviewed 3. Pyuria due to urinary tract infection. Closely monitor for improvement. He is on abx --> id service has been consulted, on ancef --> appreciate their recs, remains on abx 4. Old lacunar infarct. as per neuro eval --> their recs have been appreciated 5. Anemia due to underlying chronic disease. Continue to closely monitor. --> anemia panel has been reviewed --> hgb goal >7, transfuse prn 6. Elevated troponin. Presyncopal episode. A 12-lead EKG pending. No evidence of ischemia. --> trops reviewed, trend --> appreciate cards recs 7. Sinus tachycardia, which was corrected Greatly appreciate consultation! Subjective Constitutional: Denies: no symptoms, chills, diaphoresis, fever, malaise, weakness, other HEENT: Denies: no symptoms, eye pain, blurred vision, tearing, double vision, ear pain, ear discharge, nose pain, nose congestion, throat pain, throat swelling, mouth pain, mouth swelling, other Cardiovascular: Denies: no symptoms, chest pain, edema, irregular heart rate, lightheadedness, palpitations, syncope, other Respiratory: Denies: no symptoms, cough, orthopnea, shortness of breath, SOB with excertion, SOB at rest, sputum, stridor, wheezing, other Gastrointestinal/Abdominal: Denies: no symptoms, abdomen distended, abdominal pain, black stools, tarry stools, blood in stool, constipated, diarrhea, difficulty swallowing, nausea, poor appetite, poor fluid intake, rectal bleeding , vomiting, other Genitourinary: Denies: no symptoms, burning, discharge, frequency, flank pain, hematuria, incontinence, pain, urgency, other Neurologic/Psychiatric: Denies: no symptoms, anxiety, depressed, emotional problems, headache, numbness, paresthesia, pre-existing deficit, seizure, tingling, tremors, weakness, other Endocrine: Denies: no symptoms, excessive sweating, flushing, intolerance to cold, intolerance to heat, increased hunger, increased thirst, increased urine, unexplained weight gain, unexplained weight loss, other Hematologic/Lymphatic: Denies: no symptoms, anemia, easy bleeding, easy bruising, other Allergies: Coded Allergies: No Known Allergies (Unverified , 04/11/18) Subjective on antibiotics and remains encephalopathic,getting mri imaging today Objective Last 24 Hour Vital Signs Date Time Temp Pulse Resp B/P (MAP) Pulse Ox O2 Delivery O2 Flow Rate FiO2 04/17/18 04:00 97.5 95 20 136/82 (100) 94 97.5 04/17/18 00:00 97.1 85 19 131/76 (94) 93 97.1 04/16/18 21:00 Room Air 04/16/18 20:36 93 128/73 04/16/18 20:00 98.0 92 20 147/67 (93) 93 98.0 04/16/18 16:33 98.1 18 132/74 (93) 92 98.1 04/16/18 13:17 131/77 04/16/18 12:00 98.6 86 18 131/77 (95) 94 98.6 04/16/18 09:19 95 148/81 04/16/18 09:00 Room Air 04/16/18 08:00 97.9 95 20 148/81 (103) 95 97.9 Intake and Output 04/16/18 04/17/18 19:00 07:00 Intake Total 50 ml 100 ml Output Total 1425 ml 1000 ml Balance -1375 ml -900 ml IV Total 50 ml 100 ml Output Urine Total 1425 ml 1000 ml Height (Feet): 6 Weight (Pounds): 197 General Appearance: WD/WN EENT: TMs normal Neck: normal inspection Cardiovascular: regular rhythm Respiratory/Chest: no accessory muscle use Extremities: non-tender Edema: no edema noted Arm (L), no edema noted Arm (R), no edema noted Leg (L), no edema noted Leg (R), no edema noted Pedal (L), no edema noted Pedal (R) Edema: mild edema Neurologic: alert Skin: warm/dry Kleynberg,Zack L. MD Apr 17, 2018 07:10
--- NOTE | 2018-04-17 07:13 | General Progress Note ---
Assessment/Plan Problem List: (1) Diabetes mellitus out of control ICD Codes: E11.65 - Type 2 diabetes mellitus with hyperglycemia SNOMED: 01826324, 750373875 (2) Acute encephalopathy ICD Codes: G93.40 - Encephalopathy, unspecified SNOMED: 23862065, 752399392 (3) Dehydration ICD Codes: E86.0 - Dehydration SNOMED: 42203118, 938093050, 763731278 (4) Acute renal failure ICD Codes: N17.9 - Acute kidney failure, unspecified SNOMED: 48436422 Assessment/Plan increase Levemir to 16 units daily continue Januvia 50 mg daily continue Starlix 120 mg ac tid continue NISS ac / hs Subjective Allergies: Coded Allergies: No Known Allergies (Unverified , 04/11/18) All Systems: reviewed and negative except above Subjective events noted Objective Last 24 Hour Vital Signs Date Time Temp Pulse Resp B/P (MAP) Pulse Ox O2 Delivery O2 Flow Rate FiO2 04/17/18 04:00 97.5 95 20 136/82 (100) 94 97.5 04/17/18 00:00 97.1 85 19 131/76 (94) 93 97.1 04/16/18 21:00 Room Air 04/16/18 20:36 93 128/73 04/16/18 20:00 98.0 92 20 147/67 (93) 93 98.0 04/16/18 16:33 98.1 18 132/74 (93) 92 98.1 04/16/18 13:17 131/77 04/16/18 12:00 98.6 86 18 131/77 (95) 94 98.6 04/16/18 09:19 95 148/81 04/16/18 09:00 Room Air 04/16/18 08:00 97.9 95 20 148/81 (103) 95 97.9 Intake and Output 04/16/18 04/17/18 19:00 07:00 Intake Total 50 ml 100 ml Output Total 1425 ml 1000 ml Balance -1375 ml -900 ml IV Total 50 ml 100 ml Output Urine Total 1425 ml 1000 ml Height (Feet): 6 Weight (Pounds): 197 General Appearance: no apparent distress Neck: normal alignment Cardiovascular: normal rate Respiratory/Chest: lungs clear Abdomen: normal bowel sounds Pelvis: normal external exam Objective Current Medications Medications (Trade) Dose Ordered Sig/Safia Route PRN Reason Start Time Stop Time Status Last Admin Dose Admin Acetaminophen (Tylenol) 500 mg Q4H PRN ORAL Mild Pain/Temp > 100.5 04/13/18 13:41 05/11/18 13:40 04/14/18 21:33 Aspirin (ASA) 162 mg DAILY ORAL 04/14/18 09:00 05/11/18 10:59 04/16/18 09:20 Cefazolin Sodium 50 ml @ 100 mls/hr Q8HR IV 04/13/18 14:00 04/20/18 13:59 04/17/18 06:18 Dextrose (Dextrose 50%) 25 ml Q30M PRN IV Hypoglycemia 04/15/18 18:00 05/15/18 17:59 Dextrose (Dextrose 50%) 50 ml Q30M PRN IV Hypoglycemia 04/15/18 18:00 05/15/18 17:59 Docusate Sodium (Colace) 100 mg THREE TIMES A DAY ORAL 04/13/18 18:00 05/13/18 17:59 04/16/18 17:40 Heparin Sodium (Porcine) (Heparin 5000 units/ml) 5,000 units EVERY 8 HOURS SUBQ 04/16/18 14:00 05/16/18 13:59 04/17/18 06:20 Insulin Aspart (NovoLOG) BEFORE MEALS AND HS SUBQ 04/15/18 21:00 05/15/18 20:59 04/17/18 06:20 Insulin Detemir (Levemir) 14 units DAILY SUBQ 04/16/18 09:00 05/13/18 08:59 04/16/18 09:26 Lidocaine (Lidoderm 5% PATCH) 1 patch DAILY@0000 TDERMAL 04/14/18 00:00 05/13/18 00:14 04/17/18 01:25 Megestrol Acetate (Megace) 400 mg TWICE A DAY ORAL 04/16/18 11:00 05/16/18 10:59 04/16/18 17:15 Metoprolol Tartrate (Lopressor) 25 mg Q12HR ORAL 04/15/18 21:00 05/13/18 20:59 04/16/18 20:36 Nateglinide (Starlix) 120 mg TIAC ORAL 04/13/18 16:30 05/12/18 08:59 10/1/18 06:18 Nitroglycerin (Ntg) 1 patch Q24H TDERMAL 04/14/18 11:00 05/11/18 10:59 04/16/18 13:17 Pantoprazole (Protonix) 40 mg EVERY 12 HOURS ORAL 04/13/18 21:00 05/13/18 20:59 04/16/18 20:34 Quetiapine Fumarate (SEROquel) 12.5 mg Q4H PRN ORAL ANXIETY 04/13/18 13:43 05/12/18 13:42 Sitagliptin Phosphate (Januvia) 50 mg ACBREAKFAST ORAL 04/14/18 06:30 05/14/18 06:29 04/17/18 06:18 Tamsulosin HCl (Flomax) 0.4 mg BEDTIME ORAL 04/13/18 21:00 05/11/18 20:59 04/16/18 20:34 Vitamin A/Vitamin D (A & D Oint) 1 applic TWICE A DAY TOPIC 04/13/18 18:00 05/12/18 08:59 04/16/18 17:15 Item Value Date Time Bedside Blood Glucose 195 mg/dl H 04/17/18 0630 Bedside Blood Glucose 225 mg/dl H 04/16/18 2100 Bedside Blood Glucose 234 mg/dl H 04/16/18 1652 Bedside Blood Glucose 150 mg/dl H 04/16/18 1127 Bedside Blood Glucose 191 mg/dl H 04/16/18 0926 Bedside Blood Glucose 191 mg/dl H 04/16/18 0609 Kurtis Richey MD Apr 17, 2018 07:13
[2018-04-17 08:00] VITALS: BP 126/76
[2018-04-17] MEDS ORDERED: Levemir Flexpen SUBQ SCH (09:00)
[2018-04-17] MEDS: Aspirin Baby 81mg ORAL SCH (09:07)
[2018-04-17] MEDS: Metoprolol 25mg tab ORAL SCH (09:07)
[2018-04-17] MEDS: Docusate 100mg cap ORAL SCH ×3 (09:07→17:48)
[2018-04-17] MEDS: Megace 400mg/10ml Susp ORAL SCH ×2 (09:08→17:47)
[2018-04-17] MEDS: Vitamin A&D Oint 2oz Tube TOPIC SCH ×2 (09:08→17:47)
--- NOTE | 2018-04-17 11:58 | Nephrology Progress Note ---
Assessment/Plan Problem List: (1) Dehydration (2) UTI (urinary tract infection) (3) Acute renal failure (4) Acute encephalopathy (5) Diabetes mellitus out of control (6) Elevated troponin I level Assessment Renal Failure- encephalopathy UTI Dehydration Low na and high K Elevated troponin DM , high Glucose Plan Trial megace up dose Lopressor DC IV Fluids starlix Ancef - Vanco Monitor lytes ASA Nitrate St eval recheck UA and U culture Per orders Subjective ROS Limited/Unobtainable: No Constitutional: Reports: malaise, weakness Objective Objective Last 24 Hour Vital Signs Date Time Temp Pulse Resp B/P (MAP) Pulse Ox O2 Delivery O2 Flow Rate FiO2 04/17/18 09:07 98 126/76 04/17/18 08:30 Room Air 04/17/18 08:00 97.9 98 18 126/76 (93) 94 97.9 04/17/18 04:00 97.5 95 20 136/82 (100) 94 97.5 04/17/18 00:00 97.1 85 19 131/76 (94) 93 97.1 04/16/18 21:00 Room Air 04/16/18 20:36 93 128/73 04/16/18 20:00 98.0 92 20 147/67 (93) 93 98.0 04/16/18 16:33 98.1 18 132/74 (93) 92 98.1 04/16/18 13:17 131/77 04/16/18 12:00 98.6 86 18 131/77 (95) 94 98.6 Intake and Output 04/16/18 04/17/18 19:00 07:00 Intake Total 50 ml 100 ml Output Total 1425 ml 1000 ml Balance -1375 ml -900 ml IV Total 50 ml 100 ml Output Urine Total 1425 ml 1000 ml Height (Feet): 6 Weight (Pounds): 197 General Appearance: no apparent distress Cardiovascular: tachycardia Respiratory/Chest: decreased breath sounds Abdomen: distended Objective no change Greyson Ignacio MD Apr 17, 2018 11:58
--- NOTE | 2018-04-17 13:08 | Infectious Diseases Prog Note ---
Assessment/Plan Assessment/Plan A; Sepsis with Staph aureus, MSSA UTI with MSSA DM & Hyperglycemia AMS elevated troponin Syncope & Fall Encephalopathy Old lacunar infarcts P; Continue Ancef Will D/W [employer] Case was D/W patient's brother Subjective ROS Limited/Unobtainable: Yes Neurologic: Reports: confusion Allergies: Coded Allergies: No Known Allergies (Unverified , 04/11/18) Objective Vital Signs Last 24 Hour Vital Signs Date Time Temp Pulse Resp B/P (MAP) Pulse Ox O2 Delivery O2 Flow Rate FiO2 04/17/18 09:07 98 126/76 04/17/18 08:30 Room Air 04/17/18 08:00 97.9 98 18 126/76 (93) 94 97.9 04/17/18 04:00 97.5 95 20 136/82 (100) 94 97.5 04/17/18 00:00 97.1 85 19 131/76 (94) 93 97.1 04/16/18 21:00 Room Air 04/16/18 20:36 93 128/73 04/16/18 20:00 98.0 92 20 147/67 (93) 93 98.0 04/16/18 16:33 98.1 18 132/74 (93) 92 98.1 04/16/18 13:17 131/77 Height (Feet): 6 Weight (Pounds): 197 General Appearance: no acute distress HEENT: mucous membranes moist Respiratory/Chest: lungs clear Cardiovascular: normal rate Abdomen: soft, non tender Extremities: no edema Skin: other - improving face bruieses Neurologic/Psychiatric: alert, responsive, disoriented Current Medications Medications (Trade) Dose Ordered Sig/Safia Route PRN Reason Start Time Stop Time Status Last Admin Dose Admin Acetaminophen (Tylenol) 500 mg Q4H PRN ORAL Mild Pain/Temp > 100.5 04/13/18 13:41 05/11/18 13:40 04/14/18 21:33 Aspirin (ASA) 162 mg DAILY ORAL 04/14/18 09:00 05/11/18 10:59 04/17/18 09:07 Cefazolin Sodium 50 ml @ 100 mls/hr Q8HR IV 04/13/18 14:00 04/20/18 13:59 04/17/18 06:18 Dextrose (Dextrose 50%) 25 ml Q30M PRN IV Hypoglycemia 04/15/18 18:00 05/15/18 17:59 Dextrose (Dextrose 50%) 50 ml Q30M PRN IV Hypoglycemia 04/15/18 18:00 05/15/18 17:59 Docusate Sodium (Colace) 100 mg THREE TIMES A DAY ORAL 04/13/18 18:00 05/13/18 17:59 04/17/18 09:07 Heparin Sodium (Porcine) (Heparin 5000 units/ml) 5,000 units EVERY 8 HOURS SUBQ 04/16/18 14:00 05/16/18 13:59 04/17/18 06:20 Insulin Aspart (NovoLOG) BEFORE MEALS AND HS SUBQ 04/15/18 21:00 05/15/18 20:59 04/17/18 06:20 Insulin Detemir (Levemir) 16 units DAILY SUBQ 04/17/18 09:00 05/13/18 08:59 Lidocaine (Lidoderm 5% PATCH) 1 patch DAILY@0000 TDERMAL 04/14/18 00:00 05/13/18 00:14 04/17/18 01:25 Megestrol Acetate (Megace) 400 mg TWICE A DAY ORAL 04/16/18 11:00 05/16/18 10:59 04/17/18 09:08 Metoprolol Tartrate (Lopressor) 50 mg Q12HR ORAL 04/17/18 21:00 05/13/18 20:59 Nateglinide (Starlix) 120 mg TIAC ORAL 04/13/18 16:30 05/12/18 08:59 04/17/18 06:18 Nitroglycerin (Ntg) 1 patch Q24H TDERMAL 04/14/18 11:00 05/11/18 10:59 04/16/18 13:17 Pantoprazole (Protonix) 40 mg EVERY 12 HOURS ORAL 04/13/18 21:00 05/13/18 20:59 04/17/18 09:07 Quetiapine Fumarate (SEROquel) 12.5 mg Q4H PRN ORAL ANXIETY 04/13/18 13:43 05/12/18 13:42 Sitagliptin Phosphate (Januvia) 50 mg ACBREAKFAST ORAL 04/14/18 06:30 05/14/18 06:29 04/17/18 06:18 Tamsulosin HCl (Flomax) 0.4 mg BEDTIME ORAL 04/13/18 21:00 05/11/18 20:59 04/16/18 20:34 Vitamin A/Vitamin D (A & D Oint) 1 applic TWICE A DAY TOPIC 04/13/18 18:00 05/12/18 08:59 04/17/18 09:08 Conor Egan MD Apr 17, 2018 13:07
[2018-04-17] MEDS: Nitroglycerin Patch 0.4mg TDERMAL SCH (13:14)
--- NOTE | 2018-04-17 13:50 | General Progress Note ---
Assessment/Plan Status: stable Assessment/Plan encephalopathy due to [facility] seroquel prn Subjective Date patient seen: Apr 17, 2018 Neurologic/Psychiatric: Reports: anxiety, depressed, emotional problems Allergies: Coded Allergies: No Known Allergies (Unverified , 04/11/18) Objective Last 24 Hour Vital Signs Date Time Temp Pulse Resp B/P (MAP) Pulse Ox O2 Delivery O2 Flow Rate FiO2 04/17/18 13:14 126/76 04/17/18 09:07 98 126/76 04/17/18 08:30 Room Air 04/17/18 08:00 97.9 98 18 126/76 (93) 94 97.9 04/17/18 04:00 97.5 95 20 136/82 (100) 94 97.5 04/17/18 00:00 97.1 85 19 131/76 (94) 93 97.1 04/16/18 21:00 Room Air 04/16/18 20:36 93 128/73 04/16/18 20:00 98.0 92 20 147/67 (93) 93 98.0 04/16/18 16:33 98.1 18 132/74 (93) 92 98.1 Intake and Output 04/16/18 04/17/18 19:00 07:00 Intake Total 50 ml 100 ml Output Total 1425 ml 1000 ml Balance -1375 ml -900 ml IV Total 50 ml 100 ml Output Urine Total 1425 ml 1000 ml Height (Feet): 6 Weight (Pounds): 197 Vimal Mares MD Apr 17, 2018 13:50
[2018-04-17] MEDS ORDERED: LORazepam 1mg tab ORAL SCH (14:00)
--- NOTE | 2018-04-17 14:35 | Diagnostic Imaging Report ---
Indication: Unable to move lower body, back pain with moving torso Technique: Sagittal T1 and T2 fast spin echo, sagittal STIR, axial T1 and T2 fast spin-echo images of the lumbar spine. 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 There is considerable marrow fat within the sacrum. There are some Modic type II degenerative marrow changes adjacent to the L4-5 and L5-S1 discs.. The remaining marrow signal is normal. Bony alignment is normal. Vertebral body heights are preserved. Conus medullaris terminates at the L1-2 level. At L4-5, there is mild degenerative disc narrowing. There is minimal circumferential annular bulge There is minimal bilateral neural foraminal stenosis due to facet hypertrophy and the bulging disc. No significant spinal stenosis.. At L5-S1, there is mild degenerative disc narrowing and circumferential annular bulge. The bulging disc results in borderline narrowing of the spinal canal, which is narrowed to 9 mm minimum AP dimension. The bulging disc and facet hypertrophy results in mild narrowing of the bilateral neural foramina. At the remaining levels, no significant disc bulge or protrusion, spinal stenosis, or neural foraminal narrowing. The included extraspinal soft tissues are unremarkable Impression: Mild degenerative changes, as described. No definite acute abnormality demonstrated. No evidence of significant neural impingement
--- NOTE | 2018-04-17 15:13 | Diagnostic Imaging Report ---
APPROVED REPORT CPT Code: 94974 Present Symptoms Lower Extremity Pain: BILATERAL: Imaging reveals a patent deep venous system bilaterally. There is no evidence of thrombus within the femoral, popliteal or tibial segments. The greater saphenous veins are also within normal limits. Doppler indicates normal spontaneous flow within these segments.
[2018-04-17 15:59] VITALS: BP 121/74
[2018-04-17 20:00] VITALS: BP 112/72
[2018-04-17] MEDS: Tamsulosin 0.4mg cap ORAL SCH (21:18)
[2018-04-17] MEDS: Metoprolol Tartrate 50mg tab ORAL SCH (21:19)
--- NOTE | 2018-04-17 21:35 | General Progress Note ---
Assessment/Plan Problem List: (1) UTI (urinary tract infection) ICD Codes: N39.0 - Urinary tract infection, site not specified SNOMED: 59860471, 132424600, 243105985 Qualifiers: Qualified Codes: N39.0 - Urinary tract infection, site not specified (2) Acute renal failure ICD Codes: N17.9 - Acute kidney failure, unspecified SNOMED: 78756396 Status: progressing Assessment/Plan fall risk s/p ams mri ordered to r/o cva needs snf for pt brother agrees to snf Subjective ROS Limited/Unobtainable: Yes Constitutional: Reports: no symptoms Allergies: Coded Allergies: No Known Allergies (Unverified , 04/11/18) Objective Last 24 Hour Vital Signs Date Time Temp Pulse Resp B/P (MAP) Pulse Ox O2 Delivery O2 Flow Rate FiO2 04/17/18 21:19 94 112/72 04/17/18 15:59 98.0 97 18 121/74 (90) 97 98.0 04/17/18 13:14 126/76 04/17/18 09:07 98 126/76 04/17/18 08:30 Room Air 04/17/18 08:00 97.9 98 18 126/76 (93) 94 97.9 04/17/18 04:00 97.5 95 20 136/82 (100) 94 97.5 04/17/18 00:00 97.1 85 19 131/76 (94) 93 97.1 Intake and Output 04/16/18 04/17/18 19:00 07:00 Intake Total 50 ml 100 ml Output Total 1425 ml 1000 ml Balance -1375 ml -900 ml IV Total 50 ml 100 ml Output Urine Total 1425 ml 1000 ml Height (Feet): 6 Weight (Pounds): 197 General Appearance: confused Neck: supple Cardiovascular: normal rate Respiratory/Chest: lungs clear Abdomen: soft Ubaldo Jarquin MD Apr 17, 2018 21:35
[2018-04-17] MEDS ORDERED: Milk of Magnesia 30ml Ud ORAL PRN (22:45)
[2018-04-18] VITALS: BP 109/63
[2018-04-18 04:00] VITALS: BP 113/68
[2018-04-18] MEDS: Heparin 5000 units/ml inj SUBQ SCH ×3 (06:00→21:19)
[2018-04-18] MEDS: ceFAZolin 1gm/50ml Premix 50 ML IV SCH (06:08)
[2018-04-18] MEDS: sitaGLIPtin 50mg tab ORAL SCH (06:08)
[2018-04-18] MEDS: NovoLOG Insulin Flexpen SUBQ SCH ×4 (06:10→21:25)
--- NOTE | 2018-04-18 06:52 | General Progress Note ---
Assessment/Plan Problem List: (1) Diabetes mellitus out of control ICD Codes: E11.65 - Type 2 diabetes mellitus with hyperglycemia SNOMED: 07038493, 567747266 (2) Acute encephalopathy ICD Codes: G93.40 - Encephalopathy, unspecified SNOMED: 09021394, 674721281 (3) Dehydration ICD Codes: E86.0 - Dehydration SNOMED: 43220998, 644148183, 619976794 (4) Acute renal failure ICD Codes: N17.9 - Acute kidney failure, unspecified SNOMED: 06216214 Assessment/Plan reduce Levemir to 10 units daily continue Januvia 50 mg daily continue Starlix 120 mg ac tid continue NISS ac / hs Subjective Allergies: Coded Allergies: No Known Allergies (Unverified , 04/11/18) All Systems: reviewed and negative except above Subjective events noted Objective Last 24 Hour Vital Signs Date Time Temp Pulse Resp B/P (MAP) Pulse Ox O2 Delivery O2 Flow Rate FiO2 04/18/18 04:00 98.1 88 20 113/68 (83) 93 98.1 04/18/18 00:00 97.1 85 20 109/63 (78) 94 97.1 04/17/18 21:19 94 112/72 04/17/18 21:00 Room Air 04/17/18 20:00 98.1 94 20 112/72 (85) 93 98.1 04/17/18 15:59 98.0 97 18 121/74 (90) 97 98.0 04/17/18 13:14 126/76 04/17/18 09:07 98 126/76 04/17/18 08:30 Room Air 04/17/18 08:00 97.9 98 18 126/76 (93) 94 97.9 Intake and Output 04/17/18 04/18/18 19:00 07:00 Intake Total 50 ml Balance 50 ml IV Total 50 ml # Voids 8 Laboratory Tests 04/18/18 04:30: Urine Color [Pending], Urine Appearance [Pending], Urine pH [Pending], Urine Specific [place] [Pending], Urine Protein [Pending], Urine Glucose (UA) [Pending ], Urine Ketones [Pending], Urine Blood [Pending], Urine Nitrite [Pending], Urine Bilirubin [Pending], Urine Urobilinogen [Pending], Urine Leukocyte Esterase [Pending], Urine RBC [Pending], Urine WBC [Pending], Urine Squamous Epithelial Cells [Pending], Urine Bacteria [Pending] Height (Feet): 6 Weight (Pounds): 197 General Appearance: no apparent distress Neck: normal alignment Cardiovascular: normal rate Respiratory/Chest: lungs clear Abdomen: normal bowel sounds Pelvis: normal external exam Objective Current Medications Medications (Trade) Dose Ordered Sig/Safia Route PRN Reason Start Time Stop Time Status Last Admin Dose Admin Acetaminophen (Tylenol) 500 mg Q4H PRN ORAL Mild Pain/Temp > 100.5 04/13/18 13:41 05/11/18 13:40 04/14/18 21:33 Aspirin (ASA) 162 mg DAILY ORAL 04/14/18 09:00 05/11/18 10:59 04/17/18 09:07 Bisacodyl (Dulcolax) 10 mg DAILY ORAL 04/18/18 09:00 05/18/18 08:59 Cefazolin Sodium 50 ml @ 100 mls/hr Q8HR IV 04/13/18 14:00 04/20/18 13:59 04/18/18 06:08 Dextrose (Dextrose 50%) 25 ml Q30M PRN IV Hypoglycemia 04/15/18 18:00 05/15/18 17:59 Dextrose (Dextrose 50%) 50 ml Q30M PRN IV Hypoglycemia 04/15/18 18:00 05/15/18 17:59 Docusate Sodium (Colace) 100 mg THREE TIMES A DAY ORAL 04/13/18 18:00 05/13/18 17:59 04/17/18 17:48 Docusate Sodium (Colace) 100 mg TWICE A DAY ORAL 04/18/18 09:00 05/18/18 08:59 Heparin Sodium (Porcine) (Heparin 5000 units/ml) 5,000 units EVERY 8 HOURS SUBQ 04/16/18 14:00 05/16/18 13:59 04/17/18 06:20 Insulin Aspart (NovoLOG) BEFORE MEALS AND HS SUBQ 04/15/18 21:00 05/15/18 20:59 04/18/18 06:10 Insulin Detemir (Levemir) 16 units DAILY SUBQ 04/17/18 09:00 05/13/18 08:59 Lidocaine (Lidoderm 5% PATCH) 1 patch DAILY@0000 TDERMAL 04/14/18 00:00 05/13/18 00:14 04/17/18 23:38 Lorazepam (Ativan) 2 mg ONCE ORAL 04/18/18 10:00 04/19/18 11:00 Magnesium Hydroxide (Mom) 30 ml Q4HR PRN ORAL Constipation 04/17/18 22:45 05/17/18 22:44 Megestrol Acetate (Megace) 400 mg TWICE A DAY ORAL 04/16/18 11:00 05/16/18 10:59 04/17/18 17:47 Metoprolol Tartrate (Lopressor) 50 mg Q12HR ORAL 04/17/18 21:00 05/13/18 20:59 04/17/18 21:19 Nateglinide (Starlix) 120 mg TIAC ORAL 04/13/18 16:30 05/12/18 08:59 04/18/18 06:08 Nitroglycerin (Ntg) 1 patch Q24H TDERMAL 04/14/18 11:00 05/11/18 10:59 04/17/18 13:14 Pantoprazole (Protonix) 40 mg EVERY 12 HOURS ORAL 04/13/18 21:00 05/13/18 20:59 04/17/18 21:18 Quetiapine Fumarate (SEROquel) 12.5 mg Q4H PRN ORAL ANXIETY 04/13/18 13:43 05/12/18 13:42 Sennosides (Senokot) 1 tab QHS ORAL 04/18/18 21:00 05/18/18 20:59 Sitagliptin Phosphate (Januvia) 50 mg ACBREAKFAST ORAL 04/14/18 06:30 05/14/18 06:29 04/18/18 06:08 Tamsulosin HCl (Flomax) 0.4 mg BEDTIME ORAL 04/13/18 21:00 05/11/18 20:59 04/17/18 21:18 Vitamin A/Vitamin D (A & D Oint) 1 applic TWICE A DAY TOPIC 04/13/18 18:00 05/12/18 08:59 04/17/18 17:47 Item Value Date Time Bedside Blood Glucose 168 mg/dl H 04/18/18 0630 Bedside Blood Glucose 152 mg/dl H 10/1/18 2121 Bedside Blood Glucose 134 mg/dl H 04/17/18 1646 Bedside Blood Glucose 162 mg/dl H 04/17/18 1200 Bedside Blood Glucose 195 mg/dl H 04/17/18 0900 Bedside Blood Glucose 195 mg/dl H 04/17/18 0630 Kurtis Richey MD Apr 18, 2018 06:52
[2018-04-18 06:57] LABS: APPEARANCE,URINE TURBID; BILIRUBIN, URINE NEGATIVE (NEGATIVE); GLUCOSE, URINE (UA) 1+ (NEGATIVE); KETONES,URINE NEGATIVE (NEGATIVE); LEUKOCYTE ESTERASE ,URINE 1+ (NEGATIVE); NITRITE,URINE NEGATIVE (NEGATIVE); PH,URINE 6.5 (4.5-8.0); PROTEIN,URINE 4+ (NEGATIVE); UROBILINOGEN,URINE 1 MG/DL (0.0-1.0)
[2018-04-18 07:05] LABS: COLOR,URINE RED
--- NOTE | 2018-04-18 07:53 | General Progress Note ---
Assessment/Plan Assessment/Plan 1. Thrombocytopenia potentially secondary to underlying infection. ++ HSM noted , unknown if has cirrhosis as the ultrasound is non-conclusive --> Hepatitis panel and human immunodeficiency virus are both negative --> Hepatosplenomegaly. Question of nodularity of the liver surface. Cirrhosis not excluded. Correlate clinically --> hold off on transfusion if Plt>20k --> stable range of approx 100-150k 2. Leukocytosis, likely secondary to urinary tract infection. He is on abx --> on abx and peripheral smear reviewed --> id recs appreciated 3. Pyuria due to urinary tract infection. Closely monitor for improvement. He is on abx --> id service has been consulted, on ancef --> appreciate their recs, remains on abx 4. Old lacunar infarct. as per neuro eval --> their recs have been appreciated 5. Anemia due to underlying chronic disease. Continue to closely monitor. --> anemia panel has been reviewed --> hgb goal >7, transfuse prn 6. Elevated troponin. Presyncopal episode. A 12-lead EKG pending. No evidence of ischemia. --> trops reviewed, trend --> appreciate cards recs 7. Sinus tachycardia, which was corrected Greatly appreciate consultation! Subjective Constitutional: Denies: no symptoms, chills, diaphoresis, fever, malaise, weakness, other HEENT: Denies: no symptoms, eye pain, blurred vision, tearing, double vision, ear pain, ear discharge, nose pain, nose congestion, throat pain, throat swelling, mouth pain, mouth swelling, other Cardiovascular: Denies: no symptoms, chest pain, edema, irregular heart rate, lightheadedness, palpitations, syncope, other Respiratory: Denies: no symptoms, cough, orthopnea, shortness of breath, SOB with excertion, SOB at rest, sputum, stridor, wheezing, other Gastrointestinal/Abdominal: Denies: no symptoms, abdomen distended, abdominal pain, black stools, tarry stools, blood in stool, constipated, diarrhea, difficulty swallowing, nausea, poor appetite, poor fluid intake, rectal bleeding , vomiting, other Genitourinary: Denies: no symptoms, burning, discharge, frequency, flank pain, hematuria, incontinence, pain, urgency, other Neurologic/Psychiatric: Denies: no symptoms, anxiety, depressed, emotional problems, headache, numbness, paresthesia, pre-existing deficit, seizure, tingling, tremors, weakness, other Endocrine: Denies: no symptoms, excessive sweating, flushing, intolerance to cold, intolerance to heat, increased hunger, increased thirst, increased urine, unexplained weight gain, unexplained weight loss, other Hematologic/Lymphatic: Denies: no symptoms, anemia, easy bleeding, easy bruising, other Allergies: Coded Allergies: No Known Allergies (Unverified , 04/11/18) Subjective on antibiotics and remains encephalopathic,getting mri imaging today Objective Last 24 Hour Vital Signs Date Time Temp Pulse Resp B/P (MAP) Pulse Ox O2 Delivery O2 Flow Rate FiO2 04/18/18 04:00 98.1 88 20 113/68 (83) 93 98.1 04/18/18 00:00 97.1 85 20 109/63 (78) 94 97.1 04/17/18 21:19 94 112/72 04/17/18 21:00 Room Air 04/17/18 20:00 98.1 94 20 112/72 (85) 93 98.1 04/17/18 15:59 98.0 97 18 121/74 (90) 97 98.0 04/17/18 13:14 126/76 04/17/18 09:07 98 126/76 04/17/18 08:30 Room Air 04/17/18 08:00 97.9 98 18 126/76 (93) 94 97.9 Intake and Output 04/17/18 04/18/18 19:00 07:00 Intake Total 50 ml Balance 50 ml IV Total 50 ml # Voids 8 5 Laboratory Tests 04/18/18 04:30: Urine Color Red, Urine Appearance Turbid, Urine pH 6.5, Urine Specific [place] 1.015, Urine Protein 4+H, Urine Glucose (UA) 1+H, Urine Ketones Negative, Urine Blood 5+H, Urine Nitrite Negative, Urine Bilirubin Negative, Urine Urobilinogen 1H, Urine Leukocyte Esterase 1+H, Urine RBC TntcH, Urine WBC 2-4, Urine Squamous Epithelial Cells Occasional, Urine Bacteria Occasional Height (Feet): 6 Weight (Pounds): 197 General Appearance: alert EENT: pharynx normal Neck: supple Cardiovascular: normal rate Respiratory/Chest: normal breath sounds Genitourinary/Rectal: normal rectal exam Extremities: non-tender Edema: 1+ Leg (L), 1+ Leg (R) Edema: mild edema Neurologic: alert Skin: normal pigmentation Zack Miguel MD Apr 18, 2018 07:53
[2018-04-18 08:00] VITALS: BP 127/67
[2018-04-18] MEDS ORDERED: Docusate 100mg cap ORAL SCH (09:00)
[2018-04-18] MEDS: Aspirin Baby 81mg ORAL SCH (09:43)
[2018-04-18] MEDS: Megace 400mg/10ml Susp ORAL SCH ×2 (09:44→17:11)
[2018-04-18] MEDS: Docusate 100mg cap ORAL SCH ×2 (09:44→12:06)
[2018-04-18] MEDS: Bisacodyl EC 5mg tab ORAL SCH (09:44)
[2018-04-18] MEDS: Metoprolol Tartrate 50mg tab ORAL SCH ×2 (09:44→21:24)
[2018-04-18] MEDS: Vitamin A&D Oint 2oz Tube TOPIC SCH ×2 (09:45→17:11)
[2018-04-18] MEDS: Levemir Flexpen SUBQ SCH (09:47)
[2018-04-18] MEDS ORDERED: LORazepam 1mg tab ORAL SCH (10:00)
[2018-04-18] MEDS ORDERED: LORazepam Inj 2mg/ml 1ml IVP SCH (11:18)
--- NOTE | 2018-04-18 11:30 | Nephrology Progress Note ---
Assessment/Plan Problem List: (1) Dehydration (2) UTI (urinary tract infection) (3) Acute renal failure (4) Acute encephalopathy (5) Diabetes mellitus out of control (6) Elevated troponin I level (7) Urinary retention Assessment: 700 cc 04/18/18 Assessment Renal Failure- encephalopathy UTI Dehydration Low na and high K Elevated troponin DM , high Glucose Plan vizcaino- has 700 cc retention on megace check labs today up dose Lopressor DC IV Fluids starlix Ancef - Vanco Monitor lytes ASA Nitrate St eval recheck UA and U culture Per orders Subjective ROS Limited/Unobtainable: No Constitutional: Reports: malaise, weakness Objective Objective Last 24 Hour Vital Signs Date Time Temp Pulse Resp B/P (MAP) Pulse Ox O2 Delivery O2 Flow Rate FiO2 04/18/18 09:44 99 127/67 04/18/18 09:00 Room Air 04/18/18 08:00 97.4 99 20 127/67 (87) 94 97.4 04/18/18 04:00 98.1 88 20 113/68 (83) 93 98.1 04/18/18 00:00 97.1 85 20 109/63 (78) 94 97.1 04/17/18 21:19 94 112/72 04/17/18 21:00 Room Air 04/17/18 20:00 98.1 94 20 112/72 (85) 93 98.1 04/17/18 15:59 98.0 97 18 121/74 (90) 97 98.0 04/17/18 13:14 126/76 Intake and Output 04/17/18 04/18/18 19:00 07:00 Intake Total 50 ml Balance 50 ml IV Total 50 ml # Voids 8 5 Laboratory Tests 04/18/18 04:30: Urine Color Red, Urine Appearance Turbid, Urine pH 6.5, Urine Specific [place] 1.015, Urine Protein 4+H, Urine Glucose (UA) 1+H, Urine Ketones Negative, Urine Blood 5+H, Urine Nitrite Negative, Urine Bilirubin Negative, Urine Urobilinogen 1H, Urine Leukocyte Esterase 1+H, Urine RBC TntcH, Urine WBC 2-4, Urine Squamous Epithelial Cells Occasional, Urine Bacteria Occasional Height (Feet): 6 Weight (Pounds): 197 General Appearance: other - weak Cardiovascular: tachycardia Respiratory/Chest: decreased breath sounds Abdomen: soft, distended Objective no change Greyson Ignacio MD Apr 18, 2018 11:30
--- NOTE | 2018-04-18 11:44 | Infectious Diseases Prog Note ---
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 Urologist evaluation is pending Subjective ROS Limited/Unobtainable: Yes Gastrointestinal/Abdominal: Reports: no symptoms Genitourinary: Reports: hematuria Skin: Reports: rash Allergies: Coded Allergies: No Known Allergies (Unverified , 04/11/18) Objective Vital Signs Last 24 Hour Vital Signs Date Time Temp Pulse Resp B/P (MAP) Pulse Ox O2 Delivery O2 Flow Rate FiO2 04/18/18 09:44 99 127/67 04/18/18 09:00 Room Air 04/18/18 08:00 97.4 99 20 127/67 (87) 94 97.4 04/18/18 04:00 98.1 88 20 113/68 (83) 93 98.1 04/18/18 00:00 97.1 85 20 109/63 (78) 94 97.1 04/17/18 21:19 94 112/72 04/17/18 21:00 Room Air 04/17/18 20:00 98.1 94 20 112/72 (85) 93 98.1 04/17/18 15:59 98.0 97 18 121/74 (90) 97 98.0 04/17/18 13:14 126/76 Height (Feet): 6 Weight (Pounds): 197 General Appearance: no acute distress HEENT: mucous membranes moist Respiratory/Chest: lungs clear Cardiovascular: normal rate Abdomen: soft, non tender Genitourinary: other - Hankins catheter, gross hematuria Skin: rash, other - on lower back , upper thigh Laboratory Tests Test 04/18/18 04:30 Urine Color Red Urine Appearance Turbid Urine pH 6.5 (4.5-8.0) Urine Specific [place] 1.015 (1.005-1.035) Urine Protein 4+ (NEGATIVE) H Urine Glucose (UA) 1+ (NEGATIVE) H Urine Ketones Negative (NEGATIVE) Urine Blood 5+ (NEGATIVE) H Urine Nitrite Negative (NEGATIVE) Urine Bilirubin Negative (NEGATIVE) Urine Urobilinogen 1 MG/DL (0.0-1.0) H Urine Leukocyte Esterase 1+ (NEGATIVE) H Urine RBC Tntc /HPF (0 - 0) H Urine WBC 2-4 /HPF (0 - 0) Urine Squamous Epithelial Cells Occasional /LPF Urine Bacteria Occasional /HPF (NONE) Current Medications Medications (Trade) Dose Ordered Sig/Safia Route PRN Reason Start Time Stop Time Status Last Admin Dose Admin Acetaminophen (Tylenol) 500 mg Q4H PRN ORAL Mild Pain/Temp > 100.5 04/13/18 13:41 05/11/18 13:40 04/14/18 21:33 Aspirin (ASA) 162 mg DAILY ORAL 04/14/18 09:00 05/11/18 10:59 04/17/18 09:07 Bisacodyl (Dulcolax) 10 mg DAILY ORAL 04/18/18 09:00 05/18/18 08:59 04/18/18 09:44 Dextrose (Dextrose 50%) 25 ml Q30M PRN IV Hypoglycemia 04/15/18 18:00 05/15/18 17:59 Dextrose (Dextrose 50%) 50 ml Q30M PRN IV Hypoglycemia 04/15/18 18:00 05/15/18 17:59 Docusate Sodium (Colace) 100 mg THREE TIMES A DAY ORAL 04/13/18 18:00 05/13/18 17:59 04/18/18 09:44 Heparin Sodium (Porcine) (Heparin 5000 units/ml) 5,000 units EVERY 8 HOURS SUBQ 04/16/18 14:00 05/16/18 13:59 04/17/18 06:20 Insulin Aspart (NovoLOG) BEFORE MEALS AND HS SUBQ 04/15/18 21:00 05/15/18 20:59 04/18/18 06:10 Insulin Detemir (Levemir) 10 units DAILY SUBQ 04/18/18 09:00 05/13/18 08:59 04/18/18 09:47 Lidocaine (Lidoderm 5% PATCH) 1 patch DAILY@0000 TDERMAL 04/14/18 00:00 05/13/18 00:14 04/17/18 23:38 Lorazepam (Ativan 2mg/ml 1ml) 2 mg ONCE IVP 04/18/18 11:18 04/18/18 12:18 Magnesium Hydroxide (Mom) 30 ml Q4HR PRN ORAL Constipation 04/17/18 22:45 05/17/18 22:44 Megestrol Acetate (Megace) 400 mg TWICE A DAY ORAL 04/16/18 11:00 05/16/18 10:59 04/18/18 09:44 Metoprolol Tartrate (Lopressor) 50 mg Q12HR ORAL 04/17/18 21:00 05/13/18 20:59 04/18/18 09:44 Nateglinide (Starlix) 120 mg TIAC ORAL 04/13/18 16:30 05/12/18 08:59 04/18/18 06:08 Nitroglycerin (Ntg) 1 patch Q24H TDERMAL 04/14/18 11:00 05/11/18 10:59 04/17/18 13:14 Pantoprazole (Protonix) 40 mg EVERY 12 HOURS ORAL 04/13/18 21:00 05/13/18 20:59 04/18/18 09:44 Quetiapine Fumarate (SEROquel) 12.5 mg Q4H PRN ORAL ANXIETY 04/13/18 13:43 05/12/18 13:42 Sennosides (Senokot) 1 tab QHS ORAL 04/18/18 21:00 05/18/18 20:59 Sitagliptin Phosphate (Januvia) 50 mg ACBREAKFAST ORAL 04/14/18 06:30 05/14/18 06:29 04/18/18 06:08 Tamsulosin HCl (Flomax) 0.4 mg BID ORAL 04/18/18 18:00 05/11/18 20:59 Vancomycin HCl (Vanco rx to dose) 1 ea DAILY PRN MISC . 04/18/18 11:45 05/18/18 11:44 Vancomycin HCl/ Dextrose 250 ml @ 125 mls/hr Q24H IVPB 04/18/18 13:00 04/23/18 12:59 Vitamin A/Vitamin D (A & D Oint) 1 applic TWICE A DAY TOPIC 04/13/18 18:00 05/12/18 08:59 04/18/18 09:45 Conor Egan MD Apr 18, 2018 11:44
[2018-04-18 12:00] VITALS: BP 119/71
[2018-04-18] MEDS: Nitroglycerin Patch 0.4mg TDERMAL SCH (12:06)
[2018-04-18 12:10] LABS: HEMOGLOBIN 12.7 G/DL (14.2-18.0); MEAN CORPUSCULAR VOLUME 86 FL (80-99); PLATELET COUNT 304 K/UL (150-450); RED BLOOD COUNT 4.56 M/UL (4.70-6.10); RED CELL DISTRIBUTION WIDTH 11.7 % (11.6-14.8); WHITE BLOOD COUNT 9.1 K/UL (4.8-10.8)
[2018-04-18 12:22] LABS: ALANINE AMINOTRANSFERASE 21 U/L (12-78); ALBUMIN/GLOBULIN RATIO 0.4 (1.0-2.7); ALKALINE PHOSPHATASE 96 U/L (46-116); ANION GAP 6 mmol/L (5-15); ASPARTATE AMINO TRANSFERASE 16 U/L (15-37); BILIRUBIN,TOTAL 0.4 MG/DL (0.2-1.0); BLOOD UREA NITROGEN 29 mg/dL (7-18); CALCIUM 9.7 MG/DL (8.5-10.1); CARBON DIOXIDE 27 MMOL/L (21-32); CHLORIDE 104 MMOL/L (98-107); PHOSPHORUS 3.7 MG/DL (2.5-4.9); POTASSIUM 4.4 MMOL/L (3.5-5.1); SODIUM 137 MMOL/L (136-145)
[2018-04-18] MEDS: Vancomycin 1.5 GM/D5W 250ML IVPB SCH (14:00)
--- NOTE | 2018-04-18 14:09 | General Progress Note ---
Assessment/Plan Assessment/Plan [place] [facility] [place] [facility] awaiting mri of head without contrast d/w bruna Seroquel prn Subjective Date patient seen: Apr 18, 2018 Neurologic/Psychiatric: Reports: anxiety Allergies: Coded Allergies: No Known Allergies (Unverified , 04/11/18) Subjective the pt is agitated and confused. the pt has hematuria. spoke to Dr. Jarquin Objective Last 24 Hour Vital Signs Date Time Temp Pulse Resp B/P (MAP) Pulse Ox O2 Delivery O2 Flow Rate FiO2 04/18/18 12:06 127/67 04/18/18 12:00 97.6 89 20 119/71 (87) 94 97.6 04/18/18 09:44 99 127/67 04/18/18 09:00 Room Air 04/18/18 08:00 97.4 99 20 127/67 (87) 94 97.4 04/18/18 04:00 98.1 88 20 113/68 (83) 93 98.1 04/18/18 00:00 97.1 85 20 109/63 (78) 94 97.1 04/17/18 21:19 94 112/72 04/17/18 21:00 Room Air 04/17/18 20:00 98.1 94 20 112/72 (85) 93 98.1 04/17/18 15:59 98.0 97 18 121/74 (90) 97 98.0 Intake and Output 04/17/18 04/18/18 19:00 07:00 Intake Total 50 ml Balance 50 ml IV Total 50 ml # Voids 8 5 Laboratory Tests 04/18/18 04:30: Urine Color Red, Urine Appearance Turbid, Urine pH 6.5, Urine Specific [place] 1.015, Urine Protein 4+H, Urine Glucose (UA) 1+H, Urine Ketones Negative, Urine Blood 5+H, Urine Nitrite Negative, Urine Bilirubin Negative, Urine Urobilinogen 1H, Urine Leukocyte Esterase 1+H, Urine RBC TntcH, Urine WBC 2-4, Urine Squamous Epithelial Cells Occasional, Urine Bacteria Occasional 04/18/18 11:56: White Blood Count 9.1, Red Blood Count 4.56L, Hemoglobin 12.7L, Hematocrit 39.0L , Mean Corpuscular Volume 86, Mean Corpuscular Hemoglobin 28.0, Mean Corpuscular Hemoglobin Concent 32.7, Red Cell Distribution Width 11.7, Platelet Count 304, Mean Platelet Volume 5.3L, Neutrophils (%) (Auto) , Lymphocytes (%) ( Auto) , Monocytes (%) (Auto) , Eosinophils (%) (Auto) , Basophils (%) (Auto) , Differential Total Cells Counted 100, Neutrophils % (Manual) 91H, Lymphocytes % (Manual) 4L, Monocytes % (Manual) 4, Eosinophils % (Manual) 1, Basophils % ( Manual) 0, Band Neutrophils 0, Platelet Estimate Adequate, Platelet Morphology Normal, Red Blood Cell Morphology Normal, Sodium Level 137, Potassium Level 4.4 , Chloride Level 104, Carbon Dioxide Level 27, Anion Gap 6, Blood Urea Nitrogen 29H, Creatinine 1.0, Estimat Glomerular Filtration Rate , Glucose Level 224H, Calcium Level 9.7, Phosphorus Level 3.7, Magnesium Level 2.3, Total Bilirubin 0.4, Aspartate Amino Transf (AST/SGOT) 16, Alanine Aminotransferase (ALT/SGPT) 21, Alkaline Phosphatase 96, Total Protein 7.6, Albumin 2.0L, Globulin 5.6, Albumin/Globulin Ratio 0.4L Height (Feet): 6 Weight (Pounds): 197 General Appearance: alert, confused, severe distress, agitated Vimal Mares MD Apr 18, 2018 14:09
[2018-04-18 15:39] VITALS: BP 126/70
--- NOTE | 2018-04-18 16:39 | Diagnostic Imaging Report ---
Indication: Altered mental status, history of fall with trauma to head Technique: sagittal T1 fast spin echo, axial T1 FLAIR, axial T2 FLAIR, axial T2 FS PROPELLER, axial T2* GRE, axial diffusion weighted images. ADC and exponential ADC maps generated Comparison: Brain CT 04/11/2018 Findings: Small focus of restricted diffusion is seen in the parasagittal high right frontal lobe. Punctate foci of restricted diffusion are seen within the right parietal corrigan-white junction, right parasagittal parietal cortex, left posterior parietal convexity cortex, left temporal cortex. Right posterior parietal deep white matter. More questionable focus of restricted diffusion is seen in the right holder radiata. Focus of bright diffusion signal in the right cerebellar hemisphere may be artifactual. The larger diffusion abnormalities demonstrate subtle increased T2 signal as well. No evidence of acute hemorrhage. There is a focus of susceptibility artifact in the left cerebellar hemisphere which probably represents old bleed, does not demonstrate corresponding signal abnormality on any the other sequences. Punctate foci of T2 signal hyperintensity are seen scattered throughout the deep white matter bilaterally. There is age-related volume loss and some periventricular deep white matter increased T2 signal. No mass effect nor midline shift. . The vascular flow voids are preserved. There appears to be a dominant left vertebral artery. The visualized orbits are unremarkable. There is extensive right maxillary sinus disease, right maxillary sinus nearly completely filled with material. Visualized orbits and sinuses are unremarkable. Impression: Scattered bilateral foci of diffusion restriction consistent with multiple small acute infarcts. Multiplicity indicates likely embolic etiology, and distribution over multiple vascular territories indicates likely cardiogenic origin. This finding was phoned to Dr. Ignacio at the time of interpretation Evidence of old left cerebellar microbleed Extensive right maxillary sinus disease Age-related volume loss Periventricular deep white matter increased T2 signal, punctate foci of T2 signal abnormality throughout the bilateral deep white matter, most likely on the basis of chronic ischemic changes. Demyelinating disease also a possibility.
--- NOTE | 2018-04-18 16:48 | Diagnostic Imaging Report ---
Indication: Recent Technique: Sagittal T1 fast spin echo, sagittal T2 fast echo, sagittal STIR, sagittal T1 STIR PROPELLER, axial T2 fast spin echo images were obtained through the thoracic spine Comparison: Reference made to thoracic spine radiograph dated 04/12/2018 Findings: Axial images are somewhat limited, as patient unable to stay sedated. The bony alignment is normal. Vertebral body heights are preserved. The disc spaces are preserved. Vertebral body marrow signal is normal except for T10 and T11 vertebral body hemangiomas. Intrinsic cord signal is normal. No significant disc bulge or protrusion, spinal stenosis, or neural foraminal stenosis noted. The included extra spinal soft tissues are remarkable for the presence of a large left pleural effusion. Impression: No acute process for evidence of significant neural impingement Large left pleural effusion incidentally noted
[2018-04-18] MEDS: Docusate 100mg/10ml Liq ORAL SCH (17:13)
[2018-04-18] MEDS: Tamsulosin 0.4mg cap ORAL SCH (17:13)
[2018-04-18 20:00] VITALS: BP 135/75
[2018-04-18] MEDS: Sennosides 8.6mg ORAL SCH (21:24)
--- NOTE | 2018-04-18 21:48 | General Progress Note ---
Assessment/Plan Problem List: (1) UTI (urinary tract infection) ICD Codes: N39.0 - Urinary tract infection, site not specified SNOMED: 23514805, 425571290, 570405647 Qualifiers: Qualified Codes: N39.0 - Urinary tract infection, site not specified (2) Acute renal failure ICD Codes: N17.9 - Acute kidney failure, unspecified SNOMED: 43852827 (3) Elevated troponin I level ICD Codes: R74.8 - Abnormal levels of other serum enzymes SNOMED: 737144963 (4) Urinary retention ICD Codes: R33.9 - Retention of urine, unspecified SNOMED: 264511683 (5) Hematuria ICD Codes: R31.9 - Hematuria, unspecified SNOMED: 13195311 Status: deteriorating Assessment/Plan fall risk s/p ams mri shows acute bilate cva hematurea urinary retention uology was consulted vizcaino placed uti sepsis elev trop azotemia Subjective Genitourinary: Reports: hematuria Allergies: Coded Allergies: No Known Allergies (Unverified , 04/11/18) Objective Last 24 Hour Vital Signs Date Time Temp Pulse Resp B/P (MAP) Pulse Ox O2 Delivery O2 Flow Rate FiO2 04/18/18 21:24 94 135/75 04/18/18 15:39 98.5 88 20 126/70 (88) 96 98.5 04/18/18 12:06 127/67 04/18/18 12:00 97.6 89 20 119/71 (87) 94 97.6 04/18/18 09:44 99 127/67 04/18/18 09:00 Room Air 04/18/18 08:00 97.4 99 20 127/67 (87) 94 97.4 04/18/18 04:00 98.1 88 20 113/68 (83) 93 98.1 04/18/18 00:00 97.1 85 20 109/63 (78) 94 97.1 Intake and Output 04/17/18 04/18/18 19:00 07:00 Intake Total 50 ml Balance 50 ml IV Total 50 ml # Voids 8 5 Laboratory Tests 04/18/18 04:30: Urine Color Red, Urine Appearance Turbid, Urine pH 6.5, Urine Specific [place] 1.015, Urine Protein 4+H, Urine Glucose (UA) 1+H, Urine Ketones Negative, Urine Blood 5+H, Urine Nitrite Negative, Urine Bilirubin Negative, Urine Urobilinogen 1H, Urine Leukocyte Esterase 1+H, Urine RBC TntcH, Urine WBC 2-4, Urine Squamous Epithelial Cells Occasional, Urine Bacteria Occasional 04/18/18 11:56: White Blood Count 9.1, Red Blood Count 4.56L, Hemoglobin 12.7L, Hematocrit 39.0L , Mean Corpuscular Volume 86, Mean Corpuscular Hemoglobin 28.0, Mean Corpuscular Hemoglobin Concent 32.7, Red Cell Distribution Width 11.7, Platelet Count 304, Mean Platelet Volume 5.3L, Neutrophils (%) (Auto) , Lymphocytes (%) ( Auto) , Monocytes (%) (Auto) , Eosinophils (%) (Auto) , Basophils (%) (Auto) , Differential Total Cells Counted 100, Neutrophils % (Manual) 91H, Lymphocytes % (Manual) 4L, Monocytes % (Manual) 4, Eosinophils % (Manual) 1, Basophils % ( Manual) 0, Band Neutrophils 0, Platelet Estimate Adequate, Platelet Morphology Normal, Red Blood Cell Morphology Normal, Sodium Level 137, Potassium Level 4.4 , Chloride Level 104, Carbon Dioxide Level 27, Anion Gap 6, Blood Urea Nitrogen 29H, Creatinine 1.0, Estimat Glomerular Filtration Rate , Glucose Level 224H, Calcium Level 9.7, Phosphorus Level 3.7, Magnesium Level 2.3, Total Bilirubin 0.4, Aspartate Amino Transf (AST/SGOT) 16, Alanine Aminotransferase (ALT/SGPT) 21, Alkaline Phosphatase 96, Total Protein 7.6, Albumin 2.0L, Globulin 5.6, Albumin/Globulin Ratio 0.4L Height (Feet): 6 Weight (Pounds): 197 General Appearance: confused Cardiovascular: regular rhythm Respiratory/Chest: lungs clear Abdomen: soft Ubaldo Jarquin MD Apr 18, 2018 21:48
--- NOTE | 2018-04-18 23:52 | Cardiology Progress Note ---
Assessment/Plan Assessment/Plan 1. ALOC most likely due to embolic stroke given the result of today's brain MRI. May now require ZA to rule out vegetations as the cause. 2. Slight elevation of troponin I level due to NSTEMI, vs transient hypotension vs CVA. 3. Sinus tachycardia, resolved, likely secondary to hypovolemia and intravascular volume depletion. 4. Staph A. bacteremia, rule out endocarditis. Subjective Subjective Transferred to the med-surg unit. s/p Brain MRI Objective Last 24 Hour Vital Signs Date Time Temp Pulse Resp B/P (MAP) Pulse Ox O2 Delivery O2 Flow Rate FiO2 04/18/18 21:24 94 135/75 04/18/18 21:00 Room Air 04/18/18 20:00 98.2 94 20 135/75 (95) 93 98.2 04/18/18 15:39 98.5 88 20 126/70 (88) 96 98.5 04/18/18 12:06 127/67 04/18/18 12:00 97.6 89 20 119/71 (87) 94 97.6 04/18/18 09:44 99 127/67 04/18/18 09:00 Room Air 04/18/18 08:00 97.4 99 20 127/67 (87) 94 97.4 04/18/18 04:00 98.1 88 20 113/68 (83) 93 98.1 04/18/18 00:00 97.1 85 20 109/63 (78) 94 97.1 Intake and Output 04/17/18 04/18/18 19:00 07:00 Intake Total 50 ml Balance 50 ml IV Total 50 ml # Voids 8 5 2D Echo: LVEF 70%, Mild LVH, Grade I LVDD, RVSP 24 mmHg Laboratory Tests Test 04/18/18 04:30 04/18/18 11:56 Urine Color Red Urine Appearance Turbid Urine pH 6.5 (4.5-8.0) Urine Specific [place] 1.015 (1.005-1.035) Urine Protein 4+ (NEGATIVE) H Urine Glucose (UA) 1+ (NEGATIVE) H Urine Ketones Negative (NEGATIVE) Urine Blood 5+ (NEGATIVE) H Urine Nitrite Negative (NEGATIVE) Urine Bilirubin Negative (NEGATIVE) Urine Urobilinogen 1 MG/DL (0.0-1.0) H Urine Leukocyte Esterase 1+ (NEGATIVE) H Urine RBC Tntc /HPF (0 - 0) H Urine WBC 2-4 /HPF (0 - 0) Urine Squamous Epithelial Cells Occasional /LPF Urine Bacteria Occasional /HPF (NONE) White Blood Count 9.1 K/UL (4.8-10.8) Red Blood Count 4.56 M/UL (4.70-6.10) L Hemoglobin 12.7 G/DL (14.2-18.0) L Hematocrit 39.0 % (42.0-52.0) L Mean Corpuscular Volume 86 FL (80-99) Mean Corpuscular Hemoglobin 28.0 PG (27.0-31.0) Mean Corpuscular Hemoglobin Concent 32.7 G/DL (32.0-36.0) Red Cell Distribution Width 11.7 % (11.6-14.8) Platelet Count 304 K/UL (150-450) Mean Platelet Volume 5.3 FL (6.5-10.1) L Neutrophils (%) (Auto) % (45.0-75.0) Lymphocytes (%) (Auto) % (20.0-45.0) Monocytes (%) (Auto) % (1.0-10.0) Eosinophils (%) (Auto) % (0.0-3.0) Basophils (%) (Auto) % (0.0-2.0) Differential Total Cells Counted 100 Neutrophils % (Manual) 91 % (45-75) H Lymphocytes % (Manual) 4 % (20-45) L Monocytes % (Manual) 4 % (1-10) Eosinophils % (Manual) 1 % (0-3) Basophils % (Manual) 0 % (0-2) Band Neutrophils 0 % (0-8) Platelet Estimate Adequate Platelet Morphology Normal Red Blood Cell Morphology Normal Sodium Level 137 MMOL/L (136-145) Potassium Level 4.4 MMOL/L (3.5-5.1) Chloride Level 104 MMOL/L (98-107) Carbon Dioxide Level 27 MMOL/L (21-32) Anion Gap 6 mmol/L (5-15) Blood Urea Nitrogen 29 mg/dL (7-18) H Creatinine 1.0 MG/DL (0.55-1.30) Estimat Glomerular Filtration Rate mL/min (>60) Glucose Level 224 MG/DL (74-106) H Calcium Level 9.7 MG/DL (8.5-10.1) Phosphorus Level 3.7 MG/DL (2.5-4.9) Magnesium Level 2.3 MG/DL (1.8-2.4) Total Bilirubin 0.4 MG/DL (0.2-1.0) Aspartate Amino Transf (AST/SGOT) 16 U/L (15-37) Alanine Aminotransferase (ALT/SGPT) 21 U/L (12-78) Alkaline Phosphatase 96 U/L (46-116) Total Protein 7.6 G/DL (6.4-8.2) Albumin 2.0 G/DL (3.4-5.0) L Globulin 5.6 g/dL Albumin/Globulin Ratio 0.4 (1.0-2.7) L Objective HEENT: Atraumatic and normocephalic. Anicteric. Pupils are equal, round, and reactive to light and accommodation. Altered NECK: JVP less than 5 cm. No carotid bruit. CARDIOVASCULAR: Normal S1 and S2. No murmurs, gallops, or rubs. PMI is at fourth intercostal space in the midclavicular line. LUNGS: Clear to auscultation bilaterally. ABDOMEN: Soft, nontender, and nondistended. No hepatosplenomegaly. Positive bowel sounds. EXTREMITIES: No evidence of edema, clubbing, or cyanosis. Beto Chapepll MD Apr 18, 2018 23:52
[2018-04-19] VITALS: BP 127/70
[2018-04-19 04:00] VITALS: BP 120/72
--- NOTE | 2018-04-19 04:00 | Consultation ---
DATE OF CONSULTATION: 04/18/2018 UROLOGY CONSULTATION CONSULTING PHYSICIAN: Lui Rodas M.D. ATTENDING PHYSICIAN: Dr. Ubaldo Jarquin. CHIEF COMPLAINT/HISTORY OF PRESENT ILLNESS: I was asked by Dr. Jarquin to evaluate this unfortunate 72-year-old gentleman regarding history of gross hematuria in the setting of [place] catheterization. The patient presented to the hospital with a history of altered mental status and dizziness. He was also noted to have ecchymosis over his right eye. He was admitted for evaluation of the same. Apparently, the patient had a history of urinary retention and a [place] catheter was placed. Today, there was grossly bloody urine output. As such, I was asked to evaluate the patient. The patient cannot provide much of information due to his altered mental status and most of the information is gathered from the chart. PAST MEDICAL HISTORY: 1. Gastroesophageal reflux disease. 2. Ataxia. 3. Possible psychosis. 4. Presumed BPH. 5. Confusion/altered mental status. PAST SURGICAL HISTORY: Apparently none. MEDICATIONS: Please see the chart for current medications and administration details. ALLERGIES: No known drug allergies. SOCIAL HISTORY: Unavailable as the patient cannot provide much information. Did not appear that he has a history of smoking, alcohol, or drug use. FAMILY HISTORY: Noncontributory. REVIEW OF SYSTEMS: A 14-system review of systems cannot really be done as the patient cannot cooperate much with questioning. PHYSICAL EXAMINATION: GENERAL: The patient is an older gentleman, awake and somewhat alert. Not oriented. No obvious distress. HEENT: NC/AT. Extraocular muscles intact. NECK: Supple. Oropharynx clear. CHEST: Within normal limits. ABDOMEN: Soft, nontender, and nondistended. EXTREMITIES: Warm and well perfused. No cyanosis, clubbing, or edema. BACK: No CVA tenderness to percussion. NEUROLOGIC: Notable for confusion. The patient cannot cooperate with the remainder of the exam. GENITOURINARY: Exam reveals a normal male phallus circumcised. There is a [place] catheter in place with grossly bloody urine output. There are bilateral descended testes and cord structures. No masses or tenderness to palpation. LABORATORY DATA: White blood cell count 9.1, hematocrit 39, and platelets 304. Sodium 137, potassium 4.4, chloride 104, bicarbonate 27, BUN 29, creatinine 1.0, glucose 224, and calcium 9.7. LFTs within normal limits. Troponin elevated at 0.24 and 0.17. Urinalysis, specific gravity 1.015, pH 6.5. Dip test notable for 4+ protein, 1+ glucose, 5+ occult blood, and 1+ leukocyte esterase. Microanalysis with too numerous to count red blood cells per high-power field, 2 to 4 white blood cells per high-power field, and occasional bacteria seen. Urine cultures with Staph aureus, essentially spaulding sensitive. Blood cultures with the same. The patient is receiving vancomycin for antibiotic coverage. He previously also received cefazolin. DIAGNOSTIC IMAGING: Abdominal ultrasound with hepatosplenomegaly, cirrhosis is not excluded. There are small renal cysts on the left side. Kidneys are otherwise unremarkable. There is no hydronephrosis, renal mass, or stone noted. Brain MRI with scattered bilateral foci restriction consistent with multiple small acute infarcts ____ indicates likely embolic etiology and distribution over multiple vascular territories indicate likely cardiac origin. ASSESSMENT AND PLAN: In summary, the patient is a 72-year-old gentleman with a history of altered mental status and confusion. He was brought in for the same. Apparently, he has suffered embolic brain infarct. He had a [place] catheter placed for urinary retention, which displayed gross hematuria today. Physical exam reveals a grossly bloody output from the catheter in a confused altered individual. Laboratory data is notable for evidence of elevated troponins as well as elevated blood glucose and initial thrombocytopenia. Urine and blood cultures grew Staph aureus. Diagnostic imaging reveals the findings described above, but no significant genitourinary tract abnormalities. Today at the bedside, I irrigated the patient's catheter. I removed a small to moderate amount of clot and irrigated the catheter to clear. By the end of this irrigation, it was returning pink and clear fluid. Given that there was no heavy bleeding or clots, I do not feel there is a need for continuous bladder irrigation at this time. The catheter was inflated and left to gravity drainage. All anticoagulation should be held for a couple of days until the urine is completely cleared. The patient should be treated for 7 to 10 days for his Staph aureus urinary tract infection and bacteremia with vancomycin as is being done. If the patient's urine clears up, I will see the patient on an as-needed basis. Thank you again for allowing me to participate in the care of this nice gentleman. I will be happy to see him with you as needed. Please do not hesitate to contact me for any questions that you may further have regarding his care. Lui Rodas M.D. DR: ZAK JOB#: [id number] CC:
[2018-04-19] MEDS: Heparin 5000 units/ml inj SUBQ SCH (06:00)
[2018-04-19] MEDS: sitaGLIPtin 50mg tab ORAL SCH (06:08)
[2018-04-19] MEDS: NovoLOG Insulin Flexpen SUBQ SCH ×4 (06:09→21:33)
--- NOTE | 2018-04-19 07:12 | General Progress Note ---
Assessment/Plan Problem List: (1) Diabetes mellitus out of control ICD Codes: E11.65 - Type 2 diabetes mellitus with hyperglycemia SNOMED: 27488698, 118774820 (2) Acute encephalopathy ICD Codes: G93.40 - Encephalopathy, unspecified SNOMED: 00302374, 539539747 (3) Dehydration ICD Codes: E86.0 - Dehydration SNOMED: 49095886, 619244762, 830277996 (4) Acute renal failure ICD Codes: N17.9 - Acute kidney failure, unspecified SNOMED: 18401324 Assessment/Plan continue Levemir 10 units daily continue Januvia 50 mg daily continue Starlix 120 mg ac tid continue NISS ac / hs Subjective Allergies: Coded Allergies: No Known Allergies (Unverified , 04/11/18) All Systems: reviewed and negative except above Subjective events noted Objective Last 24 Hour Vital Signs Date Time Temp Pulse Resp B/P (MAP) Pulse Ox O2 Delivery O2 Flow Rate FiO2 04/19/18 04:00 97.7 92 20 120/72 (88) 98 97.7 04/19/18 00:00 97.5 83 20 127/70 (89) 94 97.5 04/18/18 21:24 94 135/75 04/18/18 21:00 Room Air 04/18/18 20:00 98.2 94 20 135/75 (95) 93 98.2 04/18/18 15:39 98.5 88 20 126/70 (88) 96 98.5 04/18/18 12:06 127/67 04/18/18 12:00 97.6 89 20 119/71 (87) 94 97.6 04/18/18 09:44 99 127/67 04/18/18 09:00 Room Air 04/18/18 08:00 97.4 99 20 127/67 (87) 94 97.4 Intake and Output 04/18/18 04/19/18 19:00 07:00 Intake Total 480 ml Output Total 750 ml 1600 ml Balance -270 ml -1600 ml Intake Oral 480 ml Output Urine Total 750 ml 1600 ml Laboratory Tests 04/18/18 11:56: White Blood Count 9.1, Red Blood Count 4.56L, Hemoglobin 12.7L, Hematocrit 39.0L , Mean Corpuscular Volume 86, Mean Corpuscular Hemoglobin 28.0, Mean Corpuscular Hemoglobin Concent 32.7, Red Cell Distribution Width 11.7, Platelet Count 304, Mean Platelet Volume 5.3L, Neutrophils (%) (Auto) , Lymphocytes (%) ( Auto) , Monocytes (%) (Auto) , Eosinophils (%) (Auto) , Basophils (%) (Auto) , Differential Total Cells Counted 100, Neutrophils % (Manual) 91H, Lymphocytes % (Manual) 4L, Monocytes % (Manual) 4, Eosinophils % (Manual) 1, Basophils % ( Manual) 0, Band Neutrophils 0, Platelet Estimate Adequate, Platelet Morphology Normal, Red Blood Cell Morphology Normal, Sodium Level 137, Potassium Level 4.4 , Chloride Level 104, Carbon Dioxide Level 27, Anion Gap 6, Blood Urea Nitrogen 29H, Creatinine 1.0, Estimat Glomerular Filtration Rate , Glucose Level 224H, Calcium Level 9.7, Phosphorus Level 3.7, Magnesium Level 2.3, Total Bilirubin 0.4, Aspartate Amino Transf (AST/SGOT) 16, Alanine Aminotransferase (ALT/SGPT) 21, Alkaline Phosphatase 96, Total Protein 7.6, Albumin 2.0L, Globulin 5.6, Albumin/Globulin Ratio 0.4L Height (Feet): 6 Weight (Pounds): 189 General Appearance: no apparent distress Neck: normal alignment Cardiovascular: normal rate Respiratory/Chest: lungs clear Abdomen: normal bowel sounds Pelvis: normal external exam Objective Current Medications Medications (Trade) Dose Ordered Sig/Safia Route PRN Reason Start Time Stop Time Status Last Admin Dose Admin Acetaminophen (Tylenol) 500 mg Q4H PRN ORAL Mild Pain/Temp > 100.5 04/13/18 13:41 05/11/18 13:40 04/14/18 21:33 Aspirin (ASA) 162 mg DAILY ORAL 04/14/18 09:00 05/11/18 10:59 04/17/18 09:07 Bisacodyl (Dulcolax) 10 mg DAILY ORAL 04/18/18 09:00 05/18/18 08:59 04/18/18 09:44 Dextrose (Dextrose 50%) 25 ml Q30M PRN IV Hypoglycemia 04/15/18 18:00 05/15/18 17:59 Dextrose (Dextrose 50%) 50 ml Q30M PRN IV Hypoglycemia 04/15/18 18:00 05/15/18 17:59 Docusate Sodium (Colace) 100 mg THREE TIMES A DAY ORAL 04/18/18 18:00 05/18/18 17:59 04/18/18 17:13 Heparin Sodium (Porcine) (Heparin 5000 units/ml) 5,000 units EVERY 8 HOURS SUBQ 04/16/18 14:00 05/16/18 13:59 04/17/18 06:20 Insulin Aspart (NovoLOG) BEFORE MEALS AND HS SUBQ 04/15/18 21:00 05/15/18 20:59 04/19/18 06:09 Insulin Detemir (Levemir) 10 units DAILY SUBQ 04/18/18 09:00 05/13/18 08:59 04/18/18 09:47 Lidocaine (Lidoderm 5% PATCH) 1 patch DAILY@0000 TDERMAL 04/14/18 00:00 05/13/18 00:14 04/19/18 00:03 Magnesium Hydroxide (Mom) 30 ml Q4HR PRN ORAL Constipation 04/17/18 22:45 05/17/18 22:44 04/18/18 17:11 Megestrol Acetate (Megace) 400 mg TWICE A DAY ORAL 04/16/18 11:00 05/16/18 10:59 04/18/18 17:11 Metoprolol Tartrate (Lopressor) 50 mg Q12HR ORAL 04/17/18 21:00 05/13/18 20:59 04/18/18 21:24 Nateglinide (Starlix) 120 mg TIAC ORAL 04/13/18 16:30 05/12/18 08:59 04/19/18 06:08 Nitroglycerin (Ntg) 1 patch Q24H TDERMAL 04/14/18 11:00 05/11/18 10:59 04/18/18 12:06 Pantoprazole (Protonix) 40 mg EVERY 12 HOURS ORAL 04/13/18 21:00 05/13/18 20:59 04/18/18 21:24 Quetiapine Fumarate (SEROquel) 12.5 mg Q4H PRN ORAL ANXIETY 04/13/18 13:43 05/12/18 13:42 Sennosides (Senokot) 1 tab QHS ORAL 04/18/18 21:00 05/18/18 20:59 04/18/18 21:24 Sitagliptin Phosphate (Januvia) 50 mg ACBREAKFAST ORAL 04/14/18 06:30 05/14/18 06:29 04/19/18 06:08 Tamsulosin HCl (Flomax) 0.4 mg BID ORAL 04/18/18 18:00 05/11/18 20:59 04/18/18 17:13 Vancomycin HCl (Vanco rx to dose) 1 ea DAILY PRN MISC . 04/18/18 11:45 05/18/18 11:44 Vancomycin HCl/ Dextrose 250 ml @ 125 mls/hr Q24H IVPB 04/18/18 13:00 04/23/18 12:59 04/18/18 14:00 Vitamin A/Vitamin D (A & D Oint) 1 applic TWICE A DAY TOPIC 04/13/18 18:00 05/12/18 08:59 04/18/18 17:11 Item Value Date Time Bedside Blood Glucose 196 mg/dl H 04/19/18 0620 Bedside Blood Glucose 188 mg/dl H 04/18/18 2125 Bedside Blood Glucose 161 mg/dl H 04/18/18 1712 Bedside Blood Glucose 230 mg/dl H 04/18/18 1206 Bedside Blood Glucose 168 mg/dl H 04/18/18 0947 Bedside Blood Glucose 168 mg/dl H 04/18/18 0630 Kurtis Richey MD Apr 19, 2018 07:12
[2018-04-19 08:00] VITALS: BP 119/75
--- NOTE | 2018-04-19 08:14 | General Progress Note ---
Assessment/Plan Assessment/Plan (1) Alerted mental status (2) S/p fall (3) Cervical Sprain (4) Thoracic sprain (5) Lumbar sprain (6) S/p CVA Continued on Tylenol and Lidocaine. D/w Dr. Laura and he concurred. Subjective Date patient seen: Apr 19, 2018 Time patient seen: 07:00 - am Constitutional: Reports: weakness HEENT: Reports: no symptoms Cardiovascular: Reports: no symptoms Respiratory: Reports: no symptoms Gastrointestinal/Abdominal: Reports: no symptoms Genitourinary: Reports: no symptoms, hematuria Neurologic/Psychiatric: Reports: weakness Endocrine: Reports: no symptoms Hematologic/Lymphatic: Reports: no symptoms Allergies: Coded Allergies: No Known Allergies (Unverified , 04/11/18) Subjective Patient continues to be confused was found to have be s/p CVA on MRI of Brain. MRI of T and L spine reviewed. No c/o pain at this time. Will be seen by Urologist for Hematuria in [place]. Objective Last 24 Hour Vital Signs Date Time Temp Pulse Resp B/P (MAP) Pulse Ox O2 Delivery O2 Flow Rate FiO2 04/19/18 04:00 97.7 92 20 120/72 (88) 98 97.7 04/19/18 00:00 97.5 83 20 127/70 (89) 94 97.5 04/18/18 21:24 94 135/75 04/18/18 21:00 Room Air 04/18/18 20:00 98.2 94 20 135/75 (95) 93 98.2 04/18/18 15:39 98.5 88 20 126/70 (88) 96 98.5 04/18/18 12:06 127/67 04/18/18 12:00 97.6 89 20 119/71 (87) 94 97.6 04/18/18 09:44 99 127/67 04/18/18 09:00 Room Air Intake and Output 04/18/18 04/19/18 19:00 07:00 Intake Total 480 ml Output Total 750 ml 1600 ml Balance -270 ml -1600 ml Intake Oral 480 ml Output Urine Total 750 ml 1600 ml Laboratory Tests 04/18/18 11:56: White Blood Count 9.1, Red Blood Count 4.56L, Hemoglobin 12.7L, Hematocrit 39.0L , Mean Corpuscular Volume 86, Mean Corpuscular Hemoglobin 28.0, Mean Corpuscular Hemoglobin Concent 32.7, Red Cell Distribution Width 11.7, Platelet Count 304, Mean Platelet Volume 5.3L, Neutrophils (%) (Auto) , Lymphocytes (%) ( Auto) , Monocytes (%) (Auto) , Eosinophils (%) (Auto) , Basophils (%) (Auto) , Differential Total Cells Counted 100, Neutrophils % (Manual) 91H, Lymphocytes % (Manual) 4L, Monocytes % (Manual) 4, Eosinophils % (Manual) 1, Basophils % ( Manual) 0, Band Neutrophils 0, Platelet Estimate Adequate, Platelet Morphology Normal, Red Blood Cell Morphology Normal, Sodium Level 137, Potassium Level 4.4 , Chloride Level 104, Carbon Dioxide Level 27, Anion Gap 6, Blood Urea Nitrogen 29H, Creatinine 1.0, Estimat Glomerular Filtration Rate , Glucose Level 224H, Calcium Level 9.7, Phosphorus Level 3.7, Magnesium Level 2.3, Total Bilirubin 0.4, Aspartate Amino Transf (AST/SGOT) 16, Alanine Aminotransferase (ALT/SGPT) 21, Alkaline Phosphatase 96, Total Protein 7.6, Albumin 2.0L, Globulin 5.6, Albumin/Globulin Ratio 0.4L Height (Feet): 6 Weight (Pounds): 189 Objective GENERAL: Alert and awake. LUNGS: Decreased breath sounds bilaterally. HEART: Regular. ABDOMEN: Benign. EXTREMITIES: No cyanosis. No clubbing. Procedure: MRI T Spine no Contrast Impression: No acute process for evidence of significant neural impingement Procedure: MRI L Spine no Contrast Impression: Mild degenerative changes, as described. No definite acute abnormality demonstrated. No evidence of significant neural impingement Jerson Hook Apr 19, 2018 08:14
[2018-04-19] MEDS: Megace 400mg/10ml Susp ORAL SCH ×2 (08:52→17:16)
[2018-04-19] MEDS: Metoprolol Tartrate 50mg tab ORAL SCH ×2 (08:52→21:32)
[2018-04-19] MEDS: Tamsulosin 0.4mg cap ORAL SCH ×2 (08:52→17:16)
[2018-04-19] MEDS: Docusate 100mg/10ml Liq ORAL SCH ×3 (08:52→17:16)
[2018-04-19] MEDS: Vitamin A&D Oint 2oz Tube TOPIC SCH ×2 (08:53→17:16)
[2018-04-19] MEDS: Bisacodyl EC 5mg tab ORAL SCH (08:53)
[2018-04-19] MEDS: Aspirin Baby 81mg ORAL SCH (08:53)
[2018-04-19] MEDS: Levemir Flexpen SUBQ SCH (08:55)
--- NOTE | 2018-04-19 09:59 | Nephrology Progress Note ---
Assessment/Plan Problem List: (1) Dehydration (2) UTI (urinary tract infection) (3) Acute renal failure (4) Acute encephalopathy (5) Diabetes mellitus out of control (6) Elevated troponin I level (7) Urinary retention Assessment: 700 cc 04/18/18 (8) Acute cerebrovascular accident (CVA) Assessment Renal Failure- encephalopathy UTI Dehydration Low na and high K Elevated troponin DM , high Glucose Plan vizcaino- has 700 cc retention start Plavix check labs today up dose Lopressor DC IV Fluids starlix Ancef - Vanco Monitor lytes ASA Nitrate St eval recheck UA and U culture Per orders to acute rehab Objective Objective Last 24 Hour Vital Signs Date Time Temp Pulse Resp B/P (MAP) Pulse Ox O2 Delivery O2 Flow Rate FiO2 04/19/18 08:52 98 119/75 04/19/18 04:00 97.7 92 20 120/72 (88) 98 97.7 04/19/18 00:00 97.5 83 20 127/70 (89) 94 97.5 04/18/18 21:24 94 135/75 04/18/18 21:00 Room Air 04/18/18 20:00 98.2 94 20 135/75 (95) 93 98.2 04/18/18 15:39 98.5 88 20 126/70 (88) 96 98.5 04/18/18 12:06 127/67 04/18/18 12:00 97.6 89 20 119/71 (87) 94 97.6 Intake and Output 04/18/18 04/19/18 19:00 07:00 Intake Total 480 ml Output Total 750 ml 1600 ml Balance -270 ml -1600 ml Intake Oral 480 ml Output Urine Total 750 ml 1600 ml Laboratory Tests 04/18/18 11:56: White Blood Count 9.1, Red Blood Count 4.56L, Hemoglobin 12.7L, Hematocrit 39.0L , Mean Corpuscular Volume 86, Mean Corpuscular Hemoglobin 28.0, Mean Corpuscular Hemoglobin Concent 32.7, Red Cell Distribution Width 11.7, Platelet Count 304, Mean Platelet Volume 5.3L, Neutrophils (%) (Auto) , Lymphocytes (%) ( Auto) , Monocytes (%) (Auto) , Eosinophils (%) (Auto) , Basophils (%) (Auto) , Differential Total Cells Counted 100, Neutrophils % (Manual) 91H, Lymphocytes % (Manual) 4L, Monocytes % (Manual) 4, Eosinophils % (Manual) 1, Basophils % ( Manual) 0, Band Neutrophils 0, Platelet Estimate Adequate, Platelet Morphology Normal, Red Blood Cell Morphology Normal, Sodium Level 137, Potassium Level 4.4 , Chloride Level 104, Carbon Dioxide Level 27, Anion Gap 6, Blood Urea Nitrogen 29H, Creatinine 1.0, Estimat Glomerular Filtration Rate , Glucose Level 224H, Calcium Level 9.7, Phosphorus Level 3.7, Magnesium Level 2.3, Total Bilirubin 0.4, Aspartate Amino Transf (AST/SGOT) 16, Alanine Aminotransferase (ALT/SGPT) 21, Alkaline Phosphatase 96, Total Protein 7.6, Albumin 2.0L, Globulin 5.6, Albumin/Globulin Ratio 0.4L Height (Feet): 6 Weight (Pounds): 189 General Appearance: no apparent distress Cardiovascular: normal rate Respiratory/Chest: decreased breath sounds Abdomen: soft Objective no change Greyson Ignacio MD Apr 19, 2018 09:59
[2018-04-19] MEDS: Nitroglycerin Patch 0.4mg TDERMAL SCH (11:13)
--- NOTE | 2018-04-19 11:21 | General Progress Note ---
Assessment/Plan Assessment/Plan 1. Thrombocytopenia potentially secondary to underlying infection. ++ HSM noted , unknown if has cirrhosis as the ultrasound is non-conclusive --> Hepatitis panel and human immunodeficiency virus are both negative --> Hepatosplenomegaly. Question of nodularity of the liver surface. Cirrhosis not excluded. Correlate clinically --> hold off on transfusion if Plt>20k --> stable range of approx 100-150k 2. Leukocytosis, likely secondary to urinary tract infection. He is on abx --> on abx and peripheral smear reviewed --> id recs appreciated 3. Pyuria due to urinary tract infection. Closely monitor for improvement. He is on abx --> id service has been consulted, on ancef --> appreciate their recs, remains on abx 4. Old lacunar infarct. as per neuro eval --> their recs have been appreciated 5. Anemia due to underlying chronic disease. Continue to closely monitor. --> anemia panel has been reviewed --> hgb goal >7, transfuse prn 6. Anemia due to hematuria --> plavix is okay to continue --> cbc reviewed --> appreciate uro recs 7. Sinus tachycardia, which was corrected Greatly appreciate consultation! Subjective Constitutional: Denies: no symptoms, chills, diaphoresis, fever, malaise, weakness, other HEENT: Denies: no symptoms, eye pain, blurred vision, tearing, double vision, ear pain, ear discharge, nose pain, nose congestion, throat pain, throat swelling, mouth pain, mouth swelling, other Cardiovascular: Denies: no symptoms, chest pain, edema, irregular heart rate, lightheadedness, palpitations, syncope, other Respiratory: Denies: no symptoms, cough, orthopnea, shortness of breath, SOB with excertion, SOB at rest, sputum, stridor, wheezing, other Gastrointestinal/Abdominal: Denies: no symptoms, abdomen distended, abdominal pain, black stools, tarry stools, blood in stool, constipated, diarrhea, difficulty swallowing, nausea, poor appetite, poor fluid intake, rectal bleeding , vomiting, other Genitourinary: Denies: no symptoms, burning, discharge, frequency, flank pain, hematuria, incontinence, pain, urgency, other Neurologic/Psychiatric: Denies: no symptoms, anxiety, depressed, emotional problems, headache, numbness, paresthesia, pre-existing deficit, seizure, tingling, tremors, weakness, other Endocrine: Denies: no symptoms, excessive sweating, flushing, intolerance to cold, intolerance to heat, increased hunger, increased thirst, increased urine, unexplained weight gain, unexplained weight loss, other Hematologic/Lymphatic: Reports: anemia Allergies: Coded Allergies: No Known Allergies (Unverified , 04/11/18) Subjective vizcaino irrigated last night, on antibiotics and remains encephalopathic, no events Objective Last 24 Hour Vital Signs Date Time Temp Pulse Resp B/P (MAP) Pulse Ox O2 Delivery O2 Flow Rate FiO2 04/19/18 11:13 119/75 04/19/18 09:00 Room Air 04/19/18 08:52 98 119/75 04/19/18 08:00 95.4 98 20 119/75 (90) 98 95.4 04/19/18 04:00 97.7 92 20 120/72 (88) 98 97.7 04/19/18 00:00 97.5 83 20 127/70 (89) 94 97.5 04/18/18 21:24 94 135/75 04/18/18 21:00 Room Air 04/18/18 20:00 98.2 94 20 135/75 (95) 93 98.2 04/18/18 15:39 98.5 88 20 126/70 (88) 96 98.5 04/18/18 12:06 127/67 04/18/18 12:00 97.6 89 20 119/71 (87) 94 97.6 Intake and Output 04/18/18 04/19/18 19:00 07:00 Intake Total 480 ml Output Total 750 ml 1600 ml Balance -270 ml -1600 ml Intake Oral 480 ml Output Urine Total 750 ml 1600 ml Laboratory Tests 04/18/18 11:56: White Blood Count 9.1, Red Blood Count 4.56L, Hemoglobin 12.7L, Hematocrit 39.0L , Mean Corpuscular Volume 86, Mean Corpuscular Hemoglobin 28.0, Mean Corpuscular Hemoglobin Concent 32.7, Red Cell Distribution Width 11.7, Platelet Count 304, Mean Platelet Volume 5.3L, Neutrophils (%) (Auto) , Lymphocytes (%) ( Auto) , Monocytes (%) (Auto) , Eosinophils (%) (Auto) , Basophils (%) (Auto) , Differential Total Cells Counted 100, Neutrophils % (Manual) 91H, Lymphocytes % (Manual) 4L, Monocytes % (Manual) 4, Eosinophils % (Manual) 1, Basophils % ( Manual) 0, Band Neutrophils 0, Platelet Estimate Adequate, Platelet Morphology Normal, Red Blood Cell Morphology Normal, Sodium Level 137, Potassium Level 4.4 , Chloride Level 104, Carbon Dioxide Level 27, Anion Gap 6, Blood Urea Nitrogen 29H, Creatinine 1.0, Estimat Glomerular Filtration Rate , Glucose Level 224H, Calcium Level 9.7, Phosphorus Level 3.7, Magnesium Level 2.3, Total Bilirubin 0.4, Aspartate Amino Transf (AST/SGOT) 16, Alanine Aminotransferase (ALT/SGPT) 21, Alkaline Phosphatase 96, Total Protein 7.6, Albumin 2.0L, Globulin 5.6, Albumin/Globulin Ratio 0.4L Height (Feet): 6 Weight (Pounds): 189 General Appearance: no apparent distress Neck: non-tender Cardiovascular: regular rhythm Respiratory/Chest: lungs clear Abdomen: no organomegaly Extremities: non-tender Edema: 1+ Leg (L), 1+ Leg (R) Edema: mild edema Neurologic: oriented x 3 Skin: warm/dry Zack Miguel MD Apr 19, 2018 11:21
[2018-04-19 11:40] LABS: BASOPHILS % (AUTO) 0.4 % (0.0-2.0); EOSINOPHILS % (AUTO) 1.4 % (0.0-3.0); HEMOGLOBIN 12.1 G/DL (14.2-18.0); LYMPHOCYTES % (AUTO) 5.4 % (20.0-45.0); MEAN CORPUSCULAR VOLUME 86 FL (80-99); MONOCYTES % (AUTO) 8.3 % (1.0-10.0); NEUTROPHILS % (AUTO) 84.4 % (45.0-75.0); PLATELET COUNT 341 K/UL (150-450); WHITE BLOOD COUNT 9.2 K/UL (4.8-10.8)
[2018-04-19 11:49] LABS: INR 1.1 (0.9-1.1)
[2018-04-19 12:00] VITALS: BP 113/66
[2018-04-19 12:14] LABS: ANION GAP 9 mmol/L (5-15); BLOOD UREA NITROGEN 28 mg/dL (7-18); CALCIUM 9.9 MG/DL (8.5-10.1); CARBON DIOXIDE 25 MMOL/L (21-32); CHLORIDE 105 MMOL/L (98-107); CREATININE 0.9 MG/DL (0.55-1.30); POTASSIUM 4.1 MMOL/L (3.5-5.1); SODIUM 139 MMOL/L (136-145)
[2018-04-19] MEDS: Vancomycin 1.5 GM/D5W 250ML IVPB SCH (12:33)
--- NOTE | 2018-04-19 12:59 | Infectious Diseases Prog Note ---
Assessment/Plan Assessment/Plan A; Sepsis with Staph aureus, MSSA UTI with MSSA DM & Hyperglycemia Embolic CVA AMS elevated troponin Syncope & Fall Encephalopathy Old lacunar infarcts Hematuria Rash P; Change IV Vancomycin Consider ZA Subjective ROS Limited/Unobtainable: Yes Respiratory: Reports: no symptoms Gastrointestinal/Abdominal: Reports: no symptoms Musculoskeletal: Reports: pain Allergies: Coded Allergies: No Known Allergies (Unverified , 04/11/18) Objective Vital Signs Last 24 Hour Vital Signs Date Time Temp Pulse Resp B/P (MAP) Pulse Ox O2 Delivery O2 Flow Rate FiO2 04/19/18 12:00 97.3 85 20 113/66 (82) 95 97.3 04/19/18 11:13 119/75 04/19/18 09:00 Room Air 04/19/18 08:52 98 119/75 04/19/18 08:00 95.4 98 20 119/75 (90) 98 95.4 04/19/18 04:00 97.7 92 20 120/72 (88) 98 97.7 04/19/18 00:00 97.5 83 20 127/70 (89) 94 97.5 04/18/18 21:24 94 135/75 04/18/18 21:00 Room Air 04/18/18 20:00 98.2 94 20 135/75 (95) 93 98.2 04/18/18 15:39 98.5 88 20 126/70 (88) 96 98.5 Height (Feet): 6 Weight (Pounds): 189 HEENT: mucous membranes moist Respiratory/Chest: lungs clear Cardiovascular: normal rate Abdomen: soft, non tender Extremities: no edema Neurologic/Psychiatric: alert, responsive Microbiology Date/Time Source Procedure Growth Status 04/18/18 04:30 Indwelling Cath Urine Culture - Preliminary NO GROWTH AFTER 24 HOURS Resulted Laboratory Tests Test 04/19/18 10:40 White Blood Count 9.2 K/UL (4.8-10.8) Red Blood Count 4.30 M/UL (4.70-6.10) L Hemoglobin 12.1 G/DL (14.2-18.0) L Hematocrit 37.0 % (42.0-52.0) L Mean Corpuscular Volume 86 FL (80-99) Mean Corpuscular Hemoglobin 28.1 PG (27.0-31.0) Mean Corpuscular Hemoglobin Concent 32.7 G/DL (32.0-36.0) Red Cell Distribution Width 12.0 % (11.6-14.8) Platelet Count 341 K/UL (150-450) Mean Platelet Volume 5.3 FL (6.5-10.1) L Neutrophils (%) (Auto) 84.4 % (45.0-75.0) H Lymphocytes (%) (Auto) 5.4 % (20.0-45.0) L Monocytes (%) (Auto) 8.3 % (1.0-10.0) Eosinophils (%) (Auto) 1.4 % (0.0-3.0) Basophils (%) (Auto) 0.4 % (0.0-2.0) Prothrombin Time 11.3 SEC (9.30-11.50) Prothromb Time International Ratio 1.1 (0.9-1.1) Activated Partial Thromboplast Time 36 SEC (23-33) H Sodium Level 139 MMOL/L (136-145) Potassium Level 4.1 MMOL/L (3.5-5.1) Chloride Level 105 MMOL/L (98-107) Carbon Dioxide Level 25 MMOL/L (21-32) Anion Gap 9 mmol/L (5-15) Blood Urea Nitrogen 28 mg/dL (7-18) H Creatinine 0.9 MG/DL (0.55-1.30) Estimat Glomerular Filtration Rate mL/min (>60) Glucose Level 186 MG/DL (74-106) H Calcium Level 9.9 MG/DL (8.5-10.1) Current Medications Medications (Trade) Dose Ordered Sig/Safia Route PRN Reason Start Time Stop Time Status Last Admin Dose Admin Acetaminophen (Tylenol) 500 mg Q4H PRN ORAL Mild Pain/Temp > 100.5 04/13/18 13:41 05/11/18 13:40 04/14/18 21:33 Bisacodyl (Dulcolax) 10 mg DAILY ORAL 04/18/18 09:00 05/18/18 08:59 04/19/18 08:53 Dextrose (Dextrose 50%) 25 ml Q30M PRN IV Hypoglycemia 04/15/18 18:00 05/15/18 17:59 Dextrose (Dextrose 50%) 50 ml Q30M PRN IV Hypoglycemia 04/15/18 18:00 05/15/18 17:59 Docusate Sodium (Colace) 100 mg THREE TIMES A DAY ORAL 04/18/18 18:00 05/18/18 17:59 04/19/18 12:32 Fish Oil (Fish Oil) 1,000 mg BID ORAL 04/19/18 18:00 05/19/18 17:59 Insulin Aspart (NovoLOG) BEFORE MEALS AND HS SUBQ 04/15/18 21:00 05/15/18 20:59 04/19/18 11:17 Insulin Detemir (Levemir) 10 units DAILY SUBQ 04/18/18 09:00 05/13/18 08:59 04/19/18 08:55 Lidocaine (Lidoderm 5% PATCH) 1 patch DAILY@0000 TDERMAL 04/14/18 00:00 05/13/18 00:14 04/19/18 00:03 Magnesium Hydroxide (Mom) 30 ml Q4HR PRN ORAL Constipation 04/17/18 22:45 05/17/18 22:44 04/18/18 17:11 Megestrol Acetate (Megace) 400 mg TWICE A DAY ORAL 04/16/18 11:00 05/16/18 10:59 04/19/18 08:52 Metoprolol Tartrate (Lopressor) 50 mg Q12HR ORAL 04/17/18 21:00 05/13/18 20:59 04/19/18 08:52 Nateglinide (Starlix) 120 mg TIAC ORAL 04/13/18 16:30 05/12/18 08:59 04/19/18 11:11 Nitroglycerin (Ntg) 1 patch Q24H TDERMAL 04/14/18 11:00 05/11/18 10:59 04/19/18 11:13 Pantoprazole (Protonix) 40 mg EVERY 12 HOURS ORAL 04/13/18 21:00 05/13/18 20:59 04/19/18 08:51 Quetiapine Fumarate (SEROquel) 12.5 mg Q4H PRN ORAL ANXIETY 04/13/18 13:43 05/12/18 13:42 Sennosides (Senokot) 1 tab QHS ORAL 04/18/18 21:00 05/18/18 20:59 04/18/18 21:24 Sitagliptin Phosphate (Januvia) 50 mg ACBREAKFAST ORAL 04/14/18 06:30 05/14/18 06:29 04/19/18 06:08 Tamsulosin HCl (Flomax) 0.4 mg BID ORAL 04/18/18 18:00 05/11/18 20:59 04/19/18 08:52 Vancomycin HCl (Vanco rx to dose) 1 ea DAILY PRN MISC . 04/18/18 11:45 05/18/18 11:44 Vancomycin HCl/ Dextrose 250 ml @ 125 mls/hr Q24H IVPB 04/18/18 13:00 04/23/18 12:59 04/19/18 12:33 Vitamin A/Vitamin D (A & D Oint) 1 applic TWICE A DAY TOPIC 04/13/18 18:00 05/12/18 08:59 04/19/18 08:53 Conor Egan MD Apr 19, 2018 12:59
--- NOTE | 2018-04-19 13:43 | Cardiology Report ---
APPROVED REPORT EKG Measurement Heart [id number] Sinus tachycardia Lateral infarct, age undetermined Abnormal ECG
--- NOTE | 2018-04-19 14:23 | General Progress Note ---
Assessment/Plan Status: stable Assessment/Plan [place] [facility] [place] mild awaiting mri of head without contrast d/w hadadz Seroquel prn hold plavix d/w endoscopy technican d/w urologist Subjective Date patient seen: Apr 19, 2018 Neurologic/Psychiatric: Reports: anxiety, depressed, emotional problems Allergies: Coded Allergies: No Known Allergies (Unverified , 04/11/18) Subjective the pt is less agitated and confused. the pts mri post for stroke. the pts situation was communicated with the team Objective Last 24 Hour Vital Signs Date Time Temp Pulse Resp B/P (MAP) Pulse Ox O2 Delivery O2 Flow Rate FiO2 04/19/18 12:00 97.3 85 20 113/66 (82) 95 97.3 04/19/18 11:13 119/75 04/19/18 09:00 Room Air 04/19/18 08:52 98 119/75 04/19/18 08:00 95.4 98 20 119/75 (90) 98 95.4 04/19/18 04:00 97.7 92 20 120/72 (88) 98 97.7 04/19/18 00:00 97.5 83 20 127/70 (89) 94 97.5 04/18/18 21:24 94 135/75 04/18/18 21:00 Room Air 04/18/18 20:00 98.2 94 20 135/75 (95) 93 98.2 04/18/18 15:39 98.5 88 20 126/70 (88) 96 98.5 Intake and Output 04/18/18 04/19/18 19:00 07:00 Intake Total 480 ml Output Total 750 ml 1600 ml Balance -270 ml -1600 ml Intake Oral 480 ml Output Urine Total 750 ml 1600 ml Laboratory Tests 04/19/18 10:40: White Blood Count 9.2, Red Blood Count 4.30L, Hemoglobin 12.1L, Hematocrit 37.0L , Mean Corpuscular Volume 86, Mean Corpuscular Hemoglobin 28.1, Mean Corpuscular Hemoglobin Concent 32.7, Red Cell Distribution Width 12.0, Platelet Count 341, Mean Platelet Volume 5.3L, Neutrophils (%) (Auto) 84.4H, Lymphocytes (%) (Auto) 5.4L, Monocytes (%) (Auto) 8.3, Eosinophils (%) (Auto) 1.4, Basophils (%) (Auto) 0.4, Prothrombin Time 11.3, Prothromb Time International Ratio 1.1, Activated Partial Thromboplast Time 36H, Sodium Level 139, Potassium Level 4.1, Chloride Level 105, Carbon Dioxide Level 25, Anion Gap 9, Blood Urea Nitrogen 28H, Creatinine 0.9, Estimat Glomerular Filtration Rate , Glucose Level 186H, Calcium Level 9.9 Height (Feet): 6 Weight (Pounds): 189 General Appearance: no apparent distress, alert Vimal Mares MD Apr 19, 2018 14:23
[2018-04-19 16:00] VITALS: BP 124/76
[2018-04-19 20:00] VITALS: BP 121/71
[2018-04-19] MEDS: Sennosides 8.6mg ORAL SCH (21:32)
--- NOTE | 2018-04-19 21:48 | General Progress Note ---
Assessment/Plan Problem List: (1) UTI (urinary tract infection) ICD Codes: N39.0 - Urinary tract infection, site not specified SNOMED: 03063123, 784258551, 966347502 Qualifiers: Qualified Codes: N39.0 - Urinary tract infection, site not specified (2) Acute renal failure ICD Codes: N17.9 - Acute kidney failure, unspecified SNOMED: 16032288 (3) Elevated troponin I level ICD Codes: R74.8 - Abnormal levels of other serum enzymes SNOMED: 485039955 (4) Urinary retention ICD Codes: R33.9 - Retention of urine, unspecified SNOMED: 369386264 (5) Hematuria ICD Codes: R31.9 - Hematuria, unspecified SNOMED: 07775848 Status: progressing Assessment/Plan fall risk s/p ams mri shows acute bilate cva still natalya hematurea at vizcaino mumbled speech confused echo /chase per dr wong to find out etiology of bilat stroke.r/o thromboembolic stroke not stable for dc vizcaino placed uti sepsis elev trop azotemia Subjective ROS Limited/Unobtainable: Yes Allergies: Coded Allergies: No Known Allergies (Unverified , 04/11/18) Objective Last 24 Hour Vital Signs Date Time Temp Pulse Resp B/P (MAP) Pulse Ox O2 Delivery O2 Flow Rate FiO2 04/19/18 21:32 95 121/71 04/19/18 20:00 98.0 95 18 121/71 (88) 94 98.0 04/19/18 16:00 97.2 84 17 124/76 (92) 98 97.2 04/19/18 12:00 97.3 85 20 113/66 (82) 95 97.3 04/19/18 11:13 119/75 04/19/18 09:00 Room Air 04/19/18 08:52 98 119/75 04/19/18 08:00 95.4 98 20 119/75 (90) 98 95.4 04/19/18 04:00 97.7 92 20 120/72 (88) 98 97.7 04/19/18 00:00 97.5 83 20 127/70 (89) 94 97.5 Intake and Output 04/18/18 04/19/18 19:00 07:00 Intake Total 480 ml Output Total 750 ml 1600 ml Balance -270 ml -1600 ml Intake Oral 480 ml Output Urine Total 750 ml 1600 ml Laboratory Tests 04/19/18 10:40: White Blood Count 9.2, Red Blood Count 4.30L, Hemoglobin 12.1L, Hematocrit 37.0L , Mean Corpuscular Volume 86, Mean Corpuscular Hemoglobin 28.1, Mean Corpuscular Hemoglobin Concent 32.7, Red Cell Distribution Width 12.0, Platelet Count 341, Mean Platelet Volume 5.3L, Neutrophils (%) (Auto) 84.4H, Lymphocytes (%) (Auto) 5.4L, Monocytes (%) (Auto) 8.3, Eosinophils (%) (Auto) 1.4, Basophils (%) (Auto) 0.4, Prothrombin Time 11.3, Prothromb Time International Ratio 1.1, Activated Partial Thromboplast Time 36H, Sodium Level 139, Potassium Level 4.1, Chloride Level 105, Carbon Dioxide Level 25, Anion Gap 9, Blood Urea Nitrogen 28H, Creatinine 0.9, Estimat Glomerular Filtration Rate , Glucose Level 186H, Calcium Level 9.9 Height (Feet): 6 Weight (Pounds): 189 General Appearance: confused Cardiovascular: normal rate Respiratory/Chest: lungs clear Abdomen: soft Ubaldo Jarquin MD Apr 19, 2018 21:48
--- NOTE | 2018-04-19 22:07 | General Progress Note ---
Progress Note Progress Note No events. Pt more alert today. AFVSS Urine- bloody PE- abd soft, NT, ND - Hank[place] in place, bloody urine Ext WWP A/P- gross hematuria in the setting of multiple anti-coagulants Still receiving fish oil which is an anti-coagulant Hand irrigated catheter to remove clots STOP fish oil and all other anti-coagulation until active bleeding stops Lui Rodas M.D. Apr 19, 2018 22:07
--- NOTE | 2018-04-19 22:27 | Consultation ---
Consult Note Consult Note NEUROLOGY CONSULTATION: Full note dictated #[id number] 72 y/o, RH, CM who was functioning well until 04/11/18. On that day he had apparently fallen down at home due to circumstances he cannot remember. He then went to [facility]. He was noted to have shaking chills, was confused and felt ill. The paramedics were called in and he was brought to the [facility] [place] [place] ER. When he was brought in he was tachycardic to 130, had a significant leukocytosis with a left shift, and had an elevated blood sugar. A CT of the brain was done and revealed no acute pathology. It was felt he was septic. 3/3 blood cultures were positive for staph aureus. He was started on antibiotics and has been on antibiotics since then. He continued to be generally weak, and continued to have an altered mental state and thus he had a MRI of the brain on 04/18/18 which revealed scattered bilateral cerebral and cerebellar foci of diffusion restriction consistent with multiple acute cerebral embolic phenomena. ON EXAM: Problems with orientation, memory, VS function , HCF and language. Weakness in both LE. Brisk knee jerks. IMPRESSION: Shower of emboli to the brain - septic vs bland. REC: ZA to evaluate for BE. Cardiac rhythm monitoring for malignant cardiac arrhythmia. Treat for BE for now until exact Dx is made. PT/OT/SLT. Milly Singer M.D., M.S.P.MILLY HAMILTON Apr 19, 2018 22:27
[2018-04-19] MEDS: Vitamin B12 1000mcg/ml Inj SUBQ SCH (23:19)
--- NOTE | 2018-04-19 23:51 | Cardiology Progress Note ---
Assessment/Plan Assessment/Plan 1. Possible embolic CVA, scheduled for ZA on Apr 20 to rule out infective endocarditis. 2. Slight elevation of troponin I level due to NSTEMI, vs transient hypotension vs CVA. 3. Sinus tachycardia, resolved, likely secondary to hypovolemia and intravascular volume depletion. 4. Staph A. bacteremia, rule out endocarditis. Subjective Subjective No cardiac events. Less altered. Not on the telemetry unit. Objective Last 24 Hour Vital Signs Date Time Temp Pulse Resp B/P (MAP) Pulse Ox O2 Delivery O2 Flow Rate FiO2 04/19/18 21:32 95 121/71 04/19/18 21:00 Room Air 04/19/18 20:00 98.0 95 18 121/71 (88) 94 98.0 04/19/18 16:00 97.2 84 17 124/76 (92) 98 97.2 04/19/18 12:00 97.3 85 20 113/66 (82) 95 97.3 04/19/18 11:13 119/75 04/19/18 09:00 Room Air 04/19/18 08:52 98 119/75 04/19/18 08:00 95.4 98 20 119/75 (90) 98 95.4 04/19/18 04:00 97.7 92 20 120/72 (88) 98 97.7 04/19/18 00:00 97.5 83 20 127/70 (89) 94 97.5 Intake and Output 04/18/18 04/19/18 19:00 07:00 Intake Total 480 ml Output Total 750 ml 1600 ml Balance -270 ml -1600 ml Intake Oral 480 ml Output Urine Total 750 ml 1600 ml 2D Echo: LVEF 70%, Mild LVH, Grade I LVDD, RVSP 24 mmHg Laboratory Tests Test 04/19/18 10:40 White Blood Count 9.2 K/UL (4.8-10.8) Red Blood Count 4.30 M/UL (4.70-6.10) L Hemoglobin 12.1 G/DL (14.2-18.0) L Hematocrit 37.0 % (42.0-52.0) L Mean Corpuscular Volume 86 FL (80-99) Mean Corpuscular Hemoglobin 28.1 PG (27.0-31.0) Mean Corpuscular Hemoglobin Concent 32.7 G/DL (32.0-36.0) Red Cell Distribution Width 12.0 % (11.6-14.8) Platelet Count 341 K/UL (150-450) Mean Platelet Volume 5.3 FL (6.5-10.1) L Neutrophils (%) (Auto) 84.4 % (45.0-75.0) H Lymphocytes (%) (Auto) 5.4 % (20.0-45.0) L Monocytes (%) (Auto) 8.3 % (1.0-10.0) Eosinophils (%) (Auto) 1.4 % (0.0-3.0) Basophils (%) (Auto) 0.4 % (0.0-2.0) Prothrombin Time 11.3 SEC (9.30-11.50) Prothromb Time International Ratio 1.1 (0.9-1.1) Activated Partial Thromboplast Time 36 SEC (23-33) H Sodium Level 139 MMOL/L (136-145) Potassium Level 4.1 MMOL/L (3.5-5.1) Chloride Level 105 MMOL/L (98-107) Carbon Dioxide Level 25 MMOL/L (21-32) Anion Gap 9 mmol/L (5-15) Blood Urea Nitrogen 28 mg/dL (7-18) H Creatinine 0.9 MG/DL (0.55-1.30) Estimat Glomerular Filtration Rate mL/min (>60) Glucose Level 186 MG/DL (74-106) H Calcium Level 9.9 MG/DL (8.5-10.1) Microbiology Date/Time Source Procedure Growth Status 04/18/18 04:30 Indwelling Cath Urine Culture - Preliminary NO GROWTH AFTER 24 HOURS Resulted Objective HEENT: Atraumatic and normocephalic. Anicteric. Pupils are equal, round, and reactive to light and accommodation. Altered NECK: JVP less than 5 cm. No carotid bruit. CARDIOVASCULAR: Normal S1 and S2. No murmurs, gallops, or rubs. PMI is at fourth intercostal space in the midclavicular line. LUNGS: Clear to auscultation bilaterally. ABDOMEN: Soft, nontender, and nondistended. No hepatosplenomegaly. Positive bowel sounds. EXTREMITIES: No evidence of edema, clubbing, or cyanosis. Beto Chappell MD Apr 19, 2018 23:51
[2018-04-20] VITALS (13 sets, daily range): BP systolic 101–151; BP diastolic 58–79
[2018-04-20 05:58] LABS: HEMATOCRIT 36.1 % (42.0-52.0); MEAN CORPUSCULAR VOLUME 85 FL (80-99); PLATELET COUNT 324 K/UL (150-450); RED BLOOD COUNT 4.24 M/UL (4.70-6.10); RED CELL DISTRIBUTION WIDTH 11.9 % (11.6-14.8); WHITE BLOOD COUNT 11.3 K/UL (4.8-10.8)
[2018-04-20] MEDS: sitaGLIPtin 50mg tab ORAL SCH (06:21)
[2018-04-20] MEDS: NovoLOG Insulin Flexpen SUBQ SCH ×4 (06:21→21:04)
--- NOTE | 2018-04-20 06:48 | General Progress Note ---
Assessment/Plan Problem List: (1) Diabetes mellitus out of control ICD Codes: E11.65 - Type 2 diabetes mellitus with hyperglycemia SNOMED: 34846986, 949328721 (2) Acute encephalopathy ICD Codes: G93.40 - Encephalopathy, unspecified SNOMED: 79001948, 286622972 (3) Dehydration ICD Codes: E86.0 - Dehydration SNOMED: 60587274, 271880750, 877237092 (4) Acute renal failure ICD Codes: N17.9 - Acute kidney failure, unspecified SNOMED: 16217377 Assessment/Plan continue Levemir 10 units daily continue Januvia 50 mg daily continue Starlix 120 mg ac tid continue NISS ac / hs Subjective Allergies: Coded Allergies: No Known Allergies (Unverified , 04/11/18) All Systems: reviewed and negative except above Subjective events noted glucose well controlled Objective Last 24 Hour Vital Signs Date Time Temp Pulse Resp B/P (MAP) Pulse Ox O2 Delivery O2 Flow Rate FiO2 04/20/18 04:00 97.5 82 18 110/58 (75) 96 97.5 04/20/18 00:00 98.1 97 18 111/71 (84) 94 98.1 04/19/18 21:32 95 121/71 04/19/18 21:00 Room Air 04/19/18 20:00 98.0 95 18 121/71 (88) 94 98.0 04/19/18 16:00 97.2 84 17 124/76 (92) 98 97.2 04/19/18 12:00 97.3 85 20 113/66 (82) 95 97.3 04/19/18 11:13 119/75 04/19/18 09:00 Room Air 04/19/18 08:52 98 119/75 04/19/18 08:00 95.4 98 20 119/75 (90) 98 95.4 Intake and Output 04/19/18 04/20/18 19:00 07:00 Intake Total 60 ml Output Total 600 ml Balance -600 ml 60 ml IV Total 60 ml Output Urine Total 600 ml # Bowel Movements 1 Laboratory Tests 04/19/18 10:40: White Blood Count 9.2, Red Blood Count 4.30L, Hemoglobin 12.1L, Hematocrit 37.0L , Mean Corpuscular Volume 86, Mean Corpuscular Hemoglobin 28.1, Mean Corpuscular Hemoglobin Concent 32.7, Red Cell Distribution Width 12.0, Platelet Count 341, Mean Platelet Volume 5.3L, Neutrophils (%) (Auto) 84.4H, Lymphocytes (%) (Auto) 5.4L, Monocytes (%) (Auto) 8.3, Eosinophils (%) (Auto) 1.4, Basophils (%) (Auto) 0.4, Prothrombin Time 11.3, Prothromb Time International Ratio 1.1, Activated Partial Thromboplast Time 36H, Sodium Level 139, Potassium Level 4.1, Chloride Level 105, Carbon Dioxide Level 25, Anion Gap 9, Blood Urea Nitrogen 28H, Creatinine 0.9, Estimat Glomerular Filtration Rate , Glucose Level 186H, Calcium Level 9.9 04/20/18 05:24: White Blood Count 11.3H, Red Blood Count 4.24L, Hemoglobin 12.0L, Hematocrit 36.1L, Mean Corpuscular Volume 85, Mean Corpuscular Hemoglobin 28.3, Mean Corpuscular Hemoglobin Concent 33.2, Red Cell Distribution Width 11.9, Platelet Count 324, Mean Platelet Volume 5.3L, Neutrophils (%) (Auto) , Lymphocytes (%) ( Auto) , Monocytes (%) (Auto) , Eosinophils (%) (Auto) , Basophils (%) (Auto) , Neutrophils % (Manual) [Pending], Lymphocytes % (Manual) [Pending], Platelet Estimate [Pending], Platelet Morphology [Pending] Height (Feet): 6 Weight (Pounds): 189 General Appearance: no apparent distress Neck: normal alignment Cardiovascular: normal rate Respiratory/Chest: lungs clear Abdomen: normal bowel sounds Objective Current Medications Medications (Trade) Dose Ordered Sig/Safia Route PRN Reason Start Time Stop Time Status Last Admin Dose Admin Acetaminophen (Tylenol) 500 mg Q4H PRN ORAL Mild Pain/Temp > 100.5 04/13/18 13:41 05/11/18 13:40 04/14/18 21:33 Bisacodyl (Dulcolax) 10 mg DAILY ORAL 04/18/18 09:00 05/18/18 08:59 04/19/18 08:53 Cyanocobalamin (Vitamin B12) 1,000 mcg DAILY SUBQ 04/19/18 23:00 04/21/18 09:01 04/19/18 23:19 Dextrose (Dextrose 50%) 25 ml Q30M PRN IV Hypoglycemia 04/15/18 18:00 05/15/18 17:59 Dextrose (Dextrose 50%) 50 ml Q30M PRN IV Hypoglycemia 04/15/18 18:00 05/15/18 17:59 Docusate Sodium (Colace) 100 mg THREE TIMES A DAY ORAL 04/18/18 18:00 05/18/18 17:59 04/19/18 17:16 Insulin Aspart (NovoLOG) BEFORE MEALS AND HS SUBQ 04/15/18 21:00 05/15/18 20:59 04/19/18 21:33 Insulin Detemir (Levemir) 10 units DAILY SUBQ 04/18/18 09:00 05/13/18 08:59 04/19/18 08:55 Lidocaine (Lidoderm 5% PATCH) 1 patch DAILY@0000 TDERMAL 04/14/18 00:00 05/13/18 00:14 04/19/18 23:42 Magnesium Hydroxide (Mom) 30 ml Q4HR PRN ORAL Constipation 04/17/18 22:45 05/17/18 22:44 04/18/18 17:11 Megestrol Acetate (Megace) 400 mg TWICE A DAY ORAL 04/16/18 11:00 05/16/18 10:59 04/19/18 17:16 Metoprolol Tartrate (Lopressor) 50 mg Q12HR ORAL 04/17/18 21:00 05/13/18 20:59 04/19/18 21:32 Nateglinide (Starlix) 120 mg TIAC ORAL 04/13/18 16:30 05/12/18 08:59 04/19/18 16:51 Nitroglycerin (Ntg) 1 patch Q24H TDERMAL 04/14/18 11:00 05/11/18 10:59 04/19/18 11:13 Pantoprazole (Protonix) 40 mg EVERY 12 HOURS ORAL 04/13/18 21:00 05/13/18 20:59 04/19/18 21:31 Quetiapine Fumarate (SEROquel) 12.5 mg Q4H PRN ORAL ANXIETY 04/13/18 13:43 05/12/18 13:42 Sennosides (Senokot) 1 tab QHS ORAL 04/18/18 21:00 05/18/18 20:59 04/19/18 21:32 Sitagliptin Phosphate (Januvia) 50 mg ACBREAKFAST ORAL 04/14/18 06:30 05/14/18 06:29 04/19/18 06:08 Sodium Chloride 1,000 ml @ 60 mls/hr [id number] IV 04/20/18 05:15 05/20/18 05:14 04/20/18 05:14 Tamsulosin HCl (Flomax) 0.4 mg BID ORAL 04/18/18 18:00 05/11/18 20:59 04/19/18 17:16 Vancomycin HCl (Vanco rx to dose) 1 ea DAILY PRN MISC . 04/18/18 11:45 05/18/18 11:44 Vancomycin HCl/ Dextrose 250 ml @ 125 mls/hr Q24H IVPB 04/18/18 13:00 04/23/18 12:59 04/19/18 12:33 Vitamin A/Vitamin D (A & D Oint) 1 applic TWICE A DAY TOPIC 04/13/18 18:00 05/12/18 08:59 04/19/18 17:16 Item Value Date Time Bedside Blood Glucose 143 mg/dl H 04/20/18 0621 Bedside Blood Glucose 175 mg/dl H 04/19/18 2133 Bedside Blood Glucose 174 mg/dl H 04/19/18 1652 Bedside Blood Glucose 154 mg/dl H 04/19/18 1130 Bedside Blood Glucose 121 mg/dl H 04/19/18 0855 Bedside Blood Glucose 196 mg/dl H 04/19/18 0620 Kurtis Richey MD Apr 20, 2018 06:48
[2018-04-20] MEDS: Bisacodyl EC 5mg tab ORAL SCH (09:00)
[2018-04-20] MEDS: Docusate 100mg/10ml Liq ORAL SCH ×3 (09:00→17:36)
[2018-04-20] MEDS: Levemir Flexpen SUBQ SCH (09:00)
[2018-04-20] MEDS: Metoprolol Tartrate 50mg tab ORAL SCH ×2 (09:00→21:06)
[2018-04-20] MEDS: Tamsulosin 0.4mg cap ORAL SCH ×2 (09:00→17:16)
[2018-04-20] MEDS: Megace 400mg/10ml Susp ORAL SCH ×2 (09:00→17:16)
[2018-04-20] MEDS: Vitamin A&D Oint 2oz Tube TOPIC SCH ×2 (09:05→17:17)
--- NOTE | 2018-04-20 09:45 | General Progress Note ---
Assessment/Plan Assessment/Plan 1. Thrombocytopenia potentially secondary to underlying infection. ++ HSM noted , unknown if has cirrhosis as the ultrasound is non-conclusive --> Hepatitis panel and human immunodeficiency virus are both negative --> Hepatosplenomegaly. Question of nodularity of the liver surface. Cirrhosis not excluded. Correlate clinically --> hold off on transfusion if Plt>20k --> stable range of approx 100-150k 2. Leukocytosis, likely secondary to urinary tract infection. Remains on abx --> on abx and peripheral smear reviewed --> id recs are appreciated 3. Pyuria due to urinary tract infection. Closely monitor for improvement. He is on abx --> id service has been consulted, on ancef/abx --> appreciate their recs, remains on abx 4. Old lacunar infarct. as per neuro eval --> their recs have been appreciated 5. Anemia due to underlying chronic disease. Continue to closely monitor. --> anemia panel has been reviewed --> hgb goal >7, transfuse prn 6. Anemia due to hematuria --> plavix is okay to continue --> cbc reviewed --> appreciate uro recs 7. Sinus tachycardia, which was corrected Greatly appreciate consultation! Subjective Constitutional: Denies: no symptoms, chills, diaphoresis, fever, malaise, weakness, other HEENT: Denies: no symptoms, eye pain, blurred vision, tearing, double vision, ear pain, ear discharge, nose pain, nose congestion, throat pain, throat swelling, mouth pain, mouth swelling, other Cardiovascular: Denies: no symptoms, chest pain, edema, irregular heart rate, lightheadedness, palpitations, syncope, other Respiratory: Denies: no symptoms, cough, orthopnea, shortness of breath, SOB with excertion, SOB at rest, sputum, stridor, wheezing, other Gastrointestinal/Abdominal: Denies: no symptoms, abdomen distended, abdominal pain, black stools, tarry stools, blood in stool, constipated, diarrhea, difficulty swallowing, nausea, poor appetite, poor fluid intake, rectal bleeding , vomiting, other Genitourinary: Denies: no symptoms, burning, discharge, frequency, flank pain, hematuria, incontinence, pain, urgency, other Neurologic/Psychiatric: Denies: no symptoms, anxiety, depressed, emotional problems, headache, numbness, paresthesia, pre-existing deficit, seizure, tingling, tremors, weakness, other Endocrine: Denies: no symptoms, excessive sweating, flushing, intolerance to cold, intolerance to heat, increased hunger, increased thirst, increased urine, unexplained weight gain, unexplained weight loss, other Hematologic/Lymphatic: Denies: no symptoms, anemia, easy bleeding, easy bruising, other Allergies: Coded Allergies: No Known Allergies (Unverified , 04/11/18) Subjective vizcaino irrigated last night, remains on abx, remains confused Objective Last 24 Hour Vital Signs Date Time Temp Pulse Resp B/P (MAP) Pulse Ox O2 Delivery O2 Flow Rate FiO2 04/20/18 09:00 Room Air 04/20/18 09:00 95 121/71 04/20/18 08:00 98.0 95 18 121/71 (88) 94 98.0 04/20/18 04:00 97.5 82 18 110/58 (75) 96 97.5 04/20/18 00:00 98.1 97 18 111/71 (84) 94 98.1 04/19/18 21:32 95 121/71 04/19/18 21:00 Room Air 04/19/18 20:00 98.0 95 18 121/71 (88) 94 98.0 04/19/18 16:00 97.2 84 17 124/76 (92) 98 97.2 04/19/18 12:00 97.3 85 20 113/66 (82) 95 97.3 04/19/18 11:13 119/75 Intake and Output 04/19/18 04/20/18 19:00 07:00 Intake Total 60 ml Output Total 600 ml 1000 ml Balance -600 ml -940 ml IV Total 60 ml Output Urine Total 600 ml 1000 ml # Bowel Movements 1 Laboratory Tests 04/19/18 10:40: White Blood Count 9.2, Red Blood Count 4.30L, Hemoglobin 12.1L, Hematocrit 37.0L , Mean Corpuscular Volume 86, Mean Corpuscular Hemoglobin 28.1, Mean Corpuscular Hemoglobin Concent 32.7, Red Cell Distribution Width 12.0, Platelet Count 341, Mean Platelet Volume 5.3L, Neutrophils (%) (Auto) 84.4H, Lymphocytes (%) (Auto) 5.4L, Monocytes (%) (Auto) 8.3, Eosinophils (%) (Auto) 1.4, Basophils (%) (Auto) 0.4, Prothrombin Time 11.3, Prothromb Time International Ratio 1.1, Activated Partial Thromboplast Time 36H, Sodium Level 139, Potassium Level 4.1, Chloride Level 105, Carbon Dioxide Level 25, Anion Gap 9, Blood Urea Nitrogen 28H, Creatinine 0.9, Estimat Glomerular Filtration Rate , Glucose Level 186H, Calcium Level 9.9 04/20/18 05:24: White Blood Count 11.3H, Red Blood Count 4.24L, Hemoglobin 12.0L, Hematocrit 36.1L, Mean Corpuscular Volume 85, Mean Corpuscular Hemoglobin 28.3, Mean Corpuscular Hemoglobin Concent 33.2, Red Cell Distribution Width 11.9, Platelet Count 324, Mean Platelet Volume 5.3L, Neutrophils (%) (Auto) , Lymphocytes (%) ( Auto) , Monocytes (%) (Auto) , Eosinophils (%) (Auto) , Basophils (%) (Auto) , Differential Total Cells Counted 100, Neutrophils % (Manual) 90H, Lymphocytes % (Manual) 7L, Monocytes % (Manual) 2, Eosinophils % (Manual) 1, Basophils % ( Manual) 0, Band Neutrophils 0, Platelet Estimate Adequate, Platelet Morphology Normal, Red Blood Cell Morphology Normal Height (Feet): 6 Weight (Pounds): 189 General Appearance: alert EENT: TMs normal Neck: supple Cardiovascular: regular rhythm Respiratory/Chest: normal breath sounds Abdomen: soft Extremities: normal range of motion Edema: 1+ Leg (L), 1+ Leg (R) Edema: mild edema Neurologic: no motor/sensory deficits Zack Miguel MD Apr 20, 2018 09:45
[2018-04-20] MEDS: Nitroglycerin Patch 0.4mg TDERMAL SCH (10:12)
[2018-04-20] MEDS: Vitamin B12 1000mcg/ml Inj SUBQ SCH (10:13)
--- NOTE | 2018-04-20 11:18 | Infectious Diseases Prog Note ---
Assessment/Plan Assessment/Plan antibiotics : ancef A 1. staph aureus sepsis secondary to UTI 2. staph aureus UTI 3. diabetes mellitus 4. s.p fall 5. embolic infarcts P 1. d/c vancomycin 2. start oxacillin 3. will follow up cultures Subjective ROS Limited/Unobtainable: Yes Allergies: Coded Allergies: No Known Allergies (Unverified , 04/11/18) Objective Vital Signs Last 24 Hour Vital Signs Date Time Temp Pulse Resp B/P (MAP) Pulse Ox O2 Delivery O2 Flow Rate FiO2 04/20/18 10:12 121/71 04/20/18 09:00 Room Air 04/20/18 09:00 95 121/71 04/20/18 08:00 98.0 95 18 121/71 (88) 94 98.0 04/20/18 04:00 97.5 82 18 110/58 (75) 96 97.5 04/20/18 00:00 98.1 97 18 111/71 (84) 94 98.1 04/19/18 21:32 95 121/71 04/19/18 21:00 Room Air 04/19/18 20:00 98.0 95 18 121/71 (88) 94 98.0 04/19/18 16:00 97.2 84 17 124/76 (92) 98 97.2 04/19/18 12:00 97.3 85 20 113/66 (82) 95 97.3 Height (Feet): 6 Weight (Pounds): 189 Microbiology Date/Time Source Procedure Growth Status 04/18/18 04:30 Indwelling Cath Urine Culture - Final Yeast Species Complete Laboratory Tests Test 04/20/18 05:24 White Blood Count 11.3 K/UL (4.8-10.8) H Red Blood Count 4.24 M/UL (4.70-6.10) L Hemoglobin 12.0 G/DL (14.2-18.0) L Hematocrit 36.1 % (42.0-52.0) L Mean Corpuscular Volume 85 FL (80-99) Mean Corpuscular Hemoglobin 28.3 PG (27.0-31.0) Mean Corpuscular Hemoglobin Concent 33.2 G/DL (32.0-36.0) Red Cell Distribution Width 11.9 % (11.6-14.8) Platelet Count 324 K/UL (150-450) Mean Platelet Volume 5.3 FL (6.5-10.1) L Neutrophils (%) (Auto) % (45.0-75.0) Lymphocytes (%) (Auto) % (20.0-45.0) Monocytes (%) (Auto) % (1.0-10.0) Eosinophils (%) (Auto) % (0.0-3.0) Basophils (%) (Auto) % (0.0-2.0) Differential Total Cells Counted 100 Neutrophils % (Manual) 90 % (45-75) H Lymphocytes % (Manual) 7 % (20-45) L Monocytes % (Manual) 2 % (1-10) Eosinophils % (Manual) 1 % (0-3) Basophils % (Manual) 0 % (0-2) Band Neutrophils 0 % (0-8) Platelet Estimate Adequate Platelet Morphology Normal Red Blood Cell Morphology Normal Current Medications Medications (Trade) Dose Ordered Sig/Safia Route PRN Reason Start Time Stop Time Status Last Admin Dose Admin Acetaminophen (Tylenol) 500 mg Q4H PRN ORAL Mild Pain/Temp > 100.5 04/13/18 13:41 05/11/18 13:40 04/14/18 21:33 Bisacodyl (Dulcolax) 10 mg DAILY ORAL 04/18/18 09:00 05/18/18 08:59 04/19/18 08:53 Cyanocobalamin (Vitamin B12) 1,000 mcg DAILY SUBQ 04/19/18 23:00 04/21/18 09:01 04/20/18 10:13 Dextrose (Dextrose 50%) 25 ml Q30M PRN IV Hypoglycemia 04/15/18 18:00 05/15/18 17:59 Dextrose (Dextrose 50%) 50 ml Q30M PRN IV Hypoglycemia 04/15/18 18:00 05/15/18 17:59 Docusate Sodium (Colace) 100 mg THREE TIMES A DAY ORAL 04/18/18 18:00 05/18/18 17:59 04/19/18 17:16 Insulin Aspart (NovoLOG) BEFORE MEALS AND HS SUBQ 04/15/18 21:00 05/15/18 20:59 04/19/18 21:33 Insulin Detemir (Levemir) 10 units DAILY SUBQ 04/18/18 09:00 05/13/18 08:59 04/19/18 08:55 Lidocaine (Lidoderm 5% PATCH) 1 patch DAILY@0000 TDERMAL 04/14/18 00:00 05/13/18 00:14 04/19/18 23:42 Magnesium Hydroxide (Mom) 30 ml Q4HR PRN ORAL Constipation 04/17/18 22:45 05/17/18 22:44 04/18/18 17:11 Megestrol Acetate (Megace) 400 mg TWICE A DAY ORAL 04/16/18 11:00 05/16/18 10:59 04/19/18 17:16 Metoprolol Tartrate (Lopressor) 50 mg Q12HR ORAL 04/17/18 21:00 05/13/18 20:59 04/19/18 21:32 Nateglinide (Starlix) 120 mg TIAC ORAL 04/13/18 16:30 05/12/18 08:59 04/19/18 16:51 Nitroglycerin (Ntg) 1 patch Q24H TDERMAL 04/14/18 11:00 05/11/18 10:59 04/20/18 10:12 Pantoprazole (Protonix) 40 mg EVERY 12 HOURS ORAL 04/13/18 21:00 05/13/18 20:59 04/19/18 21:31 Quetiapine Fumarate (SEROquel) 12.5 mg Q4H PRN ORAL ANXIETY 04/13/18 13:43 05/12/18 13:42 Sennosides (Senokot) 1 tab QHS ORAL 04/18/18 21:00 05/18/18 20:59 04/19/18 21:32 Sitagliptin Phosphate (Januvia) 50 mg ACBREAKFAST ORAL 04/14/18 06:30 05/14/18 06:29 04/19/18 06:08 Sodium Chloride 1,000 ml @ 60 mls/hr [id number] IV 04/20/18 05:15 05/20/18 05:14 04/20/18 05:14 Tamsulosin HCl (Flomax) 0.4 mg BID ORAL 04/18/18 18:00 05/11/18 20:59 04/19/18 17:16 Vancomycin HCl (Vanco rx to dose) 1 ea DAILY PRN MISC . 04/18/18 11:45 11/1/18 11:44 Vancomycin HCl/ Dextrose 250 ml @ 125 mls/hr Q24H IVPB 04/18/18 13:00 04/23/18 12:59 04/19/18 12:33 Vitamin A/Vitamin D (A & D Oint) 1 applic TWICE A DAY TOPIC 04/13/18 18:00 05/12/18 08:59 04/20/18 09:05 NAHUN FORD Apr 20, 2018 11:18
--- NOTE | 2018-04-20 12:05 | Nephrology Progress Note ---
Assessment/Plan Problem List: (1) Dehydration (2) UTI (urinary tract infection) (3) Acute renal failure (4) Acute encephalopathy (5) Diabetes mellitus out of control (6) Elevated troponin I level (7) Urinary retention Assessment: 700 cc 04/18/18 (8) Acute cerebrovascular accident (CVA) Assessment acute CVA Renal Failure- encephalopathy UTI Dehydration Low na and high K Elevated troponin DM , high Glucose Plan shower of emboli to brain ZA per cardio Antibiotics per ID vizcaino- has 700 cc retention Adjust meds starlix Monitor lytes ASA Nitrate St eval recheck UA and U culture Per orders to acute rehab Subjective ROS Limited/Unobtainable: No Constitutional: Reports: malaise Objective Objective Last 24 Hour Vital Signs Date Time Temp Pulse Resp B/P (MAP) Pulse Ox O2 Delivery O2 Flow Rate FiO2 04/20/18 10:12 121/71 04/20/18 09:00 Room Air 04/20/18 09:00 95 121/71 04/20/18 08:00 98.0 95 18 121/71 (88) 94 98.0 04/20/18 04:00 97.5 82 18 110/58 (75) 96 97.5 04/20/18 00:00 98.1 97 18 111/71 (84) 94 98.1 04/19/18 21:32 95 121/71 04/19/18 21:00 Room Air 04/19/18 20:00 98.0 95 18 121/71 (88) 94 98.0 04/19/18 16:00 97.2 84 17 124/76 (92) 98 97.2 Intake and Output 04/19/18 04/20/18 19:00 07:00 Intake Total 60 ml Output Total 600 ml 1000 ml Balance -600 ml -940 ml IV Total 60 ml Output Urine Total 600 ml 1000 ml # Bowel Movements 1 Laboratory Tests 04/20/18 05:24: White Blood Count 11.3H, Red Blood Count 4.24L, Hemoglobin 12.0L, Hematocrit 36.1L, Mean Corpuscular Volume 85, Mean Corpuscular Hemoglobin 28.3, Mean Corpuscular Hemoglobin Concent 33.2, Red Cell Distribution Width 11.9, Platelet Count 324, Mean Platelet Volume 5.3L, Neutrophils (%) (Auto) , Lymphocytes (%) ( Auto) , Monocytes (%) (Auto) , Eosinophils (%) (Auto) , Basophils (%) (Auto) , Differential Total Cells Counted 100, Neutrophils % (Manual) 90H, Lymphocytes % (Manual) 7L, Monocytes % (Manual) 2, Eosinophils % (Manual) 1, Basophils % ( Manual) 0, Band Neutrophils 0, Platelet Estimate Adequate, Platelet Morphology Normal, Red Blood Cell Morphology Normal Height (Feet): 6 Weight (Pounds): 189 General Appearance: no apparent distress Objective no change Greyson Ignacio MD Apr 20, 2018 12:05
--- NOTE | 2018-04-20 12:19 | Anethesia Preoperative Eval ---
Anesthesia Pre-op PMH/ROS General Date of Evaluation: Apr 20, 2018 Time of Evaluation: 12:09 Anesthesiologist: Codie Foote CRNA ASA Score: ASA 3 Mallampati Score Class I : Soft palate, uvula, fauces, pillars visible Class II: Soft palate, uvula, fauces visible Class III: Soft palate, base of uvula visible Class IV: Only hard plate visible Mallampati Classification: Class II Surgeon: Ta Diagnosis: r/o infective endocarditis Surgical Procedure: Tranesphageal Echocardiogram under sedation Anesthesia History: none Social History: smoking, alcohol use Family History: no anesthesia problems Allergies: Coded Allergies: No Known Allergies (Unverified , 04/11/18) Medications: see eMAR Past Medical History Cardiovascular: Reports: HTN, CAD, [place]; Denies: valve dz, arrhythmia, other Pulmonary: Denies: asthma, COPD, MARTHA, other Gastrointestinal/Genitourinary: Reports: GERD, other - Acute renal failure; Denies: CRI, ESRD Neurologic/Psychiatric: Reports: dementia, CVA; Denies: depression/anxiety, TIA, other Endocrine: Reports: DM; Denies: hypothyroidism, steroids, other HEENT: Denies: cataract (L), cataract (R), glaucoma, [place] (L), [place] (R), other Hematology/Immune: Denies: anemia, DVT, bleeding disorder, other Musculoskeletal/Integumentary: Reports: OA; Denies: RA, DJD, DDD, edema, other Other: obesity PMH Narrative: as above PSxH Narrative: see H & P Anesthesia Pre-op Phys. Exam Physician Exam Last Vital Signs Date Time Temp Pulse Resp B/P (MAP) Pulse Ox O2 Delivery O2 Flow Rate FiO2 04/20/18 10:12 121/71 04/20/18 09:00 Room Air 04/20/18 09:00 95 04/20/18 08:00 98.0 18 94 98.0 Constitutional: NAD Neurologic: CN 2-12 intact Cardiovascular: RRR Respiratory: CTA Gastrointestinal: S/NT/ND Airway Exam Mallampati Score: Class II MO: full ROM: full Teeth: missing Dentures: upper, lower Anesthesia Pre-op A/P Labs Hematology Test 04/20/18 05:24 White Blood Count 11.3 K/UL (4.8-10.8) H Red Blood Count 4.24 M/UL (4.70-6.10) L Hemoglobin 12.0 G/DL (14.2-18.0) L Hematocrit 36.1 % (42.0-52.0) L Mean Corpuscular Volume 85 FL (80-99) Mean Corpuscular Hemoglobin 28.3 PG (27.0-31.0) Mean Corpuscular Hemoglobin Concent 33.2 G/DL (32.0-36.0) Red Cell Distribution Width 11.9 % (11.6-14.8) Platelet Count 324 K/UL (150-450) Mean Platelet Volume 5.3 FL (6.5-10.1) L Neutrophils (%) (Auto) % (45.0-75.0) Lymphocytes (%) (Auto) % (20.0-45.0) Monocytes (%) (Auto) % (1.0-10.0) Eosinophils (%) (Auto) % (0.0-3.0) Basophils (%) (Auto) % (0.0-2.0) Differential Total Cells Counted 100 Neutrophils % (Manual) 90 % (45-75) H Lymphocytes % (Manual) 7 % (20-45) L Monocytes % (Manual) 2 % (1-10) Eosinophils % (Manual) 1 % (0-3) Basophils % (Manual) 0 % (0-2) Band Neutrophils 0 % (0-8) Platelet Estimate Adequate Platelet Morphology Normal Red Blood Cell Morphology Normal Studies Pre-op Studies: EKG - Sinus Tachycardia laterral infarct , CXR - NL heart size , no acute infiltrates, bronchial wall thickening, echo - NL LT ventriculary function, hyperdynamic systoli function, EF 70% Risk Assessment & Plan Assessment: ASA 3, not oriented, ok to proceed per brother's consent Plan: MAC Status Change Before Surgery: No Pre-Antibiotics Given Within 1 Hr of Incision: Codie Olguin CRNA Apr 20, 2018 12:19
--- NOTE | 2018-04-20 12:21 | Pre-Procedure Note/Attestation ---
Pre-Procedure Note/Attestation Complete Prior to Procedure Procedure Narrative: ZA Indications for Procedure Pre-Operative Diagnosis: Embolic stroke Bacteremia with Staph A. Attestation I attest that I discussed the nature of the procedure; its benefits; risks and complications; and alternatives (and the risks and benefits of such alternatives ), prior to the procedure, with the patient (or the patient's legal brand representative). I attest that, if there was a reasonable possibility of needing a blood transfusion, the patient (or the patient's legal brand representative) was given the [facility] standardized written summary, pursuant to the Edward Goldsmith Blood Safety Act ([place] Health and Safety Code # 1645, as amended). I attest that I re-evaluated the patient just prior to the surgery and that there has been no change in the patient's H&P, except as documented below: Beto Chappell MD Apr 20, 2018 12:21
[2018-04-20] MEDS ORDERED: Lidocaine 1% MPF 10mg/ml 5ml ONE (12:33)
[2018-04-20] MEDS ORDERED: Propofol 200mg/20ml IV ONE (12:33)
--- NOTE | 2018-04-20 13:00 | Consultation ---
DATE OF CONSULTATION: 04/19/2018 NEUROLOGY CONSULTATION CONSULTING PHYSICIAN: Donald Singer M.D. REQUESTING PHYSICIAN: Greyson Ignacio M.D. HISTORY: Mr. Say Devlin is a 72-year-old, right-handed, gentleman, who was functioning well until 04/11/2018. He states that on that day he apparently fell down at home due to circumstances that he cannot remember. He then went to [employer] [facility] [place] and was apparently sitting there for a prolonged period of time and was then noted to be confused and having shaking chills. The paramedics were called in and he was brought into the [facility] emergency room. When he was brought into the emergency room, he was tachycardic with a heart rate of 130. He had a significant leukocytosis with a left-sided shift. His blood sugars were significantly elevated. He also had findings compatible with urinary tract infection. Blood cultures were drawn and 3/3 blood cultures were positive for Staphylococcus aureus. A CT scan of the brain was done and revealed no acute pathology. He was started on antibiotics and has been on antibiotics since then. He continued to be generally weak, continued to have an altered mental state, and thus an MRI scan of the brain was performed on 04/18/2018. The MRI scan revealed scattered bilateral cerebral and cerebellar foci of diffusion restriction consistent with multiple acute cerebral embolic phenomena. The patient feels a little better today and feels that his mind is a little clearer than what it has been for quite some time now. PAST MEDICAL HISTORY: Nothing significant as per the patient. The patient denies any prior history of any medical illnesses. FAMILY HISTORY: Nothing significant as per the patient. PERSONAL HISTORY: Home: He lives alone. Work: He used to work as a caregiver, he is now retired. Habits: He denies use of alcohol, tobacco, or illicit drugs. PRESENT MEDICATIONS: Plavix, fish oil, Senokot, Flomax, Colace, vancomycin, Dulcolax, insulin, milk of magnesia, metoprolol, heparin for DVT prophylaxis, Megace, NovoLog insulin, nitroglycerin p.r.n., Januvia, Lidoderm patch, Protonix, vitamin A and D ointment, Starlix, Seroquel, and Tylenol. PHYSICAL EXAMINATION: GENERAL: He is a well-developed, well-nourished, pleasant gentleman, lying in bed, in no acute distress. VITAL SIGNS: Pulse 95/minute, blood pressure 121/71 mmHg, respirations 18/minute, and temperature 98 degrees Fahrenheit. HEAD: Normocephalic and atraumatic. EENT: Examination benign. NECK: No neck rigidity was observed. NEUROLOGIC EXAMINATION: MENTAL STATUS EXAMINATION: He was awake and alert. He was oriented to self, hospital, and 2018. He did not know the name of the hospital, the date, or the month. He was able to recall 3/3 words immediately, but could only remember 1/3 words in one minute, and 0/3 words in 3 minutes even on the third trial. He was able to remember presidents Trump and Obama, but could not remember presidents prior to that. His mathematical skills were impaired. His visuospatial function was also impaired. SPEECH: He had no dysarthria. LANGUAGE: He had anomia for low and mid frequency words. CRANIAL NERVE EXAMINATION: II: The visual matthew were intact on confrontation testing. III, IV, AND : The external ocular movements were full and the pupils were 3 mm in diameter, equal, round, regular, and reactive to light. V: He had normal facial sensations, and the temporales, masseters, and pterygoids functioned normally. VII: He had normal facial expressions and no facial asymmetry. VIII: He was able to hear well bilaterally and had no nystagmus. IX: The palate moved symmetrically on phonation. X: He had no hoarseness of voice. XI: The sternocleidomastoids and trapezii functioned normally. XII: The tongue was in the midline without any fasciculations or atrophy. MOTOR SYSTEM: The tone was normal in all four extremities. Examination of muscle mass revealed no focal wasting. Examination of power revealed G 5/5 power in both upper extremities. In both lower extremities he had G 4/5 power, except for G 3/5 power in the iliopsoas, G 4/5 in the hamstrings, and G 5-/5 in the toe extensors bilaterally. His effort was quite poor in the lower extremities and much better in the upper extremities. SENSORY EXAMINATION: He responded appropriately to deep pain. He was unable to cooperate for the sensory modalities. REFLEXES: 1+ and bilaterally symmetrical at the biceps, triceps, and brachioradialis, 2++ at both knees, 0 at both ankles. The plantar responses were flexor bilaterally. COORDINATION, STANCE & GAIT: Could not be tested. DIAGNOSTIC IMPRESSION: 1. Mr. Say Devlin is a 72-year-old, right-handed, gentleman, who has a nebulous past history, which he states is benign. He was functioning well until 04/11/2018, when he apparently fell down at home, bumped his head, and following that, went to a restaurant where he was noted to be sitting for a prolonged period of time and was also noted to have shaking chills. He was, in addition, confused and felt ill. As a result of that, the paramedics were called in and he was brought into the [facility] emergency room. 2. In the emergency room, he was noted to be tachycardic, had a significant leukocytosis with a left-sided shift, had an elevated blood sugar, a benign CT of the brain, urinalysis consistent with an acute significant urinary tract infection, and 3/3 blood cultures positive for Staphylococcus aureus. He was started on appropriate antibiotics, but has continued to have some waxing and waning of his mental state and as a result of that, an MRI of the brain was performed on 04/18/2018, which revealed scattered bilateral cerebral and cerebellar foci of diffusion restriction consistent with multiple acute cerebral embolic phenomena. 3. On neurological examination at this time, he does have problems with orientation, recent and remote memory, visuospatial function, higher cognitive function and language. He also has significant bilateral lower extremity weakness with brisk knee jerks and diminished upper extremity reflexes. 4. His laboratory data on admission revealed WBC count elevated to 12,200 with 87% neutrophils, 4% lymphocytes, and 9% monocytes. His chemistry panel revealed that his sodium was low at 128, chloride was low at 95, BUN was elevated at 38, creatinine was elevated at 1.5, and blood glucose was elevated to 337. His troponin was elevated at 0.067. His urinalysis revealed 3+ leukocyte esterase, 60-80 RBCs, and 20-30 WBCs per high power field. 5. The patient's history, neurological examination, laboratory data, and imaging studies are most compatible with a shower of emboli to the brain. It is unclear if these emboli are septic versus bland. RECOMMENDATIONS: 1. Agree with management thus far. 2. Would continue aggressive treatment of the patient's infectious process and treat him like a patient who does have bacterial endocarditis. 3. A ZA should be performed to evaluate the patient for bacterial endocarditis. 4. The patient's cardiac rhythm should be monitored for a malignant cardiac arrhythmia. 5. The patient should be started on physical, occupational, speech and language therapy. 6. Anticoagulation should only be considered if the patient has a definite malignant cardiac arrhythmia. Thank you for entrusting me with the care of Mr. Devlin. I shall follow him with you. Donald Singer M.D., M.S.P.H. DR: LIZETTE JOB#: [id number] MTDD
--- NOTE | 2018-04-20 13:01 | Brief Operative Note ---
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 Procedure: ZA Post-op Diagnosis: Normal valvular structure No evidence of cardiac shunting A few round non-mobile calcified densities representing atherosclerotic plaque formation over the arch and ascending aorta. Clean LA appendage Post-op Diagnosis: same as pre-op Surgeon: Beto Chappell MD Head Up Operator: None Anesthesia: general Specimen: none Complications: none Condition: stable Fluids: N/A Estimated Blood Loss: none Drains: none Packing: N/A Implant(s) used?: No Beto Chappell MD Apr 20, 2018 13:01
--- NOTE | 2018-04-20 14:12 | General Progress Note ---
Assessment/Plan Assessment/Plan (1) Alerted mental status (2) S/p fall (3) Cervical Sprain (4) Thoracic sprain (5) Lumbar sprain (6) S/p CVA Continued on Tylenol and Lidocaine. D/w Dr. Laura and he concurred. Subjective Date patient seen: Apr 20, 2018 Time patient seen: 01:00 - pm ROS Limited/Unobtainable: Yes Allergies: Coded Allergies: No Known Allergies (Unverified , 04/11/18) Subjective Patient is confused and was c/o pain on back yesterday. Lidoderm was applied. Has been seen by Neurologist. Has no c/o pain at this time. Using the Tylenol as needed. Objective Last 24 Hour Vital Signs Date Time Temp Pulse Resp B/P (MAP) Pulse Ox O2 Delivery O2 Flow Rate FiO2 04/20/18 13:37 97.4 97 21 101/59 95 Room Air 97.4 04/20/18 13:30 98 20 102/61 95 Room Air 04/20/18 13:20 98 20 104/63 98 Nasal Cannula 3 04/20/18 13:10 94 19 104/64 98 Nasal Cannula 3 04/20/18 13:05 96 21 113/70 98 Nasal Cannula 3 04/20/18 13:00 97.4 95 22 106/68 98 Nasal Cannula 3 97.4 04/20/18 12:00 97.9 79 18 115/66 (82) 98 97.9 04/20/18 10:12 121/71 04/20/18 09:00 Room Air 04/20/18 09:00 95 121/71 04/20/18 08:00 98.0 95 18 121/71 (88) 94 98.0 04/20/18 04:00 97.5 82 18 110/58 (75) 96 97.5 04/20/18 00:00 98.1 97 18 111/71 (84) 94 98.1 04/19/18 21:32 95 121/71 04/19/18 21:00 Room Air 04/19/18 20:00 98.0 95 18 121/71 (88) 94 98.0 04/19/18 16:00 97.2 84 17 124/76 (92) 98 97.2 Intake and Output 04/19/18 04/20/18 19:00 07:00 Intake Total 60 ml Output Total 600 ml 1000 ml Balance -600 ml -940 ml IV Total 60 ml Output Urine Total 600 ml 1000 ml # Bowel Movements 1 Laboratory Tests 04/20/18 05:24: White Blood Count 11.3H, Red Blood Count 4.24L, Hemoglobin 12.0L, Hematocrit 36.1L, Mean Corpuscular Volume 85, Mean Corpuscular Hemoglobin 28.3, Mean Corpuscular Hemoglobin Concent 33.2, Red Cell Distribution Width 11.9, Platelet Count 324, Mean Platelet Volume 5.3L, Neutrophils (%) (Auto) , Lymphocytes (%) ( Auto) , Monocytes (%) (Auto) , Eosinophils (%) (Auto) , Basophils (%) (Auto) , Differential Total Cells Counted 100, Neutrophils % (Manual) 90H, Lymphocytes % (Manual) 7L, Monocytes % (Manual) 2, Eosinophils % (Manual) 1, Basophils % ( Manual) 0, Band Neutrophils 0, Platelet Estimate Adequate, Platelet Morphology Normal, Red Blood Cell Morphology Normal Height (Feet): 6 Height (Inches): 0.00 Weight (Pounds): 189 Objective GENERAL: Alert and awake. LUNGS: Decreased breath sounds bilaterally. HEART: Regular. ABDOMEN: Benign. EXTREMITIES: No cyanosis. No clubbing. Procedure: MRI T Spine no Contrast Impression: No acute process for evidence of significant neural impingement Procedure: MRI L Spine no Contrast Impression: Mild degenerative changes, as described. No definite acute abnormality demonstrated. No evidence of significant neural impingement Jerson Hook Apr 20, 2018 14:12
--- NOTE | 2018-04-20 15:21 | Immediate Post-Op Evaluation ---
Immediate Post-Op Evalulation Immediate Post-Op Evalulation Procedure: Transesophageal echocardiogram Date of Evaluation: Apr 20, 2018 Time of Evaluation: 13:10 IV Fluids: LR 250 ml Estimated Blood Loss: none Blood Pressure Systolic: 104 Blood Pressure Diastolic: 64 Pulse Rate: 94 Respiratory Rate: 19 O2 Sat by Pulse Oximetry: 98 Temperature (Fahrenheit): 98 Pain Score (1-10): 0 Nausea: No Vomiting: No Complications none Patient Status: awake, reacts, patent Hydration Status: adequate Given Within 1 Hr of Incision: Codie Olguin CRNA Apr 20, 2018 15:21
--- NOTE | 2018-04-20 15:23 | 48 Hour Post Anesthesia Eval ---
Post Anesthesia Evaluation Procedure: Transesophageal echocardiogram Date of Evaluation: Apr 20, 2018 Time of Evaluation: 14:00 Blood Pressure Systolic: 140 0: 72 Pulse Rate: 99 Respiratory Rate: 18 Temperature (Fahrenheit): 97.7 O2 Sat by Pulse Oximetry: 94 Airway: patent Nausea: No Vomiting: No Pain Intensity: 0 Hydration Status: adequate Mental Status/LOC: patient returned to baseline Follow-up Care/Observations: per hospitalist Post-Anesthesia Complications: none Follow-up care needed: N/A Codie Foote CRNA Apr 20, 2018 15:23
[2018-04-20] MEDS: Oxacillin 2 GM in NS 110 ML IVPB SCH ×3 (15:44→21:04)
--- NOTE | 2018-04-20 18:29 | Neurology Progress Note ---
Interim History Interim History Interim History Mr. Devlin feels better today. He had his ZA today. As per Dr Chappell the study did not reveal signs of endocarditis or embolic phenomena. He still feels generally weak. His speech is a little worse today. Review of Systems Neuro Review of Systems Benign. Objective Physical Exam Last Vital Signs Date Time Temp Pulse Resp B/P (MAP) Pulse Ox O2 Delivery O2 Flow Rate FiO2 04/20/18 16:00 97.1 102 20 151/79 (103) 95 97.1 04/20/18 13:37 Room Air 04/20/18 13:20 3 Laboratory Tests Test 04/20/18 05:24 White Blood Count 11.3 K/UL (4.8-10.8) H Red Blood Count 4.24 M/UL (4.70-6.10) L Hemoglobin 12.0 G/DL (14.2-18.0) L Hematocrit 36.1 % (42.0-52.0) L Mean Corpuscular Volume 85 FL (80-99) Mean Corpuscular Hemoglobin 28.3 PG (27.0-31.0) Mean Corpuscular Hemoglobin Concent 33.2 G/DL (32.0-36.0) Red Cell Distribution Width 11.9 % (11.6-14.8) Platelet Count 324 K/UL (150-450) Mean Platelet Volume 5.3 FL (6.5-10.1) L Neutrophils (%) (Auto) % (45.0-75.0) Lymphocytes (%) (Auto) % (20.0-45.0) Monocytes (%) (Auto) % (1.0-10.0) Eosinophils (%) (Auto) % (0.0-3.0) Basophils (%) (Auto) % (0.0-2.0) Differential Total Cells Counted 100 Neutrophils % (Manual) 90 % (45-75) H Lymphocytes % (Manual) 7 % (20-45) L Monocytes % (Manual) 2 % (1-10) Eosinophils % (Manual) 1 % (0-3) Basophils % (Manual) 0 % (0-2) Band Neutrophils 0 % (0-8) Platelet Estimate Adequate Platelet Morphology Normal Red Blood Cell Morphology Normal Neurologic Exam Objective PHYSICAL EXAMINATION: GENERAL: He is a well-developed, well-nourished, pleasant gentleman, lying in bed, in no acute distress. HEAD: Normocephalic and atraumatic. EENT: Examination benign. NECK: No neck rigidity was observed. NEUROLOGIC EXAMINATION: MENTAL STATUS EXAMINATION: He was awake and alert. He was oriented to self, hospital, and 2018. He did not know the name of the hospital, the date, or the month. He was able to recall 3/3 words immediately, but could only remember 1/3 words in 1 and 3 minutes. He was able to remember presidents Trump and Obama, but could not remember presidents prior to that. His mathematical skills were impaired. His visuospatial function was also impaired. SPEECH: He had a mild dysarthria. LANGUAGE: He had anomia for low and mid frequency words. CRANIAL NERVE EXAMINATION: II: The visual matthew were intact on confrontation testing. III, IV & : The external ocular movements were full and the pupils were 3 mm in diameter, equal, round, regular, and reactive to light. V: He had normal facial sensations, and the temporales, masseters, and pterygoids functioned normally. VII: He had normal facial expressions and no facial asymmetry. VIII: He was able to hear well bilaterally and had no nystagmus. IX: The palate moved symmetrically on phonation. X: He had no hoarseness of voice. XI: The sternocleidomastoids and trapezii functioned normally. XII: The tongue was in the midline without any fasciculations or atrophy. MOTOR SYSTEM: The tone was normal in all four extremities. Examination of muscle mass revealed no focal wasting. Examination of power revealed G 5/5 power in both upper extremities. In both lower extremities he had G 4/5 power, except for G 3/5 power in the iliopsoas, G 4/5 in the hamstrings, and G 5-/5 in the toe extensors bilaterally. SENSORY EXAMINATION: He responded appropriately to deep pain. He was unable to cooperate for the sensory modalities. REFLEXES: 2++ and bilaterally symmetrical at the biceps, triceps, and brachioradialis, 3+ at both knees, 0 at both ankles. The plantar responses were flexor bilaterally. COORDINATION, STANCE & GAIT: Could not be tested. Impression/Recommendations Diagnostic Impression 1. Mr. Say Devlin is a 72-year-old, right-handed, gentleman, who has a nebulous past history, which he states is benign. He was functioning well until 04/11/2018, when he apparently fell down at home, bumped his head, and following that, went to a restaurant where he was noted to be sitting for a prolonged period of time and was also noted to have shaking chills. He was, in addition, confused and felt ill. As a result of that, the paramedics were called in and he was brought into the [facility] emergency room. 2. In the emergency room, he was noted to be tachycardic, had a significant leukocytosis with a left-sided shift, had an elevated blood sugar, a benign CT of the brain, urinalysis consistent with an acute significant urinary tract infection, and 3/3 blood cultures positive for Staphylococcus aureus. He was started on appropriate antibiotics, but has continued to have some waxing and waning of his mental state and as a result of that, an MRI of the brain was performed on 04/18/2018, which revealed scattered bilateral cerebral and cerebellar foci of diffusion restriction consistent with multiple acute cerebral embolic phenomena. 3. He feels better today. He had his ZA. As per Dr Chappell the study did not reveal signs of endocarditis or embolic phenomena. He still feels generally weak. His speech is a little worse today. 4. On neurological examination at this time, he does have problems with orientation, recent and remote memory, visuospatial function, higher cognitive function and language. He also has a dysarthria. He has significant bilateral lower extremity weakness with pathologically brisk knee jerks and brisk upper extremity reflexes. 5. His laboratory data on admission revealed WBC count elevated to 12,200 with 87% neutrophils, 4% lymphocytes, and 9% monocytes. His chemistry panel revealed that his sodium was low at 128, chloride was low at 95, BUN was elevated at 38, creatinine was elevated at 1.5, and blood glucose was elevated to 337. His troponin was elevated at 0.067. His urinalysis revealed 3+ leukocyte esterase, 60-80 RBCs, and 20-30 WBCs per high power field. 6. The patient's history, neurological examination, laboratory data, and imaging studies are most compatible with a shower of emboli to the brain. It is unclear if these emboli are septic versus bland. Recommendations 1. Continue present management. 2. Would continue aggressive treatment of the patient's infectious process and treat him like a patient who does have bacterial endocarditis. 3. The patient's cardiac rhythm should be monitored for a malignant cardiac arrhythmia. 4. Physical, occupational, speech and language therapy. 5. Would do full coagulopathy work-up. Donald Perez M.D., M.S.P.H. DONALD PEREZ Apr 20, 2018 18:29
--- NOTE | 2018-04-20 19:15 | Procedure Note ---
DATE OF PROCEDURE: 04/20/2018 ATTENDING SURGEON: Beto Chappell M.D., [facility]. REFERRING PHYSICIAN: Ubaldo Jarquin M.D. PREOPERATIVE DIAGNOSES: Bacteremia with Staphylococcus aureus as well as embolic cerebrovascular accident suggesting possibility of cardiac embolic disease. POSTOPERATIVE FINDINGS: 1. Normal valvular structure with no evidence of vegetations. 2. Normal left atrial appendage with no evidence of thrombus and good emptying velocity. 3. Negative bubble study using agitated saline ruling out cardiac shunting. 4. A few round nonmobile calcified densities within the ascending aorta and aortic arch representing atherosclerotic plaque formation. 5. No evidence of LV thrombus with normal left ventricular systolic function. PLAN AND RECOMMENDATION: Infectious Diseases specialist to continue with IV antibiotic. DESCRIPTION OF PROCEDURE: After obtaining the signed informed from the patient's brother following explained risks, benefits, and alternatives of the procedure, the patient was brought down to the OR room #7 in a fasting state. He was placed in the supine position. A bite block was inserted. At the presence of anesthesiologist and propofol as a general anesthetic agent, the transesophageal echocardiography probe was advanced through the bite block and was secured at the mid esophageal area at a distance just about 35 cm from the incisors teeth. After review of the cardiac structure, 10 mL of agitated saline injected through the peripheral IV to assess for cardiac shunting. At the end of the study, transesophageal echocardiography probe was removed. The patient tolerated the procedure well without any complications. CONCLUSION: Study rules out infective endocarditis, cardiac shunting, and left atrial appendage thrombus. The study was significant for presence of round calcified plaque formation within the ascending aorta and arch of aorta. Beto Chappell M.D. DR: LUCRECIA JOB#: [id number] CC:
[2018-04-20] MEDS: Sennosides 8.6mg ORAL SCH (21:04)
--- NOTE | 2018-04-20 22:15 | General Progress Note ---
Assessment/Plan Status: stable Assessment/Plan encephalopathy due to [facility] dementia mild acute CVA ZA negative Seroquel prn provided ro/st Subjective Date patient seen: Apr 20, 2018 Neurologic/Psychiatric: Reports: anxiety, depressed, emotional problems Allergies: Coded Allergies: No Known Allergies (Unverified , 04/11/18) Subjective the pt was calmer and was conversing. ZA was negative the pt still waxes and wanes Objective Last 24 Hour Vital Signs Date Time Temp Pulse Resp B/P (MAP) Pulse Ox O2 Delivery O2 Flow Rate FiO2 04/20/18 21:06 103 111/70 04/20/18 21:00 Room Air 04/20/18 20:00 98.6 103 20 111/70 (84) 95 98.6 04/20/18 16:00 97.1 102 20 151/79 (103) 95 97.1 04/20/18 15:23 207.9 99 18 94 04/20/18 15:21 208.4 94 19 98 04/20/18 14:00 97.7 99 18 140/72 (94) 94 97.7 04/20/18 13:37 97.4 97 21 101/59 95 Room Air 97.4 04/20/18 13:30 98 20 102/61 95 Room Air 04/20/18 13:20 98 20 104/63 98 Nasal Cannula 3 04/20/18 13:10 94 19 104/64 98 Nasal Cannula 3 04/20/18 13:05 96 21 113/70 98 Nasal Cannula 3 04/20/18 13:00 97.4 95 22 106/68 98 Nasal Cannula 3 97.4 04/20/18 12:00 97.9 79 18 115/66 (82) 98 97.9 04/20/18 10:12 121/71 04/20/18 09:00 Room Air 04/20/18 09:00 95 121/71 04/20/18 08:00 98.0 95 18 121/71 (88) 94 98.0 04/20/18 04:00 97.5 82 18 110/58 (75) 96 97.5 04/20/18 00:00 98.1 97 18 111/71 (84) 94 98.1 Intake and Output 04/19/18 04/20/18 19:00 07:00 Intake Total 60 ml Output Total 600 ml 1000 ml Balance -600 ml -940 ml IV Total 60 ml Output Urine Total 600 ml 1000 ml # Bowel Movements 1 Laboratory Tests 04/20/18 05:24: White Blood Count 11.3H, Red Blood Count 4.24L, Hemoglobin 12.0L, Hematocrit 36.1L, Mean Corpuscular Volume 85, Mean Corpuscular Hemoglobin 28.3, Mean Corpuscular Hemoglobin Concent 33.2, Red Cell Distribution Width 11.9, Platelet Count 324, Mean Platelet Volume 5.3L, Neutrophils (%) (Auto) , Lymphocytes (%) ( Auto) , Monocytes (%) (Auto) , Eosinophils (%) (Auto) , Basophils (%) (Auto) , Differential Total Cells Counted 100, Neutrophils % (Manual) 90H, Lymphocytes % (Manual) 7L, Monocytes % (Manual) 2, Eosinophils % (Manual) 1, Basophils % ( Manual) 0, Band Neutrophils 0, Platelet Estimate Adequate, Platelet Morphology Normal, Red Blood Cell Morphology Normal Height (Feet): 6 Height (Inches): 0.00 Weight (Pounds): 189 General Appearance: no apparent distress, alert Vimal Mares MD Apr 20, 2018 22:15
--- NOTE | 2018-04-20 22:52 | General Progress Note ---
Assessment/Plan Problem List: (1) UTI (urinary tract infection) ICD Codes: N39.0 - Urinary tract infection, site not specified SNOMED: 05448998, 043751433, 940839737 Qualifiers: Qualified Codes: N39.0 - Urinary tract infection, site not specified (2) Acute renal failure ICD Codes: N17.9 - Acute kidney failure, unspecified SNOMED: 60809291 (3) Elevated troponin I level ICD Codes: R74.8 - Abnormal levels of other serum enzymes SNOMED: 089038000 (4) Urinary retention ICD Codes: R33.9 - Retention of urine, unspecified SNOMED: 618235643 (5) Hematuria ICD Codes: R31.9 - Hematuria, unspecified SNOMED: 23885884 Status: progressing Assessment/Plan fall risk s/p ams mri shows acute bilate cva still natalya hematurea at vizcaino mumbled speech confused r/o septic emboli per neurologist abx per id echo per dr judith noe 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 vizcaino placed uti sepsis elev trop azotemia Subjective ROS Limited/Unobtainable: Yes Constitutional: Reports: no symptoms Allergies: Coded Allergies: No Known Allergies (Unverified , 04/11/18) Objective Last 24 Hour Vital Signs Date Time Temp Pulse Resp B/P (MAP) Pulse Ox O2 Delivery O2 Flow Rate FiO2 04/20/18 21:06 103 111/70 04/20/18 21:00 Room Air 04/20/18 20:00 98.6 103 20 111/70 (84) 95 98.6 04/20/18 16:00 97.1 102 20 151/79 (103) 95 97.1 04/20/18 15:23 207.9 99 18 94 04/20/18 15:21 208.4 94 19 98 04/20/18 14:00 97.7 99 18 140/72 (94) 94 97.7 04/20/18 13:37 97.4 97 21 101/59 95 Room Air 97.4 04/20/18 13:30 98 20 102/61 95 Room Air 04/20/18 13:20 98 20 104/63 98 Nasal Cannula 3 04/20/18 13:10 94 19 104/64 98 Nasal Cannula 3 04/20/18 13:05 96 21 113/70 98 Nasal Cannula 3 04/20/18 13:00 97.4 95 22 106/68 98 Nasal Cannula 3 97.4 04/20/18 12:00 97.9 79 18 115/66 (82) 98 97.9 04/20/18 10:12 121/71 04/20/18 09:00 Room Air 04/20/18 09:00 95 121/71 04/20/18 08:00 98.0 95 18 121/71 (88) 94 98.0 04/20/18 04:00 97.5 82 18 110/58 (75) 96 97.5 04/20/18 00:00 98.1 97 18 111/71 (84) 94 98.1 Intake and Output 04/19/18 04/20/18 19:00 07:00 Intake Total 60 ml Output Total 600 ml 1000 ml Balance -600 ml -940 ml IV Total 60 ml Output Urine Total 600 ml 1000 ml # Bowel Movements 1 Laboratory Tests 04/20/18 05:24: White Blood Count 11.3H, Red Blood Count 4.24L, Hemoglobin 12.0L, Hematocrit 36.1L, Mean Corpuscular Volume 85, Mean Corpuscular Hemoglobin 28.3, Mean Corpuscular Hemoglobin Concent 33.2, Red Cell Distribution Width 11.9, Platelet Count 324, Mean Platelet Volume 5.3L, Neutrophils (%) (Auto) , Lymphocytes (%) ( Auto) , Monocytes (%) (Auto) , Eosinophils (%) (Auto) , Basophils (%) (Auto) , Differential Total Cells Counted 100, Neutrophils % (Manual) 90H, Lymphocytes % (Manual) 7L, Monocytes % (Manual) 2, Eosinophils % (Manual) 1, Basophils % ( Manual) 0, Band Neutrophils 0, Platelet Estimate Adequate, Platelet Morphology Normal, Red Blood Cell Morphology Normal Height (Feet): 6 Height (Inches): 0.00 Weight (Pounds): 189 Cardiovascular: regular rhythm Respiratory/Chest: lungs clear Abdomen: soft Ubaldo Jarquin MD Apr 20, 2018 22:52
--- NOTE | 2018-04-20 23:03 | Cardiology Progress Note ---
Assessment/Plan Assessment/Plan 1. 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 2. Slight elevation of troponin I level due to NSTEMI, vs transient hypotension vs CVA. 3. Sinus tachycardia, resolved, likely secondary to hypovolemia and intravascular volume depletion. 4. Staph A. bacteremia, rule out endocarditis. Subjective Subjective No cardiac events. s/p ZA Objective Last 24 Hour Vital Signs Date Time Temp Pulse Resp B/P (MAP) Pulse Ox O2 Delivery O2 Flow Rate FiO2 04/20/18 21:06 103 111/70 04/20/18 21:00 Room Air 04/20/18 20:00 98.6 103 20 111/70 (84) 95 98.6 04/20/18 16:00 97.1 102 20 151/79 (103) 95 97.1 04/20/18 15:23 207.9 99 18 94 04/20/18 15:21 208.4 94 19 98 04/20/18 14:00 97.7 99 18 140/72 (94) 94 97.7 04/20/18 13:37 97.4 97 21 101/59 95 Room Air 97.4 04/20/18 13:30 98 20 102/61 95 Room Air 04/20/18 13:20 98 20 104/63 98 Nasal Cannula 3 04/20/18 13:10 94 19 104/64 98 Nasal Cannula 3 04/20/18 13:05 96 21 113/70 98 Nasal Cannula 3 04/20/18 13:00 97.4 95 22 106/68 98 Nasal Cannula 3 97.4 04/20/18 12:00 97.9 79 18 115/66 (82) 98 97.9 04/20/18 10:12 121/71 04/20/18 09:00 Room Air 04/20/18 09:00 95 121/71 04/20/18 08:00 98.0 95 18 121/71 (88) 94 98.0 04/20/18 04:00 97.5 82 18 110/58 (75) 96 97.5 04/20/18 00:00 98.1 97 18 111/71 (84) 94 98.1 Intake and Output 04/19/18 04/20/18 19:00 07:00 Intake Total 60 ml Output Total 600 ml 1000 ml Balance -600 ml -940 ml IV Total 60 ml Output Urine Total 600 ml 1000 ml # Bowel Movements 1 2D Echo: LVEF 70%, Mild LVH, Grade I LVDD, RVSP 24 mmHg Laboratory Tests Test 04/20/18 05:24 White Blood Count 11.3 K/UL (4.8-10.8) H Red Blood Count 4.24 M/UL (4.70-6.10) L Hemoglobin 12.0 G/DL (14.2-18.0) L Hematocrit 36.1 % (42.0-52.0) L Mean Corpuscular Volume 85 FL (80-99) Mean Corpuscular Hemoglobin 28.3 PG (27.0-31.0) Mean Corpuscular Hemoglobin Concent 33.2 G/DL (32.0-36.0) Red Cell Distribution Width 11.9 % (11.6-14.8) Platelet Count 324 K/UL (150-450) Mean Platelet Volume 5.3 FL (6.5-10.1) L Neutrophils (%) (Auto) % (45.0-75.0) Lymphocytes (%) (Auto) % (20.0-45.0) Monocytes (%) (Auto) % (1.0-10.0) Eosinophils (%) (Auto) % (0.0-3.0) Basophils (%) (Auto) % (0.0-2.0) Differential Total Cells Counted 100 Neutrophils % (Manual) 90 % (45-75) H Lymphocytes % (Manual) 7 % (20-45) L Monocytes % (Manual) 2 % (1-10) Eosinophils % (Manual) 1 % (0-3) Basophils % (Manual) 0 % (0-2) Band Neutrophils 0 % (0-8) Platelet Estimate Adequate Platelet Morphology Normal Red Blood Cell Morphology Normal prololo ats Microbiology Date/Time Source Procedure Growth Status 04/18/18 04:30 Indwelling Cath Urine Culture - Final Yeast Species Complete Objective HEENT: Atraumatic and normocephalic. Anicteric. Pupils are equal, round, and reactive to light and accommodation. Altered NECK: JVP less than 5 cm. No carotid bruit. CARDIOVASCULAR: Normal S1 and S2. No murmurs, gallops, or rubs. PMI is at fourth intercostal space in the midclavicular line. LUNGS: Clear to auscultation bilaterally. ABDOMEN: Soft, nontender, and nondistended. No hepatosplenomegaly. Positive bowel sounds. EXTREMITIES: No evidence of edema, clubbing, or cyanosis. Beto Chappell MD Apr 20, 2018 23:03
[2018-04-21] VITALS: BP 98/58
[2018-04-21] MEDS: Oxacillin 2 GM in NS 110 ML IVPB SCH ×7 (00:32→20:30)
[2018-04-21 04:00] VITALS: BP 110/64
[2018-04-21] MEDS: NovoLOG Insulin Flexpen SUBQ SCH ×4 (05:51→20:34)
[2018-04-21] MEDS: sitaGLIPtin 50mg tab ORAL SCH (05:51)
[2018-04-21 08:00] VITALS: BP 119/64
--- NOTE | 2018-04-21 08:00 | General Progress Note ---
Assessment/Plan Problem List: (1) Diabetes mellitus out of control ICD Codes: E11.65 - Type 2 diabetes mellitus with hyperglycemia SNOMED: 86417704, 204129299 (2) Acute encephalopathy ICD Codes: G93.40 - Encephalopathy, unspecified SNOMED: 24856746, 910903932 (3) Dehydration ICD Codes: E86.0 - Dehydration SNOMED: 08488986, 016466199, 984488830 (4) Acute renal failure ICD Codes: N17.9 - Acute kidney failure, unspecified SNOMED: 11822289 Assessment/Plan continue Levemir 10 units daily continue Januvia 50 mg daily continue Starlix 120 mg ac tid continue NISS ac / hs Subjective Allergies: Coded Allergies: No Known Allergies (Unverified , 04/11/18) All Systems: reviewed and negative except above Subjective events noted Objective Last 24 Hour Vital Signs Date Time Temp Pulse Resp B/P (MAP) Pulse Ox O2 Delivery O2 Flow Rate FiO2 04/21/18 04:00 98.3 97 18 110/64 (79) 95 98.3 04/21/18 00:00 98.2 85 18 98/58 (71) 94 98.2 04/20/18 21:06 103 111/70 04/20/18 21:00 Room Air 04/20/18 20:00 98.6 103 20 111/70 (84) 95 98.6 04/20/18 16:00 97.1 102 20 151/79 (103) 95 97.1 04/20/18 15:23 207.9 99 18 94 04/20/18 15:21 208.4 94 19 98 04/20/18 14:00 97.7 99 18 140/72 (94) 94 97.7 04/20/18 13:37 97.4 97 21 101/59 95 Room Air 97.4 04/20/18 13:30 98 20 102/61 95 Room Air 04/20/18 13:20 98 20 104/63 98 Nasal Cannula 3 04/20/18 13:10 94 19 104/64 98 Nasal Cannula 3 04/20/18 13:05 96 21 113/70 98 Nasal Cannula 3 04/20/18 13:00 97.4 95 22 106/68 98 Nasal Cannula 3 97.4 04/20/18 12:00 97.9 79 18 115/66 (82) 98 97.9 10/4/18 10:12 121/71 04/20/18 09:00 Room Air 04/20/18 09:00 95 121/71 04/20/18 08:00 98.0 95 18 121/71 (88) 94 98.0 Intake and Output 04/20/18 04/21/18 19:00 07:00 Intake Total 720 ml 1050 ml Output Total 900 ml 700 ml Balance -180 ml 350 ml Intake Oral 360 ml 240 ml IV Total 360 ml 810 ml Output Urine Total 900 ml 700 ml Estimated Blood Loss 0 ml # Bowel Movements 1 Height (Feet): 6 Height (Inches): 0.00 Weight (Pounds): 189 General Appearance: no apparent distress Neck: normal alignment Cardiovascular: normal rate Respiratory/Chest: lungs clear Abdomen: non tender Pelvis: normal external exam Objective Current Medications Medications (Trade) Dose Ordered Sig/Safia Route PRN Reason Start Time Stop Time Status Last Admin Dose Admin Acetaminophen (Tylenol) 500 mg Q4H PRN ORAL Mild Pain/Temp > 100.5 04/13/18 13:41 05/11/18 13:40 04/14/18 21:33 Bisacodyl (Dulcolax) 10 mg DAILY ORAL 04/18/18 09:00 05/18/18 08:59 04/19/18 08:53 Cyanocobalamin (Vitamin B12) 1,000 mcg DAILY SUBQ 04/19/18 23:00 04/21/18 09:01 04/20/18 10:13 Dextrose (Dextrose 50%) 25 ml Q30M PRN IV Hypoglycemia 04/15/18 18:00 05/15/18 17:59 Dextrose (Dextrose 50%) 50 ml Q30M PRN IV Hypoglycemia 04/15/18 18:00 05/15/18 17:59 Docusate Sodium (Colace) 100 mg THREE TIMES A DAY ORAL 04/18/18 18:00 05/18/18 17:59 04/20/18 17:36 Insulin Aspart (NovoLOG) BEFORE MEALS AND HS SUBQ 04/15/18 21:00 05/15/18 20:59 04/21/18 05:51 Insulin Detemir (Levemir) 10 units DAILY SUBQ 04/18/18 09:00 05/13/18 08:59 04/19/18 08:55 Lidocaine (Lidoderm 5% PATCH) 1 patch DAILY@0000 TDERMAL 04/14/18 00:00 05/13/18 00:14 04/20/18 23:36 Magnesium Hydroxide (Mom) 30 ml Q4HR PRN ORAL Constipation 04/17/18 22:45 05/17/18 22:44 04/18/18 17:11 Megestrol Acetate (Megace) 400 mg TWICE A DAY ORAL 04/16/18 11:00 05/16/18 10:59 04/20/18 17:16 Metoprolol Tartrate (Lopressor) 50 mg Q12HR ORAL 04/17/18 21:00 05/13/18 20:59 04/20/18 21:06 Nateglinide (Starlix) 120 mg TIAC ORAL 04/13/18 16:30 05/12/18 08:59 04/21/18 05:51 Nitroglycerin (Ntg) 1 patch Q24H TDERMAL 04/14/18 11:00 05/11/18 10:59 04/20/18 10:12 Oxacillin Sodium 2 gm/Sodium Chloride 110 ml @ 220 mls/hr Q4HR IVPB 04/20/18 13:00 04/27/18 12:59 04/21/18 04:48 Pantoprazole (Protonix) 40 mg EVERY 12 HOURS ORAL 04/13/18 21:00 05/13/18 20:59 04/20/18 21:04 Quetiapine Fumarate (SEROquel) 12.5 mg Q4H PRN ORAL ANXIETY 04/13/18 13:43 05/12/18 13:42 Sennosides (Senokot) 1 tab QHS ORAL 04/18/18 21:00 05/18/18 20:59 04/20/18 21:04 Sitagliptin Phosphate (Januvia) 50 mg ACBREAKFAST ORAL 04/14/18 06:30 05/14/18 06:29 04/21/18 05:51 Sodium Chloride 1,000 ml @ 60 mls/hr [id number] IV 04/20/18 05:15 05/20/18 05:14 04/20/18 22:06 Tamsulosin HCl (Flomax) 0.4 mg BID ORAL 04/18/18 18:00 05/11/18 20:59 04/20/18 17:16 Vitamin A/Vitamin D (A & D Oint) 1 applic TWICE A DAY TOPIC 04/13/18 18:00 05/12/18 08:59 04/20/18 17:17 Item Value Date Time Bedside Blood Glucose 223 mg/dl H 04/21/18 0630 Bedside Blood Glucose 148 mg/dl H 04/20/18 2104 Bedside Blood Glucose 171 mg/dl H 04/20/18 1635 Bedside Blood Glucose 142 mg/dl H 04/20/18 0900 Bedside Blood Glucose 143 mg/dl H 04/20/18 0621 Kurtis Richey MD Apr 21, 2018 08:00
--- NOTE | 2018-04-21 08:59 | General Progress Note ---
Assessment/Plan Assessment/Plan (1) Alerted mental status (2) S/p fall (3) Cervical Sprain (4) Thoracic sprain (5) Lumbar sprain (6) S/p CVA Continued on Tylenol and Lidocaine. D/w Dr. Laura and he concurred. Subjective Date patient seen: Apr 21, 2018 Time patient seen: 07:00 - am ROS Limited/Unobtainable: Yes Allergies: Coded Allergies: No Known Allergies (Unverified , 04/11/18) Subjective Patient is in bed and showing no signs of pain or distress. Objective Last 24 Hour Vital Signs Date Time Temp Pulse Resp B/P (MAP) Pulse Ox O2 Delivery O2 Flow Rate FiO2 04/21/18 04:00 98.3 97 18 110/64 (79) 95 98.3 04/21/18 00:00 98.2 85 18 98/58 (71) 94 98.2 04/20/18 21:06 103 111/70 04/20/18 21:00 Room Air 04/20/18 20:00 98.6 103 20 111/70 (84) 95 98.6 04/20/18 16:00 97.1 102 20 151/79 (103) 95 97.1 04/20/18 15:23 207.9 99 18 94 04/20/18 15:21 208.4 94 19 98 04/20/18 14:00 97.7 99 18 140/72 (94) 94 97.7 04/20/18 13:37 97.4 97 21 101/59 95 Room Air 97.4 04/20/18 13:30 98 20 102/61 95 Room Air 04/20/18 13:20 98 20 104/63 98 Nasal Cannula 3 04/20/18 13:10 94 19 104/64 98 Nasal Cannula 3 04/20/18 13:05 96 21 113/70 98 Nasal Cannula 3 04/20/18 13:00 97.4 95 22 106/68 98 Nasal Cannula 3 97.4 04/20/18 12:00 97.9 79 18 115/66 (82) 98 97.9 04/20/18 10:12 121/71 04/20/18 09:00 Room Air 04/20/18 09:00 95 121/71 Intake and Output 04/20/18 04/21/18 19:00 07:00 Intake Total 720 ml 1050 ml Output Total 900 ml 700 ml Balance -180 ml 350 ml Intake Oral 360 ml 240 ml IV Total 360 ml 810 ml Output Urine Total 900 ml 700 ml Estimated Blood Loss 0 ml # Bowel Movements 1 Height (Feet): 6 Height (Inches): 0.00 Weight (Pounds): 189 Objective GENERAL: Alert and awake. LUNGS: Decreased breath sounds bilaterally. HEART: Regular. ABDOMEN: Benign. EXTREMITIES: No cyanosis. No clubbing. Procedure: MRI T Spine no Contrast Impression: No acute process for evidence of significant neural impingement Procedure: MRI L Spine no Contrast Impression: Mild degenerative changes, as described. No definite acute abnormality demonstrated. No evidence of significant neural impingement Jerson Hook Apr 21, 2018 08:59
[2018-04-21] MEDS: Tamsulosin 0.4mg cap ORAL SCH ×2 (09:45→18:00)
[2018-04-21] MEDS: Metoprolol Tartrate 50mg tab ORAL SCH ×2 (09:45→20:30)
[2018-04-21] MEDS: Bisacodyl EC 5mg tab ORAL SCH (09:45)
[2018-04-21] MEDS: Vitamin B12 1000mcg/ml Inj SUBQ SCH (09:45)
[2018-04-21] MEDS: Megace 400mg/10ml Susp ORAL SCH ×2 (09:46→18:00)
[2018-04-21] MEDS: Docusate 100mg/10ml Liq ORAL SCH ×3 (09:46→18:00)
[2018-04-21] MEDS: Vitamin A&D Oint 2oz Tube TOPIC SCH ×2 (09:48→18:38)
[2018-04-21] MEDS: Levemir Flexpen SUBQ SCH (09:54)
--- NOTE | 2018-04-21 10:45 | General Progress Note ---
Assessment/Plan Problem List: (1) UTI (urinary tract infection) ICD Codes: N39.0 - Urinary tract infection, site not specified SNOMED: 88788999, 498611396, 326908044 Qualifiers: Qualified Codes: N39.0 - Urinary tract infection, site not specified (2) Acute renal failure ICD Codes: N17.9 - Acute kidney failure, unspecified SNOMED: 06644404 (3) Elevated troponin I level ICD Codes: R74.8 - Abnormal levels of other serum enzymes SNOMED: 424797981 (4) Urinary retention ICD Codes: R33.9 - Retention of urine, unspecified SNOMED: 014110011 (5) Hematuria ICD Codes: R31.9 - Hematuria, unspecified SNOMED: 85760148 Assessment/Plan still confused and stuttering neuro recommends no anticogualtion until source of cva is found not stable for dc will go to snf once stable mri shows acute bilate cva still natalya hematurea at vizcaino mumbled speech confused needs bladder irrigation vizcaino placed uti sepsis elev trop azotemia Subjective ROS Limited/Unobtainable: Yes Allergies: Coded Allergies: No Known Allergies (Unverified , 04/11/18) Objective Last 24 Hour Vital Signs Date Time Temp Pulse Resp B/P (MAP) Pulse Ox O2 Delivery O2 Flow Rate FiO2 04/21/18 09:45 73 119/68 04/21/18 09:00 Room Air 04/21/18 08:00 97.2 73 18 119/64 (82) 94 97.2 04/21/18 04:00 98.3 97 18 110/64 (79) 95 98.3 04/21/18 00:00 98.2 85 18 98/58 (71) 94 98.2 04/20/18 21:06 103 111/70 04/20/18 21:00 Room Air 04/20/18 20:00 98.6 103 20 111/70 (84) 95 98.6 04/20/18 16:00 97.1 102 20 151/79 (103) 95 97.1 04/20/18 15:23 207.9 99 18 94 04/20/18 15:21 208.4 94 19 98 04/20/18 14:00 97.7 99 18 140/72 (94) 94 97.7 04/20/18 13:37 97.4 97 21 101/59 95 Room Air 97.4 04/20/18 13:30 98 20 102/61 95 Room Air 04/20/18 13:20 98 20 104/63 98 Nasal Cannula 3 04/20/18 13:10 94 19 104/64 98 Nasal Cannula 3 04/20/18 13:05 96 21 113/70 98 Nasal Cannula 3 04/20/18 13:00 97.4 95 22 106/68 98 Nasal Cannula 3 97.4 04/20/18 12:00 97.9 79 18 115/66 (82) 98 97.9 Intake and Output 04/20/18 04/21/18 19:00 07:00 Intake Total 720 ml 1050 ml Output Total 900 ml 700 ml Balance -180 ml 350 ml Intake Oral 360 ml 240 ml IV Total 360 ml 810 ml Output Urine Total 900 ml 700 ml Estimated Blood Loss 0 ml # Bowel Movements 1 Height (Feet): 6 Height (Inches): 0.00 Weight (Pounds): 189 Ubaldo Jarquin MD Apr 21, 2018 10:45
[2018-04-21 12:00] VITALS: BP 111/65
[2018-04-21] MEDS ORDERED: NS 500ML ONE (12:00)
--- NOTE | 2018-04-21 12:38 | GI Initial Consult Note ---
History of Present Illness General Date patient seen: Apr 21, 2018 Time patient seen: 12:36 Reason for Hospitalization: Dizziness Referring physician: ADITI WINKLER Reason for Consultation: DYSPHAGIA Present Illness HPI The patient is admitted. Complaining of left shoulder pain during the night, radiating to the neck. He can move his arm very well, status post multiple falls. The patient also admitted for altered mental status and dizziness. The patient has ecchymosis on the forehead on the right eye. He also complains of back pain and left shoulder pain. Oriented x1. Denies shortness of breath. Denies any cough. Denies nausea, vomiting, or diarrhea. Denies orthopnea. Denies fever or chills. GI consulted for dysphagia s/p multiple small acute infarcts as seen on recent brain MRI. ROS limited. Per RN report, patient has been tolerating his diet. ST unable to performed a video swallow because patient unable to sit upright. Presents today with anemia and mild leukocytosis. No noted recent labs drawn. Home Meds Reported Medications No Known Medications* (NKM - No Known Medications*) ., 0 ., 0 Refills 04/11/18 Allergies: Coded Allergies: No Known Allergies (Unverified , 04/11/18) Patient History Limited by: medical condition History Provided By: Medical Record [facility] Narrative PAST MEDICAL HISTORY: Significant for gastroesophageal reflux disease, fall risk, ataxia, BPH, and possible psychosis. Social History: Denies: smoking, alcohol use, drug use, other Review of Systems All Other Systems: limited Physical Exam Vital Signs Date Time Temp Pulse Resp B/P (MAP) Pulse Ox O2 Delivery O2 Flow Rate FiO2 04/17/18 08:00 97.9 98 18 126/76 (93) 94 97.9 04/17/18 08:30 Room Air 04/20/18 13:00 3 Sp02 EP Interpretation: reviewed, normal General Appearance: well appearing, no apparent distress, alert Head: normocephalic EENT: PERRL/EOMI, normal ENT inspection Neck: supple Respiratory: normal breath sounds, no respiratory distress Cardiovascular: normal rate Gastrointestinal: normal inspection, non tender, soft, normal bowel sounds, non -distended Rectal: deferred Genitourinary: deferred Neurologic: alert, responsive Skin: normal inspection, normal color, no rash, warm/dry, palpation normal, well hydrated Lymphatic: normal inspection, no adenopathy Current Medications Current Medications Medications (Trade) Dose Ordered Sig/Safia Route PRN Reason Start Time Stop Time Status Last Admin Dose Admin Acetaminophen (Tylenol) 500 mg Q4H PRN ORAL Mild Pain/Temp > 100.5 04/13/18 13:41 05/11/18 13:40 04/14/18 21:33 Bisacodyl (Dulcolax) 10 mg DAILY ORAL 04/18/18 09:00 05/18/18 08:59 04/21/18 09:45 Dextrose (Dextrose 50%) 25 ml Q30M PRN IV Hypoglycemia 04/15/18 18:00 05/15/18 17:59 Dextrose (Dextrose 50%) 50 ml Q30M PRN IV Hypoglycemia 04/15/18 18:00 05/15/18 17:59 Docusate Sodium (Colace) 100 mg THREE TIMES A DAY ORAL 04/18/18 18:00 05/18/18 17:59 04/21/18 09:46 Insulin Aspart (NovoLOG) BEFORE MEALS AND HS SUBQ 04/15/18 21:00 05/15/18 20:59 04/21/18 12:22 Insulin Detemir (Levemir) 10 units DAILY SUBQ 04/18/18 09:00 05/13/18 08:59 04/21/18 09:54 Lidocaine (Lidoderm 5% PATCH) 1 patch DAILY@0000 TDERMAL 04/14/18 00:00 05/13/18 00:14 04/20/18 23:36 Magnesium Hydroxide (Mom) 30 ml Q4HR PRN ORAL Constipation 04/17/18 22:45 05/17/18 22:44 04/18/18 17:11 Megestrol Acetate (Megace) 400 mg TWICE A DAY ORAL 04/16/18 11:00 05/16/18 10:59 04/21/18 09:46 Metoprolol Tartrate (Lopressor) 50 mg Q12HR ORAL 04/17/18 21:00 05/13/18 20:59 04/21/18 09:45 Nateglinide (Starlix) 120 mg TIAC ORAL 04/13/18 16:30 05/12/18 08:59 04/21/18 12:22 Nitroglycerin (Ntg) 1 patch Q24H TDERMAL 04/14/18 11:00 05/11/18 10:59 04/20/18 10:12 Oxacillin Sodium 2 gm/Sodium Chloride 110 ml @ 220 mls/hr Q4HR IVPB 04/20/18 13:00 04/27/18 12:59 04/21/18 09:45 Pantoprazole (Protonix) 40 mg EVERY 12 HOURS ORAL 04/13/18 21:00 05/13/18 20:59 04/21/18 09:44 Quetiapine Fumarate (SEROquel) 12.5 mg Q4H PRN ORAL ANXIETY 04/13/18 13:43 05/12/18 13:42 Sennosides (Senokot) 1 tab QHS ORAL 04/18/18 21:00 05/18/18 20:59 04/20/18 21:04 Sitagliptin Phosphate (Januvia) 50 mg ACBREAKFAST ORAL 04/14/18 06:30 05/14/18 06:29 04/21/18 05:51 Sodium Chloride 1,000 ml @ 60 mls/hr [id number] IV 04/20/18 05:15 05/20/18 05:14 04/20/18 22:06 Tamsulosin HCl (Flomax) 0.4 mg BID ORAL 04/18/18 18:00 05/11/18 20:59 04/21/18 09:45 Vitamin A/Vitamin D (A & D Oint) 1 applic TWICE A DAY TOPIC 04/13/18 18:00 05/12/18 08:59 04/21/18 09:48 GI: Plan Problems: (1) Malnutrition (2) Altered mental state (3) Dehydration (4) Acute cerebrovascular accident (CVA) Plan patient tolerating almost 100% puree diet no reports of N/V anemia work up reviewed supportive care at this time push PO strict aspiration precautions cont calorie count fu neurology recs zofran prn, reglan prn for persistent emesis fu labs Discussed with Dr. Fernandez. Thank you for this patient referral, we will follow. The patient was seen and examined at bedside and all new and available data was reviewed in the patients chart. I agree with the above findings, impression and plan. (Patient seen earlier today. Signature stamp does not reflect patient encounter time.). - MD Luci Stewart,[facility] Medical CenterGatito COVER MARKER Apr 21, 2018 12:38
--- NOTE | 2018-04-21 12:57 | Infectious Diseases Prog Note ---
Assessment/Plan Assessment/Plan A; Sepsis with Staph aureus, MSSA UTI with MSSA DM & Hyperglycemia Embolic CVA AMS elevated troponin Syncope & Fall Encephalopathy Old lacunar infarcts Hematuria Rash P; Continue Oxacillin Start on Po Fluconazole Subjective ROS Limited/Unobtainable: Yes Constitutional: Reports: no symptoms Cardiovascular: Reports: no symptoms Gastrointestinal/Abdominal: Reports: no symptoms Genitourinary: Reports: hematuria Neurologic: Reports: weakness, other - in hips Allergies: Coded Allergies: No Known Allergies (Unverified , 04/11/18) Objective Vital Signs Last 24 Hour Vital Signs Date Time Temp Pulse Resp B/P (MAP) Pulse Ox O2 Delivery O2 Flow Rate FiO2 04/21/18 09:45 73 119/68 04/21/18 09:00 Room Air 04/21/18 08:00 97.2 73 18 119/64 (82) 94 97.2 04/21/18 04:00 98.3 97 18 110/64 (79) 95 98.3 04/21/18 00:00 98.2 85 18 98/58 (71) 94 98.2 04/20/18 21:06 103 111/70 04/20/18 21:00 Room Air 04/20/18 20:00 98.6 103 20 111/70 (84) 95 98.6 04/20/18 16:00 97.1 102 20 151/79 (103) 95 97.1 04/20/18 15:23 207.9 99 18 94 04/20/18 15:21 208.4 94 19 98 04/20/18 14:00 97.7 99 18 140/72 (94) 94 97.7 04/20/18 13:37 97.4 97 21 101/59 95 Room Air 97.4 04/20/18 13:30 98 20 102/61 95 Room Air 04/20/18 13:20 98 20 104/63 98 Nasal Cannula 3 04/20/18 13:10 94 19 104/64 98 Nasal Cannula 3 04/20/18 13:05 96 21 113/70 98 Nasal Cannula 3 04/20/18 13:00 97.4 95 22 106/68 98 Nasal Cannula 3 97.4 Height (Feet): 6 Height (Inches): 0.00 Weight (Pounds): 189 General Appearance: no acute distress HEENT: mucous membranes moist Respiratory/Chest: lungs clear Cardiovascular: normal rate Abdomen: soft, non tender Genitourinary: other - Hankins catheter, hematuria Neurologic/Psychiatric: alert, responsive - weakness in legs Current Medications Medications (Trade) Dose Ordered Sig/Safia Route PRN Reason Start Time Stop Time Status Last Admin Dose Admin Acetaminophen (Tylenol) 500 mg Q4H PRN ORAL Mild Pain/Temp > 100.5 04/13/18 13:41 05/11/18 13:40 04/14/18 21:33 Bisacodyl (Dulcolax) 10 mg DAILY ORAL 04/18/18 09:00 05/18/18 08:59 04/21/18 09:45 Dextrose (Dextrose 50%) 25 ml Q30M PRN IV Hypoglycemia 04/15/18 18:00 05/15/18 17:59 Dextrose (Dextrose 50%) 50 ml Q30M PRN IV Hypoglycemia 04/15/18 18:00 05/15/18 17:59 Docusate Sodium (Colace) 100 mg THREE TIMES A DAY ORAL 04/18/18 18:00 05/18/18 17:59 04/21/18 09:46 Insulin Aspart (NovoLOG) BEFORE MEALS AND HS SUBQ 04/15/18 21:00 05/15/18 20:59 04/21/18 12:22 Insulin Detemir (Levemir) 10 units DAILY SUBQ 04/18/18 09:00 05/13/18 08:59 04/21/18 09:54 Lidocaine (Lidoderm 5% PATCH) 1 patch DAILY@0000 TDERMAL 04/14/18 00:00 05/13/18 00:14 04/20/18 23:36 Magnesium Hydroxide (Mom) 30 ml Q4HR PRN ORAL Constipation 04/17/18 22:45 05/17/18 22:44 04/18/18 17:11 Megestrol Acetate (Megace) 400 mg TWICE A DAY ORAL 04/16/18 11:00 05/16/18 10:59 04/21/18 09:46 Metoprolol Tartrate (Lopressor) 50 mg Q12HR ORAL 04/17/18 21:00 05/13/18 20:59 04/21/18 09:45 Nateglinide (Starlix) 120 mg TIAC ORAL 04/13/18 16:30 05/12/18 08:59 10/5/18 12:22 Nitroglycerin (Ntg) 1 patch Q24H TDERMAL 04/14/18 11:00 05/11/18 10:59 04/20/18 10:12 Oxacillin Sodium 2 gm/Sodium Chloride 110 ml @ 220 mls/hr Q4HR IVPB 04/20/18 13:00 04/27/18 12:59 04/21/18 09:45 Pantoprazole (Protonix) 40 mg EVERY 12 HOURS ORAL 04/13/18 21:00 05/13/18 20:59 04/21/18 09:44 Quetiapine Fumarate (SEROquel) 12.5 mg Q4H PRN ORAL ANXIETY 04/13/18 13:43 05/12/18 13:42 Sennosides (Senokot) 1 tab QHS ORAL 04/18/18 21:00 05/18/18 20:59 04/20/18 21:04 Sitagliptin Phosphate (Januvia) 50 mg ACBREAKFAST ORAL 04/14/18 06:30 05/14/18 06:29 04/21/18 05:51 Sodium Chloride 1,000 ml @ 60 mls/hr [id number] IV 04/20/18 05:15 05/20/18 05:14 04/20/18 22:06 Tamsulosin HCl (Flomax) 0.4 mg BID ORAL 04/18/18 18:00 05/11/18 20:59 04/21/18 09:45 Vitamin A/Vitamin D (A & D Oint) 1 applic TWICE A DAY TOPIC 04/13/18 18:00 05/12/18 08:59 04/21/18 09:48 Conor Egan MD Apr 21, 2018 12:57
[2018-04-21] MEDS: Nitroglycerin Patch 0.4mg TDERMAL SCH (13:37)
[2018-04-21] MEDS: Fluconazole 100mg tab ORAL SCH (13:45)
--- NOTE | 2018-04-21 13:47 | Nephrology Progress Note ---
Assessment/Plan Problem List: (1) Dehydration (2) UTI (urinary tract infection) (3) Acute renal failure (4) Acute encephalopathy (5) Diabetes mellitus out of control (6) Elevated troponin I level (7) Urinary retention Assessment: 700 cc 04/18/18 (8) Acute cerebrovascular accident (CVA) (9) Sepsis Assessment acute CVA Renal Failure- encephalopathy UTI Dehydration Low na and high K Elevated troponin DM , high Glucose Plan shower of emboli to brain ZA per cardio negative Antibiotics per ID vizcaino- has 700 cc retention Adjust meds starlix Monitor lytes ASA Nitrate St eval recheck UA and U culture Per orders to acute rehab Subjective ROS Limited/Unobtainable: No Constitutional: Reports: malaise Objective Objective Last 24 Hour Vital Signs Date Time Temp Pulse Resp B/P (MAP) Pulse Ox O2 Delivery O2 Flow Rate FiO2 04/21/18 13:37 135/76 04/21/18 12:00 97.5 76 20 111/65 (80) 96 97.5 04/21/18 09:45 73 119/68 04/21/18 09:00 Room Air 04/21/18 08:00 97.2 73 18 119/64 (82) 94 97.2 04/21/18 04:00 98.3 97 18 110/64 (79) 95 98.3 04/21/18 00:00 98.2 85 18 98/58 (71) 94 98.2 04/20/18 21:06 103 111/70 04/20/18 21:00 Room Air 04/20/18 20:00 98.6 103 20 111/70 (84) 95 98.6 04/20/18 16:00 97.1 102 20 151/79 (103) 95 97.1 04/20/18 15:23 207.9 99 18 94 04/20/18 15:21 208.4 94 19 98 04/20/18 14:00 97.7 99 18 140/72 (94) 94 97.7 Intake and Output 04/20/18 04/21/18 19:00 07:00 Intake Total 720 ml 1050 ml Output Total 900 ml 700 ml Balance -180 ml 350 ml Intake Oral 360 ml 240 ml IV Total 360 ml 810 ml Output Urine Total 900 ml 700 ml Estimated Blood Loss 0 ml # Bowel Movements 1 Height (Feet): 6 Height (Inches): 0.00 Weight (Pounds): 189 General Appearance: no apparent distress Objective no change Greyson Ignacio MD Apr 21, 2018 13:47
--- NOTE | 2018-04-21 14:33 | Neurology Progress Note ---
Interim History Interim History Interim History Mr. Devlin feels better. The mind is clear. He still feels generally stronger but the legs are still weak. When attempts were made to sit up with the therapist he had difficulty. His speech is a little better today. He denies any new neurologic symptoms. Review of Systems Neuro Review of Systems Benign. Objective Physical Exam Last Vital Signs Date Time Temp Pulse Resp B/P (MAP) Pulse Ox O2 Delivery O2 Flow Rate FiO2 04/21/18 13:37 135/76 04/21/18 12:00 97.5 76 20 96 97.5 04/21/18 09:00 Room Air 04/20/18 13:20 3 Neurologic Exam Objective PHYSICAL EXAMINATION: GENERAL: He is a well-developed, well-nourished, pleasant gentleman, lying in bed, in no acute distress. HEAD: Normocephalic and atraumatic. EENT: Examination benign. NECK: No neck rigidity was observed. NEUROLOGIC EXAMINATION: MENTAL STATUS EXAMINATION: He was awake and alert. He was oriented to self, hospital, and April 2018. He did not know the name of the hospital or the date. He was able to recall 3/3 words immediately, but could only remember 1/3 words in 1 and 3 minutes. He was able to remember presidents Trump and Obama, but could not remember presidents prior to that. His mathematical skills were impaired. His visuospatial function was also impaired. SPEECH: He had a mild dysarthria. LANGUAGE: He had anomia for low and mid frequency words. CRANIAL NERVE EXAMINATION: II: The visual matthew were intact on confrontation testing. III, IV & : The external ocular movements were full and the pupils were 3 mm in diameter, equal, round, regular, and reactive to light. V: He had normal facial sensations, and the temporales, masseters, and pterygoids functioned normally. VII: He had normal facial expressions and no facial asymmetry. VIII: He was able to hear well bilaterally and had no nystagmus. IX: The palate moved symmetrically on phonation. X: He had no hoarseness of voice. XI: The sternocleidomastoids and trapezii functioned normally. XII: The tongue was in the midline without any fasciculations or atrophy. MOTOR SYSTEM: The tone was normal in all four extremities. Examination of muscle mass revealed no focal wasting. Examination of power revealed G 5/5 power in both upper extremities. In both lower extremities he had G 4/5 power, except for G 3/5 power in the iliopsoas, G 4/5 in the hamstrings, and G 5-/5 in the toe extensors bilaterally. SENSORY EXAMINATION: He responded appropriately to deep pain. He was unable to cooperate for the sensory modalities. REFLEXES: 3+ and bilaterally symmetrical at the biceps, triceps, and brachioradialis, 3++ at both knees, 0 at both ankles. The plantar responses were flexor bilaterally. COORDINATION: He performed well on finger to nose testing. He could not perform heel to paulson testing. STANCE & GAIT: Could not be tested. Impression/Recommendations Diagnostic Impression 1. Mr. Say Devlin is a 72-year-old, right-handed, gentleman, who has a nebulous past history, which he states is benign. He was functioning well until 04/11/2018, when he apparently fell down at home, bumped his head, and following that, went to a restaurant where he was noted to be sitting for a prolonged period of time and was also noted to have shaking chills. He was, in addition, confused and felt ill. As a result of that, the paramedics were called in and he was brought into the [facility] emergency room. 2. In the emergency room, he was noted to be tachycardic, had a significant leukocytosis with a left-sided shift, had an elevated blood sugar, a benign CT of the brain, urinalysis consistent with an acute significant urinary tract infection, and 3/3 blood cultures positive for Staphylococcus aureus. He was started on appropriate antibiotics, but has continued to have some waxing and waning of his mental state and as a result of that, an MRI of the brain was performed on 04/18/2018, which revealed scattered bilateral cerebral and cerebellar foci of diffusion restriction consistent with multiple acute cerebral embolic phenomena. 3. He feels better today. The mind is clear. He still feels generally stronger but the legs are still weak. When attempts were made to sit up with the therapist he had difficulty. His speech is a little better today. He denies any new neurologic symptoms. 4. On neurological examination at this time, he does have problems with orientation, recent and remote memory, visuospatial function, higher cognitive function and language. He also has a dysarthria. He has significant bilateral lower extremity weakness with pathologically brisk DTRs with the knee jerks brisker than upper extremity reflexes. 5. His laboratory data on admission revealed WBC count elevated to 12,200 with 87% neutrophils, 4% lymphocytes, and 9% monocytes. His chemistry panel revealed that his sodium was low at 128, chloride was low at 95, BUN was elevated at 38, creatinine was elevated at 1.5, and blood glucose was elevated to 337. His troponin was elevated at 0.067. His urinalysis revealed 3+ leukocyte esterase, 60-80 RBCs, and 20-30 WBCs per high power field. 6. He had his ZA on 04/20/18, as per Dr Chappell the study did not reveal signs of endocarditis or embolic phenomena. 7. The patient's history, neurological examination, laboratory data, and imaging studies are most compatible with a shower of emboli to the brain. It is unclear if these emboli are septic versus bland. Recommendations 1. Continue present management. 2. Would continue aggressive treatment of the patient's infectious process and treat him like a patient who does have bacterial endocarditis. 3. The patient's cardiac rhythm should be monitored for a malignant cardiac arrhythmia. 4. Physical, occupational, speech and language therapy. 5. Would do full coagulopathy work-up. Donald Singer M.D., M.S.P.DONALD HAMILTON Apr 21, 2018 14:33
--- NOTE | 2018-04-21 15:32 | General Progress Note ---
Assessment/Plan Assessment/Plan 1. Thrombocytopenia potentially secondary to underlying infection. ++ HSM noted , unknown if has cirrhosis as the ultrasound is non-conclusive --> Hepatitis panel and human immunodeficiency virus are both negative --> Hepatosplenomegaly. Question of nodularity of the liver surface. Cirrhosis not excluded. Correlate clinically --> hold off on transfusion if Plt>20k --> stable range of approx 100-150k 2. Leukocytosis, likely secondary to urinary tract infection. Remains on abx --> on abx and peripheral smear reviewed --> id recs are appreciated 3. Pyuria due to urinary tract infection. Closely monitor for improvement. He is on abx --> id service has been consulted, on ancef/abx --> appreciate their recs, remains on abx 4. Old lacunar infarct. as per neuro eval --> their recs are appreciated 5. Anemia due to underlying chronic disease. Continue to closely monitor. --> anemia panel has been reviewed --> hgb goal >7, transfuse prn 6. Anemia due to hematuria --> plavix will hold due to continued hematuria --> cbc reviewed --> appreciate uro recs 7. Sinus tachycardia, which was corrected Greatly appreciate consultation! Subjective Constitutional: Denies: no symptoms, chills, diaphoresis, fever, malaise, weakness, other HEENT: Denies: no symptoms, eye pain, blurred vision, tearing, double vision, ear pain, ear discharge, nose pain, nose congestion, throat pain, throat swelling, mouth pain, mouth swelling, other Cardiovascular: Denies: no symptoms, chest pain, edema, irregular heart rate, lightheadedness, palpitations, syncope, other Respiratory: Denies: no symptoms, cough, orthopnea, shortness of breath, SOB with excertion, SOB at rest, sputum, stridor, wheezing, other Gastrointestinal/Abdominal: Reports: no symptoms Genitourinary: Reports: no symptoms Neurologic/Psychiatric: Reports: no symptoms Endocrine: Reports: no symptoms Hematologic/Lymphatic: Reports: anemia Allergies: Coded Allergies: No Known Allergies (Unverified , 04/11/18) Subjective vizcaino irrigated last night, bloody urine vizcaino Objective Last 24 Hour Vital Signs Date Time Temp Pulse Resp B/P (MAP) Pulse Ox O2 Delivery O2 Flow Rate FiO2 04/21/18 13:37 135/76 04/21/18 12:00 97.5 76 20 111/65 (80) 96 97.5 04/21/18 09:45 73 119/68 04/21/18 09:00 Room Air 04/21/18 08:00 97.2 73 18 119/64 (82) 94 97.2 04/21/18 04:00 98.3 97 18 110/64 (79) 95 98.3 04/21/18 00:00 98.2 85 18 98/58 (71) 94 98.2 04/20/18 21:06 103 111/70 04/20/18 21:00 Room Air 04/20/18 20:00 98.6 103 20 111/70 (84) 95 98.6 04/20/18 16:00 97.1 102 20 151/79 (103) 95 97.1 Intake and Output 04/20/18 04/21/18 19:00 07:00 Intake Total 720 ml 1050 ml Output Total 900 ml 700 ml Balance -180 ml 350 ml Intake Oral 360 ml 240 ml IV Total 360 ml 810 ml Output Urine Total 900 ml 700 ml Estimated Blood Loss 0 ml # Bowel Movements 1 Height (Feet): 6 Height (Inches): 0.00 Weight (Pounds): 189 General Appearance: no apparent distress EENT: TMs normal Neck: supple Cardiovascular: regular rhythm Respiratory/Chest: lungs clear Abdomen: no organomegaly Extremities: non-tender Edema: no edema noted Leg (L), no edema noted Leg (R) Edema: mild edema Neurologic: alert Skin: warm/dry Zack Miguel MD Apr 21, 2018 15:32
[2018-04-21] MEDS ORDERED: Sterile Water Irrig 1000ml IRRIG ONE (15:41)
[2018-04-21] MEDS ORDERED: 1/2 NS 1000ml IV ONE (15:41)
[2018-04-21 16:00] VITALS: BP 147/81
[2018-04-21 20:00] VITALS: BP 150/82
[2018-04-21] MEDS: Sennosides 8.6mg ORAL SCH (20:30)
--- NOTE | 2018-04-21 21:52 | Cardiology Progress Note ---
Assessment/Plan Assessment/Plan 1. 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 2. Slight elevation of troponin I level due to NSTEMI, vs transient hypotension vs CVA. 3. Sinus tachycardia, resolved, likely secondary to hypovolemia and intravascular volume depletion. 4. Staph A. bacteremia with no evidence of endocarditis. Subjective Subjective No cardiac events. Objective Last 24 Hour Vital Signs Date Time Temp Pulse Resp B/P (MAP) Pulse Ox O2 Delivery O2 Flow Rate FiO2 04/21/18 21:00 Room Air 04/21/18 20:30 95 150/82 04/21/18 20:00 98.0 95 18 150/82 (104) 96 98.0 04/21/18 16:00 97.7 90 20 147/81 (103) 95 97.7 04/21/18 13:37 135/76 04/21/18 12:00 97.5 76 20 111/65 (80) 96 97.5 04/21/18 09:45 73 119/68 04/21/18 09:00 Room Air 04/21/18 08:00 97.2 73 18 119/64 (82) 94 97.2 04/21/18 04:00 98.3 97 18 110/64 (79) 95 98.3 04/21/18 00:00 98.2 85 18 98/58 (71) 94 98.2 Intake and Output 04/20/18 04/21/18 19:00 07:00 Intake Total 720 ml 1050 ml Output Total 900 ml 700 ml Balance -180 ml 350 ml Intake Oral 360 ml 240 ml IV Total 360 ml 810 ml Output Urine Total 900 ml 700 ml Estimated Blood Loss 0 ml # Bowel Movements 1 2D Echo: LVEF 70%, Mild LVH, Grade I LVDD, RVSP 24 mmHg Laboratory Tests Test 04/21/18 16:50 Lupus Anticoagulant Pending Lupus Anticoagulant PTT Baseline Pending Lupus Anticoag DRVVT Screen Ratio Pending DRVVT Confirmation Interpretation Pending Hexagonal Phase Comment Pending Protein C Antigen Pending Protein S Antigen Pending Free Protein S Pending Factor V Mutation Pending C-Reactive Protein, Quantitative 5.6 mg/dL (0.00-0.90) H Anti-Cardiolipin IgM Antibody Pending Objective HEENT: Atraumatic and normocephalic. Anicteric. Pupils are equal, round, and reactive to light and accommodation. Altered NECK: JVP less than 5 cm. No carotid bruit. CARDIOVASCULAR: Normal S1 and S2. No murmurs, gallops, or rubs. PMI is at fourth intercostal space in the midclavicular line. LUNGS: Clear to auscultation bilaterally. ABDOMEN: Soft, nontender, and nondistended. No hepatosplenomegaly. Positive bowel sounds. EXTREMITIES: No evidence of edema, clubbing, or cyanosis. Beto Chappell MD Apr 21, 2018 21:52
--- NOTE | 2018-04-21 23:56 | General Progress Note ---
Assessment/Plan Status: stable, progressing Assessment/Plan [place]opathy [place] [facility] [place] acute CVA ZA negative Seroquel prn provided ro/st Subjective Date patient seen: Apr 21, 2018 Neurologic/Psychiatric: Reports: anxiety, depressed, emotional problems Allergies: Coded Allergies: No Known Allergies (Unverified , 04/11/18) Subjective the pt was calmer Objective Last 24 Hour Vital Signs Date Time Temp Pulse Resp B/P (MAP) Pulse Ox O2 Delivery O2 Flow Rate FiO2 04/21/18 21:00 Room Air 04/21/18 20:30 95 150/82 04/21/18 20:00 98.0 95 18 150/82 (104) 96 98.0 04/21/18 16:00 97.7 90 20 147/81 (103) 95 97.7 04/21/18 13:37 135/76 04/21/18 12:00 97.5 76 20 111/65 (80) 96 97.5 04/21/18 09:45 73 119/68 04/21/18 09:00 Room Air 04/21/18 08:00 97.2 73 18 119/64 (82) 94 97.2 04/21/18 04:00 98.3 97 18 110/64 (79) 95 98.3 04/21/18 00:00 98.2 85 18 98/58 (71) 94 98.2 Intake and Output 04/20/18 04/21/18 19:00 07:00 Intake Total 720 ml 1050 ml Output Total 900 ml 700 ml Balance -180 ml 350 ml Intake Oral 360 ml 240 ml IV Total 360 ml 810 ml Output Urine Total 900 ml 700 ml Estimated Blood Loss 0 ml # Bowel Movements 1 Laboratory Tests 04/21/18 16:50: Lupus Anticoagulant [Pending], Lupus Anticoagulant PTT Baseline [Pending], Lupus Anticoag DRVVT Screen Ratio [Pending], DRVVT Confirmation Interpretation [ Pending], Hexagonal Phase Comment [Pending], Protein C Antigen [Pending], Protein S Antigen [Pending], Free Protein S [Pending], Factor V Mutation [ Pending], C-Reactive Protein, Quantitative 5.6H, Anti-Cardiolipin IgM Antibody [ Pending] Height (Feet): 6 Height (Inches): 0.00 Weight (Pounds): 189 General Appearance: no apparent distress, alert Farhadi,Pantea MD Apr 21, 2018 23:56
[2018-04-22] VITALS: BP 132/75
[2018-04-22] MEDS: Oxacillin 2 GM in NS 110 ML IVPB SCH ×6 (00:19→20:35)
[2018-04-22 04:00] VITALS: BP 122/60
[2018-04-22] MEDS: sitaGLIPtin 50mg tab ORAL SCH (05:53)
[2018-04-22] MEDS: NovoLOG Insulin Flexpen SUBQ SCH ×4 (05:55→20:43)
[2018-04-22 06:34] LABS: HEMATOCRIT 28.9 % (42.0-52.0); HEMOGLOBIN 9.8 G/DL (14.2-18.0); MEAN CORPUSCULAR VOLUME 85 FL (80-99); PLATELET COUNT 335 K/UL (150-450); RED CELL DISTRIBUTION WIDTH 11.9 % (11.6-14.8); WHITE BLOOD COUNT 10.5 K/UL (4.8-10.8)
[2018-04-22 06:57] LABS: ALANINE AMINOTRANSFERASE 18 U/L (12-78); ALBUMIN/GLOBULIN RATIO 0.4 (1.0-2.7); ALKALINE PHOSPHATASE 87 U/L (46-116); ANION GAP 7 mmol/L (5-15); ASPARTATE AMINO TRANSFERASE 12 U/L (15-37); BILIRUBIN,TOTAL 0.4 MG/DL (0.2-1.0); BLOOD UREA NITROGEN 18 mg/dL (7-18); CALCIUM 9.4 MG/DL (8.5-10.1); CARBON DIOXIDE 24 MMOL/L (21-32); CHLORIDE 106 MMOL/L (98-107); CREATININE 0.8 MG/DL (0.55-1.30); PHOSPHORUS 2.4 MG/DL (2.5-4.9); POTASSIUM 3.8 MMOL/L (3.5-5.1); SODIUM 137 MMOL/L (136-145)
[2018-04-22] MEDS: Docusate 100mg/10ml Liq ORAL SCH ×3 (08:51→17:46)
[2018-04-22] MEDS: Fluconazole 100mg tab ORAL SCH (08:54)
[2018-04-22] MEDS: Tamsulosin 0.4mg cap ORAL SCH ×2 (08:55→17:46)
[2018-04-22] MEDS: Bisacodyl EC 5mg tab ORAL SCH (08:55)
[2018-04-22] MEDS: Metoprolol Tartrate 50mg tab ORAL SCH ×2 (08:58→20:40)
[2018-04-22] MEDS: Megace 400mg/10ml Susp ORAL SCH ×2 (08:59→17:46)
[2018-04-22] MEDS: Vitamin A&D Oint 2oz Tube TOPIC SCH ×2 (08:59→17:46)
[2018-04-22] MEDS: Levemir Flexpen SUBQ SCH (09:01)
--- NOTE | 2018-04-22 10:13 | Nephrology Progress Note ---
Assessment/Plan Problem List: (1) Dehydration (2) UTI (urinary tract infection) (3) Acute renal failure (4) Acute encephalopathy (5) Diabetes mellitus out of control (6) Elevated troponin I level (7) Urinary retention Assessment: 700 cc 04/18/18 (8) Acute cerebrovascular accident (CVA) (9) Sepsis Assessment acute CVA Renal Failure- encephalopathy UTI Dehydration Low na and high K Elevated troponin DM , high Glucose Plan shower of emboli to brain ZA per cardio negative Antibiotics per ID vizcaino- has 700 cc retention Adjust meds starlix Monitor lytes ASA Nitrate St eval recheck UA and U culture Per orders to acute rehab Subjective ROS Limited/Unobtainable: No Constitutional: Reports: malaise Objective Objective Last 24 Hour Vital Signs Date Time Temp Pulse Resp B/P (MAP) Pulse Ox O2 Delivery O2 Flow Rate FiO2 04/22/18 08:58 98 106/59 04/22/18 04:00 98.9 86 20 122/60 (80) 95 98.9 04/22/18 00:00 97.8 82 20 132/75 (94) 95 97.8 04/21/18 21:00 Room Air 04/21/18 20:30 95 150/82 04/21/18 20:00 98.0 95 18 150/82 (104) 96 98.0 04/21/18 16:00 97.7 90 20 147/81 (103) 95 97.7 04/21/18 13:37 135/76 04/21/18 12:00 97.5 76 20 111/65 (80) 96 97.5 Intake and Output 04/21/18 04/22/18 19:00 07:00 Intake Total 1660 ml 810 ml Output Total 1250 ml 700 ml Balance 410 ml 110 ml Intake Oral 900 ml 120 ml IV Total 760 ml 690 ml Output Urine Total 1250 ml 700 ml # Bowel Movements 1 Laboratory Tests 04/21/18 16:50: Lupus Anticoagulant [Pending], Lupus Anticoagulant PTT Baseline [Pending], Lupus Anticoag DRVVT Screen Ratio [Pending], DRVVT Confirmation Interpretation [ Pending], Hexagonal Phase Comment [Pending], Protein C Antigen [Pending], Protein S Antigen [Pending], Free Protein S [Pending], Factor V Mutation [ Pending], C-Reactive Protein, Quantitative 5.6H, Anti-Cardiolipin IgM Antibody [ Pending] 04/22/18 05:30: White Blood Count 10.5, Red Blood Count 3.40L, Hemoglobin 9.8L, Hematocrit 28.9L , Mean Corpuscular Volume 85, Mean Corpuscular Hemoglobin 28.9, Mean Corpuscular Hemoglobin Concent 34.0, Red Cell Distribution Width 11.9, Platelet Count 335, Mean Platelet Volume 5.6L, Neutrophils (%) (Auto) , Lymphocytes (%) ( Auto) , Monocytes (%) (Auto) , Eosinophils (%) (Auto) , Basophils (%) (Auto) , Neutrophils % (Manual) [Pending], Lymphocytes % (Manual) [Pending], Platelet Estimate [Pending], Platelet Morphology [Pending], Sodium Level 137, Potassium Level 3.8, Chloride Level 106, Carbon Dioxide Level 24, Anion Gap 7, Blood Urea Nitrogen 18, Creatinine 0.8, Estimat Glomerular Filtration Rate , Glucose Level 145H, Uric Acid 3.1, Calcium Level 9.4, Phosphorus Level 2.4L, Magnesium Level 1.9, Total Bilirubin 0.4, Aspartate Amino Transf (AST/SGOT) 12L, Alanine Aminotransferase (ALT/SGPT) 18, Alkaline Phosphatase 87, Ammonia 26, Pro-B-Type Natriuretic Peptide 178H, Total Protein 7.1, Albumin 2.0L, Globulin 5.1, Albumin /Globulin Ratio 0.4L Height (Feet): 6 Height (Inches): 0.00 Weight (Pounds): 189 General Appearance: no apparent distress Objective no change Greyson Ignacio MD Apr 22, 2018 10:12
[2018-04-22] MEDS: Nitroglycerin Patch 0.4mg TDERMAL SCH (11:54)
[2018-04-22 12:00] VITALS: BP 102/65
--- NOTE | 2018-04-22 14:23 | Neurology Progress Note ---
Interim History Interim History Interim History Mr. Devlin feels better. The mind is clearer. He feels generally stronger but the legs are still weak. His speech is a little better and so is his language. He is still bleeding from his urethra. He denies any new neurologic symptoms. Review of Systems Neuro Review of Systems Benign. Objective Physical Exam Last Vital Signs Date Time Temp Pulse Resp B/P (MAP) Pulse Ox O2 Delivery O2 Flow Rate FiO2 04/22/18 12:00 97.0 98 19 102/65 (77) 96 97.0 04/22/18 09:00 Room Air 04/20/18 13:20 3 Laboratory Tests Test 04/21/18 16:50 04/22/18 05:30 Lupus Anticoagulant Pending Lupus Anticoagulant PTT Baseline Pending Lupus Anticoag DRVVT Screen Ratio Pending DRVVT Confirmation Interpretation Pending Hexagonal Phase Comment Pending Protein C Antigen Pending Protein S Antigen Pending Free Protein S Pending Factor V Mutation Pending C-Reactive Protein, Quantitative 5.6 mg/dL (0.00-0.90) H Anti-Cardiolipin IgM Antibody Pending White Blood Count 10.5 K/UL (4.8-10.8) Red Blood Count 3.40 M/UL (4.70-6.10) L Hemoglobin 9.8 G/DL (14.2-18.0) L Hematocrit 28.9 % (42.0-52.0) L Mean Corpuscular Volume 85 FL (80-99) Mean Corpuscular Hemoglobin 28.9 PG (27.0-31.0) Mean Corpuscular Hemoglobin Concent 34.0 G/DL (32.0-36.0) Red Cell Distribution Width 11.9 % (11.6-14.8) Platelet Count 335 K/UL (150-450) Mean Platelet Volume 5.6 FL (6.5-10.1) L Neutrophils (%) (Auto) % (45.0-75.0) Lymphocytes (%) (Auto) % (20.0-45.0) Monocytes (%) (Auto) % (1.0-10.0) Eosinophils (%) (Auto) % (0.0-3.0) Basophils (%) (Auto) % (0.0-2.0) Differential Total Cells Counted 100 Neutrophils % (Manual) 87 % (45-75) H Lymphocytes % (Manual) 7 % (20-45) L Monocytes % (Manual) 6 % (1-10) Eosinophils % (Manual) 0 % (0-3) Basophils % (Manual) 0 % (0-2) Band Neutrophils 0 % (0-8) Platelet Estimate Adequate Platelet Morphology Normal Red Blood Cell Morphology Normal Sodium Level 137 MMOL/L (136-145) Potassium Level 3.8 MMOL/L (3.5-5.1) Chloride Level 106 MMOL/L (98-107) Carbon Dioxide Level 24 MMOL/L (21-32) Anion Gap 7 mmol/L (5-15) Blood Urea Nitrogen 18 mg/dL (7-18) Creatinine 0.8 MG/DL (0.55-1.30) Estimat Glomerular Filtration Rate mL/min (>60) Glucose Level 145 MG/DL (74-106) H Uric Acid 3.1 MG/DL (2.6-7.2) Calcium Level 9.4 MG/DL (8.5-10.1) Phosphorus Level 2.4 MG/DL (2.5-4.9) L Magnesium Level 1.9 MG/DL (1.8-2.4) Total Bilirubin 0.4 MG/DL (0.2-1.0) Aspartate Amino Transf (AST/SGOT) 12 U/L (15-37) L Alanine Aminotransferase (ALT/SGPT) 18 U/L (12-78) Alkaline Phosphatase 87 U/L (46-116) Ammonia 26 umol/L (11-32) Pro-B-Type Natriuretic Peptide 178 pg/mL (0-125) H Total Protein 7.1 G/DL (6.4-8.2) Albumin 2.0 G/DL (3.4-5.0) L Globulin 5.1 g/dL Albumin/Globulin Ratio 0.4 (1.0-2.7) L Neurologic Exam Objective PHYSICAL EXAMINATION: GENERAL: He is a well-developed, well-nourished, pleasant gentleman, lying in bed, in no acute distress. HEAD: Normocephalic and atraumatic. EENT: Examination benign. NECK: No neck rigidity was observed. NEUROLOGIC EXAMINATION: MENTAL STATUS EXAMINATION: He was awake and alert. He was oriented to [facility] [address], [facility], and April 2018. He did not know the date. He was able to recall 3/3 words immediately, but could only remember 2/3 words in 1 and 3 minutes. He was able to remember presidents Trump and Obama, but could not remember presidents prior to that. His mathematical skills were impaired. His visuospatial function was also impaired. SPEECH: He had a mild dysarthria. LANGUAGE: He had anomia for low and mid frequency words. CRANIAL NERVE EXAMINATION: II: The visual matthew were intact on confrontation testing. III, IV & : The external ocular movements were full and the pupils were 3 mm in diameter, equal, round, regular, and reactive to light. V: He had normal facial sensations, and the temporales, masseters, and pterygoids functioned normally. VII: He had normal facial expressions and no facial asymmetry. VIII: He was able to hear well bilaterally and had no nystagmus. IX: The palate moved symmetrically on phonation. X: He had no hoarseness of voice. XI: The sternocleidomastoids and trapezii functioned normally. XII: The tongue was in the midline without any fasciculations or atrophy. MOTOR SYSTEM: The tone was normal in all four extremities. Examination of muscle mass revealed no focal wasting. Examination of power revealed G 5/5 power in both upper extremities. In both lower extremities he had G 4/5 power, except for G 3/5 power in the iliopsoas, G 4/5 in the hamstrings, and G 5-/5 in the toe extensors bilaterally. SENSORY EXAMINATION: He responded appropriately to deep pain. He was unable to cooperate for the sensory modalities. REFLEXES: 3+ and bilaterally symmetrical at the biceps, triceps, and brachioradialis, 3++ at both knees, 0 at both ankles. The plantar responses were flexor bilaterally. COORDINATION: He performed well on finger to nose testing. He could not perform heel to paulson testing. STANCE & GAIT: Could not be tested. Impression/Recommendations Diagnostic Impression 1. Mr. Say Devlin is a 72-year-old, right-handed, gentleman, who has a nebulous past history, which he states is benign. He was functioning well until 04/11/2018, when he apparently fell down at home, bumped his head, and following that, went to a restaurant where he was noted to be sitting for a prolonged period of time and was also noted to have shaking chills. He was, in addition, confused and felt ill. As a result of that, the paramedics were called in and he was brought into the [facility] emergency room. 2. In the emergency room, he was noted to be tachycardic, had a significant leukocytosis with a left-sided shift, had an elevated blood sugar, a benign CT of the brain, urinalysis consistent with an acute significant urinary tract infection, and 3/3 blood cultures positive for Staphylococcus aureus. He was started on appropriate antibiotics, but has continued to have some waxing and waning of his mental state and as a result of that, an MRI of the brain was performed on 04/18/2018, which revealed scattered bilateral cerebral and cerebellar foci of diffusion restriction consistent with multiple acute cerebral embolic phenomena. 3. He feels better. The mind is clearer. He feels generally stronger but the legs are still weak. His speech is a little better and so is his language. He is still bleeding from his urethra. He denies any new neurologic symptoms. 4. On neurological examination at this time, he does have problems with orientation, recent and remote memory, visuospatial function, higher cognitive function and language. He also has a dysarthria. He has significant bilateral lower extremity weakness with pathologically brisk DTRs with the knee jerks brisker than upper extremity reflexes. His neurologic function is generally improved. 5. His laboratory data on admission revealed WBC count elevated to 12,200 with 87% neutrophils, 4% lymphocytes, and 9% monocytes. His chemistry panel revealed that his sodium was low at 128, chloride was low at 95, BUN was elevated at 38, creatinine was elevated at 1.5, and blood glucose was elevated to 337. His troponin was elevated at 0.067. His urinalysis revealed 3+ leukocyte esterase, 60-80 RBCs, and 20-30 WBCs per high power field. 6. He had his ZA on 04/20/18, as per Dr Chappell the study did not reveal signs of endocarditis or embolic phenomena. 7. The patient's history, neurological examination, laboratory data, and imaging studies are most compatible with a shower of emboli to the brain. It is unclear if these emboli are septic versus bland. Recommendations 1. Continue present management. 2. Would continue aggressive treatment of the patient's infectious process and treat him like a patient who does have bacterial endocarditis. 3. The patient's cardiac rhythm should be monitored for a malignant cardiac arrhythmia. 4. Physical, occupational, speech and language therapy. 5. Would do full coagulopathy work-up. Donald Perez M.D., M.S.P.H. DONALD PEREZ Apr 22, 2018 14:23
--- NOTE | 2018-04-22 14:27 | General Progress Note ---
Assessment/Plan Assessment/Plan Assessment (1) Malnutrition (2) Altered mental state (3) Dehydration (4) Acute cerebrovascular accident (CVA) Plan patient tolerating almost 100% puree diet no reports of N/V anemia work up reviewed supportive care at this time push PO strict aspiration precautions cont calorie count fu neurology recs zofran prn, reglan prn for persistent emesis fu labs Subjective Allergies: Coded Allergies: No Known Allergies (Unverified , 04/11/18) Subjective c/o hematuria no abd pain Objective Last 24 Hour Vital Signs Date Time Temp Pulse Resp B/P (MAP) Pulse Ox O2 Delivery O2 Flow Rate FiO2 04/22/18 12:00 97.0 98 19 102/65 (77) 96 97.0 04/22/18 11:54 102/65 04/22/18 09:00 Room Air 04/22/18 08:58 98 106/59 04/22/18 08:00 97.7 97 20 99 97.7 04/22/18 04:00 98.9 86 20 122/60 (80) 95 98.9 04/22/18 00:00 97.8 82 20 132/75 (94) 95 97.8 04/21/18 21:00 Room Air 04/21/18 20:30 95 150/82 04/21/18 20:00 98.0 95 18 150/82 (104) 96 98.0 04/21/18 16:00 97.7 90 20 147/81 (103) 95 97.7 Intake and Output 04/21/18 04/22/18 19:00 07:00 Intake Total 1660 ml 810 ml Output Total 1250 ml 700 ml Balance 410 ml 110 ml Intake Oral 900 ml 120 ml IV Total 760 ml 690 ml Output Urine Total 1250 ml 700 ml # Bowel Movements 1 Laboratory Tests 04/21/18 16:50: Lupus Anticoagulant [Pending], Lupus Anticoagulant PTT Baseline [Pending], Lupus Anticoag DRVVT Screen Ratio [Pending], DRVVT Confirmation Interpretation [ Pending], Hexagonal Phase Comment [Pending], Protein C Antigen [Pending], Protein S Antigen [Pending], Free Protein S [Pending], Factor V Mutation [ Pending], C-Reactive Protein, Quantitative 5.6H, Anti-Cardiolipin IgM Antibody [ Pending] 04/22/18 05:30: White Blood Count 10.5, Red Blood Count 3.40L, Hemoglobin 9.8L, Hematocrit 28.9L , Mean Corpuscular Volume 85, Mean Corpuscular Hemoglobin 28.9, Mean Corpuscular Hemoglobin Concent 34.0, Red Cell Distribution Width 11.9, Platelet Count 335, Mean Platelet Volume 5.6L, Neutrophils (%) (Auto) , Lymphocytes (%) ( Auto) , Monocytes (%) (Auto) , Eosinophils (%) (Auto) , Basophils (%) (Auto) , Differential Total Cells Counted 100, Neutrophils % (Manual) 87H, Lymphocytes % (Manual) 7L, Monocytes % (Manual) 6, Eosinophils % (Manual) 0, Basophils % ( Manual) 0, Band Neutrophils 0, Platelet Estimate Adequate, Platelet Morphology Normal, Red Blood Cell Morphology Normal, Sodium Level 137, Potassium Level 3.8 , Chloride Level 106, Carbon Dioxide Level 24, Anion Gap 7, Blood Urea Nitrogen 18, Creatinine 0.8, Estimat Glomerular Filtration Rate , Glucose Level 145H, Uric Acid 3.1, Calcium Level 9.4, Phosphorus Level 2.4L, Magnesium Level 1.9, Total Bilirubin 0.4, Aspartate Amino Transf (AST/SGOT) 12L, Alanine Aminotransferase (ALT/SGPT) 18, Alkaline Phosphatase 87, Ammonia 26, Pro-B-Type Natriuretic Peptide 178H, Total Protein 7.1, Albumin 2.0L, Globulin 5.1, Albumin /Globulin Ratio 0.4L Height (Feet): 6 Height (Inches): 0.00 Weight (Pounds): 189 Objective WDWN NCAT supple CTA RRR Abd soft NT no edema (+) hematuria Lola Fleming MD Apr 22, 2018 14:27
[2018-04-22 16:00] VITALS: BP 120/61
--- NOTE | 2018-04-22 17:04 | Infectious Diseases Prog Note ---
Assessment/Plan Problems: (1) MSSA bacteremia Assessment & Plan: unclear source , on oxacillin , with negative ZA for any vegetations , will need 6 weeks of antibiotics treatment . (2) UTI (urinary tract infection) Assessment & Plan: with MSSA already on oxacillin (3) Diabetes mellitus out of control Assessment & Plan: recommend tight glycemic control to keep blood glucose between 100-140 (4) Acute cerebrovascular accident (CVA) Assessment & Plan: suspect cardiac source , recommend tele monitor for possible arrhythmia Subjective Constitutional: Reports: no symptoms HEENT: Reports: no symptoms Respiratory: Reports: no symptoms Breasts: Reports: no symptoms Cardiovascular: Reports: no symptoms Gastrointestinal/Abdominal: Reports: no symptoms Genitourinary: Reports: hematuria Neurologic: Reports: no symptoms Psychiatric: Reports: no symptoms Skin: Reports: no symptoms Endocrine: Reports: no symptoms Hematologic: Reports: no symptoms Musculoskeletal: Reports: no symptoms Allergies: Coded Allergies: No Known Allergies (Unverified , 04/11/18) Objective Vital Signs Last 24 Hour Vital Signs Date Time Temp Pulse Resp B/P (MAP) Pulse Ox O2 Delivery O2 Flow Rate FiO2 04/22/18 12:00 97.0 98 19 102/65 (77) 96 97.0 04/22/18 11:54 102/65 04/22/18 09:00 Room Air 04/22/18 08:58 98 106/59 04/22/18 08:00 97.7 97 20 99 97.7 04/22/18 04:00 98.9 86 20 122/60 (80) 95 98.9 04/22/18 00:00 97.8 82 20 132/75 (94) 95 97.8 04/21/18 21:00 Room Air 04/21/18 20:30 95 150/82 04/21/18 20:00 98.0 95 18 150/82 (104) 96 98.0 Height (Feet): 6 Height (Inches): 0.00 Weight (Pounds): 189 General Appearance: WD/WN, no acute distress HEENT: normocephalic, atraumatic, anicteric, mucous membranes moist, PERRL Respiratory/Chest: chest wall non-tender, lungs clear, normal breath sounds, no respiratory distress, no accessory muscle use Cardiovascular: normal peripheral pulses, normal rate, regular rhythm, no gallop/murmur, no JVD Abdomen: normal bowel sounds, soft, non tender, no organomegaly, non distended , no mass, no scars Extremities: no cyanosis, no clubbing Skin: no rash, no lesions, no ulcers Neurologic/Psychiatric: alert, oriented x 3, responsive Lymphatic: no neck adenopathy, no groin adenopathy Musculoskeletal: normal muscle bulk, no effusion Laboratory Tests Test 04/22/18 05:30 White Blood Count 10.5 K/UL (4.8-10.8) Red Blood Count 3.40 M/UL (4.70-6.10) L Hemoglobin 9.8 G/DL (14.2-18.0) L Hematocrit 28.9 % (42.0-52.0) L Mean Corpuscular Volume 85 FL (80-99) Mean Corpuscular Hemoglobin 28.9 PG (27.0-31.0) Mean Corpuscular Hemoglobin Concent 34.0 G/DL (32.0-36.0) Red Cell Distribution Width 11.9 % (11.6-14.8) Platelet Count 335 K/UL (150-450) Mean Platelet Volume 5.6 FL (6.5-10.1) L Neutrophils (%) (Auto) % (45.0-75.0) Lymphocytes (%) (Auto) % (20.0-45.0) Monocytes (%) (Auto) % (1.0-10.0) Eosinophils (%) (Auto) % (0.0-3.0) Basophils (%) (Auto) % (0.0-2.0) Differential Total Cells Counted 100 Neutrophils % (Manual) 87 % (45-75) H Lymphocytes % (Manual) 7 % (20-45) L Monocytes % (Manual) 6 % (1-10) Eosinophils % (Manual) 0 % (0-3) Basophils % (Manual) 0 % (0-2) Band Neutrophils 0 % (0-8) Platelet Estimate Adequate Platelet Morphology Normal Red Blood Cell Morphology Normal Sodium Level 137 MMOL/L (136-145) Potassium Level 3.8 MMOL/L (3.5-5.1) Chloride Level 106 MMOL/L (98-107) Carbon Dioxide Level 24 MMOL/L (21-32) Anion Gap 7 mmol/L (5-15) Blood Urea Nitrogen 18 mg/dL (7-18) Creatinine 0.8 MG/DL (0.55-1.30) Estimat Glomerular Filtration Rate mL/min (>60) Glucose Level 145 MG/DL (74-106) H Uric Acid 3.1 MG/DL (2.6-7.2) Calcium Level 9.4 MG/DL (8.5-10.1) Phosphorus Level 2.4 MG/DL (2.5-4.9) L Magnesium Level 1.9 MG/DL (1.8-2.4) Total Bilirubin 0.4 MG/DL (0.2-1.0) Aspartate Amino Transf (AST/SGOT) 12 U/L (15-37) L Alanine Aminotransferase (ALT/SGPT) 18 U/L (12-78) Alkaline Phosphatase 87 U/L (46-116) Ammonia 26 umol/L (11-32) Pro-B-Type Natriuretic Peptide 178 pg/mL (0-125) H Total Protein 7.1 G/DL (6.4-8.2) Albumin 2.0 G/DL (3.4-5.0) L Globulin 5.1 g/dL Albumin/Globulin Ratio 0.4 (1.0-2.7) L Current Medications Medications (Trade) Dose Ordered Sig/Safia Route PRN Reason Start Time Stop Time Status Last Admin Dose Admin Acetaminophen (Tylenol) 500 mg Q4H PRN ORAL Mild Pain/Temp > 100.5 04/13/18 13:41 05/11/18 13:40 04/14/18 21:33 Bisacodyl (Dulcolax) 10 mg DAILY ORAL 04/18/18 09:00 05/18/18 08:59 04/22/18 08:55 Dextrose (Dextrose 50%) 25 ml Q30M PRN IV Hypoglycemia 04/15/18 18:00 05/15/18 17:59 Dextrose (Dextrose 50%) 50 ml Q30M PRN IV Hypoglycemia 04/15/18 18:00 05/15/18 17:59 Docusate Sodium (Colace) 100 mg THREE TIMES A DAY ORAL 04/18/18 18:00 05/18/18 17:59 04/22/18 13:07 Fluconazole (Diflucan) 200 mg DAILY ORAL 04/21/18 13:01 04/28/18 13:00 04/22/18 08:54 Insulin Aspart (NovoLOG) BEFORE MEALS AND HS SUBQ 04/15/18 21:00 05/15/18 20:59 04/22/18 12:14 Insulin Detemir (Levemir) 10 units DAILY SUBQ 04/18/18 09:00 05/13/18 08:59 04/22/18 09:01 Lidocaine (Lidoderm 5% PATCH) 1 patch DAILY@0000 TDERMAL 04/14/18 00:00 05/13/18 00:14 04/22/18 00:19 Magnesium Hydroxide (Mom) 30 ml Q4HR PRN ORAL Constipation 04/17/18 22:45 05/17/18 22:44 04/18/18 17:11 Megestrol Acetate (Megace) 400 mg TWICE A DAY ORAL 04/16/18 11:00 05/16/18 10:59 04/22/18 08:59 Metoprolol Tartrate (Lopressor) 50 mg Q12HR ORAL 04/17/18 21:00 05/13/18 20:59 04/21/18 20:30 Nateglinide (Starlix) 120 mg TIAC ORAL 04/13/18 16:30 05/12/18 08:59 04/22/18 11:55 Nitroglycerin (Ntg) 1 patch Q24H TDERMAL 04/14/18 11:00 05/11/18 10:59 04/22/18 11:54 Oxacillin Sodium 2 gm/Sodium Chloride 110 ml @ 220 mls/hr Q4HR IVPB 04/20/18 13:00 04/27/18 12:59 04/22/18 13:07 Pantoprazole (Protonix) 40 mg EVERY 12 HOURS ORAL 04/13/18 21:00 05/13/18 20:59 04/22/18 08:58 Quetiapine Fumarate (SEROquel) 12.5 mg Q4H PRN ORAL ANXIETY 04/13/18 13:43 05/12/18 13:42 Sennosides (Senokot) 1 tab QHS ORAL 04/18/18 21:00 05/18/18 20:59 04/21/18 20:30 Sitagliptin Phosphate (Januvia) 50 mg ACBREAKFAST ORAL 04/14/18 06:30 05/14/18 06:29 04/22/18 05:53 Sodium Chloride 1,000 ml @ 60 mls/hr [id number] IV 04/20/18 05:15 05/20/18 05:14 04/21/18 20:30 Tamsulosin HCl (Flomax) 0.4 mg BID ORAL 04/18/18 18:00 05/11/18 20:59 04/22/18 08:55 Vitamin A/Vitamin D (A & D Oint) 1 applic TWICE A DAY TOPIC 04/13/18 18:00 05/12/18 08:59 04/22/18 08:59 Cholo Woods M.D. Apr 22, 2018 17:04
--- NOTE | 2018-04-22 17:43 | General Progress Note ---
Assessment/Plan Status: stable Assessment/Plan 1. Thrombocytopenia potentially secondary to underlying infection. ++ HSM noted , unknown if has cirrhosis as the ultrasound is non-conclusive --> Hepatitis panel and human immunodeficiency virus are both negative --> Hepatosplenomegaly. Question of nodularity of the liver surface. Cirrhosis not excluded. Correlate clinically --> hold off on transfusion if Plt>20k --> stable range of approx 100-150k 2. Leukocytosis, likely secondary to urinary tract infection. Remains on abx --> on abx and peripheral smear reviewed --> id recs are appreciated 3. Pyuria due to urinary tract infection. Closely monitor for improvement. He is on abx --> id service has been consulted, on ancef/abx --> appreciate their recs, remains on abx 4. Old lacunar infarct. as per neuro eval --> their recs are appreciated 5. Anemia due to underlying chronic disease. Continue to closely monitor. --> anemia panel has been reviewed --> hgb goal >7, transfuse prn 6. Anemia due to hematuria --> plavix will hold due to continued hematuria --> cbc reviewed --> appreciate uro recs 7. Sinus tachycardia, which was corrected Greatly appreciate consultation! Subjective Date patient seen: Apr 22, 2018 Hematologic/Lymphatic: Reports: anemia Allergies: Coded Allergies: No Known Allergies (Unverified , 04/11/18) Subjective No acute events. H/H stable. Objective Last 24 Hour Vital Signs Date Time Temp Pulse Resp B/P (MAP) Pulse Ox O2 Delivery O2 Flow Rate FiO2 04/22/18 12:00 97.0 98 19 102/65 (77) 96 97.0 04/22/18 11:54 102/65 04/22/18 09:00 Room Air 04/22/18 08:58 98 106/59 04/22/18 08:00 97.7 97 20 99 97.7 04/22/18 04:00 98.9 86 20 122/60 (80) 95 98.9 04/22/18 00:00 97.8 82 20 132/75 (94) 95 97.8 04/21/18 21:00 Room Air 04/21/18 20:30 95 150/82 04/21/18 20:00 98.0 95 18 150/82 (104) 96 98.0 Intake and Output 04/21/18 04/22/18 19:00 07:00 Intake Total 1660 ml 810 ml Output Total 1250 ml 700 ml Balance 410 ml 110 ml Intake Oral 900 ml 120 ml IV Total 760 ml 690 ml Output Urine Total 1250 ml 700 ml # Bowel Movements 1 Laboratory Tests 04/22/18 05:30: White Blood Count 10.5, Red Blood Count 3.40L, Hemoglobin 9.8L, Hematocrit 28.9L , Mean Corpuscular Volume 85, Mean Corpuscular Hemoglobin 28.9, Mean Corpuscular Hemoglobin Concent 34.0, Red Cell Distribution Width 11.9, Platelet Count 335, Mean Platelet Volume 5.6L, Neutrophils (%) (Auto) , Lymphocytes (%) ( Auto) , Monocytes (%) (Auto) , Eosinophils (%) (Auto) , Basophils (%) (Auto) , Differential Total Cells Counted 100, Neutrophils % (Manual) 87H, Lymphocytes % (Manual) 7L, Monocytes % (Manual) 6, Eosinophils % (Manual) 0, Basophils % ( Manual) 0, Band Neutrophils 0, Platelet Estimate Adequate, Platelet Morphology Normal, Red Blood Cell Morphology Normal, Sodium Level 137, Potassium Level 3.8 , Chloride Level 106, Carbon Dioxide Level 24, Anion Gap 7, Blood Urea Nitrogen 18, Creatinine 0.8, Estimat Glomerular Filtration Rate , Glucose Level 145H, Uric Acid 3.1, Calcium Level 9.4, Phosphorus Level 2.4L, Magnesium Level 1.9, Total Bilirubin 0.4, Aspartate Amino Transf (AST/SGOT) 12L, Alanine Aminotransferase (ALT/SGPT) 18, Alkaline Phosphatase 87, Ammonia 26, Pro-B-Type Natriuretic Peptide 178H, Total Protein 7.1, Albumin 2.0L, Globulin 5.1, Albumin /Globulin Ratio 0.4L Height (Feet): 6 Height (Inches): 0.00 Weight (Pounds): 189 General Appearance: no apparent distress EENT: PERRL/EOMI Neck: normal alignment Cardiovascular: normal peripheral pulses Respiratory/Chest: no respiratory distress Abdomen: soft Zack Miguel MD Apr 22, 2018 17:43
--- NOTE | 2018-04-22 18:40 | General Progress Note ---
Assessment/Plan Problem List: (1) UTI (urinary tract infection) ICD Codes: N39.0 - Urinary tract infection, site not specified SNOMED: 82660938, 962685189, 025685438 Qualifiers: Qualified Codes: N39.0 - Urinary tract infection, site not specified (2) Acute renal failure ICD Codes: N17.9 - Acute kidney failure, unspecified SNOMED: 02911195 (3) Elevated troponin I level ICD Codes: R74.8 - Abnormal levels of other serum enzymes SNOMED: 620937656 (4) Urinary retention ICD Codes: R33.9 - Retention of urine, unspecified SNOMED: 851628667 (5) Hematuria ICD Codes: R31.9 - Hematuria, unspecified SNOMED: 71690407 Status: progressing Assessment/Plan improving hematurea improving will go to snf once stable mri shows acute bilate cva mumbled speech confused needs bladder irrigation vizcaino placed uti sepsis elev trop azotemia Subjective ROS Limited/Unobtainable: Yes Allergies: Coded Allergies: No Known Allergies (Unverified , 04/11/18) Objective Last 24 Hour Vital Signs Date Time Temp Pulse Resp B/P (MAP) Pulse Ox O2 Delivery O2 Flow Rate FiO2 04/22/18 16:00 97.3 88 20 120/61 (80) 99 97.3 04/22/18 12:00 97.0 98 19 102/65 (77) 96 97.0 04/22/18 11:54 102/65 04/22/18 09:00 Room Air 04/22/18 08:58 98 106/59 04/22/18 08:00 97.7 97 20 99 97.7 04/22/18 04:00 98.9 86 20 122/60 (80) 95 98.9 04/22/18 00:00 97.8 82 20 132/75 (94) 95 97.8 04/21/18 21:00 Room Air 04/21/18 20:30 95 150/82 04/21/18 20:00 98.0 95 18 150/82 (104) 96 98.0 Intake and Output 04/21/18 04/22/18 19:00 07:00 Intake Total 1660 ml 810 ml Output Total 1250 ml 700 ml Balance 410 ml 110 ml Intake Oral 900 ml 120 ml IV Total 760 ml 690 ml Output Urine Total 1250 ml 700 ml # Bowel Movements 1 Laboratory Tests 04/22/18 05:30: White Blood Count 10.5, Red Blood Count 3.40L, Hemoglobin 9.8L, Hematocrit 28.9L , Mean Corpuscular Volume 85, Mean Corpuscular Hemoglobin 28.9, Mean Corpuscular Hemoglobin Concent 34.0, Red Cell Distribution Width 11.9, Platelet Count 335, Mean Platelet Volume 5.6L, Neutrophils (%) (Auto) , Lymphocytes (%) ( Auto) , Monocytes (%) (Auto) , Eosinophils (%) (Auto) , Basophils (%) (Auto) , Differential Total Cells Counted 100, Neutrophils % (Manual) 87H, Lymphocytes % (Manual) 7L, Monocytes % (Manual) 6, Eosinophils % (Manual) 0, Basophils % ( Manual) 0, Band Neutrophils 0, Platelet Estimate Adequate, Platelet Morphology Normal, Red Blood Cell Morphology Normal, Sodium Level 137, Potassium Level 3.8 , Chloride Level 106, Carbon Dioxide Level 24, Anion Gap 7, Blood Urea Nitrogen 18, Creatinine 0.8, Estimat Glomerular Filtration Rate , Glucose Level 145H, Uric Acid 3.1, Calcium Level 9.4, Phosphorus Level 2.4L, Magnesium Level 1.9, Total Bilirubin 0.4, Aspartate Amino Transf (AST/SGOT) 12L, Alanine Aminotransferase (ALT/SGPT) 18, Alkaline Phosphatase 87, Ammonia 26, Pro-B-Type Natriuretic Peptide 178H, Total Protein 7.1, Albumin 2.0L, Globulin 5.1, Albumin /Globulin Ratio 0.4L Height (Feet): 6 Height (Inches): 0.00 Weight (Pounds): 189 General Appearance: confused Cardiovascular: normal rate Respiratory/Chest: lungs clear Ubaldo Jarquin MD Apr 22, 2018 18:40
[2018-04-22 20:00] VITALS: BP 128/71
[2018-04-22] MEDS: Sennosides 8.6mg ORAL SCH (20:38)
--- NOTE | 2018-04-22 23:59 | General Progress Note ---
Assessment/Plan Assessment/Plan encephalopathy due to [facility] [place] mild acute CVA [place] negative Seroquel prn provided ro/st Subjective Neurologic/Psychiatric: Reports: anxiety Allergies: Coded Allergies: No Known Allergies (Unverified , 04/11/18) Subjective the pt was calmer Objective Last 24 Hour Vital Signs Date Time Temp Pulse Resp B/P (MAP) Pulse Ox O2 Delivery O2 Flow Rate FiO2 04/22/18 21:00 Room Air 04/22/18 20:40 91 128/71 04/22/18 20:00 98.0 91 15 128/71 (90) 96 98.0 04/22/18 16:00 97.3 88 20 120/61 (80) 99 97.3 04/22/18 12:00 97.0 98 19 102/65 (77) 96 97.0 04/22/18 11:54 102/65 04/22/18 09:00 Room Air 04/22/18 08:58 98 106/59 04/22/18 08:00 97.7 97 20 99 97.7 04/22/18 04:00 98.9 86 20 122/60 (80) 95 98.9 04/22/18 00:00 97.8 82 20 132/75 (94) 95 97.8 Intake and Output 04/21/18 04/22/18 19:00 07:00 Intake Total 1660 ml 810 ml Output Total 1250 ml 700 ml Balance 410 ml 110 ml Intake Oral 900 ml 120 ml IV Total 760 ml 690 ml Output Urine Total 1250 ml 700 ml # Bowel Movements 1 Laboratory Tests 04/22/18 05:30: White Blood Count 10.5, Red Blood Count 3.40L, Hemoglobin 9.8L, Hematocrit 28.9L , Mean Corpuscular Volume 85, Mean Corpuscular Hemoglobin 28.9, Mean Corpuscular Hemoglobin Concent 34.0, Red Cell Distribution Width 11.9, Platelet Count 335, Mean Platelet Volume 5.6L, Neutrophils (%) (Auto) , Lymphocytes (%) ( Auto) , Monocytes (%) (Auto) , Eosinophils (%) (Auto) , Basophils (%) (Auto) , Differential Total Cells Counted 100, Neutrophils % (Manual) 87H, Lymphocytes % (Manual) 7L, Monocytes % (Manual) 6, Eosinophils % (Manual) 0, Basophils % ( Manual) 0, Band Neutrophils 0, Platelet Estimate Adequate, Platelet Morphology Normal, Red Blood Cell Morphology Normal, Sodium Level 137, Potassium Level 3.8 , Chloride Level 106, Carbon Dioxide Level 24, Anion Gap 7, Blood Urea Nitrogen 18, Creatinine 0.8, Estimat Glomerular Filtration Rate , Glucose Level 145H, Uric Acid 3.1, Calcium Level 9.4, Phosphorus Level 2.4L, Magnesium Level 1.9, Total Bilirubin 0.4, Aspartate Amino Transf (AST/SGOT) 12L, Alanine Aminotransferase (ALT/SGPT) 18, Alkaline Phosphatase 87, Ammonia 26, Pro-B-Type Natriuretic Peptide 178H, Total Protein 7.1, Albumin 2.0L, Globulin 5.1, Albumin /Globulin Ratio 0.4L Height (Feet): 6 Height (Inches): 0.00 Weight (Pounds): 189 Vimal Mares MD Apr 22, 2018 23:59
[2018-04-23] VITALS: BP 130/75
[2018-04-23] MEDS: Oxacillin 2 GM in NS 110 ML IVPB SCH ×6 (00:05→20:43)
[2018-04-23 04:00] VITALS: BP_SYST 120; BP_SYST 128; BP_DIAS 68; BP_DIAS 71
[2018-04-23] MEDS: sitaGLIPtin 50mg tab ORAL SCH (06:10)
[2018-04-23] MEDS: NovoLOG Insulin Flexpen SUBQ SCH ×4 (06:16→20:43)
[2018-04-23 08:00] VITALS: BP 117/71
[2018-04-23] MEDS: Fluconazole 100mg tab ORAL SCH (09:12)
[2018-04-23] MEDS: Bisacodyl EC 5mg tab ORAL SCH (09:12)
[2018-04-23] MEDS: Docusate 100mg/10ml Liq ORAL SCH ×3 (09:12→17:27)
[2018-04-23] MEDS: Tamsulosin 0.4mg cap ORAL SCH ×2 (09:12→17:24)
[2018-04-23] MEDS: Megace 400mg/10ml Susp ORAL SCH ×2 (09:12→17:24)
[2018-04-23] MEDS: Vitamin A&D Oint 2oz Tube TOPIC SCH ×2 (09:20→17:28)
[2018-04-23] MEDS: Metoprolol Tartrate 50mg tab ORAL SCH ×2 (09:20→20:42)
[2018-04-23] MEDS: Levemir Flexpen SUBQ SCH (09:21)
--- NOTE | 2018-04-23 11:00 | Nephrology Progress Note ---
Assessment/Plan Problem List: (1) Dehydration (2) UTI (urinary tract infection) (3) Acute renal failure (4) Acute encephalopathy (5) Diabetes mellitus out of control (6) Elevated troponin I level (7) Urinary retention Assessment: 700 cc 04/18/18 (8) Acute cerebrovascular accident (CVA) (9) Sepsis Assessment acute CVA Renal Failure- encephalopathy UTI Dehydration Low na and high K Elevated troponin DM , high Glucose Plan shower of emboli to brain ZA per cardio negative Antibiotics per ID vizcaino- has 700 cc retention Adjust meds starlix Monitor lytes ASA Nitrate St eval recheck UA and U culture Per orders to acute rehab Subjective ROS Limited/Unobtainable: No Constitutional: Reports: malaise Objective Objective Last 24 Hour Vital Signs Date Time Temp Pulse Resp B/P (MAP) Pulse Ox O2 Delivery O2 Flow Rate FiO2 04/23/18 09:20 86 117/71 04/23/18 04:00 98.7 87 17 120/68 (85) 98 98.7 04/23/18 00:00 98.8 93 15 130/75 (93) 98 98.8 04/22/18 21:00 Room Air 04/22/18 20:40 91 128/71 04/22/18 20:00 98.0 91 15 128/71 (90) 96 98.0 04/22/18 16:00 97.3 88 20 120/61 (80) 99 97.3 04/22/18 12:00 97.0 98 19 102/65 (77) 96 97.0 04/22/18 11:54 102/65 Intake and Output 04/22/18 04/23/18 19:00 07:00 Intake Total 1310 ml 1404 ml Output Total 550 ml 550 ml Balance 760 ml 854 ml Intake Oral 720 ml 620 ml IV Total 590 ml 784 ml Output Urine Total 550 ml 550 ml # Bowel Movements 1 1 Height (Feet): 6 Height (Inches): 0.00 Weight (Pounds): 189 General Appearance: no apparent distress Objective no change Greyson Ignacio MD Apr 23, 2018 11:00
--- NOTE | 2018-04-23 11:04 | Infectious Diseases Prog Note ---
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 Subjective ROS Limited/Unobtainable: Yes Respiratory: Reports: no symptoms Gastrointestinal/Abdominal: Reports: no symptoms Genitourinary: Reports: other - discomfort with Hankins catheter Neurologic: Reports: other - more alert Musculoskeletal: Reports: pain, other - hips Allergies: Coded Allergies: No Known Allergies (Unverified , 04/11/18) Objective Vital Signs Last 24 Hour Vital Signs Date Time Temp Pulse Resp B/P (MAP) Pulse Ox O2 Delivery O2 Flow Rate FiO2 04/23/18 09:20 86 117/71 04/23/18 04:00 98.7 87 17 120/68 (85) 98 98.7 04/23/18 00:00 98.8 93 15 130/75 (93) 98 98.8 04/22/18 21:00 Room Air 04/22/18 20:40 91 128/71 04/22/18 20:00 98.0 91 15 128/71 (90) 96 98.0 04/22/18 16:00 97.3 88 20 120/61 (80) 99 97.3 04/22/18 12:00 97.0 98 19 102/65 (77) 96 97.0 04/22/18 11:54 102/65 Height (Feet): 6 Height (Inches): 0.00 Weight (Pounds): 189 General Appearance: no acute distress HEENT: mucous membranes moist Respiratory/Chest: lungs clear Cardiovascular: normal rate Abdomen: soft, non tender Extremities: no edema Neurologic/Psychiatric: alert, responsive, other - weakness of legs but is improving Current Medications Medications (Trade) Dose Ordered Sig/Safia Route PRN Reason Start Time Stop Time Status Last Admin Dose Admin Acetaminophen (Tylenol) 500 mg Q4H PRN ORAL Mild Pain/Temp > 100.5 04/13/18 13:41 05/11/18 13:40 04/14/18 21:33 Bisacodyl (Dulcolax) 10 mg DAILY ORAL 04/18/18 09:00 05/18/18 08:59 04/23/18 09:12 Dextrose (Dextrose 50%) 25 ml Q30M PRN IV Hypoglycemia 04/15/18 18:00 05/15/18 17:59 Dextrose (Dextrose 50%) 50 ml Q30M PRN IV Hypoglycemia 04/15/18 18:00 05/15/18 17:59 Docusate Sodium (Colace) 100 mg THREE TIMES A DAY ORAL 04/18/18 18:00 05/18/18 17:59 04/23/18 09:12 Fluconazole (Diflucan) 200 mg DAILY ORAL 04/21/18 13:01 04/28/18 13:00 04/23/18 09:12 Insulin Aspart (NovoLOG) BEFORE MEALS AND HS SUBQ 04/15/18 21:00 05/15/18 20:59 04/23/18 06:16 Insulin Detemir (Levemir) 10 units DAILY SUBQ 04/18/18 09:00 05/13/18 08:59 04/23/18 09:21 Lidocaine (Lidoderm 5% PATCH) 1 patch DAILY@0000 TDERMAL 04/14/18 00:00 05/13/18 00:14 04/23/18 00:06 Magnesium Hydroxide (Mom) 30 ml Q4HR PRN ORAL Constipation 04/17/18 22:45 05/17/18 22:44 04/18/18 17:11 Megestrol Acetate (Megace) 400 mg TWICE A DAY ORAL 04/16/18 11:00 05/16/18 10:59 04/23/18 09:12 Metoprolol Tartrate (Lopressor) 50 mg Q12HR ORAL 04/17/18 21:00 05/13/18 20:59 04/23/18 09:20 Nateglinide (Starlix) 120 mg TIAC ORAL 04/13/18 16:30 05/12/18 08:59 04/23/18 06:10 Nitroglycerin (Ntg) 1 patch Q24H TDERMAL 04/14/18 11:00 05/11/18 10:59 04/22/18 11:54 Oxacillin Sodium 2 gm/Sodium Chloride 110 ml @ 220 mls/hr Q4HR IVPB 04/20/18 13:00 04/27/18 12:59 04/23/18 09:12 Pantoprazole (Protonix) 40 mg EVERY 12 HOURS ORAL 04/13/18 21:00 05/13/18 20:59 04/23/18 09:12 Quetiapine Fumarate (SEROquel) 12.5 mg Q4H PRN ORAL ANXIETY 04/13/18 13:43 05/12/18 13:42 Sennosides (Senokot) 1 tab QHS ORAL 04/18/18 21:00 05/18/18 20:59 04/22/18 20:38 Sitagliptin Phosphate (Januvia) 50 mg ACBREAKFAST ORAL 04/14/18 06:30 05/14/18 06:29 04/23/18 06:10 Sodium Chloride 1,000 ml @ 60 mls/hr [id number] IV 04/20/18 05:15 05/20/18 05:14 04/23/18 00:06 Tamsulosin HCl (Flomax) 0.4 mg BID ORAL 04/18/18 18:00 05/11/18 20:59 04/23/18 09:12 Vitamin A/Vitamin D (A & D Oint) 1 applic TWICE A DAY TOPIC 04/13/18 18:00 05/12/18 08:59 04/23/18 09:20 Conor Egan MD Apr 23, 2018 11:04
[2018-04-23] MEDS: Nitroglycerin Patch 0.4mg TDERMAL SCH (11:57)
[2018-04-23 12:00] VITALS: BP 132/68
--- NOTE | 2018-04-23 14:17 | Neurology Progress Note ---
Interim History Interim History Interim History Mr. Devlin feels much better. The mind is clearer. He feels generally stronger but the legs are still weak. His speech is a little better and so is his language. He is still bleeding from his bladder. He denies any new neurologic symptoms. Review of Systems Neuro Review of Systems Benign. Objective Physical Exam Last Vital Signs Date Time Temp Pulse Resp B/P (MAP) Pulse Ox O2 Delivery O2 Flow Rate FiO2 04/23/18 12:00 98.5 89 20 132/68 (89) 97 98.5 04/23/18 09:00 Room Air 04/20/18 13:20 3 Neurologic Exam Objective PHYSICAL EXAMINATION: GENERAL: He is a well-developed, well-nourished, pleasant gentleman, lying in bed, in no acute distress. HEAD: Normocephalic and atraumatic. EENT: Examination benign. NECK: No neck rigidity was observed. NEUROLOGIC EXAMINATION: MENTAL STATUS EXAMINATION: He was awake and alert. He was oriented to [facility], [facility], and April 23, 2018. He was able to recall 3/3 words immediately, but could only remember 2/3 words in 1 and 3 minutes. He was able to remember presidents Trump and Obama, but could not remember presidents prior to that. His mathematical skills were impaired. His visuospatial function was also impaired. SPEECH: He had a mild dysarthria. LANGUAGE: He had anomia for low and mid frequency words. CRANIAL NERVE EXAMINATION: II: The visual matthew were intact on confrontation testing. III, IV & : The external ocular movements were full and the pupils were 3 mm in diameter, equal, round, regular, and reactive to light. V: He had normal facial sensations, and the temporales, masseters, and pterygoids functioned normally. VII: He had normal facial expressions and no facial asymmetry. VIII: He was able to hear well bilaterally and had no nystagmus. IX: The palate moved symmetrically on phonation. X: He had no hoarseness of voice. XI: The sternocleidomastoids and trapezii functioned normally. XII: The tongue was in the midline without any fasciculations or atrophy. MOTOR SYSTEM: The tone was normal in all four extremities. Examination of muscle mass revealed no focal wasting. Examination of power revealed G 5/5 power in both upper extremities. In both lower extremities he had G 4/5 power, except for G 3/5 power in the iliopsoas, G 4/5 in the hamstrings, and G 5-/5 in the toe extensors bilaterally. SENSORY EXAMINATION: He responded appropriately to deep pain. He was unable to cooperate for the sensory modalities. REFLEXES: 3+ and bilaterally symmetrical at the biceps, triceps, and brachioradialis, 3++ at both knees, 0 at both ankles. The plantar responses were flexor bilaterally. COORDINATION: He performed well on finger to nose testing. He could not perform heel to paulson testing. STANCE & GAIT: Could not be tested. Impression/Recommendations Diagnostic Impression 1. Mr. Say Devlin is a 72-year-old, right-handed, gentleman, who has a nebulous past history, which he states is benign. He was functioning well until 04/11/2018, when he apparently fell down at home, bumped his head, and following that, went to a restaurant where he was noted to be sitting for a prolonged period of time and was also noted to have shaking chills. He was, in addition, confused and felt ill. As a result of that, the paramedics were called in and he was brought into the [facility] emergency room. 2. In the emergency room, he was noted to be tachycardic, had a significant leukocytosis with a left-sided shift, had an elevated blood sugar, a benign CT of the brain, urinalysis consistent with an acute significant urinary tract infection, and 3/3 blood cultures positive for Staphylococcus aureus. He was started on appropriate antibiotics, but has continued to have some waxing and waning of his mental state and as a result of that, an MRI of the brain was performed on 04/18/2018, which revealed scattered bilateral cerebral and cerebellar foci of diffusion restriction consistent with multiple acute cerebral embolic phenomena. 3. He feels much better. The mind is clearer. He feels generally stronger but the legs are still weak. His speech is a little better and so is his language. He is still bleeding from his bladder. He denies any new neurologic symptoms. 4. On neurological examination at this time, he does have problems with recent and remote memory, visuospatial function, higher cognitive function and language. He also has a dysarthria. He has significant bilateral lower extremity weakness with pathologically brisk DTRs with the knee jerks brisker than upper extremity reflexes. His neurologic function is generally improved. 5. His laboratory data on admission revealed WBC count elevated to 12,200 with 87% neutrophils, 4% lymphocytes, and 9% monocytes. His chemistry panel revealed that his sodium was low at 128, chloride was low at 95, BUN was elevated at 38, creatinine was elevated at 1.5, and blood glucose was elevated to 337. His troponin was elevated at 0.067. His urinalysis revealed 3+ leukocyte esterase, 60-80 RBCs, and 20-30 WBCs per high power field. 6. He had his ZA on 04/20/18, as per Dr Chappell the study did not reveal signs of endocarditis or embolic phenomena. 7. The patient's history, neurological examination, laboratory data, and imaging studies are most compatible with a shower of emboli to the brain. It is unclear if these emboli are septic versus bland. Recommendations 1. Continue present management. 2. Would continue aggressive treatment of the patient's infectious process and treat him like a patient who does have bacterial endocarditis. 3. The patient's cardiac rhythm should be monitored for a malignant cardiac arrhythmia. 4. Physical, occupational, speech and language therapy. 5. Would do full coagulopathy work-up. Donald Singer M.D., M.S.P.DONALD HAMILTON Apr 23, 2018 14:16
--- NOTE | 2018-04-23 15:17 | General Progress Note ---
Assessment/Plan Assessment/Plan Assessment (1) Malnutrition (2) Altered mental state (3) Dehydration (4) Acute cerebrovascular accident (CVA) Plan patient tolerating almost 100% puree diet no reports of N/V anemia work up reviewed supportive care at this time push PO strict aspiration precautions cont calorie count fu neurology recs zofran prn, reglan prn for persistent emesis fu labs Subjective Allergies: Coded Allergies: No Known Allergies (Unverified , 04/11/18) Subjective c/o hematuria no abd pain d/w nursing staffing coordinator Objective Last 24 Hour Vital Signs Date Time Temp Pulse Resp B/P (MAP) Pulse Ox O2 Delivery O2 Flow Rate FiO2 04/23/18 12:00 98.5 89 20 132/68 (89) 97 98.5 04/23/18 11:57 132/68 04/23/18 09:20 86 117/71 04/23/18 09:00 Room Air 04/23/18 08:00 98.2 86 18 117/71 (86) 98 98.2 04/23/18 04:00 98.7 87 17 120/68 (85) 98 98.7 04/23/18 00:00 98.8 93 15 130/75 (93) 98 98.8 04/22/18 21:00 Room Air 04/22/18 20:40 91 128/71 04/22/18 20:00 98.0 91 15 128/71 (90) 96 98.0 04/22/18 16:00 97.3 88 20 120/61 (80) 99 97.3 Intake and Output 04/22/18 04/23/18 19:00 07:00 Intake Total 1310 ml 1404 ml Output Total 550 ml 550 ml Balance 760 ml 854 ml Intake Oral 720 ml 620 ml IV Total 590 ml 784 ml Output Urine Total 550 ml 550 ml # Bowel Movements 1 1 Height (Feet): 6 Height (Inches): 0.00 Weight (Pounds): 189 Objective WDWN NCAT supple CTA RRR Abd soft NT no edema (+) hematuria Lola Fleming MD Apr 23, 2018 15:17
[2018-04-23] MEDS ORDERED: Sterile Water Irrig 1000ml IRRIG ONE (15:21)
[2018-04-23] MEDS ORDERED: 1/2 NS 1000ml IV ONE (15:21)
[2018-04-23 16:00] VITALS: BP 122/66
--- NOTE | 2018-04-23 16:05 | General Progress Note ---
Assessment/Plan Assessment/Plan (1) Alerted mental status (2) S/p fall (3) Cervical Sprain (4) Thoracic sprain (5) Lumbar sprain (6) S/p CVA Continued on Tylenol and Lidocaine. D/w Dr. Laura and he concurred. Subjective Date patient seen: Apr 23, 2018 Time patient seen: 03:15 - pm Constitutional: Reports: weakness HEENT: Reports: no symptoms Cardiovascular: Reports: no symptoms Respiratory: Reports: no symptoms Gastrointestinal/Abdominal: Reports: no symptoms Genitourinary: Reports: no symptoms Neurologic/Psychiatric: Reports: no symptoms, weakness Endocrine: Reports: no symptoms Hematologic/Lymphatic: Reports: no symptoms Allergies: Coded Allergies: No Known Allergies (Unverified , 04/11/18) Subjective Patient is more alert but still slightly confused. Still c/o pain which has been tolerated on the Lidoderm patch. Objective Last 24 Hour Vital Signs Date Time Temp Pulse Resp B/P (MAP) Pulse Ox O2 Delivery O2 Flow Rate FiO2 04/23/18 12:00 98.5 89 20 132/68 (89) 97 98.5 04/23/18 11:57 132/68 04/23/18 09:20 86 117/71 04/23/18 09:00 Room Air 04/23/18 08:00 98.2 86 18 117/71 (86) 98 98.2 04/23/18 04:00 98.7 87 17 120/68 (85) 98 98.7 04/23/18 00:00 98.8 93 15 130/75 (93) 98 98.8 04/22/18 21:00 Room Air 04/22/18 20:40 91 128/71 04/22/18 20:00 98.0 91 15 128/71 (90) 96 98.0 Intake and Output 04/22/18 04/23/18 19:00 07:00 Intake Total 1310 ml 1404 ml Output Total 550 ml 550 ml Balance 760 ml 854 ml Intake Oral 720 ml 620 ml IV Total 590 ml 784 ml Output Urine Total 550 ml 550 ml # Bowel Movements 1 1 Height (Feet): 6 Height (Inches): 0.00 Weight (Pounds): 189 Objective GENERAL: Alert and awake. LUNGS: Decreased breath sounds bilaterally. HEART: Regular. ABDOMEN: Benign. EXTREMITIES: No cyanosis. No clubbing. Zedner,Jerson N. PA Apr 23, 2018 16:05
[2018-04-23 20:00] VITALS: BP 122/65
--- NOTE | 2018-04-23 20:01 | General Progress Note ---
Assessment/Plan Status: stable Assessment/Plan 1. Thrombocytopenia potentially secondary to underlying infection. ++ HSM noted , unknown if has cirrhosis as the ultrasound is non-conclusive --> Hepatitis panel and human immunodeficiency virus are both negative --> Hepatosplenomegaly. Question of nodularity of the liver surface. Cirrhosis not excluded. Correlate clinically --> hold off on transfusion if Plt>20k --> stable range of approx 100-150k 2. Leukocytosis, likely secondary to urinary tract infection. Remains on abx --> on abx and peripheral smear reviewed --> id recs are appreciated 3. Pyuria due to urinary tract infection. Closely monitor for improvement. He is on abx --> id service has been consulted, on ancef/abx --> appreciate their recs, remains on abx 4. Old lacunar infarct. as per neuro eval --> their recs are appreciated 5. Anemia due to underlying chronic disease. Continue to closely monitor. --> anemia panel has been reviewed --> hgb goal >7, transfuse prn 6. Anemia due to hematuria --> plavix will hold due to continued hematuria --> cbc reviewed --> appreciate uro recs 7. Sinus tachycardia, which was corrected Greatly appreciate consultation! Subjective Date patient seen: Apr 23, 2018 ROS Limited/Unobtainable: Yes Hematologic/Lymphatic: Reports: anemia Allergies: Coded Allergies: No Known Allergies (Unverified , 04/11/18) Subjective Pt awake and alert. No acute events. H/H stable. Objective Last 24 Hour Vital Signs Date Time Temp Pulse Resp B/P (MAP) Pulse Ox O2 Delivery O2 Flow Rate FiO2 04/23/18 16:00 98.2 79 19 122/66 (84) 97 98.2 04/23/18 12:00 98.5 89 20 132/68 (89) 97 98.5 04/23/18 11:57 132/68 04/23/18 09:20 86 117/71 04/23/18 09:00 Room Air 04/23/18 08:00 98.2 86 18 117/71 (86) 98 98.2 04/23/18 04:00 98.7 87 17 120/68 (85) 98 98.7 04/23/18 00:00 98.8 93 15 130/75 (93) 98 98.8 04/22/18 21:00 Room Air 04/22/18 20:40 91 128/71 Intake and Output 04/22/18 04/23/18 19:00 07:00 Intake Total 1310 ml 1404 ml Output Total 550 ml 550 ml Balance 760 ml 854 ml Intake Oral 720 ml 620 ml IV Total 590 ml 784 ml Output Urine Total 550 ml 550 ml # Bowel Movements 1 1 Height (Feet): 6 Height (Inches): 0.00 Weight (Pounds): 189 General Appearance: no apparent distress EENT: PERRL/EOMI Neck: normal alignment Cardiovascular: normal peripheral pulses Respiratory/Chest: no respiratory distress Abdomen: soft Zack Miguel MD Apr 23, 2018 20:01
[2018-04-23] MEDS: Sennosides 8.6mg ORAL SCH (20:42)
--- NOTE | 2018-04-23 20:58 | Cardiology Progress Note ---
Assessment/Plan Assessment/Plan 1. 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 2. Slight elevation of troponin I level due to the embolic CVA although NSTEMI cannot be ruled out. 3. Sinus tachycardia, resolved, likely secondary to hypovolemia and intravascular volume depletion. 4. Staph A. bacteremia with no evidence of endocarditis. Subjective Subjective No cardiac events. Objective Last 24 Hour Vital Signs Date Time Temp Pulse Resp B/P (MAP) Pulse Ox O2 Delivery O2 Flow Rate FiO2 04/23/18 20:42 89 122/65 04/23/18 20:00 97.8 89 17 122/65 (84) 96 97.8 04/23/18 16:00 98.2 79 19 122/66 (84) 97 98.2 04/23/18 12:00 98.5 89 20 132/68 (89) 97 98.5 04/23/18 11:57 132/68 04/23/18 09:20 86 117/71 04/23/18 09:00 Room Air 04/23/18 08:00 98.2 86 18 117/71 (86) 98 98.2 04/23/18 04:00 98.7 87 17 120/68 (85) 98 98.7 04/23/18 00:00 98.8 93 15 130/75 (93) 98 98.8 04/22/18 21:00 Room Air Intake and Output 04/22/18 04/23/18 19:00 07:00 Intake Total 1310 ml 1404 ml Output Total 550 ml 550 ml Balance 760 ml 854 ml Intake Oral 720 ml 620 ml IV Total 590 ml 784 ml Output Urine Total 550 ml 550 ml # Bowel Movements 1 1 2D Echo: LVEF 70%, Mild LVH, Grade I LVDD, RVSP 24 mmHg Objective HEENT: Atraumatic and normocephalic. Anicteric. Pupils are equal, round, and reactive to light and accommodation. Altered NECK: JVP less than 5 cm. No carotid bruit. CARDIOVASCULAR: Normal S1 and S2. No murmurs, gallops, or rubs. PMI is at fourth intercostal space in the midclavicular line. LUNGS: Clear to auscultation bilaterally. ABDOMEN: Soft, nontender, and nondistended. No hepatosplenomegaly. Positive bowel sounds. EXTREMITIES: No evidence of edema, clubbing, or cyanosis. Beto Chappell MD Apr 23, 2018 20:58
--- NOTE | 2018-04-23 21:13 | General Progress Note ---
Assessment/Plan Problem List: (1) UTI (urinary tract infection) ICD Codes: N39.0 - Urinary tract infection, site not specified SNOMED: 83773210, 137469885, 514012735 Qualifiers: Qualified Codes: N39.0 - Urinary tract infection, site not specified (2) Acute renal failure ICD Codes: N17.9 - Acute kidney failure, unspecified SNOMED: 62829790 (3) Elevated troponin I level ICD Codes: R74.8 - Abnormal levels of other serum enzymes SNOMED: 918566938 (4) Urinary retention ICD Codes: R33.9 - Retention of urine, unspecified SNOMED: 159751751 (5) Hematuria ICD Codes: R31.9 - Hematuria, unspecified SNOMED: 94202443 Status: progressing Assessment/Plan improving hematurea improving will go to snf once stable mri shows acute bilate cva mumbled speech confused needs bladder irrigation vizcaino placed uti improved ordered CBI for hematurea sepsis elev trop dc planning to snf Subjective ROS Limited/Unobtainable: Yes Allergies: Coded Allergies: No Known Allergies (Unverified , 04/11/18) Objective Last 24 Hour Vital Signs Date Time Temp Pulse Resp B/P (MAP) Pulse Ox O2 Delivery O2 Flow Rate FiO2 04/23/18 20:42 89 122/65 04/23/18 20:00 97.8 89 17 122/65 (84) 96 97.8 04/23/18 16:00 98.2 79 19 122/66 (84) 97 98.2 04/23/18 12:00 98.5 89 20 132/68 (89) 97 98.5 04/23/18 11:57 132/68 04/23/18 09:20 86 117/71 04/23/18 09:00 Room Air 04/23/18 08:00 98.2 86 18 117/71 (86) 98 98.2 04/23/18 04:00 98.7 87 17 120/68 (85) 98 98.7 04/23/18 00:00 98.8 93 15 130/75 (93) 98 98.8 Intake and Output 04/22/18 04/23/18 19:00 07:00 Intake Total 1310 ml 1404 ml Output Total 550 ml 550 ml Balance 760 ml 854 ml Intake Oral 720 ml 620 ml IV Total 590 ml 784 ml Output Urine Total 550 ml 550 ml # Bowel Movements 1 1 Height (Feet): 6 Height (Inches): 0.00 Weight (Pounds): 189 General Appearance: confused Neck: supple Cardiovascular: normal rate Respiratory/Chest: lungs clear Abdomen: soft Ubaldo Jarquin MD Apr 23, 2018 21:13
[2018-04-24] VITALS: BP 108/57
[2018-04-24] MEDS: Oxacillin 2 GM in NS 110 ML IVPB SCH ×6 (01:23→21:07)
[2018-04-24 04:00] VITALS: BP 103/66
[2018-04-24] MEDS: NovoLOG Insulin Flexpen SUBQ SCH ×4 (06:49→21:10)
[2018-04-24] MEDS: sitaGLIPtin 50mg tab ORAL SCH (06:51)
--- NOTE | 2018-04-24 07:18 | General Progress Note ---
Assessment/Plan Assessment/Plan 1. Thrombocytopenia potentially secondary to underlying infection. ++ HSM noted , unknown if has cirrhosis as the ultrasound is non-conclusive --> Hepatitis panel and human immunodeficiency virus are both negative --> Hepatosplenomegaly. Question of nodularity of the liver surface. Cirrhosis not excluded. Correlate clinically --> hold off on transfusion if Plt>100k given hematuria --> stable range of approx 100-150k 2. Leukocytosis, likely secondary to urinary tract infection. Remains on abx --> on abx and peripheral smear reviewed --> id recs are appreciated 3. Pyuria due to urinary tract infection. Closely monitor for improvement. He is on abx --> id service has been consulted, on ancef/abx --> appreciate their recs, remains on abx 4. Old lacunar infarct. as per neuro eval --> their recs are appreciated 5. Anemia due to underlying chronic disease. Continue to closely monitor. --> anemia panel has been reviewed --> hgb goal >7, transfuse prn 6. Anemia due to hematuria --> plavix will hold due to continued hematuria --> cbc reviewed --> appreciate uro recs --> bladder is being irrigated 7. Sinus tachycardia, which was corrected Greatly appreciate consultation! Subjective Constitutional: Denies: no symptoms, chills, diaphoresis, fever, malaise, weakness, other HEENT: Denies: no symptoms, eye pain, blurred vision, tearing, double vision, ear pain, ear discharge, nose pain, nose congestion, throat pain, throat swelling, mouth pain, mouth swelling, other Cardiovascular: Denies: no symptoms, chest pain, edema, irregular heart rate, lightheadedness, palpitations, syncope, other Respiratory: Denies: no symptoms, cough, orthopnea, shortness of breath, SOB with excertion, SOB at rest, sputum, stridor, wheezing, other Genitourinary: Denies: no symptoms, burning, discharge, frequency, flank pain, hematuria, incontinence, pain, urgency, other Neurologic/Psychiatric: Denies: no symptoms, anxiety, depressed, emotional problems, headache, numbness, paresthesia, pre-existing deficit, seizure, tingling, tremors, weakness, other Endocrine: Denies: no symptoms, excessive sweating, flushing, intolerance to cold, intolerance to heat, increased hunger, increased thirst, increased urine, unexplained weight gain, unexplained weight loss, other Hematologic/Lymphatic: Denies: no symptoms, anemia, easy bleeding, easy bruising, other Allergies: Coded Allergies: No Known Allergies (Unverified , 04/11/18) Subjective Blood clots in vizcaino last night +++ Pt awake and alert. No acute events. H/H stable. Objective Last 24 Hour Vital Signs Date Time Temp Pulse Resp B/P (MAP) Pulse Ox O2 Delivery O2 Flow Rate FiO2 04/24/18 04:00 97.6 81 18 103/66 (78) 96 97.6 04/24/18 00:00 98.2 76 18 108/57 (74) 96 98.2 04/23/18 21:00 Room Air 04/23/18 20:42 89 122/65 04/23/18 20:00 97.8 89 17 122/65 (84) 96 97.8 04/23/18 16:00 98.2 79 19 122/66 (84) 97 98.2 04/23/18 12:00 98.5 89 20 132/68 (89) 97 98.5 04/23/18 11:57 132/68 04/23/18 09:20 86 117/71 04/23/18 09:00 Room Air 04/23/18 08:00 98.2 86 18 117/71 (86) 98 98.2 Intake and Output 04/23/18 04/24/18 19:00 07:00 Intake Total 5500 ml 810 ml Output Total 450 ml Balance 5050 ml 810 ml Intake Oral 540 ml IV Total 760 ml 810 ml Other 4200 ml Output Urine Total 450 ml # Bowel Movements 2 Height (Feet): 6 Height (Inches): 0.00 Weight (Pounds): 189 General Appearance: no apparent distress EENT: TMs normal Neck: supple Cardiovascular: regular rhythm Respiratory/Chest: no respiratory distress Abdomen: no organomegaly Extremities: non-tender Edema: 1+ Leg (L), 1+ Leg (R) Edema: mild edema Neurologic: alert Skin: warm/dry Zack Miguel MD Apr 24, 2018 07:18
[2018-04-24 08:00] VITALS: BP 144/59
--- NOTE | 2018-04-24 08:50 | General Progress Note ---
Assessment/Plan Assessment/Plan (1) Alerted mental status (2) S/p fall (3) Cervical Sprain (4) Thoracic sprain (5) Lumbar sprain (6) S/p CVA Continued on Tylenol and Lidocaine. D/w Dr. Laura and he concurred. Subjective Date patient seen: Apr 24, 2018 Time patient seen: 07:15 - am ROS Limited/Unobtainable: Yes Allergies: Coded Allergies: No Known Allergies (Unverified , 04/11/18) Subjective Patient is in bed resting showing no signs of pain or distress at this time. Objective Last 24 Hour Vital Signs Date Time Temp Pulse Resp B/P (MAP) Pulse Ox O2 Delivery O2 Flow Rate FiO2 04/24/18 04:00 97.6 81 18 103/66 (78) 96 97.6 04/24/18 00:00 98.2 76 18 108/57 (74) 96 98.2 04/23/18 21:00 Room Air 04/23/18 20:42 89 122/65 04/23/18 20:00 97.8 89 17 122/65 (84) 96 97.8 04/23/18 16:00 98.2 79 19 122/66 (84) 97 98.2 04/23/18 12:00 98.5 89 20 132/68 (89) 97 98.5 04/23/18 11:57 132/68 04/23/18 09:20 86 117/71 04/23/18 09:00 Room Air Intake and Output 04/23/18 04/24/18 19:00 07:00 Intake Total 5500 ml 9050 ml Output Total 450 ml 56791 ml Balance 5050 ml -2925 ml Intake Oral 540 ml 240 ml IV Total 760 ml 810 ml Other 4200 ml 8000 ml Output Urine Total 450 ml 31933 ml # Bowel Movements 2 Height (Feet): 6 Height (Inches): 0.00 Weight (Pounds): 189 Objective GENERAL: Alert and awake. LUNGS: Decreased breath sounds bilaterally. HEART: Regular. ABDOMEN: Benign. EXTREMITIES: No cyanosis. No clubbing. Jerson Hook Apr 24, 2018 08:49
[2018-04-24] MEDS: Vitamin A&D Oint 2oz Tube TOPIC SCH ×2 (09:30→16:52)
[2018-04-24] MEDS: Megace 400mg/10ml Susp ORAL SCH ×2 (09:30→16:51)
[2018-04-24] MEDS: Metoprolol Tartrate 50mg tab ORAL SCH ×2 (09:30→21:00)
[2018-04-24] MEDS: Fluconazole 100mg tab ORAL SCH (09:30)
[2018-04-24] MEDS: Tamsulosin 0.4mg cap ORAL SCH ×2 (09:30→16:52)
[2018-04-24] MEDS: Levemir Flexpen SUBQ SCH (09:31)
[2018-04-24] MEDS: Docusate 100mg/10ml Liq ORAL SCH ×3 (09:32→16:51)
[2018-04-24] MEDS: Bisacodyl EC 5mg tab ORAL SCH (09:32)
--- NOTE | 2018-04-24 11:16 | GI Progress Note ---
Assessment/Plan Problems: (1) Malnutrition ICD Codes: E46 - Unspecified protein-calorie malnutrition SNOMED: 58212960 (2) Acute cerebrovascular accident (CVA) ICD Codes: I63.9 - Cerebral infarction, unspecified SNOMED: 722579451, 884382354 (3) Hematuria ICD Codes: R31.9 - Hematuria, unspecified SNOMED: 80674196 (4) Diabetes mellitus out of control ICD Codes: E11.65 - Type 2 diabetes mellitus with hyperglycemia SNOMED: 44727652, 235306255 (5) Dehydration ICD Codes: E86.0 - Dehydration SNOMED: 36329248, 847759751, 586405357 Status: stable Status Narrative Discussed with Dr. Fernandez. Assessment/Plan patient tolerating almost 100% puree diet >> advance as tolerated no reports of N/V anemia work up reviewed supportive care at this time push PO strict aspiration precautions cont calorie count fu neurology recs zofran prn, reglan prn for persistent emesis fu labs The patient was seen and examined at bedside and all new and available data was reviewed in the patients chart. I agree with the above findings, impression and plan. (Patient seen earlier today. Signature stamp does not reflect patient encounter time.). - German Fernandez MD Subjective Gastrointestinal/Abdominal: Reports: no symptoms Objective Last 24 Hour Vital Signs Date Time Temp Pulse Resp B/P (MAP) Pulse Ox O2 Delivery O2 Flow Rate FiO2 04/24/18 09:30 90 144/59 04/24/18 08:00 97.3 90 20 144/59 (87) 95 97.3 04/24/18 04:00 97.6 81 18 103/66 (78) 96 97.6 04/24/18 00:00 98.2 76 18 108/57 (74) 96 98.2 04/23/18 21:00 Room Air 04/23/18 20:42 89 122/65 04/23/18 20:00 97.8 89 17 122/65 (84) 96 97.8 04/23/18 16:00 98.2 79 19 122/66 (84) 97 98.2 04/23/18 12:00 98.5 89 20 132/68 (89) 97 98.5 04/23/18 11:57 132/68 Intake and Output 04/23/18 04/24/18 19:00 07:00 Intake Total 5500 ml 9050 ml Output Total 450 ml 49902 ml Balance 5050 ml -2925 ml Intake Oral 540 ml 240 ml IV Total 760 ml 810 ml Other 4200 ml 8000 ml Output Urine Total 450 ml 62362 ml # Bowel Movements 2 Laboratory Tests Test 04/24/18 08:13 Ferritin 503 NG/ML (8-388) H Height (Feet): 6 Height (Inches): 0.00 Weight (Pounds): 189 General Appearance: WD/WN, no apparent distress, alert Cardiovascular: normal rate Respiratory/Chest: normal breath sounds, no respiratory distress Abdominal Exam: normal bowel sounds, non tender, soft Extremities: normal range of motion, non-tender Christian Verma [employer] Apr 24, 2018 11:16
--- NOTE | 2018-04-24 11:50 | Nephrology Progress Note ---
Assessment/Plan Problem List: (1) Dehydration (2) UTI (urinary tract infection) (3) Acute renal failure (4) Acute encephalopathy (5) Diabetes mellitus out of control (6) Elevated troponin I level (7) Urinary retention Assessment: 700 cc 04/18/18 (8) Acute cerebrovascular accident (CVA) (9) Sepsis Assessment acute CVA- Renal Failure- encephalopathy UTI Dehydration Low na and high K Elevated troponin DM , high Glucose Plan no labs today- shower of emboli to brain ZA per cardio negative Antibiotics per ID vizcaino- has 700 cc retention Adjust meds starlix Monitor lytes ASA Nitrate St eval recheck UA and U culture Per orders to acute rehab Subjective ROS Limited/Unobtainable: No Constitutional: Reports: malaise Objective Objective Last 24 Hour Vital Signs Date Time Temp Pulse Resp B/P (MAP) Pulse Ox O2 Delivery O2 Flow Rate FiO2 04/24/18 09:30 90 144/59 04/24/18 09:00 Room Air 04/24/18 08:00 97.3 90 20 144/59 (87) 95 97.3 04/24/18 04:00 97.6 81 18 103/66 (78) 96 97.6 04/24/18 00:00 98.2 76 18 108/57 (74) 96 98.2 04/23/18 21:00 Room Air 04/23/18 20:42 89 122/65 04/23/18 20:00 97.8 89 17 122/65 (84) 96 97.8 04/23/18 16:00 98.2 79 19 122/66 (84) 97 98.2 04/23/18 12:00 98.5 89 20 132/68 (89) 97 98.5 04/23/18 11:57 132/68 Intake and Output 04/23/18 04/24/18 19:00 07:00 Intake Total 5500 ml 9050 ml Output Total 450 ml 80708 ml Balance 5050 ml -2925 ml Intake Oral 540 ml 240 ml IV Total 760 ml 810 ml Other 4200 ml 8000 ml Output Urine Total 450 ml 00632 ml # Bowel Movements 2 Laboratory Tests 04/24/18 08:13: Ferritin 503H Height (Feet): 6 Height (Inches): 0.00 Weight (Pounds): 189 General Appearance: no apparent distress Cardiovascular: tachycardia Respiratory/Chest: decreased breath sounds Abdomen: soft Objective no change Greyson Ignacio MD Apr 24, 2018 11:50
[2018-04-24 12:00] VITALS: BP 103/59
[2018-04-24] MEDS: Nitroglycerin Patch 0.4mg TDERMAL SCH (12:15)
--- NOTE | 2018-04-24 12:44 | Infectious Diseases Prog Note ---
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 Subjective ROS Limited/Unobtainable: Yes Constitutional: Reports: no symptoms Respiratory: Reports: no symptoms Gastrointestinal/Abdominal: Reports: no symptoms Genitourinary: Reports: hematuria, other - started on bladder irrigation Musculoskeletal: Reports: pain, other - improved Allergies: Coded Allergies: No Known Allergies (Unverified , 04/11/18) Objective Vital Signs Last 24 Hour Vital Signs Date Time Temp Pulse Resp B/P (MAP) Pulse Ox O2 Delivery O2 Flow Rate FiO2 04/24/18 12:15 144/59 04/24/18 09:30 90 144/59 04/24/18 09:00 Room Air 04/24/18 08:00 97.3 90 20 144/59 (87) 95 97.3 04/24/18 04:00 97.6 81 18 103/66 (78) 96 97.6 04/24/18 00:00 98.2 76 18 108/57 (74) 96 98.2 04/23/18 21:00 Room Air 04/23/18 20:42 89 122/65 04/23/18 20:00 97.8 89 17 122/65 (84) 96 97.8 04/23/18 16:00 98.2 79 19 122/66 (84) 97 98.2 Height (Feet): 6 Height (Inches): 0.00 Weight (Pounds): 189 General Appearance: no acute distress HEENT: mucous membranes moist Respiratory/Chest: lungs clear Cardiovascular: normal rate Abdomen: soft, non tender Genitourinary: other - trilumen catheter, gross hematuria Extremities: no edema Neurologic/Psychiatric: alert, responsive Laboratory Tests Test 04/24/18 08:13 Ferritin 503 NG/ML (8-388) H C-Reactive Protein, Quantitative 2.4 mg/dL (0.00-0.90) H Current Medications Medications (Trade) Dose Ordered Sig/Safia Route PRN Reason Start Time Stop Time Status Last Admin Dose Admin Acetaminophen (Tylenol) 500 mg Q4H PRN ORAL Mild Pain/Temp > 100.5 04/13/18 13:41 05/11/18 13:40 04/14/18 21:33 Bisacodyl (Dulcolax) 10 mg DAILY ORAL 04/18/18 09:00 05/18/18 08:59 04/23/18 09:12 Dextrose (Dextrose 50%) 25 ml Q30M PRN IV Hypoglycemia 04/15/18 18:00 05/15/18 17:59 Dextrose (Dextrose 50%) 50 ml Q30M PRN IV Hypoglycemia 04/15/18 18:00 05/15/18 17:59 Docusate Sodium (Colace) 100 mg THREE TIMES A DAY ORAL 04/18/18 18:00 05/18/18 17:59 04/24/18 12:23 Fluconazole (Diflucan) 200 mg DAILY ORAL 04/21/18 13:01 04/28/18 13:00 04/24/18 09:30 Insulin Aspart (NovoLOG) BEFORE MEALS AND HS SUBQ 04/15/18 21:00 05/15/18 20:59 04/24/18 12:19 Insulin Detemir (Levemir) 10 units DAILY SUBQ 04/18/18 09:00 05/13/18 08:59 04/24/18 09:31 Lidocaine (Lidoderm 5% PATCH) 1 patch DAILY@0000 TDERMAL 04/14/18 00:00 05/13/18 00:14 04/23/18 23:50 Magnesium Hydroxide (Mom) 30 ml Q4HR PRN ORAL Constipation 04/17/18 22:45 05/17/18 22:44 04/18/18 17:11 Megestrol Acetate (Megace) 400 mg TWICE A DAY ORAL 04/16/18 11:00 05/16/18 10:59 04/24/18 09:30 Metoprolol Tartrate (Lopressor) 50 mg Q12HR ORAL 04/17/18 21:00 05/13/18 20:59 04/24/18 09:30 Nateglinide (Starlix) 120 mg TIAC ORAL 04/13/18 16:30 05/12/18 08:59 04/24/18 12:16 Nitroglycerin (Ntg) 1 patch Q24H TDERMAL 04/14/18 11:00 05/11/18 10:59 04/24/18 12:15 Oxacillin Sodium 2 gm/Sodium Chloride 110 ml @ 220 mls/hr Q4HR IVPB 04/20/18 13:00 04/27/18 12:59 04/24/18 12:24 Pantoprazole (Protonix) 40 mg EVERY 12 HOURS ORAL 04/13/18 21:00 05/13/18 20:59 04/24/18 09:30 Quetiapine Fumarate (SEROquel) 12.5 mg Q4H PRN ORAL ANXIETY 04/13/18 13:43 05/12/18 13:42 Sennosides (Senokot) 1 tab QHS ORAL 04/18/18 21:00 05/18/18 20:59 04/23/18 20:42 Sitagliptin Phosphate (Januvia) 50 mg ACBREAKFAST ORAL 04/14/18 06:30 05/14/18 06:29 04/24/18 06:51 Sodium Chloride 1,000 ml @ 60 mls/hr [id number] IV 04/20/18 05:15 05/20/18 05:14 04/23/18 15:49 Tamsulosin HCl (Flomax) 0.4 mg BID ORAL 04/18/18 18:00 05/11/18 20:59 04/24/18 09:30 Vitamin A/Vitamin D (A & D Oint) 1 applic TWICE A DAY TOPIC 04/13/18 18:00 05/12/18 08:59 04/24/18 09:30 Conor Egan MD Apr 24, 2018 12:44
[2018-04-24 16:00] VITALS: BP 146/71
[2018-04-24 20:00] VITALS: BP 118/74
[2018-04-24] MEDS ORDERED: NS Irrig 4000ml IRRIG ONE (20:05)
[2018-04-24] MEDS ORDERED: Tubing IV Secondary IV ONE (20:05)
--- NOTE | 2018-04-24 20:39 | Neurology Progress Note ---
Interim History Interim History Interim History Mr. Devlin continues to feel much better. The mind is clearer. He feels stronger in all his extremities. He has still not walked much. His speech is better and so is his language. He is still bleeding from his bladder. He denies any new neurologic symptoms. Review of Systems Neuro Review of Systems Benign. Objective Physical Exam Last Vital Signs Date Time Temp Pulse Resp B/P (MAP) Pulse Ox O2 Delivery O2 Flow Rate FiO2 04/24/18 16:00 97.3 80 18 146/71 (96) 97 97.3 04/24/18 09:00 Room Air 04/20/18 13:20 3 Laboratory Tests Test 04/24/18 08:13 Ferritin 503 NG/ML (8-388) H C-Reactive Protein, Quantitative 2.4 mg/dL (0.00-0.90) H Neurologic Exam Objective PHYSICAL EXAMINATION: GENERAL: He is a well-developed, well-nourished, pleasant gentleman, lying in bed, in no acute distress. HEAD: Normocephalic and atraumatic. EENT: Examination benign. NECK: No neck rigidity was observed. NEUROLOGIC EXAMINATION: MENTAL STATUS EXAMINATION: He was awake and alert. He was oriented to [facility], [facility], and April 24, 2018. He was able to recall 3/3 words immediately, but could only remember 2/3 words in 1 and 3 minutes. He was able to remember presidents Trump and Obama, but could not remember presidents prior to that. His mathematical skills were impaired. His visuospatial function was also impaired. SPEECH: He had a mild dysarthria. LANGUAGE: He had anomia for low and mid frequency words. CRANIAL NERVE EXAMINATION: II: The visual matthew were intact on confrontation testing. III, IV & : The external ocular movements were full and the pupils were 3 mm in diameter, equal, round, regular, and reactive to light. V: He had normal facial sensations, and the temporales, masseters, and pterygoids functioned normally. VII: He had normal facial expressions and no facial asymmetry. VIII: He was able to hear well bilaterally and had no nystagmus. IX: The palate moved symmetrically on phonation. X: He had no hoarseness of voice. XI: The sternocleidomastoids and trapezii functioned normally. XII: The tongue was in the midline without any fasciculations or atrophy. MOTOR SYSTEM: The tone was normal in all four extremities. Examination of muscle mass revealed no focal wasting. Examination of power revealed G 5/5 power in both upper extremities. In both lower extremities he had G 5-/5 power, except for G 4+/5 power in the iliopsoas bilaterally. SENSORY EXAMINATION: He had intact sensations to pin-prick and light touch. REFLEXES: 3+ and bilaterally symmetrical at the biceps, triceps, and brachioradialis, 3++ at both knees, 0 at both ankles. The plantar responses were flexor bilaterally. COORDINATION: He performed well on finger to nose testing and heel to paulson testing. STANCE & GAIT: Could not be tested. Impression/Recommendations Diagnostic Impression 1. Mr. Say Devlin is a 72-year-old, right-handed, gentleman, who has a nebulous past history, which he states is benign. He was functioning well until 04/11/2018, when he apparently fell down at home, bumped his head, and following that, went to a restaurant where he was noted to be sitting for a prolonged period of time and was also noted to have shaking chills. He was, in addition, confused and felt ill. As a result of that, the paramedics were called in and he was brought into the [facility] emergency room. 2. In the emergency room, he was noted to be tachycardic, had a significant leukocytosis with a left-sided shift, had an elevated blood sugar, a benign CT of the brain, urinalysis consistent with an acute significant urinary tract infection, and 3/3 blood cultures positive for Staphylococcus aureus. He was started on appropriate antibiotics, but has continued to have some waxing and waning of his mental state and as a result of that, an MRI of the brain was performed on 04/18/2018, which revealed scattered bilateral cerebral and cerebellar foci of diffusion restriction consistent with multiple acute cerebral embolic phenomena. 3. He continues to feel much better. The mind is clearer. He feels stronger in all his extremities. He has still not walked much. His speech is better and so is his language. He is still bleeding from his bladder. He denies any new neurologic symptoms. 4. On neurological examination at this time, he does have problems with recent and remote memory, visuospatial function, higher cognitive function and language. He also has a dysarthria. His bilateral lower extremity weakness has improved significantly. He still has pathologically brisk DTRs with the knee jerks brisker than upper extremity reflexes. His neurologic function is generally improved. 5. His laboratory data on admission revealed WBC count elevated to 12,200 with 87% neutrophils, 4% lymphocytes, and 9% monocytes. His chemistry panel revealed that his sodium was low at 128, chloride was low at 95, BUN was elevated at 38, creatinine was elevated at 1.5, and blood glucose was elevated to 337. His troponin was elevated at 0.067. His urinalysis revealed 3+ leukocyte esterase, 60-80 RBCs, and 20-30 WBCs per high power field. 6. He had his ZA on 04/20/18, as per Dr Chappell the study did not reveal signs of endocarditis or embolic phenomena. 7. The patient's history, neurological examination, laboratory data, and imaging studies are most compatible with a shower of emboli to the brain. It is unclear if these emboli are septic versus bland. Recommendations 1. Continue present management. 2. Would continue aggressive treatment of the patient's infectious process and treat him like a patient who does have bacterial endocarditis. 3. The patient's cardiac rhythm should be monitored for a malignant cardiac arrhythmia. 4. Physical, occupational, speech and language therapy. 5. Would do full coagulopathy work-up. Donald Perez M.D., M.S.P.H. DONALD PEREZ Apr 24, 2018 20:39
[2018-04-24] MEDS: Sennosides 8.6mg ORAL SCH (21:06)
--- NOTE | 2018-04-24 23:54 | General Progress Note ---
Assessment/Plan Status: stable, progressing Assessment/Plan encephalopathy [place] [facility] [place] acute CVA anxiety d/o Seroquel prn provided ro/st Subjective Date patient seen: Apr 24, 2018 Neurologic/Psychiatric: Reports: anxiety, depressed, emotional problems Allergies: Coded Allergies: No Known Allergies (Unverified , 04/11/18) Subjective the pt was calmer more engaged stated that he was anxious not suicidal Objective Last 24 Hour Vital Signs Date Time Temp Pulse Resp B/P (MAP) Pulse Ox O2 Delivery O2 Flow Rate FiO2 04/24/18 21:00 Room Air 04/24/18 21:00 96 118/74 04/24/18 20:00 98.2 96 19 118/74 (89) 95 98.2 04/24/18 16:00 97.3 80 18 146/71 (96) 97 97.3 04/24/18 12:15 144/59 04/24/18 12:00 98.2 75 20 103/59 (74) 95 98.2 04/24/18 09:30 90 144/59 04/24/18 09:00 Room Air 04/24/18 08:00 97.3 90 20 144/59 (87) 95 97.3 04/24/18 04:00 97.6 81 18 103/66 (78) 96 97.6 04/24/18 00:00 98.2 76 18 108/57 (74) 96 98.2 Intake and Output 04/23/18 04/24/18 19:00 07:00 Intake Total 5500 ml 9050 ml Output Total 450 ml 25361 ml Balance 5050 ml -2925 ml Intake Oral 540 ml 240 ml IV Total 760 ml 810 ml Other 4200 ml 8000 ml Output Urine Total 450 ml 41399 ml # Bowel Movements 2 Laboratory Tests 04/24/18 08:13: Ferritin 503H, C-Reactive Protein, Quantitative 2.4H Height (Feet): 6 Height (Inches): 0.00 Weight (Pounds): 189 General Appearance: no apparent distress, alert Neurologic: oriented x 3, responsive Vimal Mares MD Apr 24, 2018 23:54
--- NOTE | 2018-04-24 23:54 | Psych Consult Progress Note ---
Psych Consult Progress Note Consult 04/23/18 the pt still has episodes of agitation and confusion Vital Signs Last 24 Hour Vital Signs Date Time Temp Pulse Resp B/P (MAP) Pulse Ox O2 Delivery O2 Flow Rate FiO2 04/24/18 21:00 Room Air 04/24/18 21:00 96 118/74 04/24/18 20:00 98.2 96 19 118/74 (89) 95 98.2 04/24/18 16:00 97.3 80 18 146/71 (96) 97 97.3 04/24/18 12:15 144/59 04/24/18 12:00 98.2 75 20 103/59 (74) 95 98.2 04/24/18 09:30 90 144/59 04/24/18 09:00 Room Air 04/24/18 08:00 97.3 90 20 144/59 (87) 95 97.3 04/24/18 04:00 97.6 81 18 103/66 (78) 96 97.6 04/24/18 00:00 98.2 76 18 108/57 (74) 96 98.2 Labs Laboratory Tests Test 04/24/18 08:13 Ferritin 503 NG/ML (8-388) H C-Reactive Protein, Quantitative 2.4 mg/dL (0.00-0.90) H Medications Current Medications Medications (Trade) Dose Ordered Sig/Safia Route PRN Reason Start Time Stop Time Status Last Admin Dose Admin Acetaminophen (Tylenol) 500 mg Q4H PRN ORAL Mild Pain/Temp > 100.5 04/13/18 13:41 05/11/18 13:40 04/14/18 21:33 Bisacodyl (Dulcolax) 10 mg DAILY ORAL 04/18/18 09:00 05/18/18 08:59 04/23/18 09:12 Dextrose (Dextrose 50%) 25 ml Q30M PRN IV Hypoglycemia 04/15/18 18:00 05/15/18 17:59 Dextrose (Dextrose 50%) 50 ml Q30M PRN IV Hypoglycemia 04/15/18 18:00 05/15/18 17:59 Docusate Sodium (Colace) 100 mg THREE TIMES A DAY ORAL 04/18/18 18:00 05/18/18 17:59 04/24/18 12:23 Fluconazole (Diflucan) 200 mg DAILY ORAL 04/21/18 13:01 04/28/18 13:00 04/24/18 09:30 Insulin Aspart (NovoLOG) BEFORE MEALS AND HS SUBQ 04/15/18 21:00 05/15/18 20:59 04/24/18 21:10 Insulin Detemir (Levemir) 10 units DAILY SUBQ 04/18/18 09:00 05/13/18 08:59 04/24/18 09:31 Lidocaine (Lidoderm 5% PATCH) 1 patch DAILY@0000 TDERMAL 04/14/18 00:00 05/13/18 00:14 04/23/18 23:50 Magnesium Hydroxide (Mom) 30 ml Q4HR PRN ORAL Constipation 04/17/18 22:45 05/17/18 22:44 04/18/18 17:11 Megestrol Acetate (Megace) 400 mg TWICE A DAY ORAL 04/16/18 11:00 05/16/18 10:59 04/24/18 16:51 Metoprolol Tartrate (Lopressor) 50 mg Q12HR ORAL 04/17/18 21:00 05/13/18 20:59 04/24/18 09:30 Nateglinide (Starlix) 120 mg TIAC ORAL 04/13/18 16:30 05/12/18 08:59 04/24/18 16:51 Nitroglycerin (Ntg) 1 patch Q24H TDERMAL 04/14/18 11:00 05/11/18 10:59 04/24/18 12:15 Oxacillin Sodium 2 gm/Sodium Chloride 110 ml @ 220 mls/hr Q4HR IVPB 04/20/18 13:00 05/23/18 23:59 04/24/18 21:07 Pantoprazole (Protonix) 40 mg EVERY 12 HOURS ORAL 04/13/18 21:00 05/13/18 20:59 04/24/18 21:06 Quetiapine Fumarate (SEROquel) 12.5 mg Q4H PRN ORAL ANXIETY 04/13/18 13:43 05/12/18 13:42 Sennosides (Senokot) 1 tab QHS ORAL 04/18/18 21:00 05/18/18 20:59 04/24/18 21:06 Sitagliptin Phosphate (Januvia) 50 mg ACBREAKFAST ORAL 04/14/18 06:30 05/14/18 06:29 04/24/18 06:51 Sodium Chloride 1,000 ml @ 60 mls/hr [id number] IV 04/20/18 05:15 05/20/18 05:14 04/24/18 17:18 Tamsulosin HCl (Flomax) 0.4 mg BID ORAL 04/18/18 18:00 05/11/18 20:59 04/24/18 16:52 Vitamin A/Vitamin D (A & D Oint) 1 applic TWICE A DAY TOPIC 04/13/18 18:00 05/12/18 08:59 04/24/18 16:52 Problems: (1) Acute cerebrovascular accident (CVA) (2) Altered mental state Status: Acute Assessment & Plan: seroquel prn (3) UTI (urinary tract infection) Status: Acute Vimal Mares MD Apr 24, 2018 23:54
[2018-04-25] VITALS: BP 114/63
[2018-04-25] MEDS: Oxacillin 2 GM in NS 110 ML IVPB SCH ×6 (00:05→20:56)
[2018-04-25 04:00] VITALS: BP 133/76
[2018-04-25] MEDS: sitaGLIPtin 50mg tab ORAL SCH (06:00)
[2018-04-25] MEDS: NovoLOG Insulin Flexpen SUBQ SCH ×4 (06:05→20:58)
[2018-04-25 06:34] LABS: ALANINE AMINOTRANSFERASE 10 U/L (12-78); ALBUMIN/GLOBULIN RATIO 0.4 (1.0-2.7); ALKALINE PHOSPHATASE 87 U/L (46-116); ANION GAP 7 mmol/L (5-15); ASPARTATE AMINO TRANSFERASE 12 U/L (15-37); BILIRUBIN,TOTAL 0.2 MG/DL (0.2-1.0); BLOOD UREA NITROGEN 7 mg/dL (7-18); CALCIUM 9.8 MG/DL (8.5-10.1); CARBON DIOXIDE 25 MMOL/L (21-32); CHLORIDE 102 MMOL/L (98-107); CREATININE 0.7 MG/DL (0.55-1.30); SODIUM 134 MMOL/L (136-145)
[2018-04-25 06:59] LABS: BASOPHILS % (AUTO) 0.5 % (0.0-2.0); EOSINOPHILS % (AUTO) 1.5 % (0.0-3.0); HEMATOCRIT 26.4 % (42.0-52.0); HEMOGLOBIN 9.4 G/DL (14.2-18.0); LYMPHOCYTES % (AUTO) 10.9 % (20.0-45.0); MEAN CORPUSCULAR VOLUME 84 FL (80-99); MONOCYTES % (AUTO) 6.3 % (1.0-10.0); NEUTROPHILS % (AUTO) 80.8 % (45.0-75.0); PLATELET COUNT 290 K/UL (150-450); RED BLOOD COUNT 3.14 M/UL (4.70-6.10); RED CELL DISTRIBUTION WIDTH 12.3 % (11.6-14.8); WHITE BLOOD COUNT 7.2 K/UL (4.8-10.8)
[2018-04-25 08:00] VITALS: BP 136/74
[2018-04-25] MEDS: Tamsulosin 0.4mg cap ORAL SCH ×2 (08:33→17:02)
[2018-04-25] MEDS: Metoprolol Tartrate 50mg tab ORAL SCH ×2 (08:34→20:54)
[2018-04-25] MEDS: Megace 400mg/10ml Susp ORAL SCH ×2 (08:34→17:01)
--- NOTE | 2018-04-25 08:34 | General Progress Note ---
Assessment/Plan Assessment/Plan 1. Thrombocytopenia potentially secondary to underlying infection. ++ HSM noted , unknown if has cirrhosis as the ultrasound is non-conclusive --> Hepatitis panel and human immunodeficiency virus are both negative --> HSM.Question of nodularity of the liver surface. Cirrhosis not excluded. Correlate clinically --> hold off on transfusion if Plt>100k given hematuria --> stable range of approx 100-150k 2. Leukocytosis, likely secondary to urinary tract infection. Remains on abx --> on abx and peripheral smear reviewed --> id recs are appreciated 3. Pyuria due to urinary tract infection. Closely monitor for improvement. He is on abx --> id service has been consulted, on ancef/abx --> appreciate their recs, remains on abx 4. Old lacunar infarct. as per neuro eval --> their recs are appreciated 5. Anemia due to underlying chronic disease. Continue to closely monitor. --> anemia panel has been reviewed --> hgb goal >7, transfuse prn 6. Anemia due to hematuria --> plavix will hold due to continued hematuria --> cbc reviewed --> appreciate uro recs --> bladder is being irrigated 7. Sinus tachycardia, which was corrected Greatly appreciate consultation! Subjective Constitutional: Denies: no symptoms, chills, diaphoresis, fever, malaise, weakness, other Respiratory: Denies: no symptoms, cough, orthopnea, shortness of breath, SOB with excertion, SOB at rest, sputum, stridor, wheezing, other Gastrointestinal/Abdominal: Denies: no symptoms, abdomen distended, abdominal pain, black stools, tarry stools, blood in stool, constipated, diarrhea, difficulty swallowing, nausea, poor appetite, poor fluid intake, rectal bleeding , vomiting, other Neurologic/Psychiatric: Denies: no symptoms, anxiety, depressed, emotional problems, headache, numbness, paresthesia, pre-existing deficit, seizure, tingling, tremors, weakness, other Endocrine: Denies: no symptoms, excessive sweating, flushing, intolerance to cold, intolerance to heat, increased hunger, increased thirst, increased urine, unexplained weight gain, unexplained weight loss, other Hematologic/Lymphatic: Denies: no symptoms, anemia, easy bleeding, easy bruising, other Allergies: Coded Allergies: No Known Allergies (Unverified , 9/25/18) Subjective Pt awake and alert. No acute events. H/H stable. less bleeding in vizcaino. Objective Last 24 Hour Vital Signs Date Time Temp Pulse Resp B/P (MAP) Pulse Ox O2 Delivery O2 Flow Rate FiO2 04/25/18 04:00 97.9 90 20 133/76 (95) 96 97.9 04/25/18 00:00 97.8 88 20 114/63 (80) 95 97.8 04/24/18 21:00 Room Air 04/24/18 21:00 96 118/74 04/24/18 20:00 98.2 96 19 118/74 (89) 95 98.2 04/24/18 16:00 97.3 80 18 146/71 (96) 97 97.3 04/24/18 12:15 144/59 04/24/18 12:00 98.2 75 20 103/59 (74) 95 98.2 04/24/18 09:30 90 144/59 04/24/18 09:00 Room Air Intake and Output 04/24/18 04/25/18 19:00 07:00 Intake Total 5495 ml 1150 ml Output Total 1500 ml 34624 ml Balance 3995 ml -51797 ml Intake Oral 1435 ml 250 ml IV Total 60 ml 900 ml Other 4000 ml Output Urine Total 1500 ml 08806 ml # Bowel Movements 4 Laboratory Tests 04/25/18 05:20: White Blood Count 7.2, Red Blood Count 3.14L, Hemoglobin 9.4L, Hematocrit 26.4L , Mean Corpuscular Volume 84, Mean Corpuscular Hemoglobin 29.9, Mean Corpuscular Hemoglobin Concent 35.6, Red Cell Distribution Width 12.3, Platelet Count 290, Mean Platelet Volume 5.8L, Neutrophils (%) (Auto) 80.8H, Lymphocytes (%) (Auto) 10.9L, Monocytes (%) (Auto) 6.3, Eosinophils (%) (Auto) 1.5, Basophils (%) (Auto) 0.5, Sodium Level 134L, Potassium Level 4.0, Chloride Level 102, Carbon Dioxide Level 25, Anion Gap 7, Blood Urea Nitrogen 7, Creatinine 0.7, Estimat Glomerular Filtration Rate , Glucose Level 145H, Uric Acid 2.5L, Calcium Level 9.8, Phosphorus Level 3.0, Magnesium Level 1.7L, Total Bilirubin 0.2, Aspartate Amino Transf (AST/SGOT) 12L, Alanine Aminotransferase ( ALT/SGPT) 10L, Alkaline Phosphatase 87, Pro-B-Type Natriuretic Peptide 231H, Total Protein 7.0, Albumin 2.0L, Globulin 5.0, Albumin/Globulin Ratio 0.4L Height (Feet): 6 Height (Inches): 0.00 Weight (Pounds): 189 General Appearance: alert EENT: TMs normal Neck: supple Cardiovascular: normal rate Respiratory/Chest: lungs clear Abdomen: non tender Extremities: non-tender Edema: 1+ Leg (L), 1+ Leg (R) Edema: mild edema Neurologic: alert Skin: warm/dry Zack Miguel MD Apr 25, 2018 08:34
[2018-04-25] MEDS: Fluconazole 100mg tab ORAL SCH (08:35)
[2018-04-25] MEDS: Docusate 100mg/10ml Liq ORAL SCH ×3 (08:35→17:01)
[2018-04-25] MEDS: Vitamin A&D Oint 2oz Tube TOPIC SCH ×2 (08:35→17:04)
[2018-04-25] MEDS: Bisacodyl EC 5mg tab ORAL SCH (08:36)
[2018-04-25] MEDS: Levemir Flexpen SUBQ SCH (08:38)
--- NOTE | 2018-04-25 08:38 | General Progress Note ---
Assessment/Plan Problem List: (1) Diabetes mellitus out of control ICD Codes: E11.65 - Type 2 diabetes mellitus with hyperglycemia SNOMED: 83757799, 111462686 (2) Acute encephalopathy ICD Codes: G93.40 - Encephalopathy, unspecified SNOMED: 54083667, 120685136 (3) Dehydration ICD Codes: E86.0 - Dehydration SNOMED: 07945656, 238163991, 769155585 (4) Acute renal failure ICD Codes: N17.9 - Acute kidney failure, unspecified SNOMED: 13639970 Assessment/Plan continue Levemir 10 units daily continue Januvia 50 mg daily continue Starlix 120 mg ac tid continue NISS ac / hs Subjective Allergies: Coded Allergies: No Known Allergies (Unverified , 04/11/18) All Systems: reviewed and negative except above Subjective events noted Objective Last 24 Hour Vital Signs Date Time Temp Pulse Resp B/P (MAP) Pulse Ox O2 Delivery O2 Flow Rate FiO2 04/25/18 04:00 97.9 90 20 133/76 (95) 96 97.9 04/25/18 00:00 97.8 88 20 114/63 (80) 95 97.8 04/24/18 21:00 Room Air 04/24/18 21:00 96 118/74 04/24/18 20:00 98.2 96 19 118/74 (89) 95 98.2 04/24/18 16:00 97.3 80 18 146/71 (96) 97 97.3 04/24/18 12:15 144/59 04/24/18 12:00 98.2 75 20 103/59 (74) 95 98.2 04/24/18 09:30 90 144/59 04/24/18 09:00 Room Air Intake and Output 04/24/18 04/25/18 19:00 07:00 Intake Total 5495 ml 1150 ml Output Total 1500 ml 16799 ml Balance 3995 ml -16067 ml Intake Oral 1435 ml 250 ml IV Total 60 ml 900 ml Other 4000 ml Output Urine Total 1500 ml 83417 ml # Bowel Movements 4 Laboratory Tests 04/25/18 05:20: White Blood Count 7.2, Red Blood Count 3.14L, Hemoglobin 9.4L, Hematocrit 26.4L , Mean Corpuscular Volume 84, Mean Corpuscular Hemoglobin 29.9, Mean Corpuscular Hemoglobin Concent 35.6, Red Cell Distribution Width 12.3, Platelet Count 290, Mean Platelet Volume 5.8L, Neutrophils (%) (Auto) 80.8H, Lymphocytes (%) (Auto) 10.9L, Monocytes (%) (Auto) 6.3, Eosinophils (%) (Auto) 1.5, Basophils (%) (Auto) 0.5, Sodium Level 134L, Potassium Level 4.0, Chloride Level 102, Carbon Dioxide Level 25, Anion Gap 7, Blood Urea Nitrogen 7, Creatinine 0.7, Estimat Glomerular Filtration Rate , Glucose Level 145H, Uric Acid 2.5L, Calcium Level 9.8, Phosphorus Level 3.0, Magnesium Level 1.7L, Total Bilirubin 0.2, Aspartate Amino Transf (AST/SGOT) 12L, Alanine Aminotransferase ( ALT/SGPT) 10L, Alkaline Phosphatase 87, Pro-B-Type Natriuretic Peptide 231H, Total Protein 7.0, Albumin 2.0L, Globulin 5.0, Albumin/Globulin Ratio 0.4L Height (Feet): 6 Height (Inches): 0.00 Weight (Pounds): 189 General Appearance: no apparent distress Neck: normal alignment Cardiovascular: normal rate Respiratory/Chest: lungs clear Abdomen: normal bowel sounds Objective Current Medications Medications (Trade) Dose Ordered Sig/Safia Route PRN Reason Start Time Stop Time Status Last Admin Dose Admin Acetaminophen (Tylenol) 500 mg Q4H PRN ORAL Mild Pain/Temp > 100.5 04/13/18 13:41 05/11/18 13:40 04/14/18 21:33 Bisacodyl (Dulcolax) 10 mg DAILY ORAL 04/18/18 09:00 05/18/18 08:59 04/23/18 09:12 Dextrose (Dextrose 50%) 25 ml Q30M PRN IV Hypoglycemia 04/15/18 18:00 05/15/18 17:59 Dextrose (Dextrose 50%) 50 ml Q30M PRN IV Hypoglycemia 04/15/18 18:00 05/15/18 17:59 Docusate Sodium (Colace) 100 mg THREE TIMES A DAY ORAL 04/18/18 18:00 05/18/18 17:59 04/24/18 12:23 Fluconazole (Diflucan) 200 mg DAILY ORAL 04/21/18 13:01 04/28/18 13:00 04/24/18 09:30 Insulin Aspart (NovoLOG) BEFORE MEALS AND HS SUBQ 04/15/18 21:00 05/15/18 20:59 04/25/18 06:05 Insulin Detemir (Levemir) 10 units DAILY SUBQ 04/18/18 09:00 05/13/18 08:59 04/24/18 09:31 Lidocaine (Lidoderm 5% PATCH) 1 patch DAILY@0000 TDERMAL 04/14/18 00:00 05/13/18 00:14 04/25/18 00:05 Magnesium Hydroxide (Mom) 30 ml Q4HR PRN ORAL Constipation 04/17/18 22:45 05/17/18 22:44 04/18/18 17:11 Megestrol Acetate (Megace) 400 mg TWICE A DAY ORAL 04/16/18 11:00 05/16/18 10:59 04/24/18 16:51 Metoprolol Tartrate (Lopressor) 50 mg Q12HR ORAL 04/17/18 21:00 05/13/18 20:59 04/24/18 09:30 Nateglinide (Starlix) 120 mg TIAC ORAL 04/13/18 16:30 05/12/18 08:59 04/25/18 06:01 Nitroglycerin (Ntg) 1 patch Q24H TDERMAL 04/14/18 11:00 05/11/18 10:59 04/24/18 12:15 Oxacillin Sodium 2 gm/Sodium Chloride 110 ml @ 220 mls/hr Q4HR IVPB 04/20/18 13:00 05/23/18 23:59 04/25/18 04:25 Pantoprazole (Protonix) 40 mg EVERY 12 HOURS ORAL 04/13/18 21:00 05/13/18 20:59 04/24/18 21:06 Quetiapine Fumarate (SEROquel) 12.5 mg Q4H PRN ORAL ANXIETY 04/13/18 13:43 05/12/18 13:42 Sennosides (Senokot) 1 tab QHS ORAL 04/18/18 21:00 05/18/18 20:59 04/24/18 21:06 Sitagliptin Phosphate (Januvia) 50 mg ACBREAKFAST ORAL 04/14/18 06:30 05/14/18 06:29 04/25/18 06:00 Sodium Chloride 1,000 ml @ 60 mls/hr [id number] IV 04/20/18 05:15 05/20/18 05:14 04/24/18 17:18 Tamsulosin HCl (Flomax) 0.4 mg BID ORAL 04/18/18 18:00 05/11/18 20:59 04/24/18 16:52 Vitamin A/Vitamin D (A & D Oint) 1 applic TWICE A DAY TOPIC 04/13/18 18:00 05/12/18 08:59 04/24/18 16:52 Item Value Date Time Bedside Blood Glucose 132 mg/dl H 04/25/18 0615 Bedside Blood Glucose 159 mg/dl H 04/24/18 1654 Bedside Blood Glucose 212 mg/dl H 04/24/18 1219 Bedside Blood Glucose 152 mg/dl H 04/24/18 0931 Bedside Blood Glucose 152 mg/dl H 04/24/18 0649 Kurtis Richey MD Apr 25, 2018 08:38
[2018-04-25] MEDS: Nitroglycerin Patch 0.4mg TDERMAL SCH (11:00)
[2018-04-25 12:00] VITALS: BP 106/62
--- NOTE | 2018-04-25 13:05 | Nephrology Progress Note ---
Assessment/Plan Problem List: (1) Dehydration (2) UTI (urinary tract infection) (3) Acute renal failure (4) Acute encephalopathy (5) Diabetes mellitus out of control (6) Elevated troponin I level (7) Urinary retention Assessment: 700 cc 04/18/18 (8) Acute cerebrovascular accident (CVA) (9) Sepsis Assessment acute CVA- Renal Failure- encephalopathy UTI Dehydration Low Na and high K Elevated troponin DM , high Glucose Plan stop hypotonic solution shower of emboli to brain ZA per cardio negative Antibiotics per ID vizcaino- has 700 cc retention Adjust meds starlix Monitor lytes ASA Nitrate St eval recheck UA and U culture Per orders to acute rehab Subjective ROS Limited/Unobtainable: No Constitutional: Reports: weakness Objective Objective Last 24 Hour Vital Signs Date Time Temp Pulse Resp B/P (MAP) Pulse Ox O2 Delivery O2 Flow Rate FiO2 04/25/18 11:00 106/66 04/25/18 09:00 Room Air 04/25/18 08:34 90 133/76 04/25/18 08:00 96.2 93 18 136/74 (94) 96 96.2 04/25/18 04:00 97.9 90 20 133/76 (95) 96 97.9 04/25/18 00:00 97.8 88 20 114/63 (80) 95 97.8 04/24/18 21:00 Room Air 04/24/18 21:00 96 118/74 04/24/18 20:00 98.2 96 19 118/74 (89) 95 98.2 04/24/18 16:00 97.3 80 18 146/71 (96) 97 97.3 Intake and Output 04/24/18 04/25/18 19:00 07:00 Intake Total 5495 ml 1150 ml Output Total 1500 ml 97724 ml Balance 3995 ml -52304 ml Intake Oral 1435 ml 250 ml IV Total 60 ml 900 ml Other 4000 ml Output Urine Total 1500 ml 40217 ml # Bowel Movements 4 Laboratory Tests 04/25/18 05:20: White Blood Count 7.2, Red Blood Count 3.14L, Hemoglobin 9.4L, Hematocrit 26.4L , Mean Corpuscular Volume 84, Mean Corpuscular Hemoglobin 29.9, Mean Corpuscular Hemoglobin Concent 35.6, Red Cell Distribution Width 12.3, Platelet Count 290, Mean Platelet Volume 5.8L, Neutrophils (%) (Auto) 80.8H, Lymphocytes (%) (Auto) 10.9L, Monocytes (%) (Auto) 6.3, Eosinophils (%) (Auto) 1.5, Basophils (%) (Auto) 0.5, Sodium Level 134L, Potassium Level 4.0, Chloride Level 102, Carbon Dioxide Level 25, Anion Gap 7, Blood Urea Nitrogen 7, Creatinine 0.7, Estimat Glomerular Filtration Rate , Glucose Level 145H, Uric Acid 2.5L, Calcium Level 9.8, Phosphorus Level 3.0, Magnesium Level 1.7L, Total Bilirubin 0.2, Aspartate Amino Transf (AST/SGOT) 12L, Alanine Aminotransferase ( ALT/SGPT) 10L, Alkaline Phosphatase 87, Pro-B-Type Natriuretic Peptide 231H, Total Protein 7.0, Albumin 2.0L, Globulin 5.0, Albumin/Globulin Ratio 0.4L Height (Feet): 6 Height (Inches): 0.00 Weight (Pounds): 189 General Appearance: no apparent distress Cardiovascular: tachycardia Respiratory/Chest: decreased breath sounds Abdomen: soft, distended Objective no change Greyson Ignacio MD Apr 25, 2018 13:05
--- NOTE | 2018-04-25 14:26 | Infectious Diseases Prog Note ---
Assessment/Plan Assessment/Plan A; Sepsis with Staph aureus, MSSA UTI with MSSA DM & Hyperglycemia Embolic CVA AMS elevated troponin Syncope & Fall Encephalopathy Old lacunar infarcts Hematuria P; Continue Oxacillin X 28 days Continue Po Fluconazole Case was D/W PMD At time of discharge will change to IV Vancomycin Subjective ROS Limited/Unobtainable: Yes Musculoskeletal: Reports: pain Allergies: Coded Allergies: No Known Allergies (Unverified , 04/11/18) Objective Vital Signs Last 24 Hour Vital Signs Date Time Temp Pulse Resp B/P (MAP) Pulse Ox O2 Delivery O2 Flow Rate FiO2 04/25/18 12:00 97.7 73 17 106/62 (77) 98 97.7 04/25/18 11:00 106/66 04/25/18 09:00 Room Air 04/25/18 08:34 90 133/76 04/25/18 08:00 96.2 93 18 136/74 (94) 96 96.2 04/25/18 04:00 97.9 90 20 133/76 (95) 96 97.9 04/25/18 00:00 97.8 88 20 114/63 (80) 95 97.8 04/24/18 21:00 Room Air 04/24/18 21:00 96 118/74 04/24/18 20:00 98.2 96 19 118/74 (89) 95 98.2 04/24/18 16:00 97.3 80 18 146/71 (96) 97 97.3 Height (Feet): 6 Height (Inches): 0.00 Weight (Pounds): 189 General Appearance: no acute distress HEENT: mucous membranes moist Respiratory/Chest: lungs clear Cardiovascular: normal rate Abdomen: soft, non tender Genitourinary: other - trilumen catheter Extremities: no edema Neurologic/Psychiatric: alert, responsive Laboratory Tests Test 04/25/18 05:20 White Blood Count 7.2 K/UL (4.8-10.8) Red Blood Count 3.14 M/UL (4.70-6.10) L Hemoglobin 9.4 G/DL (14.2-18.0) L Hematocrit 26.4 % (42.0-52.0) L Mean Corpuscular Volume 84 FL (80-99) Mean Corpuscular Hemoglobin 29.9 PG (27.0-31.0) Mean Corpuscular Hemoglobin Concent 35.6 G/DL (32.0-36.0) Red Cell Distribution Width 12.3 % (11.6-14.8) Platelet Count 290 K/UL (150-450) Mean Platelet Volume 5.8 FL (6.5-10.1) L Neutrophils (%) (Auto) 80.8 % (45.0-75.0) H Lymphocytes (%) (Auto) 10.9 % (20.0-45.0) L Monocytes (%) (Auto) 6.3 % (1.0-10.0) Eosinophils (%) (Auto) 1.5 % (0.0-3.0) Basophils (%) (Auto) 0.5 % (0.0-2.0) Sodium Level 134 MMOL/L (136-145) L Potassium Level 4.0 MMOL/L (3.5-5.1) Chloride Level 102 MMOL/L (98-107) Carbon Dioxide Level 25 MMOL/L (21-32) Anion Gap 7 mmol/L (5-15) Blood Urea Nitrogen 7 mg/dL (7-18) Creatinine 0.7 MG/DL (0.55-1.30) Estimat Glomerular Filtration Rate mL/min (>60) Glucose Level 145 MG/DL (74-106) H Uric Acid 2.5 MG/DL (2.6-7.2) L Calcium Level 9.8 MG/DL (8.5-10.1) Phosphorus Level 3.0 MG/DL (2.5-4.9) Magnesium Level 1.7 MG/DL (1.8-2.4) L Total Bilirubin 0.2 MG/DL (0.2-1.0) Aspartate Amino Transf (AST/SGOT) 12 U/L (15-37) L Alanine Aminotransferase (ALT/SGPT) 10 U/L (12-78) L Alkaline Phosphatase 87 U/L (46-116) Pro-B-Type Natriuretic Peptide 231 pg/mL (0-125) H Total Protein 7.0 G/DL (6.4-8.2) Albumin 2.0 G/DL (3.4-5.0) L Globulin 5.0 g/dL Albumin/Globulin Ratio 0.4 (1.0-2.7) L Current Medications Medications (Trade) Dose Ordered Sig/Safia Route PRN Reason Start Time Stop Time Status Last Admin Dose Admin Acetaminophen (Tylenol) 500 mg Q4H PRN ORAL Mild Pain/Temp > 100.5 04/13/18 13:41 05/11/18 13:40 04/14/18 21:33 Bisacodyl (Dulcolax) 10 mg DAILY ORAL 04/18/18 09:00 05/18/18 08:59 04/23/18 09:12 Dextrose (Dextrose 50%) 25 ml Q30M PRN IV Hypoglycemia 04/15/18 18:00 05/15/18 17:59 Dextrose (Dextrose 50%) 50 ml Q30M PRN IV Hypoglycemia 04/15/18 18:00 05/15/18 17:59 Docusate Sodium (Colace) 100 mg THREE TIMES A DAY ORAL 04/18/18 18:00 05/18/18 17:59 04/24/18 12:23 Fluconazole (Diflucan) 200 mg DAILY ORAL 04/21/18 13:01 04/28/18 13:00 04/25/18 08:35 Insulin Aspart (NovoLOG) BEFORE MEALS AND HS SUBQ 04/15/18 21:00 05/15/18 20:59 04/25/18 11:30 Insulin Detemir (Levemir) 10 units DAILY SUBQ 04/18/18 09:00 05/13/18 08:59 04/25/18 08:38 Lidocaine (Lidoderm 5% PATCH) 1 patch DAILY@0000 TDERMAL 04/14/18 00:00 05/13/18 00:14 04/25/18 00:05 Magnesium Hydroxide (Mom) 30 ml Q4HR PRN ORAL Constipation 04/17/18 22:45 05/17/18 22:44 04/18/18 17:11 Megestrol Acetate (Megace) 400 mg TWICE A DAY ORAL 04/16/18 11:00 05/16/18 10:59 04/25/18 08:34 Metoprolol Tartrate (Lopressor) 50 mg Q12HR ORAL 04/17/18 21:00 05/13/18 20:59 04/25/18 08:34 Nateglinide (Starlix) 120 mg TIAC ORAL 04/13/18 16:30 05/12/18 08:59 04/25/18 11:29 Nitroglycerin (Ntg) 1 patch Q24H TDERMAL 04/14/18 11:00 05/11/18 10:59 04/24/18 12:15 Oxacillin Sodium 2 gm/Sodium Chloride 110 ml @ 220 mls/hr Q4HR IVPB 04/20/18 13:00 05/23/18 23:59 04/25/18 13:50 Pantoprazole (Protonix) 40 mg EVERY 12 HOURS ORAL 04/13/18 21:00 05/13/18 20:59 04/25/18 08:34 Quetiapine Fumarate (SEROquel) 12.5 mg Q4H PRN ORAL ANXIETY 04/13/18 13:43 05/12/18 13:42 Sennosides (Senokot) 1 tab QHS ORAL 04/18/18 21:00 05/18/18 20:59 04/24/18 21:06 Sitagliptin Phosphate (Januvia) 50 mg ACBREAKFAST ORAL 04/14/18 06:30 05/14/18 06:29 04/25/18 06:00 Tamsulosin HCl (Flomax) 0.4 mg BID ORAL 04/18/18 18:00 05/11/18 20:59 04/25/18 08:33 Vitamin A/Vitamin D (A & D Oint) 1 applic TWICE A DAY TOPIC 04/13/18 18:00 05/12/18 08:59 04/25/18 08:35 Conor Egan MD Apr 25, 2018 14:26
--- NOTE | 2018-04-25 14:43 | GI Progress Note ---
Assessment/Plan Problems: (1) Malnutrition ICD Codes: E46 - Unspecified protein-calorie malnutrition SNOMED: 04411884 (2) Acute cerebrovascular accident (CVA) ICD Codes: I63.9 - Cerebral infarction, unspecified SNOMED: 341548999, 652577059 (3) Hematuria ICD Codes: R31.9 - Hematuria, unspecified SNOMED: 38208281 (4) Diabetes mellitus out of control ICD Codes: E11.65 - Type 2 diabetes mellitus with hyperglycemia SNOMED: 69240358, 165333742 (5) Dehydration ICD Codes: E86.0 - Dehydration SNOMED: 86049871, 646466931, 699947817 Status: stable Status Narrative Discussed with Dr. Fernandez. Assessment/Plan patient tolerating almost 100% puree diet >> advance as tolerated no reports of N/V anemia work up reviewed supportive care at this time push PO strict aspiration precautions cont calorie count fu neurology recs zofran prn, reglan prn for persistent emesis fu labs The patient was seen and examined at bedside and all new and available data was reviewed in the patients chart. I agree with the above findings, impression and plan. (Patient seen earlier today. Signature stamp does not reflect patient encounter time.). - German Fernandez MD Subjective Gastrointestinal/Abdominal: Reports: no symptoms Objective Last 24 Hour Vital Signs Date Time Temp Pulse Resp B/P (MAP) Pulse Ox O2 Delivery O2 Flow Rate FiO2 04/25/18 12:00 97.7 73 17 106/62 (77) 98 97.7 04/25/18 11:00 106/66 04/25/18 09:00 Room Air 04/25/18 08:34 90 133/76 04/25/18 08:00 96.2 93 18 136/74 (94) 96 96.2 04/25/18 04:00 97.9 90 20 133/76 (95) 96 97.9 04/25/18 00:00 97.8 88 20 114/63 (80) 95 97.8 04/24/18 21:00 Room Air 04/24/18 21:00 96 118/74 04/24/18 20:00 98.2 96 19 118/74 (89) 95 98.2 04/24/18 16:00 97.3 80 18 146/71 (96) 97 97.3 Intake and Output 04/24/18 04/25/18 19:00 07:00 Intake Total 5495 ml 1150 ml Output Total 1500 ml 24573 ml Balance 3995 ml -49800 ml Intake Oral 1435 ml 250 ml IV Total 60 ml 900 ml Other 4000 ml Output Urine Total 1500 ml 81631 ml # Bowel Movements 4 Laboratory Tests Test 04/25/18 05:20 White Blood Count 7.2 K/UL (4.8-10.8) Red Blood Count 3.14 M/UL (4.70-6.10) L Hemoglobin 9.4 G/DL (14.2-18.0) L Hematocrit 26.4 % (42.0-52.0) L Mean Corpuscular Volume 84 FL (80-99) Mean Corpuscular Hemoglobin 29.9 PG (27.0-31.0) Mean Corpuscular Hemoglobin Concent 35.6 G/DL (32.0-36.0) Red Cell Distribution Width 12.3 % (11.6-14.8) Platelet Count 290 K/UL (150-450) Mean Platelet Volume 5.8 FL (6.5-10.1) L Neutrophils (%) (Auto) 80.8 % (45.0-75.0) H Lymphocytes (%) (Auto) 10.9 % (20.0-45.0) L Monocytes (%) (Auto) 6.3 % (1.0-10.0) Eosinophils (%) (Auto) 1.5 % (0.0-3.0) Basophils (%) (Auto) 0.5 % (0.0-2.0) Sodium Level 134 MMOL/L (136-145) L Potassium Level 4.0 MMOL/L (3.5-5.1) Chloride Level 102 MMOL/L (98-107) Carbon Dioxide Level 25 MMOL/L (21-32) Anion Gap 7 mmol/L (5-15) Blood Urea Nitrogen 7 mg/dL (7-18) Creatinine 0.7 MG/DL (0.55-1.30) Estimat Glomerular Filtration Rate mL/min (>60) Glucose Level 145 MG/DL (74-106) H Uric Acid 2.5 MG/DL (2.6-7.2) L Calcium Level 9.8 MG/DL (8.5-10.1) Phosphorus Level 3.0 MG/DL (2.5-4.9) Magnesium Level 1.7 MG/DL (1.8-2.4) L Total Bilirubin 0.2 MG/DL (0.2-1.0) Aspartate Amino Transf (AST/SGOT) 12 U/L (15-37) L Alanine Aminotransferase (ALT/SGPT) 10 U/L (12-78) L Alkaline Phosphatase 87 U/L (46-116) Pro-B-Type Natriuretic Peptide 231 pg/mL (0-125) H Total Protein 7.0 G/DL (6.4-8.2) Albumin 2.0 G/DL (3.4-5.0) L Globulin 5.0 g/dL Albumin/Globulin Ratio 0.4 (1.0-2.7) L Height (Feet): 6 Height (Inches): 0.00 Weight (Pounds): 189 General Appearance: WD/WN, no apparent distress, alert Cardiovascular: normal rate Respiratory/Chest: normal breath sounds, no respiratory distress Abdominal Exam: normal bowel sounds, non tender, soft Extremities: normal range of motion, non-tender Christian Verma NP Apr 25, 2018 14:43
[2018-04-25 16:00] VITALS: BP 114/68
--- NOTE | 2018-04-25 17:51 | General Progress Note ---
Assessment/Plan Assessment/Plan (1) Alerted mental status (2) S/p fall (3) Cervical Sprain (4) Thoracic sprain (5) Lumbar sprain (6) S/p CVA Continued on Tylenol and Lidocaine. D/w Dr. Laura and he concurred. Subjective Date patient seen: Apr 25, 2018 Time patient seen: 05:00 - pm ROS Limited/Unobtainable: Yes Allergies: Coded Allergies: No Known Allergies (Unverified , 04/11/18) Subjective In bed showing no signs of pain or distress. Objective Last 24 Hour Vital Signs Date Time Temp Pulse Resp B/P (MAP) Pulse Ox O2 Delivery O2 Flow Rate FiO2 04/25/18 16:00 98.9 74 17 114/68 (83) 99 98.9 04/25/18 12:00 97.7 73 17 106/62 (77) 98 97.7 04/25/18 11:00 106/66 04/25/18 09:00 Room Air 04/25/18 08:34 90 133/76 04/25/18 08:00 96.2 93 18 136/74 (94) 96 96.2 04/25/18 04:00 97.9 90 20 133/76 (95) 96 97.9 04/25/18 00:00 97.8 88 20 114/63 (80) 95 97.8 04/24/18 21:00 Room Air 04/24/18 21:00 96 118/74 04/24/18 20:00 98.2 96 19 118/74 (89) 95 98.2 Intake and Output 04/24/18 04/25/18 19:00 07:00 Intake Total 5495 ml 1150 ml Output Total 1500 ml 04802 ml Balance 3995 ml -80745 ml Intake Oral 1435 ml 250 ml IV Total 60 ml 900 ml Other 4000 ml Output Urine Total 1500 ml 84140 ml # Bowel Movements 4 Laboratory Tests 04/25/18 05:20: White Blood Count 7.2, Red Blood Count 3.14L, Hemoglobin 9.4L, Hematocrit 26.4L , Mean Corpuscular Volume 84, Mean Corpuscular Hemoglobin 29.9, Mean Corpuscular Hemoglobin Concent 35.6, Red Cell Distribution Width 12.3, Platelet Count 290, Mean Platelet Volume 5.8L, Neutrophils (%) (Auto) 80.8H, Lymphocytes (%) (Auto) 10.9L, Monocytes (%) (Auto) 6.3, Eosinophils (%) (Auto) 1.5, Basophils (%) (Auto) 0.5, Sodium Level 134L, Potassium Level 4.0, Chloride Level 102, Carbon Dioxide Level 25, Anion Gap 7, Blood Urea Nitrogen 7, Creatinine 0.7, Estimat Glomerular Filtration Rate , Glucose Level 145H, Uric Acid 2.5L, Calcium Level 9.8, Phosphorus Level 3.0, Magnesium Level 1.7L, Total Bilirubin 0.2, Aspartate Amino Transf (AST/SGOT) 12L, Alanine Aminotransferase ( ALT/SGPT) 10L, Alkaline Phosphatase 87, Pro-B-Type Natriuretic Peptide 231H, Total Protein 7.0, Albumin 2.0L, Globulin 5.0, Albumin/Globulin Ratio 0.4L Height (Feet): 6 Height (Inches): 0.00 Weight (Pounds): 189 Objective GENERAL: Alert and awake. LUNGS: Decreased breath sounds bilaterally. HEART: Regular. ABDOMEN: Benign. EXTREMITIES: No cyanosis. No clubbing. Jerson Hook Apr 25, 2018 17:51
--- NOTE | 2018-04-25 19:37 | General Progress Note ---
Assessment/Plan Problem List: (1) Acute cerebrovascular accident (CVA) ICD Codes: I63.9 - Cerebral infarction, unspecified SNOMED: 212006383, 587701309 (2) Altered mental state Assessment & Plan: seroquel prn ICD Codes: R41.82 - Altered mental status, unspecified SNOMED: 561313518, 259949847, 729834144 Qualifiers: Qualified Codes: R41.82 - Altered mental status, unspecified (3) UTI (urinary tract infection) ICD Codes: N39.0 - Urinary tract infection, site not specified SNOMED: 70282583, 550842576, 442191085 Qualifiers: Qualified Codes: N39.0 - Urinary tract infection, site not specified Status: stable, progressing Assessment/Plan encephalopathy due to [facility] [place] dementia mild acute CVA anxiety d/o Seroquel prn provided ro/st Subjective Date patient seen: Apr 25, 2018 Neurologic/Psychiatric: Reports: anxiety, depressed, emotional problems Allergies: Coded Allergies: No Known Allergies (Unverified , 04/11/18) Subjective the pt was calm and engaged Objective Last 24 Hour Vital Signs Date Time Temp Pulse Resp B/P (MAP) Pulse Ox O2 Delivery O2 Flow Rate FiO2 04/25/18 16:00 98.9 74 17 114/68 (83) 99 98.9 04/25/18 12:00 97.7 73 17 106/62 (77) 98 97.7 04/25/18 11:00 106/66 04/25/18 09:00 Room Air 04/25/18 08:34 90 133/76 04/25/18 08:00 96.2 93 18 136/74 (94) 96 96.2 04/25/18 04:00 97.9 90 20 133/76 (95) 96 97.9 04/25/18 00:00 97.8 88 20 114/63 (80) 95 97.8 04/24/18 21:00 Room Air 04/24/18 21:00 96 118/74 04/24/18 20:00 98.2 96 19 118/74 (89) 95 98.2 Intake and Output 04/24/18 04/25/18 19:00 07:00 Intake Total 5495 ml 1150 ml Output Total 1500 ml 52985 ml Balance 3995 ml -80479 ml Intake Oral 1435 ml 250 ml IV Total 60 ml 900 ml Other 4000 ml Output Urine Total 1500 ml 62233 ml # Bowel Movements 4 Laboratory Tests 04/25/18 05:20: White Blood Count 7.2, Red Blood Count 3.14L, Hemoglobin 9.4L, Hematocrit 26.4L , Mean Corpuscular Volume 84, Mean Corpuscular Hemoglobin 29.9, Mean Corpuscular Hemoglobin Concent 35.6, Red Cell Distribution Width 12.3, Platelet Count 290, Mean Platelet Volume 5.8L, Neutrophils (%) (Auto) 80.8H, Lymphocytes (%) (Auto) 10.9L, Monocytes (%) (Auto) 6.3, Eosinophils (%) (Auto) 1.5, Basophils (%) (Auto) 0.5, Sodium Level 134L, Potassium Level 4.0, Chloride Level 102, Carbon Dioxide Level 25, Anion Gap 7, Blood Urea Nitrogen 7, Creatinine 0.7, Estimat Glomerular Filtration Rate , Glucose Level 145H, Uric Acid 2.5L, Calcium Level 9.8, Phosphorus Level 3.0, Magnesium Level 1.7L, Total Bilirubin 0.2, Aspartate Amino Transf (AST/SGOT) 12L, Alanine Aminotransferase ( ALT/SGPT) 10L, Alkaline Phosphatase 87, Pro-B-Type Natriuretic Peptide 231H, Total Protein 7.0, Albumin 2.0L, Globulin 5.0, Albumin/Globulin Ratio 0.4L Height (Feet): 6 Height (Inches): 0.00 Weight (Pounds): 189 General Appearance: no apparent distress, alert Neurologic: oriented x 3, responsive Vimal Mares MD Apr 25, 2018 19:37
[2018-04-25 20:00] VITALS: BP 142/66
--- NOTE | 2018-04-25 20:05 | Neurology Progress Note ---
Interim History Interim History Interim History Mr. Devlin feels much better. The mind is clearer. He feels stronger in all his extremities. He walked a little today. His speech is better and so is his language. He is still bleeding much less from his bladder. He denies any new neurologic symptoms. Review of Systems Neuro Review of Systems Benign. Objective Physical Exam Last Vital Signs Date Time Temp Pulse Resp B/P (MAP) Pulse Ox O2 Delivery O2 Flow Rate FiO2 04/25/18 16:00 98.9 74 17 114/68 (83) 99 98.9 04/25/18 09:00 Room Air 04/20/18 13:20 3 Laboratory Tests Test 04/25/18 05:20 White Blood Count 7.2 K/UL (4.8-10.8) Red Blood Count 3.14 M/UL (4.70-6.10) L Hemoglobin 9.4 G/DL (14.2-18.0) L Hematocrit 26.4 % (42.0-52.0) L Mean Corpuscular Volume 84 FL (80-99) Mean Corpuscular Hemoglobin 29.9 PG (27.0-31.0) Mean Corpuscular Hemoglobin Concent 35.6 G/DL (32.0-36.0) Red Cell Distribution Width 12.3 % (11.6-14.8) Platelet Count 290 K/UL (150-450) Mean Platelet Volume 5.8 FL (6.5-10.1) L Neutrophils (%) (Auto) 80.8 % (45.0-75.0) H Lymphocytes (%) (Auto) 10.9 % (20.0-45.0) L Monocytes (%) (Auto) 6.3 % (1.0-10.0) Eosinophils (%) (Auto) 1.5 % (0.0-3.0) Basophils (%) (Auto) 0.5 % (0.0-2.0) Sodium Level 134 MMOL/L (136-145) L Potassium Level 4.0 MMOL/L (3.5-5.1) Chloride Level 102 MMOL/L (98-107) Carbon Dioxide Level 25 MMOL/L (21-32) Anion Gap 7 mmol/L (5-15) Blood Urea Nitrogen 7 mg/dL (7-18) Creatinine 0.7 MG/DL (0.55-1.30) Estimat Glomerular Filtration Rate mL/min (>60) Glucose Level 145 MG/DL (74-106) H Uric Acid 2.5 MG/DL (2.6-7.2) L Calcium Level 9.8 MG/DL (8.5-10.1) Phosphorus Level 3.0 MG/DL (2.5-4.9) Magnesium Level 1.7 MG/DL (1.8-2.4) L Total Bilirubin 0.2 MG/DL (0.2-1.0) Aspartate Amino Transf (AST/SGOT) 12 U/L (15-37) L Alanine Aminotransferase (ALT/SGPT) 10 U/L (12-78) L Alkaline Phosphatase 87 U/L (46-116) Pro-B-Type Natriuretic Peptide 231 pg/mL (0-125) H Total Protein 7.0 G/DL (6.4-8.2) Albumin 2.0 G/DL (3.4-5.0) L Globulin 5.0 g/dL Albumin/Globulin Ratio 0.4 (1.0-2.7) L Neurologic Exam Objective PHYSICAL EXAMINATION: GENERAL: He is a well-developed, well-nourished, pleasant gentleman, lying in bed, in no acute distress. HEAD: Normocephalic and atraumatic. EENT: Examination benign. NECK: No neck rigidity was observed. NEUROLOGIC EXAMINATION: MENTAL STATUS EXAMINATION: He was awake and alert. He was oriented to person, place and time. He was able to recall 3/3 words immediately, but could only remember 2/3 words in 1 and 3 minutes. He was able to remember presidents Trump and Obama, but could not remember presidents prior to that. His mathematical skills were impaired. His visuospatial function was also impaired. SPEECH: He had a mild dysarthria. LANGUAGE: He had anomia for low and mid frequency words. CRANIAL NERVE EXAMINATION: II: The visual matthew were intact on confrontation testing. III, IV & : The external ocular movements were full and the pupils were 3 mm in diameter, equal, round, regular, and reactive to light. V: He had normal facial sensations, and the temporales, masseters, and pterygoids functioned normally. VII: He had normal facial expressions and no facial asymmetry. VIII: He was able to hear well bilaterally and had no nystagmus. IX: The palate moved symmetrically on phonation. X: He had no hoarseness of voice. XI: The sternocleidomastoids and trapezii functioned normally. XII: The tongue was in the midline without any fasciculations or atrophy. MOTOR SYSTEM: The tone was normal in all four extremities. Examination of muscle mass revealed no focal wasting. Examination of power revealed G 5/5 power in both upper extremities. In both lower extremities he had G 5-/5 power, except for G 4+/5 power in the iliopsoas bilaterally. SENSORY EXAMINATION: He had intact sensations to pin-prick and light touch. REFLEXES: 3+ and bilaterally symmetrical at the biceps, triceps, and brachioradialis, 3++ at both knees, 0 at both ankles. The plantar responses were flexor bilaterally. COORDINATION: He performed well on finger to nose testing and heel to paulson testing. STANCE & GAIT: Could not be tested. Impression/Recommendations Diagnostic Impression 1. Mr. Say Devlin is a 72-year-old, right-handed, gentleman, who has a nebulous past history, which he states is benign. He was functioning well until 04/11/2018, when he apparently fell down at home, bumped his head, and following that, went to a restaurant where he was noted to be sitting for a prolonged period of time and was also noted to have shaking chills. He was, in addition, confused and felt ill. As a result of that, the paramedics were called in and he was brought into the [facility] emergency room. 2. In the emergency room, he was noted to be tachycardic, had a significant leukocytosis with a left-sided shift, had an elevated blood sugar, a benign CT of the brain, urinalysis consistent with an acute significant urinary tract infection, and 3/3 blood cultures positive for Staphylococcus aureus. He was started on appropriate antibiotics, but has continued to have some waxing and waning of his mental state and as a result of that, an MRI of the brain was performed on 04/18/2018, which revealed scattered bilateral cerebral and cerebellar foci of diffusion restriction consistent with multiple acute cerebral embolic phenomena. 3. He feels much better. The mind is clearer. He feels stronger in all his extremities. He walked a little today. His speech is better and so is his language. He is still bleeding much less from his bladder. He denies any new neurologic symptoms. 4. On neurological examination at this time, he does have problems with recent and remote memory, visuospatial function, higher cognitive function and language. He also has a dysarthria. His bilateral lower extremity weakness has improved significantly. He still has pathologically brisk DTRs with the knee jerks brisker than upper extremity reflexes. His neurologic function is generally improved. 5. His laboratory data on admission revealed WBC count elevated to 12,200 with 87% neutrophils, 4% lymphocytes, and 9% monocytes. His chemistry panel revealed that his sodium was low at 128, chloride was low at 95, BUN was elevated at 38, creatinine was elevated at 1.5, and blood glucose was elevated to 337. His troponin was elevated at 0.067. His urinalysis revealed 3+ leukocyte esterase, 60-80 RBCs, and 20-30 WBCs per high power field. 6. He had his ZA on 04/20/18, as per Dr Chappell the study did not reveal signs of endocarditis or embolic phenomena. 7. The patient's history, neurological examination, laboratory data, and imaging studies are most compatible with a shower of emboli to the brain. It is unclear if these emboli are septic versus bland. Recommendations 1. Continue present management. 2. Would continue aggressive treatment of the patient's infectious process and treat him like a patient who does have bacterial endocarditis. 3. The patient's cardiac rhythm should be monitored for a malignant cardiac arrhythmia. 4. Physical, occupational, speech and language therapy. 5. Would do full coagulopathy work-up. Donald Singer M.D., M.S.P.DONALD HAMILTON Apr 25, 2018 20:05
[2018-04-25] MEDS: Sennosides 8.6mg ORAL SCH (20:54)
--- NOTE | 2018-04-25 21:05 | General Progress Note ---
Assessment/Plan Problem List: (1) UTI (urinary tract infection) ICD Codes: N39.0 - Urinary tract infection, site not specified SNOMED: 04345947, 627963211, 113436432 Qualifiers: Qualified Codes: N39.0 - Urinary tract infection, site not specified (2) Acute renal failure ICD Codes: N17.9 - Acute kidney failure, unspecified SNOMED: 05223946 (3) Elevated troponin I level ICD Codes: R74.8 - Abnormal levels of other serum enzymes SNOMED: 691731239 (4) Urinary retention ICD Codes: R33.9 - Retention of urine, unspecified SNOMED: 321069264 (5) Hematuria ICD Codes: R31.9 - Hematuria, unspecified SNOMED: 22057432 Status: progressing Assessment/Plan hematurea improving w CBI spoke w id at length will do 4 weeks of iv vanc and ceftaz @snf for septic emboli will go w vizcaino discussed w urlogist and he recommends cysto as outpatient Subjective ROS Limited/Unobtainable: Yes Allergies: Coded Allergies: No Known Allergies (Unverified , 04/11/18) Objective Last 24 Hour Vital Signs Date Time Temp Pulse Resp B/P (MAP) Pulse Ox O2 Delivery O2 Flow Rate FiO2 04/25/18 20:54 82 147/66 04/25/18 16:00 98.9 74 17 114/68 (83) 99 98.9 04/25/18 12:00 97.7 73 17 106/62 (77) 98 97.7 04/25/18 11:00 106/66 04/25/18 09:00 Room Air 04/25/18 08:34 90 133/76 04/25/18 08:00 96.2 93 18 136/74 (94) 96 96.2 04/25/18 04:00 97.9 90 20 133/76 (95) 96 97.9 04/25/18 00:00 97.8 88 20 114/63 (80) 95 97.8 Intake and Output 04/24/18 04/25/18 19:00 07:00 Intake Total 5495 ml 1150 ml Output Total 1500 ml 22369 ml Balance 3995 ml -51093 ml Intake Oral 1435 ml 250 ml IV Total 60 ml 900 ml Other 4000 ml Output Urine Total 1500 ml 51856 ml # Bowel Movements 4 Laboratory Tests 04/25/18 05:20: White Blood Count 7.2, Red Blood Count 3.14L, Hemoglobin 9.4L, Hematocrit 26.4L , Mean Corpuscular Volume 84, Mean Corpuscular Hemoglobin 29.9, Mean Corpuscular Hemoglobin Concent 35.6, Red Cell Distribution Width 12.3, Platelet Count 290, Mean Platelet Volume 5.8L, Neutrophils (%) (Auto) 80.8H, Lymphocytes (%) (Auto) 10.9L, Monocytes (%) (Auto) 6.3, Eosinophils (%) (Auto) 1.5, Basophils (%) (Auto) 0.5, Sodium Level 134L, Potassium Level 4.0, Chloride Level 102, Carbon Dioxide Level 25, Anion Gap 7, Blood Urea Nitrogen 7, Creatinine 0.7, Estimat Glomerular Filtration Rate , Glucose Level 145H, Uric Acid 2.5L, Calcium Level 9.8, Phosphorus Level 3.0, Magnesium Level 1.7L, Total Bilirubin 0.2, Aspartate Amino Transf (AST/SGOT) 12L, Alanine Aminotransferase ( ALT/SGPT) 10L, Alkaline Phosphatase 87, Pro-B-Type Natriuretic Peptide 231H, Total Protein 7.0, Albumin 2.0L, Globulin 5.0, Albumin/Globulin Ratio 0.4L Height (Feet): 6 Height (Inches): 0.00 Weight (Pounds): 189 Cardiovascular: normal rate Respiratory/Chest: lungs clear Abdomen: soft Ubaldo Jarquin MD Apr 25, 2018 21:05
[2018-04-26] VITALS: BP 123/63
[2018-04-26] MEDS: Oxacillin 2 GM in NS 110 ML IVPB SCH ×5 (00:24→16:32)
[2018-04-26 04:00] VITALS: BP 127/65
[2018-04-26] MEDS: sitaGLIPtin 50mg tab ORAL SCH (06:08)
[2018-04-26] MEDS: NovoLOG Insulin Flexpen SUBQ SCH ×3 (06:09→16:36)
--- NOTE | 2018-04-26 06:26 | General Progress Note ---
Assessment/Plan Problem List: (1) Diabetes mellitus out of control ICD Codes: E11.65 - Type 2 diabetes mellitus with hyperglycemia SNOMED: 34321835, 265058301 (2) Acute encephalopathy ICD Codes: G93.40 - Encephalopathy, unspecified SNOMED: 13121251, 085575875 (3) Dehydration ICD Codes: E86.0 - Dehydration SNOMED: 30026083, 063747861, 231954750 (4) Acute renal failure ICD Codes: N17.9 - Acute kidney failure, unspecified SNOMED: 24296102 Assessment/Plan continue Levemir 10 units daily continue Januvia 50 mg daily continue Starlix 120 mg ac tid continue NISS ac / hs Subjective Allergies: Coded Allergies: No Known Allergies (Unverified , 04/11/18) All Systems: reviewed and negative except above Subjective events noted Objective Last 24 Hour Vital Signs Date Time Temp Pulse Resp B/P (MAP) Pulse Ox O2 Delivery O2 Flow Rate FiO2 04/26/18 04:00 98.2 76 19 127/65 (85) 96 98.2 04/26/18 00:00 98.2 69 18 123/63 (83) 97 98.2 04/25/18 21:00 Room Air 04/25/18 20:54 82 147/66 04/25/18 20:00 98.3 82 19 142/66 (91) 98 98.3 04/25/18 16:00 98.9 74 17 114/68 (83) 99 98.9 04/25/18 12:00 97.7 73 17 106/62 (77) 98 97.7 04/25/18 11:00 106/66 04/25/18 09:00 Room Air 04/25/18 08:34 90 133/76 04/25/18 08:00 96.2 93 18 136/74 (94) 96 96.2 Intake and Output 04/25/18 04/26/18 19:00 07:00 Intake Total 600 ml 4110 ml Output Total 7100 ml 6400 ml Balance -6500 ml -2290 ml Intake Oral 600 ml IV Total 110 ml Other 4000 ml Output Urine Total 7100 ml 6400 ml Height (Feet): 6 Height (Inches): 0.00 Weight (Pounds): 200 General Appearance: no apparent distress Neck: normal alignment Cardiovascular: normal rate Respiratory/Chest: lungs clear Abdomen: normal bowel sounds Objective Current Medications Medications (Trade) Dose Ordered Sig/Safia Route PRN Reason Start Time Stop Time Status Last Admin Dose Admin Acetaminophen (Tylenol) 500 mg Q4H PRN ORAL Mild Pain/Temp > 100.5 04/13/18 13:41 05/11/18 13:40 04/14/18 21:33 Bisacodyl (Dulcolax) 10 mg DAILY ORAL 04/18/18 09:00 05/18/18 08:59 04/23/18 09:12 Dextrose (Dextrose 50%) 25 ml Q30M PRN IV Hypoglycemia 04/15/18 18:00 05/15/18 17:59 Dextrose (Dextrose 50%) 50 ml Q30M PRN IV Hypoglycemia 04/15/18 18:00 05/15/18 17:59 Docusate Sodium (Colace) 100 mg THREE TIMES A DAY ORAL 04/18/18 18:00 05/18/18 17:59 04/25/18 17:01 Fluconazole (Diflucan) 200 mg DAILY ORAL 04/21/18 13:01 04/28/18 13:00 04/25/18 08:35 Insulin Aspart (NovoLOG) BEFORE MEALS AND HS SUBQ 04/15/18 21:00 05/15/18 20:59 04/26/18 06:09 Insulin Detemir (Levemir) 10 units DAILY SUBQ 04/18/18 09:00 05/13/18 08:59 04/25/18 08:38 Lidocaine (Lidoderm 5% PATCH) 1 patch DAILY@0000 TDERMAL 04/14/18 00:00 05/13/18 00:14 04/25/18 23:34 Magnesium Hydroxide (Mom) 30 ml Q4HR PRN ORAL Constipation 04/17/18 22:45 05/17/18 22:44 04/18/18 17:11 Megestrol Acetate (Megace) 400 mg TWICE A DAY ORAL 04/16/18 11:00 05/16/18 10:59 04/25/18 17:01 Metoprolol Tartrate (Lopressor) 50 mg Q12HR ORAL 04/17/18 21:00 05/13/18 20:59 04/25/18 20:54 Nateglinide (Starlix) 120 mg TIAC ORAL 04/13/18 16:30 05/12/18 08:59 04/26/18 06:08 Nitroglycerin (Ntg) 1 patch Q24H TDERMAL 04/14/18 11:00 05/11/18 10:59 04/24/18 12:15 Oxacillin Sodium 2 gm/Sodium Chloride 110 ml @ 220 mls/hr Q4HR IVPB 04/20/18 13:00 05/23/18 23:59 04/26/18 04:50 Pantoprazole (Protonix) 40 mg EVERY 12 HOURS ORAL 04/13/18 21:00 05/13/18 20:59 04/25/18 20:54 Quetiapine Fumarate (SEROquel) 12.5 mg Q4H PRN ORAL ANXIETY 04/13/18 13:43 05/12/18 13:42 Sennosides (Senokot) 1 tab QHS ORAL 04/18/18 21:00 05/18/18 20:59 04/25/18 20:54 Sitagliptin Phosphate (Januvia) 50 mg ACBREAKFAST ORAL 04/14/18 06:30 05/14/18 06:29 04/26/18 06:08 Tamsulosin HCl (Flomax) 0.4 mg BID ORAL 04/18/18 18:00 05/11/18 20:59 04/25/18 17:02 Vitamin A/Vitamin D (A & D Oint) 1 applic TWICE A DAY TOPIC 04/13/18 18:00 05/12/18 08:59 04/25/18 17:04 Item Value Date Time Bedside Blood Glucose 141 mg/dl H 04/26/18 0619 Bedside Blood Glucose 183 mg/dl H 04/25/18 2100 Bedside Blood Glucose 133 mg/dl H 04/25/18 1649 Bedside Blood Glucose 215 mg/dl H 04/25/18 1130 Bedside Blood Glucose 132 mg/dl H 04/25/18 0838 Bedside Blood Glucose 132 mg/dl H 04/25/18 0615 Kurtis Richey MD Apr 26, 2018 06:26
--- NOTE | 2018-04-26 07:03 | General Progress Note ---
Assessment/Plan Assessment/Plan #. Thrombocytopenia potentially secondary to underlying infection. ++ HSM noted , unknown if has cirrhosis as the ultrasound is non-conclusive --> Hepatitis panel and human immunodeficiency virus are both negative --> HSM. Question of nodularity of the liver surface. Cirrhosis not excluded. Correlate clinically --> hold off on transfusion if Plt>100k given hematuria --> stable range of approx 100-150k #. Leukocytosis, likely secondary to urinary tract infection. Remains on abx --> on abx and peripheral smear has been reviewed --> id recs are appreciated #. Pyuria due to urinary tract infection. Closely monitor for improvement. He is on abx --> id service has been consulted, on ancef/abx --> appreciate their recs, remains on abx #. Old lacunar infarct. as per neuro eval --> their recs are appreciated #. Anemia due to underlying chronic disease. Continue to closely monitor. --> anemia panel has been reviewed --> hgb goal >7, transfuse prn #. Anemia due to hematuria gross, on cbi --> plavix will hold due to continued hematuria --> cbc reviewed --> appreciate uro recs --> bladder is being irrigated #. Sinus tachycardia, which was corrected # Scattered bilateral foci of diffusion restriction consistent with multiple small acute infarcts --> hypercoag w/u has been ordered Greatly appreciate consultation! Subjective Constitutional: Denies: no symptoms, chills, diaphoresis, fever, malaise, weakness, other HEENT: Denies: no symptoms, eye pain, blurred vision, tearing, double vision, ear pain, ear discharge, nose pain, nose congestion, throat pain, throat swelling, mouth pain, mouth swelling, other Cardiovascular: Denies: no symptoms, chest pain, edema, irregular heart rate, lightheadedness, palpitations, syncope, other Respiratory: Denies: no symptoms, cough, orthopnea, shortness of breath, SOB with excertion, SOB at rest, sputum, stridor, wheezing, other Gastrointestinal/Abdominal: Denies: no symptoms, abdomen distended, abdominal pain, black stools, tarry stools, blood in stool, constipated, diarrhea, difficulty swallowing, nausea, poor appetite, poor fluid intake, rectal bleeding , vomiting, other Genitourinary: Denies: no symptoms, burning, discharge, frequency, flank pain, hematuria, incontinence, pain, urgency, other Neurologic/Psychiatric: Denies: no symptoms, anxiety, depressed, emotional problems, headache, numbness, paresthesia, pre-existing deficit, seizure, tingling, tremors, weakness, other Endocrine: Denies: no symptoms, excessive sweating, flushing, intolerance to cold, intolerance to heat, increased hunger, increased thirst, increased urine, unexplained weight gain, unexplained weight loss, other Allergies: Coded Allergies: No Known Allergies (Unverified , 04/11/18) Subjective Pt awake and alert. No acute events. H/H stable. less bleeding in vizcaino w CBI Objective Last 24 Hour Vital Signs Date Time Temp Pulse Resp B/P (MAP) Pulse Ox O2 Delivery O2 Flow Rate FiO2 04/26/18 04:00 98.2 76 19 127/65 (85) 96 98.2 04/26/18 00:00 98.2 69 18 123/63 (83) 97 98.2 04/25/18 21:00 Room Air 04/25/18 20:54 82 147/66 04/25/18 20:00 98.3 82 19 142/66 (91) 98 98.3 04/25/18 16:00 98.9 74 17 114/68 (83) 99 98.9 04/25/18 12:00 97.7 73 17 106/62 (77) 98 97.7 04/25/18 11:00 106/66 04/25/18 09:00 Room Air 04/25/18 08:34 90 133/76 04/25/18 08:00 96.2 93 18 136/74 (94) 96 96.2 Intake and Output 04/25/18 04/26/18 19:00 07:00 Intake Total 600 ml 4330 ml Output Total 7100 ml 6400 ml Balance -6500 ml -2070 ml Intake Oral 600 ml IV Total 330 ml Other 4000 ml Output Urine Total 7100 ml 6400 ml Height (Feet): 6 Height (Inches): 0.00 Weight (Pounds): 200 General Appearance: lethargic EENT: TMs normal Neck: supple Cardiovascular: regular rhythm Respiratory/Chest: no respiratory distress Abdomen: soft Extremities: non-tender Edema: 1+ Leg (L), 1+ Leg (R) Edema: mild edema Neurologic: oriented x 3 Skin: warm/dry Zack Miguel MD Apr 26, 2018 07:03
[2018-04-26 07:52] LABS: BASOPHILS % (AUTO) 0.7 % (0.0-2.0); EOSINOPHILS % (AUTO) 1.5 % (0.0-3.0); HEMATOCRIT 29.6 % (42.0-52.0); HEMOGLOBIN 10.3 G/DL (14.2-18.0); LYMPHOCYTES % (AUTO) 10.5 % (20.0-45.0); MEAN CORPUSCULAR VOLUME 86 FL (80-99); MONOCYTES % (AUTO) 5.1 % (1.0-10.0); NEUTROPHILS % (AUTO) 82.3 % (45.0-75.0); PLATELET COUNT 363 K/UL (150-450); RED BLOOD COUNT 3.43 M/UL (4.70-6.10); RED CELL DISTRIBUTION WIDTH 12.6 % (11.6-14.8)
[2018-04-26 08:02] LABS: ANION GAP 9 mmol/L (5-15); BLOOD UREA NITROGEN 9 mg/dL (7-18); CALCIUM 10.2 MG/DL (8.5-10.1); CARBON DIOXIDE 25 MMOL/L (21-32); CHLORIDE 102 MMOL/L (98-107); CREATININE 0.8 MG/DL (0.55-1.30); POTASSIUM 3.4 MMOL/L (3.5-5.1); SODIUM 136 MMOL/L (136-145)
--- NOTE | 2018-04-26 08:52 | General Progress Note ---
Assessment/Plan Assessment/Plan (1) Alerted mental status (2) S/p fall (3) Cervical Sprain (4) Thoracic sprain (5) Lumbar sprain (6) S/p CVA Continued on Tylenol and Lidocaine. D/w Dr. Laura and he concurred. Subjective Date patient seen: Apr 26, 2018 Time patient seen: 08:00 - am Constitutional: Reports: weakness Neurologic/Psychiatric: Reports: weakness Allergies: Coded Allergies: No Known Allergies (Unverified , 04/11/18) Subjective Patient is laying in bed and denies pain. Showing no signs of pain or distress. Objective Last 24 Hour Vital Signs Date Time Temp Pulse Resp B/P (MAP) Pulse Ox O2 Delivery O2 Flow Rate FiO2 04/26/18 04:00 98.2 76 19 127/65 (85) 96 98.2 04/26/18 00:00 98.2 69 18 123/63 (83) 97 98.2 04/25/18 21:00 Room Air 04/25/18 20:54 82 147/66 04/25/18 20:00 98.3 82 19 142/66 (91) 98 98.3 04/25/18 16:00 98.9 74 17 114/68 (83) 99 98.9 04/25/18 12:00 97.7 73 17 106/62 (77) 98 97.7 04/25/18 11:00 106/66 04/25/18 09:00 Room Air Intake and Output 04/25/18 04/26/18 19:00 07:00 Intake Total 600 ml 4330 ml Output Total 7100 ml 6400 ml Balance -6500 ml -2070 ml Intake Oral 600 ml IV Total 330 ml Other 4000 ml Output Urine Total 7100 ml 6400 ml Laboratory Tests 04/26/18 07:15: White Blood Count 8.0, Red Blood Count 3.43L, Hemoglobin 10.3L, Hematocrit 29.6L , Mean Corpuscular Volume 86, Mean Corpuscular Hemoglobin 30.0, Mean Corpuscular Hemoglobin Concent 34.8, Red Cell Distribution Width 12.6, Platelet Count 363, Mean Platelet Volume 5.5L, Neutrophils (%) (Auto) 82.3H, Lymphocytes (%) (Auto) 10.5L, Monocytes (%) (Auto) 5.1, Eosinophils (%) (Auto) 1.5, Basophils (%) (Auto) 0.7, Sodium Level 136, Potassium Level 3.4L, Chloride Level 102, Carbon Dioxide Level 25, Anion Gap 9, Blood Urea Nitrogen 9, Creatinine 0.8, Estimat Glomerular Filtration Rate , Glucose Level 110H, Calcium Level 10.2H Height (Feet): 6 Height (Inches): 0.00 Weight (Pounds): 200 Objective GENERAL: Alert and awake. LUNGS: Decreased breath sounds bilaterally. HEART: Regular. ABDOMEN: Benign. EXTREMITIES: No cyanosis. No clubbing. Jerson Hook Apr 26, 2018 08:52
[2018-04-26 08:58] VITALS: BP 91/71
[2018-04-26] MEDS: Docusate 100mg/10ml Liq ORAL SCH ×3 (08:59→17:34)
[2018-04-26] MEDS: Megace 400mg/10ml Susp ORAL SCH ×2 (08:59→17:34)
[2018-04-26] MEDS: Tamsulosin 0.4mg cap ORAL SCH ×2 (09:00→17:34)
[2018-04-26] MEDS: Metoprolol Tartrate 50mg tab ORAL SCH (09:00)
[2018-04-26] MEDS: Fluconazole 100mg tab ORAL SCH (09:00)
[2018-04-26] MEDS: Bisacodyl EC 5mg tab ORAL SCH (09:00)
[2018-04-26] MEDS: Levemir Flexpen SUBQ SCH (09:02)
[2018-04-26] MEDS: Vitamin A&D Oint 2oz Tube TOPIC SCH ×2 (09:51→17:34)
--- NOTE | 2018-04-26 10:14 | Nephrology Progress Note ---
Assessment/Plan Problem List: (1) Dehydration (2) UTI (urinary tract infection) (3) Acute renal failure (4) Acute encephalopathy (5) Diabetes mellitus out of control (6) Elevated troponin I level (7) Urinary retention Assessment: 700 cc 04/18/18 (8) Acute cerebrovascular accident (CVA) (9) Sepsis (10) Hematuria Assessment: persistant Assessment persistant hematuria- but H&H stable acute CVA- Renal Failure- encephalopathy UTI Dehydration Low Na and high K Elevated troponin DM , high Glucose Plan stop hypotonic solution shower of emboli to brain ZA per cardio negative Antibiotics per ID vizcaino- has 700 cc retention Adjust meds starlix Monitor lytes ASA Nitrate St eval recheck UA and U culture Per orders to acute rehab Subjective ROS Limited/Unobtainable: No Constitutional: Reports: malaise Objective Objective Last 24 Hour Vital Signs Date Time Temp Pulse Resp B/P (MAP) Pulse Ox O2 Delivery O2 Flow Rate FiO2 04/26/18 09:22 Room Air 04/26/18 09:00 90 91/71 04/26/18 08:58 98.2 90 19 91/71 (78) 96 98.2 04/26/18 04:00 98.2 76 19 127/65 (85) 96 98.2 04/26/18 00:00 98.2 69 18 123/63 (83) 97 98.2 04/25/18 21:00 Room Air 04/25/18 20:54 82 147/66 04/25/18 20:00 98.3 82 19 142/66 (91) 98 98.3 04/25/18 16:00 98.9 74 17 114/68 (83) 99 98.9 04/25/18 12:00 97.7 73 17 106/62 (77) 98 97.7 04/25/18 11:00 106/66 Intake and Output 04/25/18 04/26/18 19:00 07:00 Intake Total 600 ml 4330 ml Output Total 7100 ml 6400 ml Balance -6500 ml -2070 ml Intake Oral 600 ml IV Total 330 ml Other 4000 ml Output Urine Total 7100 ml 6400 ml Laboratory Tests 04/26/18 07:15: White Blood Count 8.0, Red Blood Count 3.43L, Hemoglobin 10.3L, Hematocrit 29.6L , Mean Corpuscular Volume 86, Mean Corpuscular Hemoglobin 30.0, Mean Corpuscular Hemoglobin Concent 34.8, Red Cell Distribution Width 12.6, Platelet Count 363, Mean Platelet Volume 5.5L, Neutrophils (%) (Auto) 82.3H, Lymphocytes (%) (Auto) 10.5L, Monocytes (%) (Auto) 5.1, Eosinophils (%) (Auto) 1.5, Basophils (%) (Auto) 0.7, Sodium Level 136, Potassium Level 3.4L, Chloride Level 102, Carbon Dioxide Level 25, Anion Gap 9, Blood Urea Nitrogen 9, Creatinine 0.8, Estimat Glomerular Filtration Rate , Glucose Level 110H, Calcium Level 10.2H Height (Feet): 6 Height (Inches): 0.00 Weight (Pounds): 200 General Appearance: no apparent distress Objective no change Greyson Ignacio MD Apr 26, 2018 10:14
[2018-04-26] MEDS ORDERED: Lidocaine 1% Plain 30 ml INJ PRN (10:15)
[2018-04-26] MEDS ORDERED: Heparin 2000 units/Ns 1000ml INJ PRN (10:15)
[2018-04-26] MEDS ORDERED: TYLENOL EXTRA500 MG ORAL (10:35)
[2018-04-26] MEDS ORDERED: BISACODYL5 MG ORAL (10:36)
[2018-04-26] MEDS ORDERED: COLACE100 MG ORAL (10:36)
[2018-04-26] MEDS ORDERED: NOVOLOG100 UNIT/3 SUBQ (10:37)
[2018-04-26] MEDS ORDERED: FLUCONAZOLE100 MG ORAL (10:37)
[2018-04-26] MEDS ORDERED: METOPROLOL TART50 M1 ORAL (10:38)
[2018-04-26] MEDS ORDERED: MILK OF MA400 MG/51 ORAL (10:38)
[2018-04-26] MEDS ORDERED: LEVEMIR100 UNIT/1 SUBQ (10:38)
[2018-04-26] MEDS ORDERED: STARLIX60 MG ORAL (10:39)
[2018-04-26] MEDS ORDERED: KLOR-CON 1010 MEQ ORAL (10:40)
[2018-04-26] MEDS ORDERED: PROTONIX40 MG ORAL (10:40)
[2018-04-26] MEDS ORDERED: OXACILLIN2 GM/50 ML IV (10:40)
[2018-04-26] MEDS ORDERED: QUETIAPINE FUMA25 MG ORAL (10:41)
[2018-04-26] MEDS ORDERED: SENNOSIDES8.6 MG ORAL (10:42)
[2018-04-26] MEDS ORDERED: JANUVIA25 MG ORAL (10:42)
[2018-04-26] MEDS ORDERED: TAMSULOSIN HCL0.4 MG ORAL (10:42)
[2018-04-26] MEDS ORDERED: VITAMIN A & D113 GM TP (10:43)
[2018-04-26] MEDS ORDERED: VANCOMYCIN IV (10:46)
[2018-04-26 10:56] LABS: ALANINE AMINOTRANSFERASE 12 U/L (12-78); ALBUMIN 2.3 G/DL (3.4-5.0); ALKALINE PHOSPHATASE 96 U/L (46-116); ASPARTATE AMINO TRANSFERASE 13 U/L (15-37); BILIRUBIN,DIRECT < 0.1 MG/DL (0.0-0.3); BILIRUBIN,TOTAL 0.2 MG/DL (0.2-1.0); PHOSPHORUS 2.8 MG/DL (2.5-4.9)
--- NOTE | 2018-04-26 11:16 | Infectious Diseases Prog Note ---
Assessment/Plan Assessment/Plan antibiotics : oxacillin A 1. staph aureus sepsis secondary to UTI 2. staph aureus UTI 3. diabetes mellitus 4. s.p fall 5. embolic infarcts 6. fungal UTI P 1. continue iv oxacillin in hospital 2. iv vancomycin on discharge 27 more days 3. continue po fluconazole 1 more day 4. will follow up cultures Subjective Constitutional: Denies: fever, chills Respiratory: Denies: shortness of breath, dry cough Gastrointestinal/Abdominal: Denies: nausea, vomiting, diarrhea Musculoskeletal: Reports: pain Allergies: Coded Allergies: No Known Allergies (Unverified , 04/11/18) Objective Vital Signs Last 24 Hour Vital Signs Date Time Temp Pulse Resp B/P (MAP) Pulse Ox O2 Delivery O2 Flow Rate FiO2 04/26/18 09:22 Room Air 04/26/18 09:00 90 91/71 04/26/18 08:58 98.2 90 19 91/71 (78) 96 98.2 04/26/18 04:00 98.2 76 19 127/65 (85) 96 98.2 04/26/18 00:00 98.2 69 18 123/63 (83) 97 98.2 04/25/18 21:00 Room Air 04/25/18 20:54 82 147/66 04/25/18 20:00 98.3 82 19 142/66 (91) 98 98.3 04/25/18 16:00 98.9 74 17 114/68 (83) 99 98.9 04/25/18 12:00 97.7 73 17 106/62 (77) 98 97.7 Height (Feet): 6 Height (Inches): 0.00 Weight (Pounds): 200 Respiratory/Chest: lungs clear Cardiovascular: normal rate, regular rhythm, no gallop/murmur Abdomen: soft, non tender Extremities: no edema Laboratory Tests Test 04/26/18 07:15 White Blood Count 8.0 K/UL (4.8-10.8) Red Blood Count 3.43 M/UL (4.70-6.10) L Hemoglobin 10.3 G/DL (14.2-18.0) L Hematocrit 29.6 % (42.0-52.0) L Mean Corpuscular Volume 86 FL (80-99) Mean Corpuscular Hemoglobin 30.0 PG (27.0-31.0) Mean Corpuscular Hemoglobin Concent 34.8 G/DL (32.0-36.0) Red Cell Distribution Width 12.6 % (11.6-14.8) Platelet Count 363 K/UL (150-450) Mean Platelet Volume 5.5 FL (6.5-10.1) L Neutrophils (%) (Auto) 82.3 % (45.0-75.0) H Lymphocytes (%) (Auto) 10.5 % (20.0-45.0) L Monocytes (%) (Auto) 5.1 % (1.0-10.0) Eosinophils (%) (Auto) 1.5 % (0.0-3.0) Basophils (%) (Auto) 0.7 % (0.0-2.0) Sodium Level 136 MMOL/L (136-145) Potassium Level 3.4 MMOL/L (3.5-5.1) L Chloride Level 102 MMOL/L (98-107) Carbon Dioxide Level 25 MMOL/L (21-32) Anion Gap 9 mmol/L (5-15) Blood Urea Nitrogen 9 mg/dL (7-18) Creatinine 0.8 MG/DL (0.55-1.30) Estimat Glomerular Filtration Rate mL/min (>60) Glucose Level 110 MG/DL (74-106) H Calcium Level 10.2 MG/DL (8.5-10.1) H Phosphorus Level 2.8 MG/DL (2.5-4.9) Magnesium Level 2.0 MG/DL (1.8-2.4) Total Bilirubin 0.2 MG/DL (0.2-1.0) Direct Bilirubin < 0.1 MG/DL (0.0-0.3) Aspartate Amino Transf (AST/SGOT) 13 U/L (15-37) L Alanine Aminotransferase (ALT/SGPT) 12 U/L (12-78) Alkaline Phosphatase 96 U/L (46-116) Total Protein 7.9 G/DL (6.4-8.2) Albumin 2.3 G/DL (3.4-5.0) L Current Medications Medications (Trade) Dose Ordered Sig/Safia Route PRN Reason Start Time Stop Time Status Last Admin Dose Admin Acetaminophen (Tylenol) 500 mg Q4H PRN ORAL Mild Pain/Temp > 100.5 04/13/18 13:41 05/11/18 13:40 04/14/18 21:33 Bisacodyl (Dulcolax) 10 mg DAILY ORAL 04/18/18 09:00 05/18/18 08:59 04/26/18 09:00 Chlorhexidine Gluconate (Zehra-Hex 2%) 1 applic DAILY@2000 TOPIC 04/26/18 20:00 05/26/18 19:59 Dextrose (Dextrose 50%) 25 ml Q30M PRN IV Hypoglycemia 04/15/18 18:00 05/15/18 17:59 Dextrose (Dextrose 50%) 50 ml Q30M PRN IV Hypoglycemia 04/15/18 18:00 05/15/18 17:59 Docusate Sodium (Colace) 100 mg THREE TIMES A DAY ORAL 04/18/18 18:00 05/18/18 17:59 04/26/18 08:59 Fluconazole (Diflucan) 200 mg DAILY ORAL 04/21/18 13:01 04/28/18 13:00 04/26/18 09:00 Heparin Sodium/ Sodium Chloride (Heparin 2000 units/Ns 1000ml premix) 2,000 unit ONCE PRN INJ picc line placement 04/26/18 10:15 04/27/18 10:14 Insulin Aspart (NovoLOG) BEFORE MEALS AND HS SUBQ 04/15/18 21:00 05/15/18 20:59 04/26/18 06:09 Insulin Detemir (Levemir) 10 units DAILY SUBQ 04/18/18 09:00 05/13/18 08:59 04/26/18 09:02 Lidocaine (Lidoderm 5% PATCH) 1 patch DAILY@0000 TDERMAL 04/14/18 00:00 05/13/18 00:14 04/25/18 23:34 Lidocaine HCl (Xylocaine 1% 30ml) 30 ml ONCE PRN INJ picc line placement 04/26/18 10:15 04/27/18 10:14 Magnesium Hydroxide (Mom) 30 ml Q4HR PRN ORAL Constipation 04/17/18 22:45 05/17/18 22:44 04/18/18 17:11 Megestrol Acetate (Megace) 400 mg TWICE A DAY ORAL 04/16/18 11:00 05/16/18 10:59 04/26/18 08:59 Metoprolol Tartrate (Lopressor) 50 mg Q12HR ORAL 04/17/18 21:00 05/13/18 20:59 04/25/18 20:54 Nateglinide (Starlix) 120 mg TIAC ORAL 04/13/18 16:30 05/12/18 08:59 04/26/18 06:08 Nitroglycerin (Ntg) 1 patch Q24H TDERMAL 04/14/18 11:00 05/11/18 10:59 04/24/18 12:15 Oxacillin Sodium 2 gm/Sodium Chloride 110 ml @ 220 mls/hr Q4HR IVPB 04/20/18 13:00 05/23/18 23:59 04/26/18 08:59 Pantoprazole (Protonix) 40 mg EVERY 12 HOURS ORAL 04/13/18 21:00 05/13/18 20:59 04/26/18 09:00 Potassium Chloride (K-Dur) 40 meq DAILY ORAL 04/26/18 09:00 05/26/18 08:59 04/26/18 09:00 Quetiapine Fumarate (SEROquel) 12.5 mg Q4H PRN ORAL ANXIETY 04/13/18 13:43 05/12/18 13:42 Sennosides (Senokot) 1 tab QHS ORAL 04/18/18 21:00 05/18/18 20:59 04/25/18 20:54 Sitagliptin Phosphate (Januvia) 50 mg ACBREAKFAST ORAL 04/14/18 06:30 05/14/18 06:29 04/26/18 06:08 Tamsulosin HCl (Flomax) 0.4 mg BID ORAL 04/18/18 18:00 05/11/18 20:59 04/26/18 09:00 Vitamin A/Vitamin D (A & D Oint) 1 applic TWICE A DAY TOPIC 04/13/18 18:00 05/12/18 08:59 04/26/18 09:51 NAHUN FORD Apr 26, 2018 11:16
[2018-04-26] MEDS: Nitroglycerin Patch 0.4mg TDERMAL SCH (11:24)
--- NOTE | 2018-04-26 11:28 | GI Progress Note ---
Assessment/Plan Problems: (1) Malnutrition ICD Codes: E46 - Unspecified protein-calorie malnutrition SNOMED: 30501453 (2) Acute cerebrovascular accident (CVA) ICD Codes: I63.9 - Cerebral infarction, unspecified SNOMED: 324266536, 020895362 (3) Hematuria ICD Codes: R31.9 - Hematuria, unspecified SNOMED: 84592450 (4) Diabetes mellitus out of control ICD Codes: E11.65 - Type 2 diabetes mellitus with hyperglycemia SNOMED: 04689391, 411139188 (5) Dehydration ICD Codes: E86.0 - Dehydration SNOMED: 06617367, 452616086, 304352643 Status: stable, progressing Status Narrative Discussed with Dr. Fernandze. Assessment/Plan patient tolerating almost 100% puree diet >> advance as tolerated no reports of N/V anemia work up reviewed calorie count reviewed >> no malnourishment supportive care at this time push PO strict aspiration precautions fu neurology recs zofran prn, reglan prn for persistent emesis fu labs The patient was seen and examined at bedside and all new and available data was reviewed in the patients chart. I agree with the above findings, impression and plan. (Patient seen earlier today. Signature stamp does not reflect patient encounter time.). - German Fernandez MD Subjective Gastrointestinal/Abdominal: Reports: no symptoms Objective Last 24 Hour Vital Signs Date Time Temp Pulse Resp B/P (MAP) Pulse Ox O2 Delivery O2 Flow Rate FiO2 04/26/18 09:22 Room Air 04/26/18 09:00 90 91/71 04/26/18 08:58 98.2 90 19 91/71 (78) 96 98.2 04/26/18 04:00 98.2 76 19 127/65 (85) 96 98.2 04/26/18 00:00 98.2 69 18 123/63 (83) 97 98.2 04/25/18 21:00 Room Air 04/25/18 20:54 82 147/66 04/25/18 20:00 98.3 82 19 142/66 (91) 98 98.3 04/25/18 16:00 98.9 74 17 114/68 (83) 99 98.9 04/25/18 12:00 97.7 73 17 106/62 (77) 98 97.7 Intake and Output 04/25/18 04/26/18 19:00 07:00 Intake Total 600 ml 4330 ml Output Total 7100 ml 6400 ml Balance -6500 ml -2070 ml Intake Oral 600 ml IV Total 330 ml Other 4000 ml Output Urine Total 7100 ml 6400 ml Laboratory Tests Test 04/26/18 07:15 White Blood Count 8.0 K/UL (4.8-10.8) Red Blood Count 3.43 M/UL (4.70-6.10) L Hemoglobin 10.3 G/DL (14.2-18.0) L Hematocrit 29.6 % (42.0-52.0) L Mean Corpuscular Volume 86 FL (80-99) Mean Corpuscular Hemoglobin 30.0 PG (27.0-31.0) Mean Corpuscular Hemoglobin Concent 34.8 G/DL (32.0-36.0) Red Cell Distribution Width 12.6 % (11.6-14.8) Platelet Count 363 K/UL (150-450) Mean Platelet Volume 5.5 FL (6.5-10.1) L Neutrophils (%) (Auto) 82.3 % (45.0-75.0) H Lymphocytes (%) (Auto) 10.5 % (20.0-45.0) L Monocytes (%) (Auto) 5.1 % (1.0-10.0) Eosinophils (%) (Auto) 1.5 % (0.0-3.0) Basophils (%) (Auto) 0.7 % (0.0-2.0) Sodium Level 136 MMOL/L (136-145) Potassium Level 3.4 MMOL/L (3.5-5.1) L Chloride Level 102 MMOL/L (98-107) Carbon Dioxide Level 25 MMOL/L (21-32) Anion Gap 9 mmol/L (5-15) Blood Urea Nitrogen 9 mg/dL (7-18) Creatinine 0.8 MG/DL (0.55-1.30) Estimat Glomerular Filtration Rate mL/min (>60) Glucose Level 110 MG/DL (74-106) H Calcium Level 10.2 MG/DL (8.5-10.1) H Phosphorus Level 2.8 MG/DL (2.5-4.9) Magnesium Level 2.0 MG/DL (1.8-2.4) Total Bilirubin 0.2 MG/DL (0.2-1.0) Direct Bilirubin < 0.1 MG/DL (0.0-0.3) Aspartate Amino Transf (AST/SGOT) 13 U/L (15-37) L Alanine Aminotransferase (ALT/SGPT) 12 U/L (12-78) Alkaline Phosphatase 96 U/L (46-116) Total Protein 7.9 G/DL (6.4-8.2) Albumin 2.3 G/DL (3.4-5.0) L Height (Feet): 6 Height (Inches): 0.00 Weight (Pounds): 200 General Appearance: WD/WN, no apparent distress, alert Cardiovascular: normal rate Respiratory/Chest: normal breath sounds, no respiratory distress Abdominal Exam: normal bowel sounds, non tender, soft Extremities: normal range of motion, non-tender Christian Verma NP Apr 26, 2018 11:28
[2018-04-26 11:37] VITALS: BP 128/68
[2018-04-26 16:17] VITALS: BP 98/69
[2018-04-26] MEDS ORDERED: Dyna-Hex 2% Top Sol 2oz TOPIC SCH (20:00)
--- NOTE | 2018-04-26 23:30 | Cardiology Progress Note ---
Assessment/Plan Assessment/Plan 1. 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 2. Slight elevation of troponin I level due to the embolic CVA although NSTEMI cannot be ruled out. 3. Sinus tachycardia, resolved, likely secondary to hypovolemia and intravascular volume depletion. 4. Staph A. bacteremia with no evidence of endocarditis. Subjective Subjective No cardiac events. Not on the telemetry unit. Objective Last 24 Hour Vital Signs Date Time Temp Pulse Resp B/P (MAP) Pulse Ox O2 Delivery O2 Flow Rate FiO2 04/26/18 16:17 98.2 96 19 98/69 (79) 96 98.2 04/26/18 11:37 98.2 88 19 128/68 (88) 96 98.2 04/26/18 11:24 128/68 04/26/18 09:22 Room Air 04/26/18 09:00 90 91/71 04/26/18 08:58 98.2 90 19 91/71 (78) 96 98.2 04/26/18 04:00 98.2 76 19 127/65 (85) 96 98.2 04/26/18 00:00 98.2 69 18 123/63 (83) 97 98.2 Intake and Output 04/25/18 04/26/18 19:00 07:00 Intake Total 600 ml 4330 ml Output Total 7100 ml 6400 ml Balance -6500 ml -2070 ml Intake Oral 600 ml IV Total 330 ml Other 4000 ml Output Urine Total 7100 ml 6400 ml 2D Echo: LVEF 70%, Mild LVH, Grade I LVDD, RVSP 24 mmHg Laboratory Tests Test 04/26/18 07:15 White Blood Count 8.0 K/UL (4.8-10.8) Red Blood Count 3.43 M/UL (4.70-6.10) L Hemoglobin 10.3 G/DL (14.2-18.0) L Hematocrit 29.6 % (42.0-52.0) L Mean Corpuscular Volume 86 FL (80-99) Mean Corpuscular Hemoglobin 30.0 PG (27.0-31.0) Mean Corpuscular Hemoglobin Concent 34.8 G/DL (32.0-36.0) Red Cell Distribution Width 12.6 % (11.6-14.8) Platelet Count 363 K/UL (150-450) Mean Platelet Volume 5.5 FL (6.5-10.1) L Neutrophils (%) (Auto) 82.3 % (45.0-75.0) H Lymphocytes (%) (Auto) 10.5 % (20.0-45.0) L Monocytes (%) (Auto) 5.1 % (1.0-10.0) Eosinophils (%) (Auto) 1.5 % (0.0-3.0) Basophils (%) (Auto) 0.7 % (0.0-2.0) Sodium Level 136 MMOL/L (136-145) Potassium Level 3.4 MMOL/L (3.5-5.1) L Chloride Level 102 MMOL/L (98-107) Carbon Dioxide Level 25 MMOL/L (21-32) Anion Gap 9 mmol/L (5-15) Blood Urea Nitrogen 9 mg/dL (7-18) Creatinine 0.8 MG/DL (0.55-1.30) Estimat Glomerular Filtration Rate mL/min (>60) Glucose Level 110 MG/DL (74-106) H Calcium Level 10.2 MG/DL (8.5-10.1) H Phosphorus Level 2.8 MG/DL (2.5-4.9) Magnesium Level 2.0 MG/DL (1.8-2.4) Total Bilirubin 0.2 MG/DL (0.2-1.0) Direct Bilirubin < 0.1 MG/DL (0.0-0.3) Aspartate Amino Transf (AST/SGOT) 13 U/L (15-37) L Alanine Aminotransferase (ALT/SGPT) 12 U/L (12-78) Alkaline Phosphatase 96 U/L (46-116) Total Protein 7.9 G/DL (6.4-8.2) Albumin 2.3 G/DL (3.4-5.0) L Objective HEENT: Atraumatic and normocephalic. Anicteric. Pupils are equal, round, and reactive to light and accommodation. Altered NECK: JVP less than 5 cm. No carotid bruit. CARDIOVASCULAR: Normal S1 and S2. No murmurs, gallops, or rubs. PMI is at fourth intercostal space in the midclavicular line. LUNGS: Clear to auscultation bilaterally. ABDOMEN: Soft, nontender, and nondistended. No hepatosplenomegaly. Positive bowel sounds. EXTREMITIES: No evidence of edema, clubbing, or cyanosis. Beto Chappell MD Apr 26, 2018 23:30
--- NOTE | 2018-04-26 23:39 | General Progress Note ---
Assessment/Plan Problem List: (1) Acute cerebrovascular accident (CVA) ICD Codes: I63.9 - Cerebral infarction, unspecified SNOMED: 103599423, 718363083 (2) Altered mental state Assessment & Plan: seroquel prn ICD Codes: R41.82 - Altered mental status, unspecified SNOMED: 447027487, 302678017, 435111445 Qualifiers: Qualified Codes: R41.82 - Altered mental status, unspecified (3) UTI (urinary tract infection) ICD Codes: N39.0 - Urinary tract infection, site not specified SNOMED: 18957117, 040732385, 884436669 Qualifiers: Qualified Codes: N39.0 - Urinary tract infection, site not specified Status: stable Assessment/Plan encephalopathy due to [facility] [place] mild acute CVA anxiety d/o Seroquel prn provided ro/st Subjective Date patient seen: Apr 26, 2018 Neurologic/Psychiatric: Reports: anxiety, depressed, emotional problems Allergies: Coded Allergies: No Known Allergies (Unverified , 04/11/18) Subjective the pt was calm and engaged Objective Last 24 Hour Vital Signs Date Time Temp Pulse Resp B/P (MAP) Pulse Ox O2 Delivery O2 Flow Rate FiO2 04/26/18 16:17 98.2 96 19 98/69 (79) 96 98.2 04/26/18 11:37 98.2 88 19 128/68 (88) 96 98.2 04/26/18 11:24 128/68 04/26/18 09:22 Room Air 04/26/18 09:00 90 91/71 04/26/18 08:58 98.2 90 19 91/71 (78) 96 98.2 04/26/18 04:00 98.2 76 19 127/65 (85) 96 98.2 04/26/18 00:00 98.2 69 18 123/63 (83) 97 98.2 Intake and Output 04/25/18 04/26/18 19:00 07:00 Intake Total 600 ml 4330 ml Output Total 7100 ml 6400 ml Balance -6500 ml -2070 ml Intake Oral 600 ml IV Total 330 ml Other 4000 ml Output Urine Total 7100 ml 6400 ml Laboratory Tests 04/26/18 07:15: White Blood Count 8.0, Red Blood Count 3.43L, Hemoglobin 10.3L, Hematocrit 29.6L , Mean Corpuscular Volume 86, Mean Corpuscular Hemoglobin 30.0, Mean Corpuscular Hemoglobin Concent 34.8, Red Cell Distribution Width 12.6, Platelet Count 363, Mean Platelet Volume 5.5L, Neutrophils (%) (Auto) 82.3H, Lymphocytes (%) (Auto) 10.5L, Monocytes (%) (Auto) 5.1, Eosinophils (%) (Auto) 1.5, Basophils (%) (Auto) 0.7, Sodium Level 136, Potassium Level 3.4L, Chloride Level 102, Carbon Dioxide Level 25, Anion Gap 9, Blood Urea Nitrogen 9, Creatinine 0.8, Estimat Glomerular Filtration Rate , Glucose Level 110H, Calcium Level 10.2H, Phosphorus Level 2.8, Magnesium Level 2.0, Total Bilirubin 0.2, Direct Bilirubin < 0.1, Aspartate Amino Transf (AST/SGOT) 13L, Alanine Aminotransferase (ALT/SGPT) 12, Alkaline Phosphatase 96, Total Protein 7.9, Albumin 2.3L Height (Feet): 6 Height (Inches): 0.00 Weight (Pounds): 200 General Appearance: no apparent distress, alert Neurologic: oriented x 3, responsive Vimal Mares MD Apr 26, 2018 23:39
--- NOTE | 2018-04-27 14:23 | Discharge Summary ---
Discharge Summary Discharge Summary _ DATE OF ADMISSION: 04/11/2018 DATE OF DISCHARGE: 04/26/2018 CONSULTANTS: Dr. Vimal Rodas BRIEF HOSPITAL COURSE: Patient is a 72-year-old male with unknown medical history, presented to ED with chief complaint of dizziness and confusion. He was sitting at a restaurant he was noted to be shaking, 911 was called. Patient has injury to the right forehead and had a black eye. He stated he fell at home. He did not have any suicidal thoughts or homicidal thoughts. Denied any alcohol use. Denied any drug use. Denied any medical issues. On evaluation at ED, vital signs were stable. Blood work showed leukocytosis, WBC 12.2. Creatinine 1.5 and BUN were elevated to 38. Sodium 128, potassium 5.5, troponin was 0.067. Urinalysis showed hematuria, pyuria and positive nitrates and bacteria. He was given IV hydration. He was started on antibiotics. He was given Kayexalate. Rectal temperature showed 103. He was given Tylenol. Head CT showed chronic age-related changes, negative for acute intracranial bleed or mass effect. Chest x-ray with no acute process. He was admitted for encephalopathy, renal failure and elevated troponin. ID was consulted. He was started empirically on ceftriaxone. Psychiatric evaluation was done. He was started on Seroquel. He was seen by copyist. He was given IV hydration. He was started on aspirin urine, nitrates and beta blockers. Patient had presyncopal/syncopal event due to hypovolemia. He had slight elevation of troponin possibly due to hypovolemia and relative hypotension. Infiltrate electrocardiogram did not show any evidence of ischemia. He also had tachycardia which is secondary to hypovolemia and intravascular volume depletion. He had an echocardiogram that showed hyperdynamic left ventricular function with EF 70-75%. He was noted to have low platelet count. Just was consulted. Hepatitis and HIV were negative. Abdominal ultrasound which showed hepatosplenomegaly with questionable nodularity of the liver surface. Patient has syncope leukocytosis , possibly secondary to underlying infection. He complained of pain to the spine. X-ray of the cervical spine, thoracic spine and lumbar spine did not show any acute injury. He was seen by pain management. He was given lidocaine patch and Tylenol. Blood glucose was monitored. Hemoglobin A1c was 9.1. Coding Team Lead was consulted. He was started on Levemir and Starlix. Januvia was later added for better glucose control. Blood culture showed growth of MSSA. He complained on pain. MRI of thoracic and lumbar spine showed degenerative changes with no evidence of neural compromise. No signs of infection. Urine culture showed growth of MSSA. Patient was on Vancomycin. Antibiotic was later changed to oxacillin. Patient was confused and altered. MRI of the head showed scattered bilateral foci of diffusion restriction consistent with multiple small acute infarcts. Multiplicity indicates likely embolic etiology, and distribution over multiple vascular territories, likely cardiogenic origin. Neurologist was consulted. Patient also was noted to have 700 cc urine residual. Patient had urinary retention. A vizcaino catheter was inserted and developed hematuria. Urologist was consulted. Anticoagulants were placed on hold. Vizcaino irrigation was done. On 04/20/18, he underwent ZA. Study ruled out infective endocarditis, cardiac shunting, and left atrial appendage thrombus. The study was significant for presence of round calcified plaque formation within the ascending aorta and arch of aorta. GI was consulted for evaluation of dysphagia. Speech therapy evaluation was done and recommended videoswallow evaluation to assess for silent aspiration. However, patient unable to sit fully upright, unable to do test. For quality of life, he was recommended pureed diet with thick nectar like liquid. He was tolerating 100% of meals with strict aspiration precautions. He was continued on antibiotics, would need 6 weeks of therapy. Repeat blood culture did not isolate any growth. Urine culture showed growth of yeast. He was given fluconazole. He was continued on PT/OT/ST. He was eventually discharged to a SNF for rehabilitation. 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 Sinus tachycardia, resolved, likely secondary to hypovolemia and intravascular volume depletion. Diabetes mellitus, out of control sp fall Fungal UTI Acute hematuria Urinary retention Dehydration Low Na and high K Protein-calorie malnutrition Dementia mild Anxiety d/o Cervical Sprain Thoracic sprain Lumbar sprain DISPOSITION: Patient was discharged to [facility] I have been assigned to dictate discharge summary on this account, and I was not involved in the patient's management. Scarlet Bryson NP Apr 27, 2018 14:23
== END 2018-04-26 18:12 | DRG 871 ==
LOC: EDUNIT# 05:15 → EDBD 05:15 → EMR 05:33 → EDBEDREQ 06:41 → 2W 06:46 → EDBEDREQ 07:08 → 2W 09:36 → 2E 19:49 → 4E 04-13 13:25
PROC: B245ZZ4 Ultrasonography of Left Heart, Transesophageal (ICD-10-PCS; principal; 2018-04-20 12:00)
DX: A41.01 Sepsis due to Methicillin susceptible Staphylococcus aureus (principal); G93.41 Metabolic encephalopathy; I21.4 Non-ST elevation (NSTEMI) myocardial infarction; I63.40 Cerebral infarction due to embolism of unspecified cerebral artery; N39.0 Urinary tract infection, site not specified; B49 Unspecified mycosis; N17.9 Acute kidney failure, unspecified; E87.1 Hypo-osmolality and hyponatremia; E46 Unspecified protein-calorie malnutrition; S00.83XA Contusion of other part of head, initial encounter; S00.11XA Contusion of right eyelid and periocular area, initial encounter; W19.XXXA Unspecified fall, initial encounter; Y92.019 Unspecified place in single-family (private) house as the place of occurrence of the external cause; S13.4XXA Sprain of ligaments of cervical spine, initial encounter; S23.3XXA Sprain of ligaments of thoracic spine, initial encounter; S33.5XXA Sprain of ligaments of lumbar spine, initial encounter; N40.1 Benign prostatic hyperplasia with lower urinary tract symptoms; R33.8 Other retention of urine; K21.9 Gastro-esophageal reflux disease without esophagitis; R27.0 Ataxia, unspecified; E86.0 Dehydration; E11.65 Type 2 diabetes mellitus with hyperglycemia; E87.5 Hyperkalemia; R31.9 Hematuria, unspecified; D69.6 Thrombocytopenia, unspecified; D64.9 Anemia, unspecified; Z68.27 Body mass index [BMI] 27.0-27.9, adult; Z86.73 Personal history of transient ischemic attack (TIA), and cerebral infarction without residual deficits; R21 Rash and other nonspecific skin eruption; F03.90 Unspecified dementia, unspecified severity, without behavioral disturbance, psychotic disturbance, mood disturbance, and anxiety; F41.9 Anxiety disorder, unspecified
CPT/HCPCS: 36415; 70450; 70551; 71045; 72020; 72040; 72070; 72146; 72148; 76700; 80048; 80053; 80061; 80076; 80202; 80329; 81001; 81241; 82140; 82607; 82728; 82746; 82962; 82977; 83036; 83540; 83550; 83605; 83690; 83735; 83880; 84100; 84300; 84443; 84484; 84550; 85007; 85025; 85302; 85305; 85610; 85613; 85730; 86140; 86147; 86703; 86705; 86709; 86803; 87040; 87086; 87181; 87340; 93005; 93306; 93970; 94003; 94150; 96361; 96374; 96375; 99285; J1815; J2700; J8499; S5561